=== PATIENT | female | born 1940 | race Caucasian/White ===

== ENCOUNTER 2019-04-28 09:09 | Outpatient (CLI) | payer MEDICARE, MEDICAID, SELFPAY ==
--- NOTE | 2019-04-28 09:14 | CT_ITS ---
WS: [id number] CT NECK WITH CONTRAST HISTORY: OTHER SPECIFIED NONTOXIC GOITER TECHNIQUE: Contiguous 5 mm axial images are performed through the neck with intravenous contrast. Sag ittal and coronal reformats are also submitted. All CT scans at [facility] use at least o ne of these dose optimization techniques: automated exposure control; mA and/or kV adjustment per pat ient size (includes targeted exams where dose is matched to clinical indication); or iterative recons truction. CONTRAST: CONTRAST: Omnipaque 300; 95 mL IV. DLP: 1671.07 mGy-cm. COMPARISON: 05/19/2017 and 02/29/2016 Nasopharynx, oropharynx, hypopharynx and larynx are unremarkable. No soft tissue masses or abnormal e nhancement. Again noted is a mildly prominent RIGHT digastric muscle which is unchanged. Torus tubarius and fossa of Rosenmuller and parapharyngeal fat are normal. No significant lymphadenopathy is identified. Markedly enlarged heterogeneous LEFT thyroid. Multinodular thyroid with cystic and calcified componen ts. LEFT thyroid goiter extends over length of 5.2 cm in the LEFT neck. Substernal thyroid extends po sterior to the esophagus to the RIGHT mediastinum. Posterior esophageal component is 2.1 x 3.0 cm. Tr ansverse diameter of the main goiter is 4.1 cm. Not significantly changed in size since 02/29/2016. De viation of the trachea to the RIGHT. RIGHT thyroid lobe is normal. Degenerative disc disease and osteophytes throughout the cervical spine. 3 mm retrolisthesis of C3. Visualized portions of the skull base demonstrate no abnormalities. Orbits and globes are within norm al limits. No soft tissue masses. Visualized paranasal sinuses and mastoid air cells are normal. Dependent changes and interstitial thickening in the upper lung kirk, similar to prior studies. Pro bably related to combination of motion artifact and chronic lung disease. Similar to the prior study. Mild atherosclerosis of aorta. CT/CT neck w con* [id number] IMPRESSION: 1. Large LEFT thyroid goiter with retroesophageal extension into the RIGHT med iastinum similar in appearance as compared to 02/29/2016 and 05/19/2017. 2. No adenopathy. 3. Advanced degenerative spondylosis in the cervical spine.
[2019-04-28 09:57] LABS: Blood Urea Nitrogen 21 mg/dL (8-23)
== END 2019-04-28 09:10 | disposition home or self-care (01) ==
LOC: RADWPI 09:11
PROVIDERS: Family Provider Family Medicine; PCP Family Medicine; Visit Provider Specialist
DX: E04.8 Other specified nontoxic goiter (principal); M47.892 Other spondylosis, cervical region
CPT/HCPCS: 70491; 82565; 84520; Q9967

== ENCOUNTER 2019-05-03 08:47 | Outpatient (CLI) | payer MEDICARE, MEDICAID, SELFPAY ==
--- NOTE | 2019-05-03 09:02 | FL_ITS ---
WS: [id number] Modified barium swallow, 05/03/2019 Clinical Data: Other dysphagia Comparison: None. Fluoroscopy time: .5 minutes. Findings: The patient swallowed thin liquids, thick nectar and pudding and had no problem initiating swallowing . There was no vallecular pooling. No aspiration or penetration was seen. The patient's shoulder obs cures detail in the lower hypopharynx and upper esophagus. FL/FL barium swallow modifd [id number] Impression: Normal modified barium swallow.
== END 2019-05-03 08:48 | disposition home or self-care (01) ==
PROVIDERS: Family Provider Family Medicine; PCP Family Medicine; Visit Provider Specialist
DX: E04.8 Other specified nontoxic goiter (principal)
CPT/HCPCS: 74230; 92611

== ENCOUNTER 2019-09-05 10:29 | Outpatient (CLI) | payer MEDICARE, MEDICAID, SELFPAY ==
--- NOTE | 2019-09-05 11:02 | FL_ITS ---
WS: [id number] MODIFIED BARIUM SWALLOW HISTORY: Other dysphagia FLUOROSCOPY TIME: 1.3 minutes. Modified barium swallow was performed by the speech pathologist. Fluoroscopy was provided with the pa tient in a lateral projection. Multiple food consistencies were provided. Patient to follow all food consistencies without difficulty. No aspiration. With the thin liquid erik ral episodes of laryngeal penetration were evident. Barium tablet was swallowed without difficulty. FL/FL barium swallow modifd [id number] IMPRESSION: Minimal laryngeal penetration was noted with the thin liquids. Otherwise negati ve. Please see speech therapist report also for recommendations.
== END 2019-09-05 10:30 | disposition home or self-care (01) ==
PROVIDERS: PCP Family Medicine; Visit Provider Family Medicine
DX: R13.19 Other dysphagia
CPT/HCPCS: 74230; 92611

== ENCOUNTER 2019-10-07 08:39 | Outpatient (CLI) | payer MEDICARE, MEDICAID, SELFPAY ==
--- NOTE | 2019-10-07 08:57 | CT_ITS ---
WS: [id number] CT NECK TECHNIQUE: Contrast-enhanced CT of the neck with coronal and sagittal reformatted images. CLINICAL INFORMATION: NON TOXIC GOITER COMPARISON: CT 04/28/2019 and 05/19/2017 DLP: 1882.[address] scans at [facility] use at least one of these dose optimization techniques: automat ed exposure control; mA and/or kV adjustment per patient size (includes targeted exams where dose is matched to clinical indication); or iterative reconstruction. FINDINGS: Again seen is the enlarged heterogeneous thyroid goiter. Multinodular goiter with heterogeneous cysti c and calcified nodules. Left thyroid goiter measures approximately 2.6 x 5.4 x 3.5 CM AP by transver se by craniocaudal unchanged from previous. Associated mass effect on the trachea. Stable retroesopha geal component measuring 2.2 x 3.0 CM. Left thyroid goiter extends substernally into the thoracic inl et unchanged. Right thyroid is normal. Submandibular glands are normal. Parotid glands are normal. Normal posterior nasopharynx. Normal para pharyngeal fat. Mastoid air cells are well aerated. Paranasal sinuses are well aerated. Moderate spon dylitic changes cervical spine with disc osteophyte complexes. IMPRESSION: 1. Large left thyroid goiter with substernal and retroesophageal extension not significantly changed . Heterogeneous cystic and solid thyroid nodules unchanged. 2. Salivary glands are normal. 3. No cervical lymphadenopathy.
[2019-10-07] MEDS: iohexol 300 mg/mL 100 mL Btl IV (09:18)
== END 2019-10-07 08:40 | disposition home or self-care (01) ==
LOC: RADWPI 08:42
PROVIDERS: PCP Family Medicine; Visit Provider Specialist
DX: E04.8 Other specified nontoxic goiter (principal)
CPT/HCPCS: 70491; Q9967

== ENCOUNTER 2019-10-14 09:06 | Outpatient (CLI) | payer MEDICARE, MEDICAID, SELFPAY ==
--- NOTE | 2019-10-14 09:53 | USCV_ITS ---
Florencia Bradley Age: 79 Gender: F : 1940 Exam Date: 10/14/2019 10:29 Ordering Phys: Claudia Christian MD Technologist: Keri Capellan [place] [facility] [place]: [place] BP: / HR: 68 Rhythm: Sinus Technical Quality: TDS MEASUREMENTS (Male / Female) Normal Values 2D ECHO LV Diastolic Diameter PLAX 4.7 cm 4.2 - 5.9 / 3.9 - 5.3 cm LV Systolic Diameter PLAX 3.1 cm LV Chamber Size 4.1 cm IVS Diastolic Thickness 1.1 cm 0.6 - 1.0 / 0.6 - 0.9 cm IVS Systolic Thickness 1.8 cm LVPW Diastolic Thickness 1.3 cm 0.6 - 1.0 / 0.6 - 0.9 cm LVPW Systolic Thickness 1.6 cm RV Chamber Size 3.4 cm LVOT Diameter 2.0 cm LV Ejection Fraction 2D Teich 64.0 % LV Ejection Fraction MOD 2C 71.6 % LV Ejection Fraction 2C AL 71.6 % LA Diameter 4.1 cm LA Width 3.1 cm LA Height 4.0 cm RA Width 3.9 cm RA Height 4.1 cm Aorta at Sinotubular Diameter 2.6 cm M-MODE LV Diastolic Diameter MM 5.5 cm 4.2 - 5.9 / 3.9 - 5.3 cm LV Systolic Diameter MM 3.5 cm LV Ejection Fraction MM Teich 65.7 % IVS Diastolic Thickness MM 0.9 cm 0.6 - 1.0 / 0.6 - 0.9 cm IVS Systolic Thickness MM 1.3 cm LVPW Diastolic Thickness MM 1.5 cm 0.6 - 1.0 / 0.6 - 0.9 cm LVPW Systolic Thickness MM 1.2 cm RV Diastolic Diameter MM 2.9 cm Aortic Annulus Diameter 2.5 cm LA Ao Ratio MM 1.6 MV E Point Septal Separation 0.5 cm DOPPLER AV Peak Velocity 168.0 cm/s LVOT Peak Velocity 87.0 cm/s AV Area Cont Eq vti 1.7 cm squared AV Area Cont Eq pk 1.7 cm squared MV Area PHT 5.0 cm squared Mitral E to A Ratio 1.0 MV E' Velocity 8.0 cm/s Mitral E to MV E' Ratio 15.2 Mitral E to LV E' Lateral Ratio 13.1 Mitral E to LV E' Septal Ratio 18.3 TR Peak Velocity 177.2 cm/s TR Peak Gradient 12.6 mmHg TR Mean Velocity 120.0 cm/s TR Mean Gradient 7.0 mmHg TR Velocity Time Integral 38.0 cm TV Peak E Velocity 80.0 cm/s Right Atrial Pressure 8.0 mmHg Pulmonary Artery Systolic Pressu 20.6 mmHg PV Peak Velocity 112.0 cm/s RV Acceleration Time 0.1 s RV Ejection Time 0.4 s RV AcT/ET 0.3 FINDINGS Left Ventricle Normal left ventricular size, systolic function and wall thickness. Left ventricular ejection fraction is estimated at 65 %. No diagnostic regional wall motion abnormality based on the study. Abnormal septal motion. Grade 1 diastolic dysfunction with normal to mildly elevated filling pressure. Right Ventricle Normal right ventricular size and systolic function, RVSP 25 mmHg. Right Atrium Right atrium not well visualized. Right atrial pressure estimated at 3 mmHg. Left Atrium Left atrium not well visualized. Probably mildly increased left atrial size. Mitral Valve Mild mitral annular calcification. Mildly thickened mitral valve. No mitral valve stenosis. Trace mitral valve regurgitation. Aortic Valve Structurally normal trileaflet aortic valve. No aortic valve stenosis. Tricuspid Valve Structurally normal tricuspid valve. Trace tricuspid valve regurgitation. Pulmonic Valve Pulmonic valve not well visualized. Pericardium No pericardial effusion. Aorta Normal-sized aortic root. CONCLUSIONS 1. Normal left ventricular size, systolic function and wall thickness. Left ventricular ejection fraction is estimated at 65 %. No diagnostic regional wall motion abnormality based on the study. Abnormal septal motion. Grade 1 diastolic dysfunction with normal to mildly elevated filling pressure. 2. Normal right ventricular size and systolic function, RVSP 25 mmHg. 3. Right atrial pressure estimated at 3 mmHg. 4. Probably mildly increased left atrial size. 5. No significant valvular abnormality. 6. No prior similar studies to compare. Jaon Pagan MD (Electronically Signed) Final Date: 14 October 2019 13:37 S
--- NOTE | 2019-10-14 12:27 | PFTS_ITS ---
Date of Study:10/14/19 Date of Dictation: MECHANICS: Forced vital capacity (FVC) is normal. Forced expiratory volume in one second (FEV1) is normal. FEV1/FVC is normal. FLOW VOLUME LOOP: Mild scooping. LUNG VOLUMES: Total lung capacity (TLC) is normal. Residual volume (RV) is normal. DIFFUSING CAPACITY FOR CARBON MONOXIDE: Normal. INTERPRETATION: The pulmonary function tests are normal. There is no significant postbronchodilator response. Lung volumes are normal. Gas exchange (DLCO) is normal. MTDD
== END 2019-10-14 09:07 | disposition home or self-care (01) ==
LOC: RT 09:07
PROVIDERS: PCP Family Medicine; Visit Provider Internal Medicine Critical Care Medicine
DX: J96.11 Chronic respiratory failure with hypoxia (principal); I51.81 Takotsubo syndrome
CPT/HCPCS: 93306; 94060; 94726; 94729; J7611

== ENCOUNTER 2019-11-07 11:00 | Outpatient (CLI) | payer MEDICARE, MEDICAID, SELFPAY | END 2019-11-07 11:01 | disposition home or self-care (01) | LOC: SLEEP 11-08 10:26 | PROVIDERS: PCP Family Medicine; Visit Provider Internal Medicine Critical Care Medicine | DX: J96.11 Chronic respiratory failure with hypoxia (principal) | CPT/HCPCS: 94762 ==

== ENCOUNTER 2020-07-23 12:21 | Outpatient (CLI) | payer MEDICARE, MEDICAID, SELFPAY | END 2020-07-23 12:22 | disposition home or self-care (01) | LOC: SPT 12:22 | PROVIDERS: PCP Family Medicine; Visit Provider Orthopaedic Surgery | DX: Z46.89 Encounter for fitting and adjustment of other specified devices (principal); M19.031 Primary osteoarthritis, right wrist | CPT/HCPCS: L3908 ==

== ENCOUNTER 2021-11-20 17:00 | Emergency (ER) | payer MEDICARE, MEDICAID, SELFPAY ==
--- NOTE | 2021-11-20 | XRR_ITS ---
PROCEDURE INFORMATION: Exam: XR Pelvis Exam date and time: 11/20/2021 7:50 PM Age: 81 years old Clinical indication: Pelvic pain TECHNIQUE: Imaging protocol: Radiologic exam of the pelvis. Views: 1 or 2 view. COMPARISON: CR Hip 2-3v RIGHT wwo Pelv* [id number] 04/14/2017 6:17 AM FINDINGS: Bones/joints: Osteopenia limiting assessment of nondisplaced acute osseous injury. Bilateral total hip prostheses in good and stable alignment. No obvious displaced acute fracture or dislocation. Leftward lower lumbar spine scoliosis with multilevel disc degeneration. Soft tissues: Unremarkable. Other findings: Two views submitted. XR/XR pelvis 1-2V* [id number] IMPRESSION: Osteopenia limiting assessment of nondisplaced acute osseous injury. No obvious acute fracture is seen otherwise. Bilateral hip prostheses in good alignment.
--- NOTE | 2021-11-20 18:22 | CTR_ITS ---
PROCEDURE INFORMATION: Exam: CT Lumbar Spine Without Contrast Exam date and time: 11/20/2021 7:34 PM Age: 81 years old Clinical indication: Low back pain TECHNIQUE: Imaging protocol: Computed tomography of the lumbar spine without contrast. Radiation optimization: All CT scans at this facility use at least one of these dose optimization techniques: automated exposure control; mA and/or kV adjustment per patient size (includes targeted exams where dose is matched to clinical indication); or iterative reconstruction. COMPARISON: No relevant prior studies available. RADIATION DOSE METRICS: Total DLP (mGy-cm): 524.23 FINDINGS: Bones/joints: Osteopenia. Rotatory leftward scoliosis of lumbar spine. Multilevel severe vacuum disc degeneration with endplate osteophytes and facet arthropathy. Minimal anterior wedging deformity at L3 with no discrete fracture and is probably chronic however clinical correlation/comparison prior study should be obtained. Otherwise no acute lumbar spine fracture or subluxation. Deformity of left L2 transverse process is likely related to old healed fracture. L1-L2: No significant disc protrusion. No severe spinal canal stenosis. No significant neural foraminal narrowing. L2-L3: No significant disc protrusion. No severe spinal canal stenosis. No significant neural foraminal narrowing. L3-L4: No significant disc protrusion. No severe spinal canal stenosis. No significant neural foraminal narrowing. L4-L5: No significant disc protrusion. No severe spinal central canal stenosis. Disc osteophyte complex and hypertrophic facet elements likely resulting in foraminal stenosis. L5-S1: No significant disc protrusion. No severe spinal canal stenosis. Disc osteophyte complex and hypertrophic facet elements likely resulting in foraminal stenosis. Mediastinal space: Hiatal hernia measuring about 3.4 cm. Vasculature: Calcified splenic granuloma. Soft tissues: Unremarkable. CT/CT lumbar spine wo con* [id number] IMPRESSION: 1. Slight anterior wedging deformity at L3 which is possibly chronic. See discussion above. Otherwise no acute spine fracture-subluxation. Multilevel disc disease and chronic endplate/facet disease with spondylosis as described above. No significant central canal stenosis related to osseous elements. 2. Hiatal hernia.
[2021-11-20 18:44] VITALS: BP 181/73; PULSE 75; RESP 18; TEMP 37; O2SAT 95; BMI 51.5
--- NOTE | 2021-11-20 19:12 | ED_ITS ---
HPI - Back Pain/Injury General: Chief Complaint: Back Pain/Injury Stated Complaint: LOW BACK PAIN Time Seen by Provider: 11/20/21 19:01 History of Present Illness: 81-year-old female comes in today with complaints of right lower back pain. Patient reports that the pain started this morning and has persisted throughout the day. Patient did have improvement of the pain after taking her tramadol and acetaminophen. Patient was concerned that due to the pain persisting that there may be something else going on. Patient appears nontoxic. Patient appears in mild to moderate pain at rest at this time. Patient does have a history of chronic back problems and bilateral hip and kassy ateral knee replacements. Review of Systems General: Reports: 10 or more systems reviewed and unremarkable except in HPI and below Musc: Reports: back pain PFSH ED PFSH: Medical History (Updated 11/20/21 @ 20:55 by CELINE Morales) Asthma CAD (coronary artery disease) Cataracts, bilateral GERD (gastroesophageal reflux disease) Glaucoma Goiter HTN (hypertension) Hyperlipidemia PAULA (obstructive sleep apnea) Type 2 diabetes mellitus Surgical History H/O dilation and curettage H/O rotator cuff surgery H/O shoulder surgery History of cholecystectomy History of hip replacement, total History of hysterectomy History of knee replacement Hx of cataract surgery Hx of tonsillectomy Stented coronary artery Family History Father Myocardial infarction Mother Diabetes Social History Smoking and tobacco status: never smoked Second hand smoke exposure: Yes Alcohol intake: never Lives independently: Yes Household members: family Marital status: Current occupational status: retired and disabled History of recent travel: No Current gender identity: Female Physical Exam Const: COMMON NORMALS: alert HENMT: COMMON NORMALS: normocephalic HEAD & SCALP: normocephalic Neck/C-Spine: COMMON NORMALS: full ROM Resp: COMMON NORMALS: normal respiratory effort Cardio: COMMON NORMALS: regular rate RATE: regular rate Back/Pelvis: THORACIC SPINE/UPPER BACK: No thoracic spinal tenderness LUMBAR SPINE/LOWER BACK: No lumbar spinal tenderness, Yes paraspinal muscle tenderness Lumbar paraspinal muscle tenderness: right and Yes straight leg raise negative bilaterally Extremity: COMMON NORMALS: normal to inspection Neuro: SENSORIUM/ORIENTATION: Yes alert Skin: COMMON NORMALS: no rashes or lesions noted GENERAL SKIN EXAM: no rashes or lesions noted Course Vital Signs: Vital signs: Vital Signs Temperature 98.6 F 11/20/21 18:44 Pulse Rate 78 11/20/21 20:20 Respiratory Rate 18 11/20/21 20:20 Blood Pressure 172/70 11/20/21 20:20 Pulse Oximetry 96 11/20/21 20:20 Oxygen Delivery Me thod 11/20/21 20:20 Oxygen Flow Rate 3 11/20/21 20:20 MDM - Back Pain/Injury Medical Decision Making 81-year-old female comes in today for complaints of right-sided low back pain. Patient reports in the morning she usually wakes up and has pain that seems to resolve throughout the day. Today she is had persistent pain. On exam there is no significant spinal tenderness. Patient does have some right-sided paraspinous lumbar tenderness. Vital signs are normal except for some elevation in blood pressure. Differential diagnosis includes but not limited to intervertebral disc disease, fracture, facet arthropathy. X-rays noted no acute fractures. Patient does have a old wedge deformity to her L3 vertebra. Reviewed exam with patient with recommendations for treatment and follow-up. Patient has tramadol and acetaminophen at home which I recommended that she use more routinely for her pain. Patient should follow-up with her primary care for further instruction. Return to ER for new concerns, patient reported understanding. Labs Radiology Impressions Pelvis X-Ray 11/20/21 00:00 IMPRESSION: Osteopenia limiting assessment of nondisplaced acute osseous injury. No obvious acute fracture is seen otherwise. Bilateral hip prostheses in good alignment. Lumbar Spine CT 11/20/21 18:22 IMPRESSION: 1. Slight anterior wedging deformity at L3 which is possibly chronic. See discussion above. Otherwise no acute spine fracture-subluxation. Multilevel disc disease and chronic endplate/facet disease with spondylosis as described above. No significant central canal stenosis related to osseous elements. 2. Hiatal hernia. Laboratory Results POC Glucose 136 mg/dL (70-110) H 11/20/21 20:31 Discharge Plan Discharge Patient Disposition: Home Clinical Impression: Back pain, Compression fracture of lumbosacral vertebra, nontraumatic Condition: Stable Prescriptions: No Action albuterol sulfate [Ventolin HFA] 90 mcg/actuation HFA aerosol inhaler 2 puff INHALATION Q6H PRN celecoxib 200 mg capsule 200 mg PO BID aspirin [Adult Aspirin Regimen] 81 mg tablet,delayed release (DR/EC) 81 mg PO DAILY metformin 500 mg tablet 500 mg PO DAILY Tradjenta 5 mg tablet 5 mg PO DAILY valsartan 40 mg tablet 40 mg PO DAILY pravastatin 80 mg tablet 80 mg PO DAILY omeprazole 40 mg capsule,delayed release(DR/EC) 40 mg PO DAILY furosemide 40 mg tablet 40 mg PO DAILY tramadol 50 mg tablet 100 mg PO BID fluticasone propionate [Flonase Allergy Relief] 50 mcg/actuation spray,suspension 2 spray INTRANASAL DAILY Rx Instructions: administer into each nostril Combigan 0.2-0.5 % drops 1 drop ophthalmic (eye) BID acetaminophen PO calcium carbonate [Calcium 600] 600 mg calcium (1,500 mg) tablet 600 mg PO DAILY travoprost [Travatan Z] 0.004 % drops 1 drop ophthalmic (eye) DAILY (DME) Cock Up Splint See Rx Instructions .ROUTE .MEDSUPPLY Qty: 1 0RF Rx Instructions: As directed isosorbide mononitrate 120 mg tablet extended release 24 hr 120 mg PO DAILY Qty: 90 3RF metoprolol tartrate 50 mg tablet 50 mg PO BID Qty: 180 3RF chlorthalidone 25 mg tablet 25 mg PO DAILY Qty: 30 0RF Rx Instructions: Needs appointment budesonide-formoterol [Symbicort] 80-4.5 mcg/actuation HFA aerosol inhaler 2 puff inhalation Q12H Qty: 30.6 6RF amlodipine 10 mg tablet See Rx Instructions .ROUTE .COMPLEX Qty: 90 3RF Dose Instruction: TAKE 1 TABLET BY MOUTH EVERY DAY Rx Instructions: TAKE 1 TABLET BY MOUTH EVERY DAY Discharge Orders: Discharge ED (Routine); Ordered 11/20/21 Ordered By: Yvan Gallardo Referrals: Madhu Stern MD [Primary Care Provider] - Discharge Diet: Usual diet Discharge Activity: Increase activity as tolerated Patient Instructions: Back Pain (ED) Activity Restrictions/Additional Instructions: Home and rest. Activity as tolerated. Continue with routine medications as directed. Follow-up with primary care for further instruction. Return to ER for new concerns. Coding Level of Care Code ED Drug Room Operator for Chg Fwd Exam Comprehensive
[2021-11-20] MEDS: HYDROcodone-acetaminophen 5-325 mg Tablet 1 TAB PO (20:08)
[2021-11-20 20:20] VITALS: BP 172/70; PULSE 78; RESP 18; O2SAT 96
[2021-11-20 20:34] LABS: Glucose Point of Care 136 mg/dL (70-110)
== END 2021-11-20 21:56 | disposition home or self-care (01) ==
PROVIDERS: Emergency Provider Nurse Practitioner Family; PCP Family Medicine
DX: M48.57XA Collapsed vertebra, not elsewhere classified, lumbosacral region, initial encounter for fracture (principal); Z79.82 Long term (current) use of aspirin; Z79.84 Long term (current) use of oral hypoglycemic drugs; Z77.22 Contact with and (suspected) exposure to environmental tobacco smoke (acute) (chronic); I25.10 Atherosclerotic heart disease of native coronary artery without angina pectoris; I10 Essential (primary) hypertension; E78.5 Hyperlipidemia, unspecified; E11.9 Type 2 diabetes mellitus without complications
CPT/HCPCS: 36416; 72131; 72170; 82962; 99284

== ENCOUNTER 2022-04-26 15:10 | Inpatient (IN) | payer MEDICARE, MEDICAID, SELFPAY ==
[2022-04-26] VITALS (9 sets, daily range): BP systolic 131–185; BP diastolic 51–75; PULSE 46–66; RESP 17–24; TEMP 36.6–36.8; O2SAT 91–95; BMI 54.1
--- NOTE | 2022-04-26 15:14 | W.ED.ARRPALP ---
HPI - Arrhythmia/Palpitations General: Chief Complaint: Dizziness Stated Complaint: DIZZY; BRADYCARDIA Time Seen by Provider: 04/26/22 15:13 Source: patient Mode of arrival: EMS History of Present Illness: 82-year-old female presents emergency room with complaints of dizziness as well as bradycardia. Patient got up this morning said she was drinking coffee got lightheaded and dizzy and found that when she sat up it was significantly worse. 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 She has a known history of coronary disease. She relates some occasional mild chest discomfort at most once a week that is unchanged over time and has not recently increased in intensity or frequency. She not having any chest discomfort at this time. When she sits up in the bed for exam she has worsening dizziness. When she got up to the bedside commode she also had worsening dizziness she has noted that when she lays down it is better. Onset (ago): hour(s) Duration: intermittent Severity: mild Context: occurred during exertion Arrhythmia history: atrial fibrillation Associated symptoms: Deny anxiety, cough, diaphoresis, muscle cramps, nausea, paresthesias, pre-syncope, sense of impending doom, short of breath, syncope or vomiting Review of Systems Const: Denies: fever(s), chills, fatigue, malaise or diaphoresis ENMT: Denies: throat pain, ear or mastoid pain, nasal discharge or nasal congestion Card: Reports: palpitations, dyspnea on exertion and orthopnea; Denies: chest pain, irregular heart rhythm, edema, syncope or pre-syncope Resp: Reports: dyspnea and productive cough; Denies: non-productive cough GI: Denies: abdominal pain, nausea or vomiting : Denies: flank pain, difficulty voiding, dysuria, urinary frequency or urinary urgency Musc: Denies: muscle cramps Skin/Breast: Denies: rash or pruritus Psych: Denies: anxiety PFSH ED PFSH: Medical History (Updated 04/26/22 @ 18:46 by Norman Pastor DO) Asthma CAD (coronary artery disease) Cataracts, bilateral GERD (gastroesophageal reflux disease) Glaucoma Goiter HTN (hypertension) Hyperlipidemia PAULA (obstructive sleep apnea) Type 2 diabetes mellitus Surgical History H/O dilation and curettage H/O rotator cuff surgery H/O shoulder surgery History of cholecystectomy History of hip replacement, total History of hysterectomy History of knee replacement Hx of cataract surgery Hx of tonsillectomy Stented coronary artery Family History Father Myocardial infarction Mother Diabetes Social History Smoking and tobacco status: never smoked Second hand smoke exposure: Yes Alcohol intake: never Lives independently: Yes Household members: family Marital status: Current occupational status: retired and disabled History of recent travel: No Current gender identity: Female Physical Exam Const: COMMON NORMALS: no acute distress GENERAL APPEARANCE: cooperative and comfortable ORIENTATION/CONSCIOUSNESS: Yes awake, Yes oriented to person, Yes oriented to place and Yes oriented to time HENMT: COMMON NORMALS: normocephalic, atraumatic and hearing grossly normal bilaterally HEAD & SCALP: normocephalic and atraumatic Resp: COMMON NORMALS: normal respiratory effort, No retractions, No use of accessory muscles and clear to auscultation bilaterally AUSCULTATION: clear to auscultation bilaterally Cardio: COMMON NORMALS: regular rhythm and No murmurs present (Cardio) RATE: bradycardic RHYTHM: regular rhythm GI: COMMON NORMALS: Soft to palpation and No hepatosplenomegaly present AUSCULTATION: Yes normoactive bowel sounds PALPATION: Yes Soft to palpation, No Tenderness to palpation present (GI), No Guarding due to palpation present (GI) and Yes No hepatosplenomegaly present Extremity: COMMON NORMALS: normal to inspection, capillary refill normal, no clubbing, cyanosis or edema, no calf tenderness and no pedal edema Neuro: SENSORIUM/ORIENTATION: Yes oriented to person, Yes oriented to place and Yes oriented to time Skin: COMMON NORMALS: no rashes or lesions noted GENERAL SKIN EXAM: no rashes or lesions noted Course Vital Signs: Vital signs: Vital Signs Pulse Rate 63 04/26/22 16:18 Respiratory Rate 23 H 04/26/22 16:18 Blood Pressure 143/51 04/26/22 16:18 Pulse Oximetry 95 04/26/22 16:18 Oxygen Delivery Me thod 04/26/22 16:18 Oxygen Flow Rate 5 04/26/22 16:18 MDM - Arrhythmia/Palpitations Medical Decision Making Patient has obesity hypoventilation syndrome. She was relatively bradycardic in route however she is on a beta-dougie. She has been mildly hypertensive in the emergency room. She had an echocardiogram 2 years ago that was unremarkable and normal ejection fraction. Chest x-ray early pneumonia, and increased cardiomegaly from previous. She is getting dizzy with exertion and hypoxic. We ambulated her she desatted into the mid 80s on her usual 3 L and became dizzy. Her desaturation began even with sitting up at the bedside. Her BNP is over 2000 do not have a previous BNP to compare to her troponin is only slightly bumped however. Will admit started on ceftriaxone and Zithromax based on the chest x-ray also get echocardiogram to further evaluate. Medical Records I reviewed the patient's medical records. Lab Data I reviewed the patient's lab results. 04/26/22 16:28 04/26/22 16:28 Radiology Impressions Chest X-Ray 04/26/22 16:10 IMPRESSION: 1. Cardiomegaly with elevated central venous pressure. 2. Findings involving the right lower lung zone concerning for pneumonia. Laboratory Results WBC 7.7 10^3/uL (4.0-10.0) 04/26/22 16: RBC 4.40 10^6/uL (4.1-5.3) 04/26/22 16:28 Hgb 11.0 g/dL (11.5-15.3) L 04/26/22 16:28 Hct 37.8 % (37.0-47.0) 04/26/22 16: MCV 85.9 fl (81-99) 04/26/22 16:28 MCH 25.0 pg (28.0-34.0) L 04/26/22 16: MCHC 29.1 g/dL (30.0-36.0) L 04/26/22 16:28 RDW 15.8 % (12.1-15.1) H 04/26/22 16:28 Plt Count 199 10^3/cmm (130-400) 04/26/22 16:28 MPV 10.5 fL (7.4-10.4) H 04/26/22 16:28 Neut % (Auto) 66.4 % 04/26/22 16:28 Lymph % (Auto) 17.3 % 04/26/22 16:28 Sierra % (Auto) 10.1 % 04/26/22 16:28 Eos % (Auto) 4.9 % 04/26/22 16:28 Baso % (Auto) 0.9 % 04/26/22 16:28 Neut # (Auto) 5.10 10^3/uL (1.8-7.7) 04/26/22 16:28 Lymph # (Auto) 1.3 10^3/uL (0.8-4.8) 04/26/22 16:28 Sierra # (Auto) 0.8 10^3/uL (0.2-0.9) 04/26/22 16:28 Eos # (Auto) 0.4 10^3/uL (0.0-0.8) 04/26/22 16:28 Baso # (Auto) 0.1 10^3/uL (0.0-0.1) 04/26/22 16:28 Nucleated RBC % (auto) 0 % 04/26/22 16:28 Nucleated RBCs # 0.0 /100WBC 04/26/22 16:28 Sodium 138 mmol/L (136-145) 04/26/22 16:28 Potassium 5.1 mmol/L (3.5-5.1) 04/26/22 16:28 Chloride 105 mmol/L (98-107) 04/26/22 16:28 Carbon Dioxide 23 mmol/L (22-29) 04/26/22 16:28 Anion Gap 15.1 (5-19) 04/26/22 16:28 BUN 31 mg/dL (8-23) H 04/26/22 16:28 Creatinine 0.7 mg/dL (0.5-0.9) 04/26/22 16:28 GFR Calculation Not Reportable 04/26/22 16:28 Glucose 116 mg/dL (65-115) H 04/26/22 16:28 Calculated Osmolality 294 mOsm/kg (285-295) 04/26/22 16:28 Calcium 8.9 mg/dL (8.5-10.5) 04/26/22 16:28 Total Bilirubin 0.7 mg/dL (0.15-1.2) 04/26/22 16:28 AST 15 U/L (0-32) 04/26/22 16:28 ALT 10 U/L (0-33) 04/26/22 16:28 Alkaline Phosphatase 75 U/L (35-105) 04/26/22 16:28 Troponin T Baseline 13 ng/L (0-10) H 04/26/22 16:28 NT-Pro-B Natriuret Pep 2099 pg/mL (0-450) H 04/26/22 16:28 Total Protein 6.7 g/dL (6.6-8.7) 04/26/22 16:28 Albumin 4.4 g/dL (3.5-5.2) 04/26/22 16:28 Globulin 2.3 g/dL (1.3-4.6) 04/26/22 16:28 Influenza Type A Ag negative (Negative) 04/26/22 17:04 Influenza Type B Ag negative (Negative) 04/26/22 17:04 Discharge Plan Discharge Patient Disposition: Placed in Observation Clinical Impression: Pneumonia, Hypoxia, Cardiomegaly Condition: Stable Prescriptions: No Action albuterol sulfate [Ventolin HFA] 90 mcg/actuation HFA aerosol inhaler 2 puff INHALATION Q6H PRN celecoxib 200 mg capsule 200 mg PO BID aspirin [Adult Aspirin Regimen] 81 mg tablet,delayed release (DR/EC) 81 mg PO DAILY metformin 500 mg tablet 500 mg PO DAILY Tradjenta 5 mg tablet 5 mg PO DAILY valsartan 40 mg tablet 40 mg PO DAILY pravastatin 80 mg tablet 80 mg PO DAILY omeprazole 40 mg capsule,delayed release(DR/EC) 40 mg PO DAILY furosemide 40 mg tablet 40 mg PO DAILY tramadol 50 mg tablet 100 mg PO BID fluticasone propionate [Flonase Allergy Relief] 50 mcg/actuation spray,suspension 2 spray INTRANASAL DAILY Rx Instructions: administer into each nostril Combigan 0.2-0.5 % drops 1 drop ophthalmic (eye) BID acetaminophen PO calcium carbonate [Calcium 600] 600 mg calcium (1,500 mg) tablet 600 mg PO DAILY travoprost [Travatan Z] 0.004 % drops 1 drop ophthalmic (eye) DAILY (DME) Cock Up Splint See Rx Instructions .ROUTE .MEDSUPPLY Qty: 1 0RF Rx Instructions: As directed isosorbide mononitrate 120 mg tablet extended release 24 hr 120 mg PO DAILY Qty: 90 3RF metoprolol tartrate 50 mg tablet 50 mg PO BID Qty: 180 3RF chlorthalidone 25 mg tablet 25 mg PO DAILY Qty: 30 0RF Rx Instructions: Needs appointment budesonide-formoterol [Symbicort] 80-4.5 mcg/actuation HFA aerosol inhaler 2 puff inhalation Q12H Qty: 30.6 6RF amlodipine 10 mg tablet See Rx Instructions .ROUTE .COMPLEX Qty: 90 3RF Dose Instruction: TAKE 1 TABLET BY MOUTH EVERY DAY Rx Instructions: TAKE 1 TABLET BY MOUTH EVERY DAY Referrals: Madhu Stern MD [Primary Care Provider] - Patient Instructions: Opioid Safety, Pain Management Coding Level of Care Code ED Repair Table Operator for Chg Fwd Exam Detailed
--- NOTE | 2022-04-26 15:36 | ECG_ITS ---
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 Measurements Intervals [place] Rate: 54 P: 0 NM: 0 QRS: 72 QRSD: 85 T: 87 QT: 427 QTc: 407 Interpretive Statements ATRIAL FIBRILLATION WITH SLOW VENTRICULAR RESPONSE LOW QRS VOLTAGE [QRS DEFLECTION < 0.5/1.0 mV IN LIMB/CHEST LEADS] POSSIBLE ANTERIOR MYOCARDIAL INFARCTION , PROBABLY OLD [30 ms Q WAVE IN V3/V4, OR R < 0.2 mV IN V4] Compared to ECG 04/14/2017 06:06:49 Myocardial infarct finding now present Sinus bradycardia no longer present Sinus arrhythmia no longer present First degree AV block no longer present ST (T wave) deviation no longer present Electronically Signed On 04-27-2022 20:10:49 ORAL SURGERY PHYSICIAN by Omkar Dunn M.D. [id number] lambert
--- NOTE | 2022-04-26 16:10 | XRR_ITS ---
PROCEDURE INFORMATION: Exam: XR Chest Exam date and time: 04/26/2022 4:18 PM Age: 82 years old Clinical indication: Cough and dyspnea; Patient HX: Dyspnea, cough, bradycardia, dizziness, symptom onset today. ; Additional info: Dyspnea/cough TECHNIQUE: Imaging protocol: Radiologic exam of the chest. Views: 1 view. COMPARISON: CR XR chest 2V* [id number] 08/22/2019 1:32 PM FINDINGS: Lungs: There is prominence of the right hilum with faint peribronchial opacities extending below the right hilum into the right lower lobe that may be due to pneumonia in needs follow-up. Remaining lung kirk are essentially clear for degree of inspiration. Pleural spaces: Unremarkable. No pleural effusion. No pneumothorax. Heart/Mediastinum: Cardiac silhouette is enlarged. There is pulmonary vascular redistribution indicating elevated central venous pressure. Bones/joints: Unremarkable for age. XR/XR chest 1V portable [id number] IMPRESSION: 1. Cardiomegaly with elevated central venous pressure. 2. Findings involving the right lower lung zone concerning for pneumonia.
[2022-04-26 16:36] LABS: Basophils # 0.1 10^3/uL (0.0-0.1); Basophils % 0.9 %; Eosinophils # 0.4 10^3/uL (0.0-0.8); Eosinophils % 4.9 %; Hematocrit 37.8 % (37.0-47.0); Lymphocytes # 1.3 10^3/uL (0.8-4.8); Lymphocytes % 17.3 %; Mean Corpuscular HGB Conc 29.1 g/dL (30.0-36.0); Mean Corpuscular Volume 85.9 fl (81-99); Mean Platelet Volume 10.5 fL (7.4-10.4); Monocytes # 0.8 10^3/uL (0.2-0.9); Monocytes % 10.1 %; Neutrophils % 66.4 %; Nucleated Red Blood Cells % 0 %; Platelet Count 199 10^3/cmm (130-400); Red Cell Distribution Width 15.8 % (12.1-15.1); White Blood Count 7.7 10^3/uL (4.0-10.0)
[2022-04-26 16:55] LABS: Troponin(5th) Baseline 13 ng/L (0-10)
[2022-04-26 17:02] LABS: Alanine Aminotransferase 10 U/L (0-33); Albumin Level 4.4 g/dL (3.5-5.2); Alkaline Phosphatase 75 U/L (35-105); Anion Gap 15.1 (5-19); Aspartate Amino Transferase 15 U/L (0-32); Blood Urea Nitrogen 31 mg/dL (8-23); Calcium 8.9 mg/dL (8.5-10.5); Carbon Dioxide 23 mmol/L (22-29); Chloride 105 mmol/L (98-107); Globulin 2.3 g/dL (1.3-4.6); Glucose 116 mg/dL (65-115); NT Pro B Type Natriuretic Pept 2099 pg/mL (0-450); Osmolality Calculated 294 mOsm/kg (285-295); Potassium 5.1 mmol/L (3.5-5.1); Sodium 138 mmol/L (136-145); Total Bilirubin 0.7 mg/dL (0.15-1.2); Total Protein 6.7 g/dL (6.6-8.7)
--- NOTE | 2022-04-26 17:07 | PC.NURSE ---
PT PLACED ON CONTINUOUS NIBP, SPO2, AND CM
--- NOTE | 2022-04-26 17:15 | ECG_ITS ---
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 Measurements Intervals [place] Rate: 59 P: 0 WA: 0 QRS: 48 QRSD: 117 T: 86 QT: 409 QTc: 408 Interpretive Statements ATRIAL FIBRILLATION WITH SLOW VENTRICULAR RESPONSE LOW QRS VOLTAGE IN PRECORDIAL LEADS [QRS DEFLECTION < 1.0 mV IN CHEST LEADS] POSSIBLE ANTERIOR MYOCARDIAL INFARCTION , PROBABLY OLD [30 ms Q WAVE IN V3/V4, OR R < 0.2 mV IN V4] ABNORMAL RHYTHM ECG Compared to ECG 04/26/2022 15:36:04 No significant changes Electronically Signed On 04-27-2022 20:22:47 LOGGER DRIVING HORSES by Omkar Dunn M.D. [id number]
[2022-04-26 17:33] LABS: Influenza A by IFA negative (Negative); Influenza B by IFA negative (Negative)
--- NOTE | 2022-04-26 18:38 | PC.NURSE ---
DR. KRUGER GAVE VERBAL ORDER TO AMBULATE PT ON O2 WITH CONTINUOUS PULSE OX. PT ON USUAL 3L O2. PT SAT UP ON SIDE OF BED AND SATS DROPPED TO 88% FROM 94% PT ALSO BECAME VERY DIZZY. PT SAT ON SIDE OF BED FOR 5 MINUTES BEFORE SATS REACHED 92% AGAIN. DR KRUGER NOTIFIED AND INSTRUCTED TO RETURN PT TO BED.
[2022-04-26 18:41] LABS: Troponin 5 2HR 14.35 ng/L (0-10)
[2022-04-26 18:44] LABS: Troponin 5 2HR Delta 1.35 ABS# (0-10)
[2022-04-26] MEDS: cefTRIAXone 1,000 MG in sodium chloride 0.9% (plus) 50 ML 100 MG IV (20:22)
[2022-04-26] MEDS: azithromycin 500 MG in sodium chloride 0.9% 250 ML 250 MG IV (20:25)
--- NOTE | 2022-04-26 20:29 | CTR_ITS ---
PROCEDURE INFORMATION: Exam: CT Head Without Contrast Exam date and time: 04/26/2022 9:17 PM Age: 82 years old Clinical indication: Dizziness; Additional info: Dizzyness TECHNIQUE: Imaging protocol: Computed tomography of the head without contrast. Radiation optimization: All CT scans at this facility use at least one of these dose optimization techniques: automated exposure control; mA and/or kV adjustment per patient size (includes targeted exams where dose is matched to clinical indication); or iterative reconstruction. COMPARISON: US CV carotid duplex BI* [id number] 04/26/2022 8:37 PM RADIATION DOSE METRICS: Total DLP (mGy-cm): 1234.18 FINDINGS: Brain: No focal hemorrhage or midline shift is identified. The ventricles and parenchyma show mild atrophy and chronic bicerebral white matter ischemic change. Cerebral ventricles: No ventriculomegaly or evidence of hydrocephalus. Paranasal sinuses: No evidence of acute sinusitis. Mastoid air cells: Visualized mastoid air cells are well aerated. Bones/joints: No displaced skull fracture is noted. Soft tissues: Unremarkable. Vasculature: Advanced diffuse vascular calcification noted. CT/CT head wo con* [id number] IMPRESSION: 1. No acute intracranial abnormality. 2. Mild age-related changes.
--- NOTE | 2022-04-26 20:29 | USR_ITS ---
PROCEDURE INFORMATION: Exam: US Duplex Bilateral Extracranial Arteries, Carotid Arteries Exam date and time: 04/26/2022 8:37 PM Age: 82 years old Clinical indication: Dizziness; Additional info: Dizzyness TECHNIQUE: Imaging protocol: Real-time Duplex ultrasound scan of the bilateral carotid and vertebral arteries combining garcia scale, color Doppler and spectral waveform analysis. Bilateral exam. Exam focused on the carotid arteries. COMPARISON: [place] thyroid [id number] 02/12/2021 1:15 PM FINDINGS: Right common carotid artery: Unremarkable. No occlusion or stenosis. Waveforms are normal. Right internal carotid artery: Unremarkable. No occlusion or stenosis. Waveforms are normal. Right ICA/CCA ratio: Within normal limits. Right external carotid artery: No stenosis in the origin. Right vertebral artery: Unremarkable. Antegrade flow. Left common carotid artery: Unremarkable. No occlusion or stenosis. Waveforms are normal. Left internal carotid artery: Unremarkable. No occlusion or stenosis. Waveforms are normal. Left ICA/CCA ratio: Within normal limits. Left external carotid artery: No stenosis in the origin. Left vertebral artery: Unremarkable. Antegrade flow. US/CV carotid duplex BI* [id number] IMPRESSION: 1. Less than 50% bilateral ICA stenosis visualized. No acute finding. 2. Mild bilateral carotid bulb and ICA calcified plaque. Findings are fairly subtle for age. 3. Patent vertebral arteries. REFERENCES: SRU CRITERIA. The degree of internal carotid artery stenosis is based on criteria defined by the Society of Radiologists in Ultrasound (SRU). Normal is no stenosis. Mild is less than 50% stenosis. Moderate is 50-69% stenosis. Severe is greater than 69% stenosis to near occlusion. Near occlusion is a markedly narrowed lumen. Total occlusion is no detectable patent lumen.
--- NOTE | 2022-04-26 20:38 | PM.HP ---
Providers/Chief Complaint Primary Care Provider: Madhu Stern MD Chief Complaint: DIZZY; BRADYCARDIA History of Present Illness Florencia Bradley is a 82 year old female with a past medical history of morbid obesity, obstructive sleep apnea, asthma, chronic respiratory failure, hypertension, obesity hypoventilation syndrome, who presents to [facility] for complaints of dizziness, shortness of breath, increased lower extremity edema. Patient tells me that she has been feeling increasingly short of breath, has had lower extremity edema, today she started to develop dizziness, its unsteadiness on her feet, she normally ambulates with a walker, but she felt short of breath and dizzy with ambulation. No fevers, no chills, no cough. No new facial droop, no slurring of words,, no paresthesias, no focal weakness. She tells her that she gets chronic Botox injections in her left eye by Dr. Bautista, for possible strabismus, she tells me that once the effect starts to wear off she starts to develop some drooping on the left side of her face which is chronic. No nausea, no vomiting, no headache, blurry vision Review of Systems Const: Denies: fever(s) Eyes: Denies: change in vision ENMT: Denies: throat pain Card: Denies: chest pain Resp: Reports: dyspnea GI: Denies: abdominal pain : Denies: flank pain, difficulty voiding or dysuria Musc: Denies: back pain Medications/Allergies Home Medications Medication Instructions Recorded Confirmed Last Taken Type acetaminophen [Tylenol Extra PO 09/27/19 07/23/20 Unknown History Strength] albuterol sulfate 90 mcg/actuation 2 puff inhalation Q6H PRN 09/27/19 07/23/20 Unknown History aerosol inhaler (Ventolin HFA) aspirin 81 mg tablet,delayed 81 mg PO DAILY 09/27/19 07/23/20 Unknown History release (Adult Aspirin Regimen) brimonidine 0.2 %-timolol 0.5 % 1 drop ophthalmic (eye) BID 09/27/19 07/23/20 Unknown History eye drops (Combigan) calcium carbonate 600 mg calcium 600 mg PO DAILY 09/27/19 07/23/20 Unknown History (1,500 mg) tablet (Calcium) celecoxib 200 mg capsule 200 mg PO BID 09/27/19 07/23/20 Unknown History fluticasone propionate 50 2 spray intranasal DAILY 09/27/19 07/23/20 Unknown History mcg/actuation nasal spray,suspension (Flonase Allergy Relief) furosemide 40 mg tablet 40 mg PO DAILY 09/27/19 07/23/20 Unknown History linagliptin 5 mg tablet (Tradjenta) 5 mg PO DAILY 09/27/19 07/23/20 Unknown History metformin 500 mg tablet 500 mg PO DAILY 09/27/19 07/23/20 Unknown History omeprazole 40 mg capsule,delayed 40 mg PO DAILY 09/27/19 07/23/20 Unknown History release pravastatin 80 mg tablet 80 mg PO DAILY 09/27/19 07/23/20 Unknown History tramadol 50 mg tablet 100 mg PO BID 09/27/19 07/23/20 Unknown History travoprost 0.004 % eye drops 1 drop ophthalmic (eye) DAILY 09/27/19 07/23/20 Unknown History (Travatan Z) valsartan 40 mg tablet 40 mg PO DAILY 09/27/19 07/23/20 Unknown History isosorbide mononitrate 120 mg 120 mg PO DAILY #90 tabs 10/20/19 07/23/20 Unknown Rx tablet,extended release 24 hr metoprolol tartrate 50 mg tablet 50 mg PO BID #180 tabs 12/12/19 07/23/20 Unknown Rx chlorthalidone 25 mg tablet 25 mg PO DAILY #30 tabs 07/09/20 07/23/20 Unknown Rx Cock Up Splint #1 ea 07/23/20 07/23/20 Unknown Rx budesonide-formoterol HFA 80 2 puff inhalation Q12H #30.6 ea 03/06/21 Unknown Rx mcg-4.5 mcg/actuation aerosol inhaler (Symbicort) amlodipine 10 mg tablet See Rx Instructions .Route 05/22/21 Unknown Rx .COMPLEX #90 tabs Allergies Allergy/AdvReac Type Severity Reaction Status Date / Time No Known Allergies Allergy Verified 01/26/20 11:27 PFSH Acute PFSH: Medical History (Updated 04/26/22 @ 20:47 by Guido Monge MD) Asthma CAD (coronary artery disease) Cataracts, bilateral GERD (gastroesophageal reflux disease) Glaucoma Goiter HTN (hypertension) Hyperlipidemia PAULA (obstructive sleep apnea) Type 2 diabetes mellitus Surgical History H/O dilation and curettage H/O rotator cuff surgery H/O shoulder surgery History of cholecystectomy History of hip replacement, total History of hysterectomy History of knee replacement Hx of cataract surgery Hx of tonsillectomy Stented coronary artery Family History Father Myocardial infarction Mother Diabetes Social History Smoking and tobacco status: never smoked Second hand smoke exposure: Yes Alcohol intake: never Lives independently: Yes Household members: family Marital status: Current occupational status: retired and disabled History of recent travel: No Current gender identity: Female Vitals/I&O/Wt Last Vital Signs Pulse 59 L 04/26/22 18:39 Resp 24 H 04/26/22 17:30 BP 173/75 04/26/22 18:39 Pulse Ox 92 04/26/22 18:39 O2 Del Method 04/26/22 17:00 O2 Flow Rate 3 04/26/22 17:00 Weight last 48 hrs Weight 113.398 kg Physical Exam Const: COMMON NORMALS: no acute distress and patient oriented x3 HENMT: COMMON NORMALS: normocephalic HEAD & SCALP: normocephalic Eye: COMMON NORMALS: Equal, round and reactive pupils present and EOMs intact bilaterally Neck/C-Spine: COMMON NORMALS: no JVD Resp: COMMON NORMALS: normal respiratory effort, No retractions, No use of accessory muscles and clear to auscultation bilaterally AUSCULTATION: clear to auscultation bilaterally Cardio: COMMON NORMALS: no JVD, regular rate, regular rhythm, S1 normal heart sound present and S2 normal heart sound present RATE: regular rate RHYTHM: regular rhythm HEART SOUNDS: S1 normal heart sound present and S2 normal heart sound present GI: COMMON NORMALS: Normal to inspection, nondistended, normoactive bowel sounds present, Soft to palpation, non-tender, no masses and no bruits PALPATION: Yes Soft to palpation Extremity: COMMON NORMALS: no calf tenderness NARRATIVE EXTREMITY EXAM: 1+ pitting edema bilateral extremity Neuro: COMMON NORMALS: patient oriented x3, CN's II-XII intact bilaterally, moves all extremities and no focal motor deficits Psych: COMMON NORMALS: mental status grossly normal Data 04/26/22 16:28 04/26/22 16:28 Micro: Microbiology 04/26/22 19:39 Blood Culture - Preliminary Blood SPECIMEN COLLECTED 04/26/22 19:42 Blood Culture - Preliminary Blood SPECIMEN COLLECTED A&P Assessment and plan (1) Pneumonia: (2) Hypoxia: (3) Dizziness: (4) PAULA (obstructive sleep apnea): (5) Asthma: (6) Chronic respiratory failure with hypoxia: Plan Dizziness -Etiology unclear -Neurochecks, aspiration precautions, and a stroke scale -PT OT -Cardiac echo, carotid artery ultrasound, CT of the head -Does have bradycardia, possibly secondary to beta-dougei use, serial troponins, serial EKGs Bradycardia, possibly secondary to beta-dougie use will hold for now -EKG shows A. fib with slow ventricular response we will monitor Pneumonia, Rocephin and azithromycin, blood cultures and sputum cultures Fluid overload, cardiac echo, Lasix therapy L think that she has a COPD exacerbation hold off on further steroids Obesity hypoventilation syndrome, sleep apnea, continue CPAP PT OT Full code Lovenox for DVT prophylaxis Attestations Medical Necessity Statement*: Patient requires hospitalization, inpatient, greater than 2 midnights for fluid overload, pneumonia, dizziness Coding Level of Care Code Acute Building Repair Maintenance Supervisor for g Fwd Diagnoses Pneumonia J18.9 Hypoxia R09.02 Dizziness R42 PAULA (obstructive sleep apnea) G47.33 Asthma J45.909 Chronic respiratory failure with hypoxia J96.11
--- NOTE | 2022-04-26 21:02 | ECG_ITS ---
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 Measurements Intervals [place] Rate: 62 P: 0 WV: 0 QRS: -2 QRSD: 93 T: -30 QT: 400 QTc: 408 Interpretive Statements ATRIAL FIBRILLATION LOW QRS VOLTAGE IN PRECORDIAL LEADS [QRS DEFLECTION < 1.0 mV IN CHEST LEADS] POSSIBLE ANTERIOR MYOCARDIAL INFARCTION , PROBABLY OLD [30 ms Q WAVE IN V3/V4, OR R < 0.2 mV IN V4] ABNORMAL RHYTHM ECG Compared to ECG 04/26/2022 17:09:57 No significant changes Electronically Signed On 04-27-2022 20:24:06 TRANSFER AND LINE UP WORKER by Omkar Dunn M.D. [id number]
[2022-04-26 21:13] LABS: Procalcitonin 0.05 ng/mL (0-0.5)
[2022-04-26] MEDS: enoxaparin 40 mg/0.4 mL Syringe SUBCUT (22:41)
[2022-04-26] MEDS: TRAMadol 50 mg Tablet 100 MG PO (22:42)
[2022-04-26] MEDS: FUROsemide 10 mg/mL SDV 4mL 40 MG IVP (22:42)
[2022-04-26] MEDS: pantoprazole 40 mg SDV IVP (22:43)
[2022-04-26 23:34] LABS: Estmated Average Glucose 123; Hemoglobin A1C 5.9 % (4.0-6.0)
[2022-04-26 23:45] LABS: Thyroid Stimulating Hormone 0.78 uIU/mL (0.27-4.20); Troponin 5 6HR 12.01 ng/L (0-10)
[2022-04-26 23:49] LABS: Troponin 5 6HR Delta -0.99 ng/L (0-12)
[2022-04-27] VITALS (14 sets, daily range): BP systolic 146–177; BP diastolic 58–78; PULSE 50–90; RESP 16–24; TEMP 36.4–37.1; O2SAT 93–99
[2022-04-27 01:30] LABS: Add Urine Microscopic? NO; Charge for UA Resulting for Rev
[2022-04-27 01:34] LABS: Blood Urine Neg (Negative); Glucose Urine UA Norm (Normal); Ketones Urine Negative (Negative); Protein Urine Neg (Negative); Specific Gravity, Urine 1.005 (1.005-1.030); Urine Appearance Clear (CLEAR); Urine Color Colorless (Yellow); pH Urine 5 (5-7)
[2022-04-27 01:35] LABS: Bilirubin Urine Neg (Negative); Leukocyte Esterase Urine Negative (Negative); Nitrate Urine Negative (Negative); Urobilinogen Urine Norm (Negative)
--- NOTE | 2022-04-27 02:39 | ECG_ITS ---
[facility] Test Date: 2022-04-27 Pat Name: Florencia Bradley Department: Room: 255 Gender: Female Hr Receptionist: : 1940 Requested By: Guido Monge Order Number: [id number] Bessy MD: Omkar Dunn M.D. 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 [id number]
[2022-04-27] MEDS: enoxaparin 80 mg/0.8 mL Syringe 70 MG SUBCUT (04:11)
[2022-04-27 05:29] LABS: Basophils # 0.1 10^3/uL (0.0-0.1); Basophils % 0.6 %; Eosinophils # 0.5 10^3/uL (0.0-0.8); Eosinophils % 5.7 %; Hematocrit 35.7 % (37.0-47.0); Hemoglobin 10.5 g/dL (11.5-15.3); Lymphocytes # 1.5 10^3/uL (0.8-4.8); Lymphocytes % 18.4 %; Mean Corpuscular HGB Conc 29.4 g/dL (30.0-36.0); Mean Corpuscular Hemoglobin 24.9 pg (28.0-34.0); Mean Corpuscular Volume 84.8 fl (81-99); Mean Platelet Volume 10.6 fL (7.4-10.4); Monocytes # 0.9 10^3/uL (0.2-0.9); Monocytes % 11.2 %; Neutrophils # 5.04 10^3/uL (1.8-7.7); Nucleated Red Blood Cells % 0 %; Platelet Count 202 10^3/cmm (130-400); Red Blood Count 4.21 10^6/uL (4.1-5.3); Red Cell Distribution Width 15.9 % (12.1-15.1); White Blood Count 7.9 10^3/uL (4.0-10.0)
[2022-04-27 05:50] LABS: Blood Urea Nitrogen 21 mg/dL (8-23); Calcium 8.9 mg/dL (8.5-10.5); Carbon Dioxide 28 mmol/L (22-29); Glucose 101 mg/dL (65-115)
--- NOTE | 2022-04-27 06:00 | USCV_ITS ---
Florencia Bradley Age: 82 Gender: F : 1940 Exam Date: 04/27/2022 07:46 Ordering Phys: Norman Pastor DO Technologist: NAYELY [place] [facility] [place]: DYSPNEA ON EXERTION, ELEVATED BNP BP: 164 / 77 HR: 65 Rhythm: Atrial fibrillation Technical Quality: Adequate MEASUREMENTS (Male / Female) Normal Values 2D ECHO LVOT Diameter 2.0 cm LV Ejection Fraction MOD 2C 63.0 % LV Ejection Fraction 2C AL 64.3 % LA Diameter 4.3 cm LA Width 3.4 cm LA Height 5.6 cm RA Width 3.3 cm RA Height 5.4 cm Aorta at Sinotubular Diameter 2.3 cm IVC Diameter 2.1 cm M-MODE Aortic Annulus Diameter 2.5 cm LA Ao Ratio MM 1.6 MV E Point Septal Separation 0.6 cm DOPPLER AV Peak Velocity 177.3 cm/s LVOT Peak Velocity 125.0 cm/s AV Area Cont Eq vti 2.4 cm squared AV Area Cont Eq pk 2.2 cm squared MV Peak Velocity 155.0 cm/s MV Area PHT 3.9 cm squared Mitral E to A Ratio 2.2 MV E' Velocity 65.0 cm/s Mitral E to MV E' Ratio 8.9 Mitral E to LV E' Lateral Ratio 7.1 Mitral E to LV E' Septal Ratio 12.0 TR Peak Velocity 46.0 cm/s TR Peak Gradient 0.8 mmHg Right Atrial Pressure 3.0 mmHg Pulmonary Artery Systolic Pressu 3.8 mmHg RV Acceleration Time 0.1 s RV Ejection Time 0.3 s RV AcT/ET 0.4 FINDINGS Left Ventricle Normal left ventricular size and systolic function, EF 72 %. No gross wall motion normalities noted Right Ventricle Could not be identified well Right Atrium Right atrium not well visualized. Left Atrium Moderately increased left atrial size. Mitral Valve Mild to moderate mitral annular calcification. Aortic Valve Thickened aortic valve. Tricuspid Valve Tricuspid valve not well visualized. Pulmonic Valve Pulmonic valve not well visualized. Pericardium No pericardial effusion. Aorta Normal aortic annulus size. IVC Inferior vena cava not visualized. CONCLUSIONS Normal left ventricular size and systolic function, EF 72 %. No gross wall motion normalities noted. Moderately increased left atrial size. Mild to moderate mitral annular calcification. Thickened aortic valve. There is no pericardial effusion. There are no intracardiac masses. Technically difficult study because of the poor ultrasonic window. Echo contrast-Optison was used for endocardial delineation and ejection fraction estimation. Dr Omkar Dunn MD [facility] (Electronically Signed) Final Date: 27 April 2022 17:02 S
[2022-04-27 06:16] LABS: Glucose Point of Care 94 mg/dL (70-110)
[2022-04-27 06:37] LABS: Anion Gap 12.4 (5-19); Chloride 103 mmol/L (98-107); Osmolality Calculated 291 mOsm/kg (285-295); Potassium 4.4 mmol/L (3.5-5.1); Sodium 139 mmol/L (136-145)
[2022-04-27] MEDS: isosorbide mononitrate ER 60 mg Tablet 120 MG PO (08:49)
[2022-04-27] MEDS: atorvastatin 40 mg Tablet 20 MG PO (08:49)
[2022-04-27] MEDS: aspirin 81 mg EC Tablet PO (08:49)
[2022-04-27] MEDS: losartan 50 mg Tablet 25 MG PO (08:49)
[2022-04-27] MEDS: chlorthalidone 25 mg Tablet PO (08:50)
[2022-04-27] MEDS: perflutren protein-a microsphr 0.22 mg/mL SDV 3 mL IV (08:51)
[2022-04-27] MEDS: acetaminophen 325 mg Tablet 650 MG PO ×2 (08:55→17:05)
[2022-04-27] MEDS: timolol 0.5% Op Soln 5 mL Btl 1 DROP EYE-RIGHT ×2 (11:12→18:39)
[2022-04-27] MEDS: brimonidine 0.2% Op Soln 5 mL Btl 1 DROP EYE-RIGHT ×2 (11:12→18:39)
[2022-04-27 11:17] LABS: Glucose Point of Care 127 mg/dL (70-110)
[2022-04-27] MEDS: albuterol 2.5 mg/3 mL Neb INHALATION ×2 (13:55→21:20)
[2022-04-27] MEDS: ipratropium 0.5 mg/2.5 mL Neb INHALATION ×2 (13:55→21:20)
[2022-04-27] MEDS: enoxaparin 100 mg/mL Syringe 110 MG SUBCUT (15:23)
--- NOTE | 2022-04-27 16:09 | PM.PN ---
Subjective Subjective: Overnight labs and H&P reviewed. Patient is currently on 4 L/min supplemental O2. Patient noted to be wheezing, states she needs a breathing treatment at this time. Dizziness is subtle while at rest however with minimal movement the dizziness comes back. Medications: Reviewed: Yes Vitals/I&O/Wt Last Vital Signs Temp 98.3 F 04/27/22 15:30 Pulse 82 04/27/22 15:30 Resp 18 04/27/22 15:30 BP 158/78 04/27/22 15:30 Pulse Ox 99 04/27/22 15:30 O2 Del Method 04/27/22 15:30 O2 Flow Rate 4 04/27/22 13:57 04/27/22 04/27/22 04/27/22 06:59 14:59 22:59 Intake Total 840 / 840 Output Total 2900 / 2900 1250 / 1250 Balance -2900 / -2600 -410 / -410 Weight last 48 hrs Weight 113.398 kg Physical Exam Narrative: General: No acute distress, AO x3 HEENT: PERRLA, pupils bilaterally equal and reactive, pallors not present Chest: Normal vesicular breath sounds, no added sounds, equal good air entry bilaterally CVS: S1-S2 regular, no murmurs, no tachycardia, no gallops, no rubs Abdomen: Soft, nontender, no organomegaly, bowel sounds present Neuro: No focal deficits, no facial deformity, AO x3, power 5/5 in all limbs Extremities: 2+ pitting edema bilateral lower extremity Urinary Catheter Management: Ortiz: Cath Placed During This Visit: yes Reason for Continuing Indwelling Catheter: Accurate Measurement of Urinary Output in Critically Ill Patients Urinary Catheter Date of Insertion: 04/26/22 Urinary Catheter Time of Insertion: 22:20 Data 04/27/22 04:18 04/27/22 04:18 Micro: Microbiology 04/26/22 19:39 Blood Culture - Preliminary Blood SPECIMEN COLLECTED 04/26/22 19:42 Blood Culture - Preliminary Blood SPECIMEN COLLECTED A&P Assessment and plan (1) Pneumonia: (2) Hypoxia: (3) Dizziness: (4) PAULA (obstructive sleep apnea): (5) Asthma: (6) Chronic respiratory failure with hypoxia: Plan # Dizziness -Etiology unclear -Neurochecks, aspiration precautions, and a stroke scale -CT head without any acute intracranial events. -Concern for posterior circulation stroke, will obtain MRI of the head -Cardiac echo, carotid artery ultrasound pending -Does have bradycardia, possibly secondary to beta-dougie use, on hold for now -Dizziness has not improved even after heart rate is ranging in the 80s. Check orthostatics. - hold chlorthalidone -trial of meclizine # Bradycardia, possibly secondary to beta-dougie use will hold for now -EKG shows A. fib with slow ventricular response we will monitor # Pneumonia, less likely. NO fever, leukocytosis cough or expectoration. Negative procal. D/c ABX # Fluid overload, Currently on lasix 40mg iv q12h pending cardiac echo # COPD: continue duoneb and budesonide inhalation # Obesity hypoventilation syndrome, sleep apnea, continue CPAP PT OT Full code Lovenox for DVT prophylaxis Attestations Medical Necessity Statement*: iv diuresis, MRI Coding Level of Care Code Acute Vibration Engineer for [facility] Fwd Diagnoses Pneumonia J18.9 Hypoxia R09.02 Dizziness R42 PAULA (obstructive sleep apnea) G47.33 Asthma J45.909 Chronic respiratory failure with hypoxia J96.11
[2022-04-27 16:49] LABS: Glucose Point of Care 123 mg/dL (70-110)
[2022-04-27] MEDS: FUROsemide 10 mg/mL SDV 4mL 40 MG IVP (17:04)
[2022-04-27 18:05] LABS: SARS Covid-2 Antigen negative (Negative)
--- NOTE | 2022-04-27 20:00 | PC.NURSE ---
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 This nurse contacted Dr. Monge via [employer] to inform him of this and Dr. Monge said it was okay to administer at 21:00.
[2022-04-27] MEDS: TRAMadol 50 mg Tablet 100 MG PO (20:38)
[2022-04-27 20:40] LABS: Glucose Point of Care 120 mg/dL (70-110)
[2022-04-27] MEDS: nystatin powder 15 gm Btl 1 APPLIC TOPICAL (23:51)
[2022-04-28] VITALS (15 sets, daily range): BP systolic 122–213; BP diastolic 65–92; PULSE 61–95; RESP 16–22; TEMP 36.3–37.7; O2SAT 92–97
[2022-04-28] MEDS: albuterol 2.5 mg/3 mL Neb INHALATION ×4 (02:21→20:12)
[2022-04-28] MEDS: ipratropium 0.5 mg/2.5 mL Neb INHALATION ×4 (02:21→20:12)
[2022-04-28] MEDS: enoxaparin 100 mg/mL Syringe 110 MG SUBCUT ×2 (03:33→17:02)
[2022-04-28] MEDS: FUROsemide 10 mg/mL SDV 4mL 40 MG IVP (03:34)
[2022-04-28 04:48] LABS: Basophils # 0.1 10^3/uL (0.0-0.1); Basophils % 0.7 %; Eosinophils # 0.5 10^3/uL (0.0-0.8); Eosinophils % 6.9 %; Hematocrit 38.9 % (37.0-47.0); Hemoglobin 11.7 g/dL (11.5-15.3); Lymphocytes # 1.4 10^3/uL (0.8-4.8); Lymphocytes % 19.7 %; Mean Corpuscular HGB Conc 30.1 g/dL (30.0-36.0); Mean Corpuscular Hemoglobin 25.1 pg (28.0-34.0); Mean Corpuscular Volume 83.5 fl (81-99); Mean Platelet Volume 10.6 fL (7.4-10.4); Monocytes % 14.1 %; Neutrophils # 4.15 10^3/uL (1.8-7.7); Neutrophils % 58.5 %; Nucleated Red Blood Cells % 0 %; Platelet Count 197 10^3/cmm (130-400); Red Blood Count 4.66 10^6/uL (4.1-5.3); Red Cell Distribution Width 15.9 % (12.1-15.1); White Blood Count 7.1 10^3/uL (4.0-10.0)
[2022-04-28 05:16] LABS: Alanine Aminotransferase 9 U/L (0-33); Alkaline Phosphatase 66 U/L (35-105); Anion Gap 14.8 (5-19); Aspartate Amino Transferase 14 U/L (0-32); Blood Urea Nitrogen 13 mg/dL (8-23); Calcium 9.2 mg/dL (8.5-10.5); Carbon Dioxide 30 mmol/L (22-29); Chloride 98 mmol/L (98-107); Globulin 2.6 g/dL (1.3-4.6); Glucose 116 mg/dL (65-115); Osmolality Calculated 289 mOsm/kg (285-295); Potassium 3.8 mmol/L (3.5-5.1); Sodium 139 mmol/L (136-145); Total Bilirubin 0.7 mg/dL (0.15-1.2); Total Protein 6.6 g/dL (6.6-8.7)
[2022-04-28 06:24] LABS: Glucose Point of Care 126 mg/dL (70-110)
[2022-04-28] MEDS: isosorbide mononitrate ER 60 mg Tablet 120 MG PO (08:11)
[2022-04-28] MEDS: pantoprazole DR 40 mg Tablet PO (08:11)
[2022-04-28] MEDS: losartan 50 mg Tablet 25 MG PO (08:11)
[2022-04-28] MEDS: acetaminophen 325 mg Tablet 650 MG PO ×2 (08:11→23:39)
[2022-04-28] MEDS: aspirin 81 mg EC Tablet PO (08:11)
[2022-04-28] MEDS: atorvastatin 40 mg Tablet 20 MG PO (08:12)
[2022-04-28] MEDS: brimonidine 0.2% Op Soln 5 mL Btl 1 DROP EYE-RIGHT ×2 (11:03→17:02)
[2022-04-28] MEDS: timolol 0.5% Op Soln 5 mL Btl 1 DROP EYE-RIGHT ×2 (11:03→17:02)
[2022-04-28] MEDS: amlodipine 5 mg Tablet PO (11:04)
[2022-04-28] MEDS: nystatin powder 15 gm Btl 1 APPLIC TOPICAL ×2 (11:06→17:02)
[2022-04-28 11:41] LABS: Glucose Point of Care 144 mg/dL (70-110)
[2022-04-28] MEDS: LORazepam 2 mg Tablet PO (12:05)
--- NOTE | 2022-04-28 16:23 | MR_ITS ---
WS: [id number] MRI BRAIN WITHOUT CONTRAST HISTORY: posterior circulation stroke COMPARISON: CT head 04/26/2022 TECHNIQUE: Diffusion imaging, multiplanar T1, T2 and FLAIR imaging obtained. Moderate motion artifact limiting several of the sequences. No evidence for acute infarct or hemorrhage. Saldaña-white matter differentiation is normal. Very mild atrophy and volume loss. Moderate small vessel ischemic changes throughout the white matter . Subcortical and periventricular white matter lesions. Small vessel ischemic disease noted in the po ns, RIGHT greater than LEFT. No prior large territory infarct. Ventricles and extra-axial spaces are normal. No inferior displacement of cerebellar tonsils. The sella turcica and pituitary gland are unremarkabl e. Dural venous sinuses and [place] of [place]vizu demonstrate no abnormality on this unenhanced studies. Paranasal sinuses: Clear. Mastoid air cells: Normal. Calvarium and scalp: Intact. MR/MR head wo con* [id number] IMPRESSION: 1. Normal diffusion imaging. No evidence for an acute infarct. 2. Moderate small vessel ischemic changes throughout the white matter includin g the johnny.
[2022-04-28 17:29] LABS: Glucose Point of Care 168 mg/dL (70-110)
[2022-04-28] MEDS: insulin lispro 100 unit/1 mL SUBCUT (17:31)
--- NOTE | 2022-04-28 18:25 | P.PN_ITS ---
Subjective Subjective: Patient was seen and examined this morning, she is still complaining of, persistent vertigo-like symptoms, Particularly with head movements, afraid of falling, currently she is due for MRI today, expressed that she is claustrophobic, ready to try MRI with p.o. Ativan. Orthostatic vital sign is negative, she is currently saturating well on 4 L oxygen through nasal cannula, has denied any significant shortness of breath, Currently she is 5.6 L negative, states that she is feeling extremely thirsty. We will decrease the dose of Lasix to 40 IV daily.Repeat a.m. chest x-ray. She is also afraid of going home as he stays alone and is afraid of falling.She wants to go to short-term rehab, prior to going to intermediate. Medications: Reviewed: Yes Medication Review Details: Generic Name Dose Route Start Last Admin Trade Name Freq PRN Reason Stop Dose Admin Acetaminophen 650 mg 04/26/22 22:06 04/28/22 08:11 Acetaminophen 32 5 Mg Tablet PO 650 mg Q6H PRN Administration Mild/Mod Pain Or Temp >/= 101 Albuterol Sulfate 2.5 mg 04/27/22 14:00 04/28/22 15:06 Albuterol 2.5 Mg /3 Ml Neb INHALATION 2.5 mg Q6H.RESP AMANDO Administration Amlodipine Besylat e 5 mg 04/28/22 10:40 04/28/22 11:04 Amlodipine 5 Mg Tablet PO 5 mg DAILY AMANDO Administration Aspirin 81 mg 04/27/22 09:00 04/28/22 08:11 Aspirin 81 Mg Ec Tablet PO 81 mg DAILY AMANDO Administration Atorvastatin Calci um 20 mg 04/27/22 09:00 04/28/22 08:12 Atorvastatin 40 Mg Tablet PO 20 mg DAILY AMANDO Administration Brimonidine Tartra te 1 drop 04/27/22 09:00 04/28/22 17:02 Brimonidine 0.2% Op Soln 5 Ml Btl EYE-RIGHT 1 drop BID AMANDO Administration Enoxaparin Sodium 110 mg 04/27/22 15:30 04/28/22 17:02 Enoxaparin 100 M g/Ml Syringe 1 mg/kg (110 mg) 110 mg SUBCUT Administration Q12H [facility] Insulin Human Lisp ro 0 unit 04/27/22 08:00 04/28/22 17:31 Insulin Lispro 1 00 Unit/1 Ml SUBCUT 2 unit WM&BEDTIME AMANDO Administration Protocol Ipratropium Bromid e 0.5 mg 04/27/22 14:00 04/28/22 15:07 Ipratropium 0.5 Mg/2.5 Ml Neb INHALATION 0.5 mg Q6H.RESP AMANDO Administration Isosorbide Mononit rate 120 mg 04/27/22 09:00 04/28/22 08:11 Isosorbide [place] itrate Er 60 Mg Ta blet PO 120 mg DAILY AMANDO Administration Losartan Potassium 25 mg 04/27/22 09:00 04/28/22 08:11 Losartan 50 Mg T ablet PO 25 mg DAILY AMANDO Administration Nystatin 1 applic 04/27/22 22:47 04/28/22 17:02 Nystatin Powder 15 Gm Btl TOPICAL 1 applic BID AMANDO Administration Pantoprazole [place]od[place] m 40 mg 04/28/22 09:00 04/28/22 08:[address] 40 Mg Tablet PO 40 mg DAILY AMANDO Administration Timolol Maleate 1 drop 04/27/22 09:00 04/28/22 17:02 Timolol 0.5% Op Soln 5 Ml Btl EYE-RIGHT 1 drop BID AMANDO Administration Travoprost 1 drop 04/27/22 21:00 04/27/22 20:39 Travoprost 0.004 % Op Soln 2.5 Ml B tl EYE-BOTH 1 drop BEDTIME AMANDO Administration Vitals/I&O/Wt Last Vital Signs Temp 97.7 F 04/28/22 15:26 Pulse 61 04/28/22 15:26 Resp 16 04/28/22 15:26 BP 132/67 04/28/22 15:26 Pulse Ox 93 04/28/22 15:26 O2 Del Method 04/28/22 15:26 O2 Flow Rate 4 04/28/22 15:06 04/28/22 04/28/22 04/28/22 06:59 14:59 22:59 Intake Total 480 / 1560 600 / 600 360 / 960 Output Total 2500 / 5550 Balance -2020 / -3990 600 / 600 360 / 960 Physical Exam Const: COMMON NORMALS: patient oriented x3 Resp: COMMON NORMALS: normal respiratory effort, No retractions, No use of accessory muscles and clear to auscultation bilaterally EFFORT & INSPECTION: Yes symmetric chest movement AUSCULTATION: clear to auscultation bilaterally Cardio: COMMON NORMALS: regular rate, regular rhythm, S1 normal heart sound present, S2 normal heart sound present, No gallops present (Cardio), No murmurs present (Cardio), No rub (Cardio) and Peripheral pulses 2+ throughout RATE: regular rate RHYTHM: regular rhythm HEART SOUNDS: S1 normal heart sound present and S2 normal heart sound present PERIPHERAL PULSES: Peripheral pulses 2+ throughout GI: COMMON NORMALS: Normal to inspection, nondistended, normoactive bowel sounds present, Soft to palpation, non-tender, No hepatosplenomegaly present and no masses AUSCULTATION: Yes normoactive bowel sounds PALPATION: Yes Soft to palpation and Yes No hepatosplenomegaly present RECTAL EXAM: deferred Extremity: COMMON NORMALS: no clubbing, cyanosis or edema and no pedal edema Neuro: COMMON NORMALS: patient oriented x3 Urinary Catheter Management: Ortiz: Cath Placed During This Visit: yes Reason for Continuing Indwelling Catheter: Other Urinary Catheter Date of Insertion: 04/26/22 Urinary Catheter Time of Insertion: 22:20 Data 04/28/22 03:57 04/28/22 03:57 Micro: Microbiology 04/26/22 15:45 Gram Stain - Final Sputum - Expectorated Sputum Sputum Culture - Preliminary 04/26/22 19:39 Blood Culture - Preliminary Blood NEGATIVE TO DATE 04/26/22 19:42 Blood Culture - Preliminary Blood NEGATIVE TO DATE A&P Assessment and plan (1) Pneumonia: (2) Hypoxia: (3) Dizziness: (4) PAULA (obstructive sleep apnea): (5) Asthma: (6) Chronic respiratory failure with hypoxia: Plan # Dizziness -Etiology unclear -Neurochecks, aspiration precautions, and a stroke scale -CT head without any acute intracranial events. -Concern for posterior circulation stroke, will obtain MRI of the head -Cardiac echo, carotid artery ultrasound pending -Does have bradycardia, possibly secondary to beta-dougie use, on hold for now -Dizziness has not improved even after heart rate is ranging in the 80s. Check orthostatics. - hold chlorthalidone -trial of meclizine # Bradycardia, possibly secondary to beta-dougie use will hold for now -EKG shows A. fib with slow ventricular response we will monitor # Pneumonia, less likely. NO fever, leukocytosis cough or expectoration. Negative procal. D/c ABX # Fluid overload, Currently on lasix 40mg iv q12h pending cardiac echo # COPD: continue duoneb and budesonide inhalation # Obesity hypoventilation syndrome, sleep apnea, continue CPAP PT OT Full code Lovenox for DVT prophylaxis Attestations Medical Necessity Statement*: Patient is to be in hospital for management of dizziness. 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
[2022-04-28 20:18] LABS: Glucose Point of Care 128 mg/dL (70-110)
[2022-04-28] MEDS: TRAMadol 50 mg Tablet 100 MG PO (20:25)
[2022-04-29] VITALS (10 sets, daily range): BP systolic 124–186; BP diastolic 61–91; PULSE 76–90; RESP 16–22; TEMP 36.5–38.6; O2SAT 93–96
[2022-04-29] MEDS: enoxaparin 100 mg/mL Syringe 110 MG SUBCUT (02:41)
[2022-04-29] MEDS: ipratropium 0.5 mg/2.5 mL Neb INHALATION ×3 (03:12→13:28)
[2022-04-29] MEDS: albuterol 2.5 mg/3 mL Neb INHALATION ×3 (03:12→13:28)
[2022-04-29 04:41] LABS: Basophils # 0.1 10^3/uL (0.0-0.1); Basophils % 0.6 %; Eosinophils # 0.4 10^3/uL (0.0-0.8); Hematocrit 43.6 % (37.0-47.0); Lymphocytes # 2.1 10^3/uL (0.8-4.8); Lymphocytes % 16.5 %; Mean Corpuscular HGB Conc 29.8 g/dL (30.0-36.0); Mean Corpuscular Hemoglobin 24.7 pg (28.0-34.0); Mean Corpuscular Volume 82.7 fl (81-99); Mean Platelet Volume 10.8 fL (7.4-10.4); Monocytes # 1.8 10^3/uL (0.2-0.9); Monocytes % 14.6 %; Neutrophils # 8.18 10^3/uL (1.8-7.7); Neutrophils % 65.1 %; Nucleated Red Blood Cells % 0 %; Platelet Count 228 10^3/cmm (130-400); Red Blood Count 5.27 10^6/uL (4.1-5.3); Red Cell Distribution Width 15.9 % (12.1-15.1); White Blood Count 12.6 10^3/uL (4.0-10.0)
[2022-04-29] MEDS: TRAMadol 50 mg Tablet 100 MG PO ×2 (04:45→22:43)
[2022-04-29 05:07] LABS: Alanine Aminotransferase 9 U/L (0-33); Albumin Level 4.3 g/dL (3.5-5.2); Alkaline Phosphatase 74 U/L (35-105); Anion Gap 17.9 (5-19); Aspartate Amino Transferase 19 U/L (0-32); Blood Urea Nitrogen 15 mg/dL (8-23); Carbon Dioxide 29 mmol/L (22-29); Chloride 91 mmol/L (98-107); Globulin 3.2 g/dL (1.3-4.6); Glucose 118 mg/dL (65-115); Osmolality Calculated 280 mOsm/kg (285-295); Potassium 3.9 mmol/L (3.5-5.1); Sodium 134 mmol/L (136-145); Total Bilirubin 0.9 mg/dL (0.15-1.2); Total Protein 7.5 g/dL (6.6-8.7)
--- NOTE | 2022-04-29 06:00 | XRR_ITS ---
PROCEDURE INFORMATION: Exam: XR Chest Exam date and time: 04/29/2022 5:33 AM Age: 82 years old Clinical indication: Shortness of breath; Patient HX: F/u for RT side pneumonia; Additional info: SOB, h/f TECHNIQUE: Imaging protocol: Radiologic exam of the chest. Views: 1 view. COMPARISON: CR (CHEST, ) 04/26/2022 4:18 PM FINDINGS: Lungs: Lung volumes are decreased. There are indistinct peribronchial opacities right lower lobe improved from previous exam likely representing residual bronchiolitis. Remaining lung kirk are clear for degree of aeration. Pleural spaces: Unremarkable. No pleural effusion. No pneumothorax. Heart/Mediastinum: Cardiac silhouette is mildly enlarged, unchanged. Bones/joints: Unremarkable for age. XR/XR chest 1V portable [id number] IMPRESSION: Improving right lower lobe peribronchial infiltrate likely infectious in nature.
[2022-04-29 06:24] LABS: Glucose Point of Care 147 mg/dL (70-110)
[2022-04-29] MEDS: losartan 50 mg Tablet 25 MG PO (07:56)
[2022-04-29] MEDS: insulin lispro 100 unit/1 mL SUBCUT ×4 (07:56→22:42)
[2022-04-29] MEDS: FUROsemide 10 mg/mL SDV 4mL 40 MG IVP (07:56)
[2022-04-29] MEDS: isosorbide mononitrate ER 60 mg Tablet 120 MG PO (07:57)
[2022-04-29] MEDS: atorvastatin 40 mg Tablet 20 MG PO (07:57)
[2022-04-29] MEDS: aspirin 81 mg EC Tablet PO (07:57)
[2022-04-29] MEDS: pantoprazole DR 40 mg Tablet PO (07:57)
[2022-04-29] MEDS: amlodipine 5 mg Tablet PO ×2 (07:58→09:55)
[2022-04-29] MEDS: brimonidine 0.2% Op Soln 5 mL Btl 1 DROP EYE-RIGHT ×2 (07:58→17:19)
[2022-04-29] MEDS: nystatin powder 15 gm Btl 1 APPLIC TOPICAL ×2 (07:58→17:20)
[2022-04-29] MEDS: timolol 0.5% Op Soln 5 mL Btl 1 DROP EYE-RIGHT ×2 (07:59→17:19)
[2022-04-29] MEDS: gabapentin 100 mg Capsule PO ×3 (09:54→22:28)
[2022-04-29 10:37] LABS: Glucose Point of Care 216 mg/dL (70-110)
[2022-04-29] MEDS: acetaminophen 325 mg Tablet 650 MG PO ×2 (11:30→18:12)
[2022-04-29] MEDS: chlorthalidone 25 mg Tablet PO (11:31)
[2022-04-29] MEDS: enoxaparin 120 mg/0.8 mL Syringe 110 MG SUBCUT (15:51)
[2022-04-29 16:41] LABS: Glucose Point of Care 216 mg/dL (70-110)
--- NOTE | 2022-04-29 16:49 | PM.PN ---
Subjective Subjective: Patient was seen and examined this morning, no significant complaint. Medications: Reviewed: Yes Medication Review Details: Generic Name Dose Route Start Last Admin Trade Name Hollandq PRN Reason Stop Dose Admin Acetaminophen 650 mg 04/26/22 22:06 04/29/22 11:30 Acetaminophen 32 5 Mg Tablet PO 650 mg Q6H PRN Administration Mild/Mod Pain Or Temp >/= 101 Albuterol/Ipratrop ium 3 ml 04/27/22 14:00 04/29/22 14:16 Ipratropium-Al[place] terol 3 Ml Neb INHALATION Not Given Q6H.RESP AMANDO Aspirin 81 mg 04/27/22 09:00 04/29/22 07:57 Aspirin 81 Mg Ec Tablet PO 81 mg DAILY AMANDO Administration Atorvastatin Calci um 20 mg 04/27/22 09:00 04/29/22 07:57 Atorvastatin 40 Mg Tablet PO 20 mg DAILY AMANDO Administration Brimonidine Tartra te 1 drop 04/27/22 09:00 04/29/22 07:58 Brimonidine 0.2% Op Soln 5 Ml Btl EYE-RIGHT 1 drop BID AMANDO Administration Chlorthalidone 25 mg 04/29/22 09:00 04/29/22 11:31 Chlorthalidone 2 5 Mg Tablet PO 25 mg DAILY AMANDO Administration Enoxaparin Sodium 110 mg 04/29/22 15:30 04/29/22 15:51 Enoxaparin 120 M g/0.8 Ml Syringe 1 mg/kg (110 mg) 110 mg SUBCUT Administration Q12H AMANDO Furosemide 40 mg 04/29/22 08:00 04/29/22 07:56 Furosemide 10 Mg /Ml Sdv 4ml IVP 40 mg Q24H AMANDO Administration Gabapentin 100 mg 04/29/22 09:45 04/29/22 15:51 Gabapentin 100 M g Capsule PO 100 mg TID AMANDO Administration Insulin Human Lisp ro 0 unit 04/27/22 08:00 04/29/22 12:22 Insulin Lispro 1 00 Unit/1 Ml SUBCUT 4 unit WM&BEDTIME AMANDO Administration Protocol Isosorbide Mononit rate 120 mg 04/27/22 09:00 04/29/22 07:57 Isosorbide [place] itrate Er 60 Mg Ta blet PO 120 mg DAILY AMANDO Administration Losartan Potassium 25 mg 04/27/22 09:00 04/29/22 07:56 Losartan 50 Mg T ablet PO 25 mg DAILY AMANDO Administration Nystatin 1 applic 04/27/22 22:47 04/29/22 07:58 Nystatin Powder 15 Gm Btl TOPICAL 1 applic BID AMANDO Administration Pantoprazole Sodiu m 40 mg 04/28/22 09:00 04/29/22 07:[address] 40 Mg Tablet PO 40 mg DAILY AMANDO Administration Timolol Maleate 1 drop 04/27/22 09:00 04/29/22 07:59 Timolol 0.5% Op Soln 5 Ml Btl EYE-RIGHT 1 drop BID AMANDO Administration Tramadol HCl 100 mg 04/28/22 10:21 04/29/22 04:45 Tramadol 50 Mg T ablet PO 100 mg BID PRN Administration pain Travoprost 1 drop 04/27/22 21:00 04/28/22 20:26 Travoprost 0.004 % Op Soln 2.5 Ml B tl EYE-BOTH 1 drop BEDTIME AMANDO Administration Vitals/I&O/Wt Last Vital Signs Temp 99.5 F 04/29/22 15:32 Pulse 90 04/29/22 15:32 Resp 18 04/29/22 15:32 BP 146/70 04/29/22 15:32 Pulse Ox 93 04/29/22 15:32 O2 Del Method 04/29/22 15:32 O2 Flow Rate 4 04/29/22 15:32 04/29/22 04/29/22 04/29/22 06:59 14:59 22:59 Intake Total 120 / 120 Output Total 1425 / 1425 650 / 650 Balance -1425 / -345 -530 / -530 Physical Exam Const: COMMON NORMALS: patient oriented x3 Resp: COMMON NORMALS: normal respiratory effort, No retractions, No use of accessory muscles and clear to auscultation bilaterally EFFORT & INSPECTION: Yes symmetric chest movement AUSCULTATION: clear to auscultation bilaterally Cardio: COMMON NORMALS: regular rate, regular rhythm, S1 normal heart sound present, S2 normal heart sound present, No gallops present (Cardio), No murmurs present (Cardio), No rub (Cardio) and Peripheral pulses 2+ throughout RATE: regular rate RHYTHM: regular rhythm HEART SOUNDS: S1 normal heart sound present and S2 normal heart sound present PERIPHERAL PULSES: Peripheral pulses 2+ throughout GI: COMMON NORMALS: Normal to inspection, nondistended, normoactive bowel sounds present, Soft to palpation, non-tender, No hepatosplenomegaly present and no masses AUSCULTATION: Yes normoactive bowel sounds PALPATION: Yes Soft to palpation and Yes No hepatosplenomegaly present RECTAL EXAM: deferred Extremity: COMMON NORMALS: no clubbing, cyanosis or edema and no pedal edema Neuro: COMMON NORMALS: patient oriented x3 Urinary Catheter Management: Ortiz: Cath Placed During This Visit: yes Reason for Continuing Indwelling Catheter: Other Urinary Catheter Date of Insertion: 04/26/22 Urinary Catheter Time of Insertion: 22:20 Data 04/29/22 03:40 04/29/22 03:40 Micro: Microbiology 04/26/22 15:45 Gram Stain - Final Sputum - Expectorated Sputum Sputum Culture - Final A&P Assessment and plan (1) Pneumonia: (2) Hypoxia: (3) Dizziness: (4) PAULA (obstructive sleep apnea): (5) Asthma: (6) Chronic respiratory failure with hypoxia: Plan # Dizziness: Possible concern for BPPV, as she is associating these episodes with head movement. May need canalith repositioning ( nay Maneuver ) -CT head without any acute intracranial events. -MRI of the head:No evidence for an acute infarct. -Carotid Doppler: No flow-limiting stenosis, patent vertebral arteries -2D echo: Normal LV size and systolic function, LVEF 72%, no gross RWMA. -Orthostatic vital sign check has been negative. -Beta-dougie was kept on hold due to bradycardia. -Neurochecks, fall precaution -Meclizine as needed #Atrial fibrillation with slow ventricular response: Possible underlying sick sinus syndrome.Or Due to beta-dougie effect. [id number] 5 Beta-dougie and he has been kept on hold due to concerns for bradycardia. Currently she is off anticoagulation: Due to risk of fall secondary to dizziness. Given her high [id number]-HGPa score's, she is at risk for TIA/stroke. Currently on therapeutic anticoagulation. #Decompensated heart failure with preserved ejection fraction: Elevated proBNP, chest x-ray has shown pulmonary vascular congestion 2D echo results appreciated Was initiated on Lasix 40 twice daily has been transitioned to Lasix 40 IV daily. Will plan to switch her on p.o. Lasix on discharge. Currently she is 7.4 L negative Continue to have good urine output # Bradycardia, possibly secondary to beta-dougie use will hold for now # Pneumonia, less likely. NO fever, leukocytosis cough or expectoration. Negative procal. D/c ABX # COPD: continue duoneb and budesonide inhalation # Obesity hypoventilation syndrome, sleep apnea, continue CPAP Disposition: Patient stated he is alone, and is scared of falling at home, she would benefit from short-term rehab. PT OT Full code Lovenox for DVT prophylaxis Attestations Medical Necessity Statement*: Patient is to be in hospital for management of symptomatic dizziness awaiting placement to rehab. 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
[2022-04-29] MEDS: ipratropium-albuterol 3 mL Neb INHALATION (21:14)
[2022-04-29 22:08] LABS: Glucose Point of Care 159 mg/dL (70-110)
[2022-04-29] MEDS: apixaban 5 mg Tablet PO (22:27)
[2022-04-30] VITALS (17 sets, daily range): BP systolic 115–135; BP diastolic 56–70; PULSE 69–88; RESP 8–20; TEMP 36.9–39.3; O2SAT 91–96
[2022-04-30] MEDS: ipratropium-albuterol 3 mL Neb INHALATION ×4 (01:09→20:51)
[2022-04-30] MEDS: acetaminophen 325 mg Tablet 650 MG PO ×2 (04:20→21:12)
[2022-04-30 04:29] LABS: Basophils % 0.2 %; Eosinophils % 0.1 %; Hematocrit 36.8 % (37.0-47.0); Hemoglobin 11.3 g/dL (11.5-15.3); Lymphocytes % 12.4 %; Mean Corpuscular HGB Conc 30.7 g/dL (30.0-36.0); Mean Corpuscular Hemoglobin 24.9 pg (28.0-34.0); Mean Corpuscular Volume 81.2 fl (81-99); Mean Platelet Volume 10.9 fL (7.4-10.4); Monocytes # 2.7 10^3/uL (0.2-0.9); Monocytes % 16.5 %; Neutrophils # 11.55 10^3/uL (1.8-7.7); Neutrophils % 70.4 %; Nucleated Red Blood Cells % 0 %; Platelet Count 192 10^3/cmm (130-400); Red Blood Count 4.53 10^6/uL (4.1-5.3); Red Cell Distribution Width 15.8 % (12.1-15.1); White Blood Count 16.4 10^3/uL (4.0-10.0)
[2022-04-30 04:45] LABS: Anion Gap 18.2 (5-19); Blood Urea Nitrogen 23 mg/dL (8-23); Calcium 8.1 mg/dL (8.5-10.5); Carbon Dioxide 30 mmol/L (22-29); Chloride 86 mmol/L (98-107); Glucose 104 mg/dL (65-115); Osmolality Calculated 274 mOsm/kg (285-295); Potassium 4.2 mmol/L (3.5-5.1); Sodium 130 mmol/L (136-145)
[2022-04-30 07:46] LABS: Glucose Point of Care 116 mg/dL (70-110)
--- NOTE | 2022-04-30 07:50 | P.PN_ITS ---
Subjective Subjective: Patient was seen and examined this morning, had an episode of fever yesterday with noted T-max of: 101.5 Currently her serum sodium has also trended down to 130 serum creatinine is up to 1.4, likely secondary to overdiuresis, will give 1 L normal saline today. Medications: Reviewed: Yes Medication Review Details: Generic Name Dose Route Start Last Admin Trade Name Freq PRN Reason Stop Dose Admin Acetaminophen 650 mg 04/26/22 22:06 04/30/22 04:20 Acetaminophen 32 5 Mg Tablet PO 650 mg Q6H PRN Administration Mild/Mod Pain Or Temp >/= 101 Albuterol/Ipratrop ium 3 ml 04/27/22 14:00 04/30/22 07:43 Ipratropium-Albu terol 3 Ml Neb INHALATION 3 ml Q6H.RESP AMANDO Administration Apixaban 5 mg 04/29/22 21:00 04/29/22 22:27 Apixaban 5 Mg Ta blet PO 5 mg BID@0900,2100 AMANDO Administration Aspirin 81 mg 04/27/22 09:00 04/29/22 07:57 Aspirin 81 Mg Ec Tablet PO 81 mg DAILY AMANDO Administration Atorvastatin Calci um 20 mg 04/27/22 09:00 04/29/22 07:57 Atorvastatin 40 Mg Tablet PO 20 mg DAILY AMANDO Administration Brimonidine Tartra te 1 drop 04/27/22 09:00 04/29/22 17:19 Brimonidine 0.2% Op Soln 5 Ml Btl EYE-RIGHT 1 drop BID AMANDO Administration Chlorthalidone 25 mg 04/29/22 09:00 04/29/22 11:31 Chlorthalidone 2 5 Mg Tablet PO 25 mg DAILY AMANDO Administration Gabapentin 100 mg 04/29/22 09:45 04/29/22 22:28 Gabapentin 100 M g Capsule PO 100 mg TID AMANDO Administration Insulin Human Lisp ro 0 unit 04/27/22 08:00 04/29/22 22:42 Insulin Lispro 1 00 Unit/1 Ml SUBCUT 2 unit WM&BEDTIME AMANDO Administration Protocol Isosorbide Mononit rate 120 mg 04/27/22 09:00 04/29/22 07:57 Isosorbide [place] itrate Er 60 Mg Ta blet PO 120 mg DAILY AMANDO Administration Losartan Potassium 25 mg 04/27/22 09:00 04/29/22 07:56 Losartan 50 Mg T ablet PO 25 mg DAILY AMANDO Administration Nystatin 1 applic 04/27/22 22:47 04/29/22 17:20 Nystatin Powder 15 Gm Btl TOPICAL 1 applic BID AMANDO Administration Pantoprazole Sodiu m 40 mg 04/28/22 09:00 04/29/22 07:[address] 40 Mg Tablet PO 40 mg DAILY AMANDO Administration Timolol Maleate 1 drop 04/27/22 09:00 04/29/22 17:19 Timolol 0.5% Op Soln 5 Ml Btl EYE-RIGHT 1 drop BID AMANDO Administration Tramadol HCl 100 mg 04/28/22 10:21 04/29/22 22:43 Tramadol 50 Mg T ablet PO 100 mg BID PRN Administration pain Travoprost 1 drop 04/27/22 21:00 04/29/22 22:28 Travoprost 0.004 % Op Soln 2.5 Ml B tl EYE-BOTH 1 drop BEDTIME AMANDO Administration Vitals/I&O/Wt Last Vital Signs Temp 99.0 F 04/30/22 04:00 Pulse 79 04/30/22 07:49 Resp 18 04/30/22 07:43 BP 135/67 04/30/22 04:00 Pulse Ox 95 04/30/22 07:43 O2 Del Method 04/30/22 07:43 O2 Flow Rate 4 04/30/22 07:43 04/29/22 04/30/22 04/30/22 22:59 06:59 14:59 Output Total 275 / 925 400 / 400 Balance -275 / -805 -400 / -400 Physical Exam Const: COMMON NORMALS: patient oriented x3 Resp: COMMON NORMALS: normal respiratory effort, No retractions, No use of accessory muscles and clear to auscultation bilaterally EFFORT & INSPECTION: Yes symmetric chest movement AUSCULTATION: clear to auscultation bilaterally Cardio: COMMON NORMALS: regular rate, regular rhythm, S1 normal heart sound present, S2 normal heart sound present, No gallops present (Cardio), No murmurs present (Cardio), No rub (Cardio) and Peripheral pulses 2+ throughout RATE: regular rate RHYTHM: regular rhythm HEART SOUNDS: S1 normal heart sound present and S2 normal heart sound present PERIPHERAL PULSES: Peripheral pulses 2+ throughout GI: COMMON NORMALS: Normal to inspection, nondistended, normoactive bowel sounds present, Soft to palpation, non-tender, No hepatosplenomegaly present and no masses AUSCULTATION: Yes normoactive bowel sounds PALPATION: Yes Soft to palpation and Yes No hepatosplenomegaly present RECTAL EXAM: deferred Extremity: COMMON NORMALS: no clubbing, cyanosis or edema and no pedal edema Neuro: COMMON NORMALS: patient oriented x3 Urinary Catheter Management: Ortiz: Cath Placed During This Visit: yes Reason for Continuing Indwelling Catheter: Other Urinary Catheter Date of Insertion: 04/26/22 Urinary Catheter Time of Insertion: 22:20 Data 04/30/22 03:46 04/30/22 03:46 Micro: Microbiology 04/26/22 15:45 Gram Stain - Final Sputum - Expectorated Sputum Sputum Culture - Final A&P Assessment and plan (1) Pneumonia: (2) Hypoxia: (3) Dizziness: (4) PAULA (obstructive sleep apnea): (5) Asthma: (6) Chronic respiratory failure with hypoxia: (7) Fever: (8) JACQUES (acute kidney injury): Plan # Dizziness: Possible concern for BPPV, as she is associating these episodes with head movement. May need canalith repositioning ( nay Maneuver ) -CT head without any acute intracranial events. -MRI of the head:No evidence for an acute infarct. -Carotid Doppler: No flow-limiting stenosis, patent vertebral arteries -2D echo: Normal LV size and systolic function, LVEF 72%, no gross RWMA. -Orthostatic vital sign check has been negative. -Beta-dougie was kept on hold due to bradycardia. -Neurochecks, fall precaution -Meclizine as needed #Atrial fibrillation with slow ventricular response: Possible underlying sick sinus syndrome.Or Due to beta-dougie effect. [id number] 5 Beta-dougie and he has been kept on hold due to concerns for bradycardia. Currently she is off anticoagulation: Due to risk of fall secondary to dizziness. Given her high [id number] score's, she is at risk for TIA/stroke. Currently on therapeutic anticoagulation. #Decompensated heart failure with preserved ejection fraction: Elevated proBNP, chest x-ray has shown pulmonary vascular congestion 2D echo results appreciated Was initiated on Lasix 40 twice daily has been transitioned to Lasix 40 IV daily. p.o. Lasix on hold. Continue to have good urine output # Bradycardia, possibly secondary to beta-dougie use will hold for now #Possible pneumonia: As she is a started being febrile, x-ray chest is suggestive of right lower lobe peribronchial infiltrates. Blood culture negative Sputum gram stain and culture: None positive cocci in pairs and chains and clusters few gram-positive rods. Empirically started on ceftriaxone azithromycin. #JACQUES: Possibly secondary to overdiuresis. Current serum creatinine is 1.4, Baseline serum creatinine is usually around 0.6-0.7. We will give her a liter normal saline bolus today. Hold Lasix Monitor and output charting Avoid nephrotoxic's. # Fever : Likely secondary to pneumonia. # COPD: continue duoneb and budesonide inhalation # Obesity hypoventilation syndrome, sleep apnea, continue CPAP Disposition: Patient stated he is alone, and is scared of falling at home, she would benefit from short-term rehab. PT OT Full code Lovenox for DVT prophylaxis Attestations Medical Necessity Statement*: Patient is to be in hospital for management of fever pneumonia, JACQUES. Time Spent in Patient Care: Greater than 35 minutes (>than 50% of time spent in counselling and/or direct pt care on unit) . Coding Level of Care Code Acute Utility Helicopter Repairer for [facility] Fwd Exam Detailed Diagnoses Pneumonia J18.9 Hypoxia R09.02 Dizziness R42 PAULA (obstructive sleep apnea) G47.33 Asthma J45.909 Chronic respiratory failure with hypoxia J96.11 Fever R50.9 JACQUES (acute kidney injury) N17.9
[2022-04-30] MEDS: aspirin 81 mg EC Tablet PO (08:31)
[2022-04-30] MEDS: sodium chloride 0.9% 500 ML 999 ML IV (08:31)
[2022-04-30] MEDS: apixaban 5 mg Tablet PO ×2 (08:31→21:12)
[2022-04-30] MEDS: isosorbide mononitrate ER 60 mg Tablet 120 MG PO (08:31)
[2022-04-30] MEDS: gabapentin 100 mg Capsule PO ×3 (08:32→21:13)
[2022-04-30] MEDS: atorvastatin 40 mg Tablet 20 MG PO (08:32)
[2022-04-30] MEDS: amlodipine 5 mg Tablet 10 MG PO (08:32)
[2022-04-30] MEDS: timolol 0.5% Op Soln 5 mL Btl 1 DROP EYE-RIGHT ×2 (08:32→17:38)
[2022-04-30] MEDS: nystatin powder 15 gm Btl 1 APPLIC TOPICAL ×2 (08:32→17:38)
[2022-04-30] MEDS: brimonidine 0.2% Op Soln 5 mL Btl 1 DROP EYE-RIGHT ×2 (08:32→17:38)
[2022-04-30] MEDS: pantoprazole DR 40 mg Tablet PO (08:32)
[2022-04-30] MEDS: TRAMadol 50 mg Tablet 100 MG PO ×2 (09:26→21:12)
--- NOTE | 2022-04-30 09:45 | PC.CHAP ---
Pastoral Care Encounter/Spiritual Assessment Type of Contact [] Declined laundry route driver visit [] Patient/Family/Request visit [] Outpatient visit [] Follow-up visit [] Physician referral [] Code/Alert [x] Routine visit [] Staff referral [] Actively dying [] Patient sleeping [] Family support [] [] Out of room [] Palliative care [] [] Receiving care in room [] Pre-surgical visit [] Trauma [] Long length of stay [] ICU visit [] Other: Relational/Emotional Strength [x] Patient feels connected with others/family/visitors/staff [] Distress [] Loneliness/isolation [] Abandonment Spirituality of Patient [x] Person of Fern [x] Attends Yazidi of their Fern [x] Believes in Prayer [x] Reads Bible or Hinduism materials [] There are Spiritual issues to be addressed Senior Physician Interventions [x] Prayer [x] Active listening [x] Non-anxious presence [x] Spiritual/emotional support [] Crisis/trauma care [] Spiritual counseling [] Bereavement support [] Provided bereavement packet [] Provided Bible/devotional materials [] Provided toy/stuffed animal, coloring book to patient or family member [] Provided Communion [] Anointing/[place]ister [] Salvation [x] Completed spiritual assessment [] Other: Impact on Illness or Injury [] Angry [] Fearful [] Anxious [] Often cries [] Exhaustion [] Unable to work [] Unable to attend gnosticist [] Unable to walk/stand [] Unable to read [] Unable to drive [] Unable to eat/drink [] Unable to sleep [] Unable to be with family [] Patient intubated [] Other: Summary Pt grew up in a yazdanism home and has a strong fern. Has a strong support system outside the hospital Time spent with patient 15m
--- NOTE | 2022-04-30 10:25 | PC.OT ---
OT Tx Attempted - Patient refused tx at this time secondary to patient reporting that she just took a pain pill and was too drowsy to do anything. Will attempt again later this day.
[2022-04-30] MEDS: sodium chloride 0.9% 500 ML 100 ML IV (10:29)
[2022-04-30] MEDS: cefTRIAXone 1,000 MG in sodium chloride 0.9% (plus) 50 ML 100 MG IV (10:29)
[2022-04-30 11:04] LABS: Urine Appearance Hazy (CLEAR); Urine Color Yellow (Yellow); pH Urine 5 (5-7)
[2022-04-30 11:05] LABS: Add Urine Culture? Yes; Add Urine Microscopic? YES; Amorphous Sediment Urine 2+ /hpf; Bacteria Urine 4+ /hpf; Bilirubin Urine Neg (Negative); Blood Urine 2+ (Negative); Glucose Urine UA Norm (Normal); Ketones Urine Negative (Negative); Leukocyte Esterase Urine Negative (Negative); Nitrate Urine Negative (Negative); Protein Urine Neg (Negative); Urobilinogen Urine Norm (Negative)
[2022-04-30 11:16] LABS: Glucose Point of Care 165 mg/dL (70-110)
[2022-04-30] MEDS: insulin lispro 100 unit/1 mL SUBCUT ×3 (12:05→22:06)
[2022-04-30] MEDS: TRAMadol 50 mg Tablet PO (12:05)
[2022-04-30] MEDS: azithromycin 500 MG in sodium chloride 0.9% 250 ML 250 MG IV (15:55)
[2022-04-30 17:23] LABS: Glucose Point of Care 159 mg/dL (70-110)
--- NOTE | 2022-04-30 21:03 | PC.NURSE ---
Nurse notified about patients temperature.
[2022-04-30 21:46] LABS: Glucose Point of Care 227 mg/dL (70-110)
[2022-05-01] VITALS (14 sets, daily range): BP systolic 115–156; BP diastolic 61–68; PULSE 68–92; RESP 15–20; TEMP 36.6–37.5; O2SAT 90–97
[2022-05-01] MEDS: ipratropium-albuterol 3 mL Neb INHALATION ×4 (03:29→21:03)
[2022-05-01 05:36] LABS: Basophils % 0.2 %; Eosinophils % 0.2 %; Hematocrit 34.5 % (37.0-47.0); Hemoglobin 10.6 g/dL (11.5-15.3); Lymphocytes # 1.8 10^3/uL (0.8-4.8); Lymphocytes % 10.9 %; Mean Corpuscular HGB Conc 30.7 g/dL (30.0-36.0); Mean Corpuscular Hemoglobin 24.8 pg (28.0-34.0); Mean Corpuscular Volume 80.6 fl (81-99); Mean Platelet Volume 10.6 fL (7.4-10.4); Monocytes # 2.6 10^3/uL (0.2-0.9); Monocytes % 15.5 %; Neutrophils # 12.05 10^3/uL (1.8-7.7); Neutrophils % 72.7 %; Nucleated Red Blood Cells % 0 %; Platelet Count 178 10^3/cmm (130-400); Red Blood Count 4.28 10^6/uL (4.1-5.3); Red Cell Distribution Width 15.3 % (12.1-15.1); White Blood Count 16.6 10^3/uL (4.0-10.0)
[2022-05-01] MEDS: acetaminophen 325 mg Tablet 650 MG PO ×2 (05:51→21:10)
[2022-05-01 06:06] LABS: Anion Gap 16.4 (5-19); Blood Urea Nitrogen 34 mg/dL (8-23); Calcium 7.7 mg/dL (8.5-10.5); Carbon Dioxide 29 mmol/L (22-29); Chloride 84 mmol/L (98-107); Glucose 98 mg/dL (65-115); Osmolality Calculated 268 mOsm/kg (285-295); Potassium 4.4 mmol/L (3.5-5.1); Sodium 125 mmol/L (136-145)
[2022-05-01 06:40] LABS: Glucose Point of Care 104 mg/dL (70-110)
--- NOTE | 2022-05-01 07:44 | PC.NURSE ---
Notified Dr. Hayes of patient's sodium level of 125 at 0625. No new orders.
[2022-05-01] MEDS: atorvastatin 40 mg Tablet 20 MG PO (08:35)
[2022-05-01] MEDS: gabapentin 100 mg Capsule PO ×3 (08:35→21:11)
[2022-05-01] MEDS: amlodipine 5 mg Tablet 10 MG PO (08:35)
[2022-05-01] MEDS: isosorbide mononitrate ER 60 mg Tablet 120 MG PO (08:35)
[2022-05-01] MEDS: pantoprazole DR 40 mg Tablet PO (08:35)
[2022-05-01] MEDS: aspirin 81 mg EC Tablet PO (08:35)
[2022-05-01] MEDS: brimonidine 0.2% Op Soln 5 mL Btl 1 DROP EYE-RIGHT ×2 (08:39→17:17)
[2022-05-01] MEDS: apixaban 5 mg Tablet PO ×2 (08:40→21:14)
[2022-05-01] MEDS: timolol 0.5% Op Soln 5 mL Btl 1 DROP EYE-RIGHT ×2 (08:40→17:16)
[2022-05-01] MEDS: nystatin powder 15 gm Btl 1 APPLIC TOPICAL ×2 (08:40→17:17)
[2022-05-01] MEDS: cefTRIAXone 1,000 MG in sodium chloride 0.9% (plus) 50 ML 100 MG IV (10:16)
[2022-05-01] MEDS: TRAMadol 50 mg Tablet 100 MG PO ×2 (10:41→21:09)
[2022-05-01 11:03] LABS: Glucose Point of Care 234 mg/dL (70-110)
--- NOTE | 2022-05-01 12:55 | CTR_ITS ---
PROCEDURE INFORMATION: Exam: CT Right Upper Extremity Without Contrast, Wrist Exam date and time: 05/01/2022 2:36 PM Age: 82 years old Clinical indication: Swelling; Wrist; Right; Additional info: RT wrist swelling TECHNIQUE: Imaging protocol: Computed tomography of the Right upper extremity without contrast. Exam focused on the wrist. Radiation optimization: All CT scans at this facility use at least one of these dose optimization techniques: automated exposure control; mA and/or kV adjustment per patient size (includes targeted exams where dose is matched to clinical indication); or iterative reconstruction. COMPARISON: CR XR wrist RT min 3V* [id number] 06/27/2020 3:45 PM RADIATION DOSE METRICS: Total DLP (mGy-cm): 96.39 FINDINGS: Bones/joints: Medial downsloping of the distal articular surface of the distal radius is noted. Mild apex dorsal buckling of the distal radial metaphysis is noted with evidence of a healed fracture on series 14, image 25. Moderate relative subluxation of the proximal carpal row with respect to the distal radial articular surface is noted. No dislocation. Severe joint space narrowing is noted between the radial styloid process and the scaphoid. There are [id number] benign-appearing cystic changes in the base of the 1st metacarpal, lunate and trapezoid. Moderate to large benign-appearing subcortical cystic changes in the distal radius are present. Additional lucencies which may represent subcortical cysts and/or nutrient foramina are identified throughout the remainder of the carpal bones. No definite erosive changes. There is severe joint space narrowing between the lunate and triquetrum, scaphoid and the trapezium and trapezoid and between the trapezoid and the base of the 1st metacarpal. Moderate osteophyte formation is noted arising from the base of the 1st metacarpal, head of the 1st metacarpal and the distal aspect of the trapezium. Severe joint space narrowing at the 1st metacarpophalangeal joint. Mild degenerative subcortical cystic changes and osteophyte formation of the distal ulna are present. No acute fracture. Soft tissues: Mild diffuse subcutaneous edema is noted. An ovoid region of fluid density along the dorsal aspect of the flexor tendons within the mid aspect of the hand is identified measuring 2.1 cm superior to inferior by 2.2 x 1.0 cm in the axial plane on series 16, image 79. Vasculature: Atherosclerotic calcifications are noted. CT/CT wrist RT wo con* [id number] IMPRESSION: 1. An ovoid region of fluid is identified along the dorsal aspect of the flexor tendons within the hand. This may represent a ganglion cyst although inflammatory or infectious tenosynovitis or ulnar bursitis cannot be excluded from this exam. Consider MRI with and without contrast for further assessment. 2. Mild diffuse subcutaneous edema. 3. Old healed fracture of the distal radius with mild apex anterior angulation. Medial downsloping of the distal radial articular surface is also present which can be associated with Madelung deformity. 4. Extensive primary osteoarthritic changes as detailed above.
[2022-05-01] MEDS: insulin lispro 100 unit/1 mL SUBCUT ×3 (13:01→21:16)
[2022-05-01] MEDS: predniSONE 20 mg Tablet 40 MG PO (14:04)
[2022-05-01] MEDS: azithromycin 500 MG in sodium chloride 0.9% 250 ML 250 MG IV (14:58)
--- NOTE | 2022-05-01 15:08 | PM.PN ---
Subjective Subjective: Patient has continued to spike temperature, last noted T-max 102.7, around 8 PM yesterday evening, She was also complaining of right wrist pain, started this morning, has some redness on physical examination, as well swelling. Medications: Reviewed: Yes Medication Review Details: Generic Name Dose Route Start Last Admin Trade Name Freq PRN Reason Stop Dose Admin Acetaminophen 650 mg 04/26/22 22:06 05/01/22 05:51 Acetaminophen 32 5 Mg Tablet PO 650 mg Q6H PRN Administration Mild/Mod Pain Or Temp >/= 101 Albuterol/Ipratrop ium 3 ml 04/27/22 14:00 05/01/22 13:06 Ipratropium-Albu terol 3 Ml Neb INHALATION 3 ml Q6H.RESP AMANDO Administration Amlodipine Besylat e 10 mg 04/30/22 09:00 05/01/22 08:35 Amlodipine 5 Mg Tablet PO 10 mg DAILY AMANDO Administration Apixaban 5 mg 04/29/22 21:00 05/01/22 08:40 Apixaban 5 Mg Ta blet PO 5 mg BID@0900,2100 AMANDO Administration Aspirin 81 mg 04/27/22 09:00 05/01/22 08:35 Aspirin 81 Mg Ec Tablet PO 81 mg DAILY AMANDO Administration Atorvastatin Calci um 20 mg 04/27/22 09:00 05/01/22 08:35 Atorvastatin 40 Mg Tablet PO 20 mg DAILY AMANDO Administration Brimonidine Tartra te 1 drop 04/27/22 09:00 05/01/22 08:39 Brimonidine 0.2% Op Soln 5 Ml Btl EYE-RIGHT 1 drop BID AMANDO Administration Chlorthalidone 25 mg 04/29/22 09:00 04/29/22 11:31 Chlorthalidone 2 5 Mg Tablet PO 25 mg DAILY AMANDO Administration Gabapentin 100 mg 04/29/22 09:45 05/01/22 14:04 Gabapentin 100 M g Capsule PO 100 mg TID AMANDO Administration Ceftriaxone Sodium 1,000 mg/ 50 mls @ 100 mls/ hr 04/30/22 10:30 05/01/22 10:16 Sodium Chloride IV 100 mls/hr Q24H AMANDO Administration Protocol Azithromycin 500 m g/ Sodium 250 mls @ 250 mls /hr 04/30/22 15:00 05/01/22 14:58 Chloride IV 250 mls/hr Q24H AMANDO Administration Protocol Insulin Human Lisp ro 0 unit 04/27/22 08:00 05/01/22 13:01 Insulin Lispro 1 00 Unit/1 Ml SUBCUT 6 unit WM&BEDTIME AMANDO Administration Protocol Isosorbide Mononit rate 120 mg 04/27/22 09:00 05/01/22 08:35 Isosorbide [place] itrate Er 60 Mg Ta blet PO 120 mg DAILY AMANDO Administration Losartan Potassium 25 mg 04/27/22 09:00 04/29/22 07:56 Losartan 50 Mg T ablet PO 25 mg DAILY AMANDO Administration Nystatin 1 applic 04/27/22 22:47 05/01/22 08:40 Nystatin Powder 15 Gm Btl TOPICAL 1 applic BID AMANDO Administration Pantoprazole [place]od[place] m 40 mg 04/28/22 09:00 05/01/22 08:[address] 40 Mg Tablet PO 40 mg DAILY AMANDO Administration Prednisone 40 mg 05/01/22 13:00 05/01/22 14:04 Prednisone 20 Mg Tablet PO 40 mg DAILY AMANDO Administration Timolol Maleate 1 drop 04/27/22 09:00 05/01/22 08:40 Timolol 0.5% Op Soln 5 Ml Btl EYE-RIGHT 1 drop BID AMANDO Administration Travoprost 1 drop 04/27/22 21:00 04/30/22 21:13 Travoprost 0.004 % Op Soln 2.5 Ml B tl EYE-BOTH 1 drop BEDTIME AMANDO Administration Vitals/I&O/Wt Last Vital Signs Temp 98.2 F 05/01/22 11:55 Pulse 88 05/01/22 13:09 Resp 16 05/01/22 13:05 BP 144/65 05/01/22 11:55 Pulse Ox 93 05/01/22 13:05 O2 Del Method 05/01/22 13:05 O2 Flow Rate 3 05/01/22 13:05 FiO2 92 05/01/22 00:09 05/01/22 05/01/22 05/01/22 06:59 14:59 22:59 Intake Total 480 / 480 Output Total 670 / 1070 Balance -670 / 1070 480 / 480 Physical Exam Const: COMMON NORMALS: patient oriented x3 Resp: COMMON NORMALS: clear to auscultation bilaterally AUSCULTATION: clear to auscultation bilaterally Cardio: COMMON NORMALS: Peripheral pulses 2+ throughout PERIPHERAL PULSES: Peripheral pulses 2+ throughout OTHER: Irregularly irregular rhythm S1-S2 variable intensity GI: COMMON NORMALS: Normal to inspection, nondistended, normoactive bowel sounds present, Soft to palpation, non-tender, No hepatosplenomegaly present and no masses AUSCULTATION: Yes normoactive bowel sounds PALPATION: Yes Soft to palpation and Yes No hepatosplenomegaly present RECTAL EXAM: deferred Extremity: COMMON NORMALS: no clubbing, cyanosis or edema and no pedal edema NARRATIVE EXTREMITY EXAM: Right wrist swelling and redness Neuro: COMMON NORMALS: patient oriented x3 Urinary Catheter Management: Ortiz: Cath Placed During This Visit: yes Reason for Continuing Indwelling Catheter: Other Urinary Catheter Date of Insertion: 04/26/22 Urinary Catheter Time of Insertion: 22:20 Data 05/01/22 05:05 05/01/22 05:05 Micro: Microbiology 04/30/22 10:40 Urine Culture - Preliminary Urine,Voided A&P Assessment and plan (1) Pneumonia: (2) Hypoxia: (3) Dizziness: (4) PAULA (obstructive sleep apnea): (5) Asthma: (6) Chronic respiratory failure with hypoxia: (7) Fever: (8) JACQUES (acute kidney injury): Plan #Atrial fibrillation with slow ventricular response: Possible underlying sick sinus syndrome.Or Due to beta-dougie effect. [id number] 5 Beta-dougie and he has been kept on hold due to concerns for bradycardia. Currently she is off anticoagulation: Due to risk of fall secondary to dizziness. Given her high [id number] score's, she is at risk for TIA/stroke. Currently on therapeutic anticoagulation. #Decompensated heart failure with preserved ejection fraction: Currently compensated Elevated proBNP, chest x-ray has shown pulmonary vascular congestion 2D echo results appreciated Was initiated on Lasix 40 twice daily has been transitioned to Lasix 40 IV daily. p.o. Lasix on hold. Continue to have good urine output # Bradycardia, possibly secondary to beta-dougie use will hold for now #Possible pneumonia: As she is a started being febrile, x-ray chest is suggestive of right lower lobe peribronchial infiltrates. Blood culture negative Urine culture: Negative to date Sputum gram stain and culture: None positive cocci in pairs and chains and clusters few gram-positive rods. Empirically started on ceftriaxone azithromycin. #JACQUES: Possibly secondary to overdiuresis. Current serum creatinine is 1.4, Baseline serum creatinine is usually around 0.6-0.7. We will give her a liter normal saline bolus today. Hold Lasix Monitor and output charting Avoid nephrotoxic's. # Dizziness: Possible concern for BPPV, as she is associating these episodes with head movement. May need canalith repositioning ( nay Maneuver ) -CT head without any acute intracranial events. -MRI of the head:No evidence for an acute infarct. -Carotid Doppler: No flow-limiting stenosis, patent vertebral arteries -2D echo: Normal LV size and systolic function, LVEF 72%, no gross RWMA. -Orthostatic vital sign check has been negative. -Beta-dougie was kept on hold due to bradycardia. -Neurochecks, fall precaution -Meclizine as needed #Hyponatremia: Possibly secondary to overdiuresis: Will encourage p.o. fluid intake, salt tablets Monitor BMP # Fever : Likely secondary to pneumonia. Rule out other causes. #Right wrist swelling and pain: Of acute onset : Possibly concerning for acute gout flare: Currently her risk factors include, obesity, heart failure, diabetes. CT of the right wrist without contrast: Empirically start patient on prednisone 40 p.o. daily.Other possible choice could have been colchicine. NSAID was avoided given her heart failure. Empirically on ceftriaxone #Diabetes: On sliding scale insulin Monitor fingerstick glucose Cardiac consistent carb diet # COPD: continue duoneb and budesonide inhalation # Obesity hypoventilation syndrome, sleep apnea, continue CPAP Disposition: Patient has been accepted at rehab, once she is ready for discharge she will go to rehab. PT OT Full code Lovenox for DVT prophylaxis Attestations Medical Necessity Statement*: Patient is to be in hospital for management for fever. Coding Level of Care Code Acute Special Duty Nurse for [facility] Fwd Diagnoses Pneumonia J18.9 Hypoxia R09.02 Dizziness R42 PAULA (obstructive sleep apnea) G47.33 Asthma J45.909 Chronic respiratory failure with hypoxia J96.11 Fever R50.9 JACQUES (acute kidney injury) N17.9
[2022-05-01 16:35] LABS: Glucose Point of Care 214 mg/dL (70-110)
[2022-05-01] MEDS: sodium chloride 1 gm Tablet PO (17:16)
[2022-05-01] MEDS: diclofenac 1% Topical Gel 100 gm 1 APPLIC TOPICAL ×2 (17:17→21:11)
[2022-05-01 21:09] LABS: Glucose Point of Care 251 mg/dL (70-110)
[2022-05-02] VITALS (22 sets, daily range): BP systolic 113–148; BP diastolic 56–81; PULSE 67–95; RESP 8–38; TEMP 36.3–36.8; O2SAT 90–96
[2022-05-02] MEDS: ipratropium-albuterol 3 mL Neb INHALATION ×4 (03:03→20:24)
--- NOTE | 2022-05-02 04:00 | PC.NURSE ---
Pt IV out of vein at this time. IV catheter intact. Pressure drsg applied. Pt's nurse notified.
--- NOTE | 2022-05-02 04:31 | PC.NURSE ---
NO received and noted for 1) kub 2) Morphine 2mg IVP x 1 dose now 3) Reglan 5mg IVP x 1 now.
[2022-05-02 05:29] LABS: Basophils % 0.1 %; Hemoglobin 10.3 g/dL (11.5-15.3); Lymphocytes # 0.8 10^3/uL (0.8-4.8); Lymphocytes % 5.4 %; Mean Corpuscular HGB Conc 31.2 g/dL (30.0-36.0); Mean Corpuscular Hemoglobin 25.2 pg (28.0-34.0); Mean Corpuscular Volume 80.7 fl (81-99); Mean Platelet Volume 10.5 fL (7.4-10.4); Monocytes # 1.5 10^3/uL (0.2-0.9); Neutrophils # 12.97 10^3/uL (1.8-7.7); Neutrophils % 83.9 %; Nucleated Red Blood Cells % 0 %; Platelet Count 165 10^3/cmm (130-400); Red Blood Count 4.09 10^6/uL (4.1-5.3); White Blood Count 15.5 10^3/uL (4.0-10.0)
[2022-05-02 05:51] LABS: Anion Gap 16.6 (5-19); Blood Urea Nitrogen 40 mg/dL (8-23); Calcium 8.2 mg/dL (8.5-10.5); Carbon Dioxide 26 mmol/L (22-29); Chloride 81 mmol/L (98-107); Glucose 156 mg/dL (65-115); Osmolality Calculated 261 mOsm/kg (285-295); Potassium 4.6 mmol/L (3.5-5.1)
[2022-05-02 06:16] LABS: Sodium 119 mmol/L (136-145)
[2022-05-02 06:18] LABS: Glucose Point of Care 173 mg/dL (70-110)
--- NOTE | 2022-05-02 07:27 | PC.NURSE ---
Dr. Hayes notified of patient's sodium level of 119. Order received for repeat BMP. Lab called about stat BMP to be drawn. This was reported to receiving nurse Carmela ZARAGOZA.
[2022-05-02 07:33] LABS: Anion Gap 15.5 (5-19); Blood Urea Nitrogen 40 mg/dL (8-23); Calcium 8.2 mg/dL (8.5-10.5); Carbon Dioxide 27 mmol/L (22-29); Chloride 80 mmol/L (98-107); Glucose 145 mg/dL (65-115); Osmolality Calculated 258 mOsm/kg (285-295); Potassium 4.5 mmol/L (3.5-5.1)
[2022-05-02 07:52] LABS: Sodium 118 mmol/L (136-145)
[2022-05-02] MEDS: predniSONE 20 mg Tablet 40 MG PO (08:57)
[2022-05-02] MEDS: apixaban 5 mg Tablet PO ×2 (08:57→20:28)
[2022-05-02] MEDS: atorvastatin 40 mg Tablet 20 MG PO (08:57)
[2022-05-02] MEDS: isosorbide mononitrate ER 60 mg Tablet 120 MG PO (08:57)
[2022-05-02] MEDS: amlodipine 5 mg Tablet 10 MG PO (08:58)
[2022-05-02] MEDS: pantoprazole DR 40 mg Tablet PO (08:58)
[2022-05-02] MEDS: brimonidine 0.2% Op Soln 5 mL Btl 1 DROP EYE-RIGHT ×2 (08:58→17:33)
[2022-05-02] MEDS: timolol 0.5% Op Soln 5 mL Btl 1 DROP EYE-RIGHT ×2 (08:58→17:33)
[2022-05-02] MEDS: aspirin 81 mg EC Tablet PO (08:58)
[2022-05-02] MEDS: gabapentin 100 mg Capsule PO ×3 (08:58→20:27)
[2022-05-02] MEDS: sodium chloride 1 gm Tablet PO ×2 (08:58→17:33)
[2022-05-02] MEDS: insulin lispro 100 unit/1 mL SUBCUT ×4 (08:59→20:41)
[2022-05-02] MEDS: nystatin powder 15 gm Btl 1 APPLIC TOPICAL ×2 (09:02→17:33)
[2022-05-02] MEDS: diclofenac 1% Topical Gel 100 gm 1 APPLIC TOPICAL ×4 (09:02→20:29)
[2022-05-02] MEDS: sodium chloride 0.9% 1,000 ML 75 ML IV (09:09)
[2022-05-02] MEDS: cefTRIAXone 1,000 MG in sodium chloride 0.9% (plus) 50 ML 100 MG IV (10:52)
[2022-05-02] MEDS: sodium chloride 0.9% 500 ML IV (10:58)
[2022-05-02 12:00] LABS: Glucose Point of Care 178 mg/dL (70-110)
[2022-05-02] MEDS: acetaminophen 325 mg Tablet 650 MG PO (13:33)
[2022-05-02 14:34] LABS: Sodium 115 mmol/L (136-145)
--- NOTE | 2022-05-02 14:36 | PC.NURSE ---
Notified Dr. Bains of critical NA 118 at 0800 this am
--- NOTE | 2022-05-02 14:37 | PC.NURSE ---
Notified Dr. Bains or Critical NA of 115 vr [id number]
[2022-05-02] MEDS: azithromycin 500 MG in sodium chloride 0.9% 250 ML 250 MG IV (14:51)
[2022-05-02 14:54] LABS: Urine Random Chloride 12 mmol/L
[2022-05-02 15:33] LABS: Urine Random Sodium < 10 mmol/L
[2022-05-02 16:39] LABS: Anion Gap 15.9 (5-19); Blood Urea Nitrogen 38 mg/dL (8-23); Calcium 7.8 mg/dL (8.5-10.5); Carbon Dioxide 25 mmol/L (22-29); Chloride 80 mmol/L (98-107); Glucose 213 mg/dL (65-115); Osmolality Calculated 257 mOsm/kg (285-295); Potassium 4.9 mmol/L (3.5-5.1)
[2022-05-02 16:43] LABS: Glucose Point of Care 233 mg/dL (70-110)
[2022-05-02 16:51] LABS: Sodium 116 mmol/L (136-145)
--- NOTE | 2022-05-02 16:52 | PC.NURSE ---
Notified Dr. Bains of Critical NA 116 on redrawn. no orders given
--- NOTE | 2022-05-02 17:28 | PM.PN ---
Subjective Subjective: Patient was seen and examined this morning, was complaining of slight dizziness, was working with physical therapy, right wrist pain is slightly better, a.m. lab has shown severe hyponatremia. Will give hypertonic saline, monitor serum sodium closely. Medications: Reviewed: Yes Medication Review Details: Generic Name Dose Route Start Last Admin Trade Name Freq PRN Reason Stop Dose Admin Acetaminophen 650 mg 04/26/22 22:06 05/02/22 13:33 Acetaminophen 32 5 Mg Tablet PO 650 mg Q6H PRN Administration Mild/Mod Pain Or Temp >/= 101 Albuterol/Ipratrop ium 3 ml 04/27/22 14:00 05/02/22 14:36 Ipratropium-Albu terol 3 Ml Neb INHALATION 3 ml Q6H.RESP AMANDO Administration Amlodipine Besylat e 10 mg 04/30/22 09:00 05/02/22 08:58 Amlodipine 5 Mg Tablet PO 10 mg DAILY AMANDO Administration Apixaban 5 mg 04/29/22 21:00 05/02/22 08:57 Apixaban 5 Mg Ta blet PO 5 mg BID@0900,2100 AMANDO Administration Aspirin 81 mg 04/27/22 09:00 05/02/22 08:58 Aspirin 81 Mg Ec Tablet PO 81 mg DAILY AMANDO Administration Atorvastatin Calci um 20 mg 04/27/22 09:00 05/02/22 08:57 Atorvastatin 40 Mg Tablet PO 20 mg DAILY AMANDO Administration Brimonidine Tartra te 1 drop 04/27/22 09:00 05/02/22 08:58 Brimonidine 0.2% Op Soln 5 Ml Btl EYE-RIGHT 1 drop BID AMANDO Administration Diclofenac Sodium 1 applic 05/01/22 17:00 05/02/22 13:36 Diclofenac 1% To pical Gel 100 Gm TOPICAL 1 applic QID AMANDO Administration Gabapentin 100 mg 04/29/22 09:45 05/02/22 14:52 Gabapentin 100 M g Capsule PO 100 mg TID AMANDO Administration Ceftriaxone Sodium 1,000 mg/ 50 mls @ 100 mls/ hr 04/30/22 10:30 05/02/22 10:52 Sodium Chloride IV 100 mls/hr Q24H AMANDO Administration Protocol Azithromycin 500 m g/ Sodium 250 mls @ 250 mls /hr 04/30/22 15:00 05/02/22 14:51 Chloride IV 250 mls/hr Q24H AMANDO Administration Protocol Insulin Human Lisp ro 0 unit 04/27/22 08:00 05/02/22 12:34 Insulin Lispro 1 00 Unit/1 Ml SUBCUT 2 unit WM&BEDTIME AMANDO Administration Protocol Isosorbide Mononit rate 120 mg 04/27/22 09:00 05/02/22 08:57 Isosorbide [place] itrate Er 60 Mg Ta blet PO 120 mg DAILY AMANDO Administration Losartan Potassium 25 mg 04/27/22 09:00 04/29/22 07:56 Losartan 50 Mg T ablet PO 25 mg DAILY AMANDO Administration Nystatin 1 applic 04/27/22 22:47 05/02/22 09:02 Nystatin Powder 15 Gm Btl TOPICAL 1 applic BID AMANDO Administration Pantoprazole Sodiu m 40 mg 04/28/22 09:00 05/02/22 08:[address] 40 Mg Tablet PO 40 mg DAILY AMANDO Administration Prednisone 40 mg 05/01/22 13:00 05/02/22 08:57 Prednisone 20 Mg Tablet PO 40 mg DAILY AMANDO Administration Sodium Chloride 1 gm 05/01/22 18:00 05/02/22 08:58 Sodium Chloride 1 Gm Tablet PO 1 gm BID AMANDO Administration Timolol Maleate 1 drop 04/27/22 09:00 05/02/22 08:58 Timolol 0.5% Op Soln 5 Ml Btl EYE-RIGHT 1 drop BID AMANDO Administration Tramadol HCl 100 mg 05/01/22 12:57 05/01/22 21:09 Tramadol 50 Mg T ablet PO 100 mg TID PRN Administration pain Travoprost 1 drop 04/27/22 21:00 05/01/22 21:11 Travoprost 0.004 % Op Soln 2.5 Ml B tl EYE-BOTH 1 drop BEDTIME AMANDO Administration Vitals/I&O/Wt Last Vital Signs Temp 98.0 F 05/02/22 12:00 Pulse 74 05/02/22 16:00 Resp 18 05/02/22 14:36 BP 148/81 05/02/22 12:00 Pulse Ox 91 05/02/22 14:36 O2 Del Method 05/02/22 14:36 O2 Flow Rate 4 05/02/22 14:36 FiO2 93 05/02/22 00:12 05/02/22 05/02/22 05/02/22 06:59 14:59 22:59 Intake Total 480 / 1500 720 / 720 Output Total 500 / 500 Balance -20 / 1000 720 / 720 Physical Exam Const: COMMON NORMALS: patient oriented x3 Resp: COMMON NORMALS: normal respiratory effort, No retractions, No use of accessory muscles and clear to auscultation bilaterally EFFORT & INSPECTION: Yes symmetric chest movement AUSCULTATION: clear to auscultation bilaterally Cardio: COMMON NORMALS: regular rate, regular rhythm, S1 normal heart sound present, S2 normal heart sound present, No gallops present (Cardio), No murmurs present (Cardio), No rub (Cardio) and Peripheral pulses 2+ throughout RATE: regular rate RHYTHM: regular rhythm HEART SOUNDS: S1 normal heart sound present and S2 normal heart sound present PERIPHERAL PULSES: Peripheral pulses 2+ throughout OTHER: Irregularly irregular rhythm S1-S2 variable intensity GI: COMMON NORMALS: Normal to inspection, nondistended, normoactive bowel sounds present, Soft to palpation, non-tender, No hepatosplenomegaly present and no masses AUSCULTATION: Yes normoactive bowel sounds PALPATION: Yes Soft to palpation and Yes No hepatosplenomegaly present RECTAL EXAM: deferred Extremity: COMMON NORMALS: no clubbing, cyanosis or edema and no pedal edema NARRATIVE EXTREMITY EXAM: Right wrist swelling and redness Neuro: COMMON NORMALS: patient oriented x3 Urinary Catheter Management: Ortiz: Cath Placed During This Visit: yes Reason for Continuing Indwelling Catheter: Other Urinary Catheter Date of Insertion: 04/26/22 Urinary Catheter Time of Insertion: 22:20 Data 05/02/22 04:56 05/02/22 15:49 Micro: Microbiology 04/30/22 10:40 Urine Culture - Preliminary Urine,Voided Yeast species 04/26/22 19:39 Blood Culture - Final Blood NO GROWTH AFTER 5 DAYS 04/26/22 19:42 Blood Culture - Final Blood NO GROWTH AFTER 5 DAYS A&P Assessment and plan (1) Pneumonia: (2) Hypoxia: (3) Dizziness: (4) PAULA (obstructive sleep apnea): (5) Asthma: (6) Chronic respiratory failure with hypoxia: (7) Fever: (8) JACQUES (acute kidney injury): Plan #Atrial fibrillation with slow ventricular response: Possible underlying sick sinus syndrome.Or Due to beta-dougie effect. [id number] 5 Beta-dougie and he has been kept on hold due to concerns for bradycardia. Currently she is off anticoagulation: Due to risk of fall secondary to dizziness. Given her high [id number] score's, she is at risk for TIA/stroke. Currently on therapeutic anticoagulation. #Decompensated heart failure with preserved ejection fraction: Currently compensated Elevated proBNP, chest x-ray has shown pulmonary vascular congestion 2D echo results appreciated Was initiated on Lasix 40 twice daily has been transitioned to Lasix 40 IV daily. p.o. Lasix on hold. Continue to have good urine output # Bradycardia, possibly secondary to beta-dougie use will hold for now #Possible pneumonia: As she is a started being febrile, x-ray chest is suggestive of right lower lobe peribronchial infiltrates. Blood culture negative Urine culture: Negative to date Sputum gram stain and culture: None positive cocci in pairs and chains and clusters few gram-positive rods. Empirically started on ceftriaxone azithromycin. #JACQUES: Possibly secondary to overdiuresis. Current serum creatinine is 1.4, Baseline serum creatinine is usually around 0.6-0.7. We will give her a liter normal saline bolus today. Hold Lasix Monitor and output charting Avoid nephrotoxic's. # Dizziness: Possible concern for BPPV, as she is associating these episodes with head movement. May need canalith repositioning ( nay Maneuver ) -CT head without any acute intracranial events. -MRI of the head:No evidence for an acute infarct. -Carotid Doppler: No flow-limiting stenosis, patent vertebral arteries -2D echo: Normal LV size and systolic function, LVEF 72%, no gross RWMA. -Orthostatic vital sign check has been negative. -Beta-dougie was kept on hold due to bradycardia. -Neurochecks, fall precaution -Meclizine as needed #Severe hyponatremia: Possibly secondary to overdiuresis: Random urine sodium: Random cortisol: TSH: Urinalysis: Patient received normal saline bolus challenge, as well as a initially was kept on maintenance normal saline 75 cc an hour. Given precipitously dropping serum sodium, which is acute in all likelihood, less likely to be chronic. Fortunately she is relatively asymptomatic for the level of serum sodium she has. I will take a more conservative approach and give her 50 cc of 3% hypertonic saline over an hour with, monitor serum sodium every 4 hours, goal is to correct serum sodium around 10 M EQ in next 24 hours. If she was severely symptomatic, I would have taken more aggressive approach, which would have been symptom-based to correct serum sodium, with close monitoring of serum sodium, to avoid excessive overcorrection, to avoid any ODS development .Based on her subsequent serum sodium level will decide additional dosing of hypertonic saline. Ideally patient needs ICU level of care and close monitoring. Central line placement.For now will Will take a slightly conservative approach.But patient will definitely be on athletic monitor. Serum sodium every 4 hour has been ordered. # Fever : Likely secondary to pneumonia. Rule out other causes. Blood culture has been negative so far Urine culture is growing yeast: Possibly not true. Will empirically start on fluconazole, continue ceftriaxone azithromycin. #Right wrist swelling and pain: Of acute onset : Possibly concerning for acute gout flare: Currently her risk factors include, obesity, heart failure, diabetes. CT of the right wrist without contrast: Was reviewed with in-house orthopedic surgeon.Suggestive of chronic changes.Will need orthopedic follow-up as outpatient. Empirically start patient on prednisone 40 p.o. daily for 5 days.Other possible choice could have been colchicine. NSAID was avoided given her heart failure. Empirically on ceftriaxone. #Diabetes: On sliding scale insulin Monitor fingerstick glucose Cardiac consistent carb diet # COPD: continue duoneb and budesonide inhalation # Obesity hypoventilation syndrome, sleep apnea, continue CPAP Disposition: Patient has been accepted at rehab, once she is ready for discharge she will go to rehab. PT OT Full code Lovenox for DVT prophylaxis Attestations Medical Necessity Statement*: Patient is to be in hospital management of severe hyponatremia. Time Spent in Patient Care: Greater than 35 minutes (>than 50% of time spent in counselling and/or direct pt care on unit). Critical Care Time: The high probability of a clinically significant, sudden or life threatening deterioration of the patient's [] system(s) required my full and direct attention, intervention and personal management. The critical care time is as shown. 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
[2022-05-02] MEDS: fluconazole premix 100 MG in empty flexible container 1 EACH 50 MG IV (17:38)
--- NOTE | 2022-05-02 19:10 | PC.NURSE ---
Transferred to ICU room 1 via bed from Med surg for hyponatremia. Patient awake, alert, and oriented x 4. Reports having a headache at present time. No reports of Shortness of breath, O2 at 4L NC. V/S stable, 3% NS started as ordered per Dr. Bains.
[2022-05-02] MEDS: SODIUM CHLORIDE 3% IV (19:19)
[2022-05-02] MEDS: FLEXIBLE CONTAINER IV (19:19)
[2022-05-02 20:11] LABS: Sodium 117 mmol/L (136-145)
[2022-05-02] MEDS: efferdent effervescent 1 EACH DENTAL (20:27)
[2022-05-02] MEDS: TRAMadol 50 mg Tablet 100 MG PO (20:28)
[2022-05-02 20:41] LABS: Glucose Point of Care 224 mg/dL (70-110)
[2022-05-03] VITALS (27 sets, daily range): BP systolic 111–179; BP diastolic 48–101; PULSE 54–111; RESP 13–29; TEMP 36.6–36.9; O2SAT 90–100
[2022-05-03 01:24] LABS: Anion Gap 13.8 (5-19); Blood Urea Nitrogen 40 mg/dL (8-23); Calcium 7.9 mg/dL (8.5-10.5); Carbon Dioxide 27 mmol/L (22-29); Chloride 82 mmol/L (98-107); Glucose 153 mg/dL (65-115); Osmolality Calculated 259 mOsm/kg (285-295); Potassium 4.8 mmol/L (3.5-5.1)
[2022-05-03 01:42] LABS: Sodium 118 mmol/L (136-145)
[2022-05-03 05:47] LABS: Basophils % 0.1 %; Hematocrit 33.2 % (37.0-47.0); Hemoglobin 10.4 g/dL (11.5-15.3); Lymphocytes # 0.8 10^3/uL (0.8-4.8); Lymphocytes % 6.2 %; Mean Corpuscular HGB Conc 31.3 g/dL (30.0-36.0); Mean Corpuscular Hemoglobin 24.8 pg (28.0-34.0); Mean Platelet Volume 11.8 fL (7.4-10.4); Monocytes % 8.1 %; Neutrophils # 10.94 10^3/uL (1.8-7.7); Neutrophils % 85.1 %; Nucleated Red Blood Cells % 0 %; Platelet Count 238 10^3/cmm (130-400); White Blood Count 12.9 10^3/uL (4.0-10.0)
[2022-05-03 06:08] LABS: Anion Gap 16.8 (5-19); Blood Urea Nitrogen 37 mg/dL (8-23); Calcium 8.7 mg/dL (8.5-10.5); Carbon Dioxide 26 mmol/L (22-29); Chloride 82 mmol/L (98-107); Glucose 163 mg/dL (65-115); Osmolality Calculated 262 mOsm/kg (285-295); Potassium 4.8 mmol/L (3.5-5.1); Sodium 120 mmol/L (136-145)
[2022-05-03] MEDS: acetaminophen 325 mg Tablet 650 MG PO ×2 (06:12→23:48)
[2022-05-03 06:32] LABS: Cortisol Random 3.38 ug/dL (2.47-19.5)
[2022-05-03 07:48] LABS: Glucose Point of Care 159 mg/dL (70-110)
[2022-05-03] MEDS: ipratropium-albuterol 3 mL Neb INHALATION ×3 (07:56→20:23)
[2022-05-03] MEDS: atorvastatin 40 mg Tablet 20 MG PO (08:25)
[2022-05-03] MEDS: isosorbide mononitrate ER 60 mg Tablet 120 MG PO (08:25)
[2022-05-03] MEDS: gabapentin 100 mg Capsule PO ×3 (08:26→20:48)
[2022-05-03] MEDS: pantoprazole DR 40 mg Tablet PO (08:26)
[2022-05-03] MEDS: insulin lispro 100 unit/1 mL SUBCUT ×4 (08:26→21:10)
[2022-05-03] MEDS: apixaban 5 mg Tablet PO ×2 (08:26→20:48)
[2022-05-03] MEDS: sodium chloride 1 gm Tablet PO (08:26)
[2022-05-03] MEDS: aspirin 81 mg EC Tablet PO (08:26)
[2022-05-03] MEDS: amlodipine 5 mg Tablet 10 MG PO (08:26)
[2022-05-03] MEDS: predniSONE 20 mg Tablet 40 MG PO (08:26)
[2022-05-03] MEDS: brimonidine 0.2% Op Soln 5 mL Btl 1 DROP EYE-RIGHT ×2 (08:27→17:18)
[2022-05-03] MEDS: diclofenac 1% Topical Gel 100 gm 1 APPLIC TOPICAL ×4 (08:27→20:56)
[2022-05-03] MEDS: timolol 0.5% Op Soln 5 mL Btl 1 DROP EYE-RIGHT ×2 (08:28→17:19)
[2022-05-03] MEDS: nystatin powder 15 gm Btl 1 APPLIC TOPICAL ×2 (08:28→17:19)
[2022-05-03 08:57] LABS: Anion Gap 15.6 (5-19); Blood Urea Nitrogen 36 mg/dL (8-23); Calcium 8.3 mg/dL (8.5-10.5); Carbon Dioxide 26 mmol/L (22-29); Chloride 81 mmol/L (98-107); Glucose 147 mg/dL (65-115); Osmolality Calculated 257 mOsm/kg (285-295); Potassium 4.6 mmol/L (3.5-5.1)
[2022-05-03 09:06] LABS: Sodium 118 mmol/L (136-145)
[2022-05-03] MEDS: SODIUM CHLORIDE 3% IV (10:12)
[2022-05-03] MEDS: FLEXIBLE CONTAINER IV (10:12)
[2022-05-03] MEDS: cefTRIAXone 1,000 MG in sodium chloride 0.9% (plus) 50 ML 100 MG IV (11:06)
[2022-05-03 12:59] LABS: Glucose Point of Care 238 mg/dL (70-110)
--- NOTE | 2022-05-03 14:02 | P.PN_ITS ---
Subjective Subjective: Patient was seen and examined this morning, denied any nausea vomiting, confusion, headache. Sodium this morning was 120, repeat sodium has trended down to 118. Patient remains afebrile. Medications: Reviewed: Yes Medication Review Details: Generic Name Dose Route Start Last Admin Trade Name [place] PRN Reason Stop Dose Admin Acetaminophen 650 mg 04/26/22 22:06 05/03/22 06:12 Acetaminophen 32 5 Mg Tablet PO 650 mg Q6H PRN Administration Mild/Mod Pain Or Temp >/= 101 Albuterol/Ipratrop ium 3 ml 04/27/22 14:00 05/03/22 13:45 Ipratropium-Albu terol 3 Ml Neb INHALATION 3 ml Q6H.RESP AMANDO Administration Amlodipine Besylat e 10 mg 04/30/22 09:00 05/03/22 08:26 Amlodipine 5 Mg Tablet PO 10 mg DAILY AMANDO Administration Apixaban 5 mg 04/29/22 21:00 05/03/22 08:26 Apixaban 5 Mg Ta blet PO 5 mg BID@0900,2100 AMANDO Administration Aspirin 81 mg 04/27/22 09:00 05/03/22 08:26 Aspirin 81 Mg Ec Tablet PO 81 mg DAILY AMANDO Administration Atorvastatin Calci um 20 mg 04/27/22 09:00 05/03/22 08:25 Atorvastatin 40 Mg Tablet PO 20 mg DAILY AMANDO Administration Brimonidine Tartra te 1 drop 04/27/22 09:00 05/03/22 08:27 Brimonidine 0.2% Op Soln 5 Ml Btl EYE-RIGHT 1 drop BID AMANDO Administration Denture Adhesive 1 each 05/02/22 19:22 05/02/22 20:27 Efferdent Efferv escent DENTAL 1 each PRN PRN Administration dentures Diclofenac Sodium 1 applic 05/01/22 17:00 05/03/22 13:02 Diclofenac 1% To pical Gel 100 Gm TOPICAL 1 applic QID AMANDO Administration Gabapentin 100 mg 04/29/22 09:45 05/03/22 08:26 Gabapentin 100 M g Capsule PO 100 mg TID AMANDO Administration Ceftriaxone Sodium 1,000 mg/ 50 mls @ 100 mls/ hr 04/30/22 10:30 05/03/22 11:36 Sodium Chloride IV Infused Q24H AMANDO Infusion Protocol Fluconazole 100 mg / N/A 50 mls @ 50 mls/h r 05/02/22 17:30 05/02/22 18:38 IV Infused Q24H AMANDO Infusion Insulin Human Lisp ro 0 unit 04/27/22 08:00 05/03/22 13:01 Insulin Lispro 1 00 Unit/1 Ml SUBCUT 6 unit WM&BEDTIME AMANDO Administration Protocol Isosorbide Mononit rate 120 mg 04/27/22 09:00 05/03/22 08:25 Isosorbide [place] itrate Er 60 Mg Ta blet PO 120 mg DAILY AMANDO Administration Losartan Potassium 25 mg 04/27/22 09:00 04/29/22 07:56 Losartan 50 Mg T ablet PO 25 mg DAILY AMANDO Administration Nystatin 1 applic 04/27/22 22:47 05/03/22 08:28 Nystatin Powder 15 Gm Btl TOPICAL 1 applic BID AMANDO Administration Pantoprazole Sodiu m 40 mg 04/28/22 09:00 05/03/22 08:[address] 40 Mg Tablet PO 40 mg DAILY AMANDO Administration Prednisone 40 mg 05/01/22 13:00 05/03/22 08:26 Prednisone 20 Mg Tablet PO 40 mg DAILY AMANDO Administration Timolol Maleate 1 drop 04/27/22 09:00 05/03/22 08:28 Timolol 0.5% Op Soln 5 Ml Btl EYE-RIGHT 1 drop BID AMANDO Administration Tramadol HCl 100 mg 05/01/22 12:57 05/02/22 20:28 Tramadol 50 Mg T ablet PO 100 mg TID PRN Administration pain Travoprost 1 drop 04/27/22 21:00 05/02/22 20:28 Travoprost 0.004 % Op Soln 2.5 Ml B tl EYE-BOTH 1 drop BEDTIME AMANDO Administration Vitals/I&O/Wt Last Vital Signs Temp 98.1 F 05/03/22 08:00 Pulse 63 05/03/22 13:48 Resp 16 05/03/22 13:45 BP 179/85 05/03/22 12:00 Pulse Ox 95 05/03/22 13:45 O2 Del Method 05/03/22 13:45 O2 Flow Rate 3 05/03/22 13:45 FiO2 93 05/02/22 00:12 05/02/22 05/03/22 05/03/22 22:59 06:59 14:59 Intake Total 900 / 1620 300 / 1920 340 / 340 Output Total 1200 / 1200 1000 / 1000 Balance 900 / 1620 -900 / 720 -660 / -660 Physical Exam Const: COMMON NORMALS: patient oriented x3 Resp: COMMON NORMALS: normal respiratory effort, No retractions, No use of accessory muscles and clear to auscultation bilaterally EFFORT & INSPECTION: Yes symmetric chest movement AUSCULTATION: clear to auscultation bilaterally Cardio: COMMON NORMALS: regular rate, regular rhythm, S1 normal heart sound present, S2 normal heart sound present, No gallops present (Cardio), No murmurs present (Cardio), No rub (Cardio) and Peripheral pulses 2+ throughout RATE: regular rate RHYTHM: regular rhythm HEART SOUNDS: S1 normal heart sound present and S2 normal heart sound present PERIPHERAL PULSES: Peripheral pulses 2+ throughout OTHER: Irregularly irregular rhythm S1-S2 variable intensity GI: COMMON NORMALS: Normal to inspection, nondistended, normoactive bowel sounds present, Soft to palpation, non-tender, No hepatosplenomegaly present and no masses AUSCULTATION: Yes normoactive bowel sounds PALPATION: Yes Soft to palpation and Yes No hepatosplenomegaly present RECTAL EXAM: deferred Extremity: COMMON NORMALS: no clubbing, cyanosis or edema and no pedal edema NARRATIVE EXTREMITY EXAM: Right wrist swelling and redness Neuro: COMMON NORMALS: patient oriented x3 Urinary Catheter Management: Ortiz: Cath Placed During This Visit: yes Reason for Continuing Indwelling Catheter: Accurate Measurement of Urinary Output in Critically Ill Patients Urinary Catheter Date of Insertion: 04/26/22 Urinary Catheter Time of Insertion: 22:20 Data 05/03/22 04:00 05/03/22 08:17 Micro: Microbiology 04/30/22 10:40 Urine Culture - Preliminary Urine,Voided Yeast species A&P Assessment and plan (1) Pneumonia: (2) Hypoxia: (3) Dizziness: (4) PAULA (obstructive sleep apnea): (5) Asthma: (6) Chronic respiratory failure with hypoxia: (7) Fever: (8) JACQUES (acute kidney injury): Plan #Atrial fibrillation with slow ventricular response: Possible underlying sick sinus syndrome.Or Due to beta-dougie effect. [id number] 5 Beta-dougie and he has been kept on hold due to concerns for bradycardia. Currently she is off anticoagulation: Due to risk of fall secondary to dizziness. Given her high [id number] score's, she is at risk for TIA/stroke. Currently on therapeutic anticoagulation. #Decompensated heart failure with preserved ejection fraction: Currently compensated Elevated proBNP, chest x-ray has shown pulmonary vascular congestion 2D echo results appreciated Was initiated on Lasix 40 twice daily has been transitioned to Lasix 40 IV daily. p.o. Lasix on hold. Continue to have good urine output # Bradycardia, possibly secondary to beta-dougie use will hold for now #Possible pneumonia: As she is a started being febrile, x-ray chest is sugges tive of right lower lobe peribronchial infiltrates. Blood culture negative Urine culture: Negative to date Sputum gram stain and culture: None positive cocci in pairs and chains and clusters few gram-positive rods. Empirically started on ceftriaxone azithromycin. #JACQUES: Possibly secondary to overdiuresis. Current serum creatinine is 1.4, Baseline serum creatinine is usually around 0.6-0.7. We will give her a liter normal saline bolus today. Hold Lasix Monitor and output charting Avoid nephrotoxic's. # Dizziness: Possible concern for BPPV, as she is associating these episodes with head movement. May need canalith repositioning ( nay Maneuver ) -CT head without any acute intracranial events. -MRI of the head:No evidence for an acute infarct. -Carotid Doppler: No flow-limiting stenosis, patent vertebral arteries -2D echo: Normal LV size and systolic function, LVEF 72%, no gross RWMA. -Orthostatic vital sign check has been negative. -Beta-dougie was kept on hold due to bradycardia. -Neurochecks, fall precaution -Meclizine as needed #Severe hyponatremia: Possibly secondary to overdiuresis: Random urine sodium: <10 Urine specific gravity: 1.030 Random cortisol:3.38 TSH: 0.78 Patient received normal saline bolus challenge, as well as a initially was kept on maintenance normal saline 75 cc an hour. Given precipitously dropping serum sodium, which is acute in all likelihood, less likely to be chronic. Fortunately she is relatively asymptomatic for the level of serum sodium she has. I will take a more conservative approach and give her 50 cc of 3% hypertonic saline over an hour with, monitor serum sodium every 2 hours, goal is to correct serum sodium around 10 M EQ in next 24 hours. If she was severely symptomatic, I would have taken more aggressive approach, which would have been symptom-based to correct serum sodium, with close monitoring of serum sodium, to avoid excessive overcorrection, to avoid any ODS development .Based on her subsequent serum sodium level will decide additional dosing of hypertonic saline.Patient has been moved to ICU. # Fever : Likely secondary to pneumonia. Rule out other causes. Blood culture has been negative so far Urine culture is growing yeast: Possibly not true. Will empirically start on fluconazole, continue ceftriaxone azithromycin. #Right wrist swelling and pain: Of acute onset : Possibly concerning for acute gout flare: Currently her risk factors include, obesity, heart failure, diabetes . CT of the right wrist without contrast: Was reviewed with in-house orthopedic surgeon.Suggestive of chronic changes.Will need orthopedic follow-up as outpatient. Empirically start patient on prednisone 40 p.o. daily for 5 days.Other possible choice could have been colchicine. NSAID was avoided given her heart failure. Empirically on ceftriaxone. #Diabetes: On sliding scale insulin Monitor fingerstick glucose Cardiac consistent carb diet # COPD: continue duoneb and budesonide inhalation # Obesity hypoventilation syndrome, sleep apnea, continue CPAP. #Plan for today: Repeat 2% hypertonic saline 50 cc over an hour. Continue to monitor serum sodium. Disposition: Patient has been accepted at rehab, once she is ready for discharge she will go to rehab. PT OT Full code Lovenox for DVT prophylaxis Attestations Medical Necessity Statement*: The high probability of a clinically significant, sudden or life threatening deterioration of the patient's [] system(s) required my full and direct attention, intervention and personal management. The critical care time is as shown. This time is in addition to time spent performing any reported procedures but includes the following: [x] Data and vital sign review and interpretation [x] Patient assessment, examination and intervention [x] Documentation [x] Medication orders and management Time Spent in Patient Care: Greater than 35 minutes (>than 50% of time spent in counselling and/or direct pt care on unit) . Critical Care Time: The high probability of a clinically significant, sudden or life threatening deterioration of the patient's [] system(s) required my full and direct attention, intervention and personal management. The critical care time is as shown. 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
[2022-05-03 14:05] LABS: Blood Urea Nitrogen 37 mg/dL (8-23); Calcium 8.3 mg/dL (8.5-10.5); Carbon Dioxide 27 mmol/L (22-29); Chloride 80 mmol/L (98-107); Glucose 227 mg/dL (65-115); Osmolality Calculated 262 mOsm/kg (285-295)
[2022-05-03 14:12] LABS: Sodium 118 mmol/L (136-145)
[2022-05-03] MEDS: TRAMadol 50 mg Tablet 100 MG PO ×2 (14:23→20:51)
[2022-05-03 17:11] LABS: Anion Gap 15.2 (5-19); Blood Urea Nitrogen 37 mg/dL (8-23); Calcium 8.8 mg/dL (8.5-10.5); Carbon Dioxide 27 mmol/L (22-29); Chloride 81 mmol/L (98-107); Glucose 209 mg/dL (65-115); Osmolality Calculated 261 mOsm/kg (285-295); Potassium 5.2 mmol/L (3.5-5.1)
[2022-05-03 17:15] LABS: Sodium 118 mmol/L (136-145)
[2022-05-03] MEDS: sodium chloride 1 gm Tablet 2 GM PO (17:16)
[2022-05-03] MEDS: fluconazole premix 100 MG in empty flexible container 1 EACH 50 MG IV (17:16)
[2022-05-03 17:32] LABS: Glucose Point of Care 230 mg/dL (70-110)
[2022-05-03] MEDS: sodium chloride 3% 500 ML 30 ML IV (18:23)
[2022-05-03 20:37] LABS: Sodium 122 mmol/L (136-145)
[2022-05-03] MEDS: hyDRALAzine 25 mg Tablet PO (20:48)
[2022-05-03 21:06] LABS: Glucose Point of Care 221 mg/dL (70-110)
--- NOTE | 2022-05-03 21:23 | PC.NURSE ---
Telephone order from Dr. Bains: When sodium reaches 125 stop 3% saline and change labs from Q2H to Q4H.
[2022-05-03 22:19] LABS: Sodium 123 mmol/L (136-145)
[2022-05-04] VITALS (32 sets, daily range): BP systolic 128–182; BP diastolic 58–95; PULSE 51–101; RESP 14–29; TEMP 36.8–37.1; O2SAT 90–99
[2022-05-04 00:27] LABS: Sodium 124 mmol/L (136-145)
[2022-05-04 02:13] LABS: Sodium 125 mmol/L (136-145)
[2022-05-04] MEDS: ipratropium-albuterol 3 mL Neb INHALATION ×4 (03:10→19:57)
[2022-05-04 04:53] LABS: Basophils % 0.1 %; Eosinophils % 0.1 %; Hematocrit 32.1 % (37.0-47.0); Hemoglobin 9.9 g/dL (11.5-15.3); Lymphocytes # 0.8 10^3/uL (0.8-4.8); Lymphocytes % 8.4 %; Mean Corpuscular HGB Conc 30.8 g/dL (30.0-36.0); Mean Corpuscular Hemoglobin 24.6 pg (28.0-34.0); Mean Corpuscular Volume 79.9 fl (81-99); Monocytes % 9.9 %; Neutrophils # 7.91 10^3/uL (1.8-7.7); Neutrophils % 81.1 %; Nucleated Red Blood Cells % 0 %; Platelet Count 255 10^3/cmm (130-400); Red Blood Count 4.02 10^6/uL (4.1-5.3); White Blood Count 9.8 10^3/uL (4.0-10.0)
[2022-05-04] MEDS: cetylpyridinium Lozenge 1 EACH MUCOUS MEM (05:14)
[2022-05-04] MEDS: efferdent effervescent 1 EACH DENTAL ×2 (05:17→21:03)
[2022-05-04 05:20] LABS: Blood Urea Nitrogen 33 mg/dL (8-23); Calcium 9.1 mg/dL (8.5-10.5); Carbon Dioxide 28 mmol/L (22-29); Chloride 89 mmol/L (98-107); Glucose 165 mg/dL (65-115); Osmolality Calculated 273 mOsm/kg (285-295); Sodium 126 mmol/L (136-145)
[2022-05-04 05:28] LABS: Anion Gap 13.6 (5-19); Potassium 4.6 mmol/L (3.5-5.1)
[2022-05-04] MEDS: TRAMadol 50 mg Tablet 100 MG PO ×3 (05:51→21:30)
--- NOTE | 2022-05-04 06:40 | P.PN_ITS ---
Subjective Subjective: Patient was seen and examined this morning, denied any nausea vomiting, confusion, headache. Has responded appropriately to continuous 3% normal saline, currently serum sodium has risen to 128. Will discontinue hypertonic saline for now.Continue with oral salt tablets, as well as fluid restriction. Medications: Reviewed: Yes Medication Review Details: Generic Name Dose Route Start Last Admin Trade Name Freq PRN Reason Stop Dose Admin Acetaminophen 650 mg 04/26/22 22:06 05/03/22 06:12 Acetaminophen 32 5 Mg Tablet PO 650 mg Q6H PRN Administration Mild/Mod Pain Or Temp >/= 101 Albuterol/Ipratrop ium 3 ml 04/27/22 14:00 05/03/22 13:45 Ipratropium-Albu terol 3 Ml Neb INHALATION 3 ml Q6H.RESP AMANDO Administration Amlodipine Besylat e 10 mg 04/30/22 09:00 05/03/22 08:26 Amlodipine 5 Mg Tablet PO 10 mg DAILY AMANDO Administration Apixaban 5 mg 04/29/22 21:00 05/03/22 08:26 Apixaban 5 Mg Ta blet PO 5 mg BID@0900,2100 AMANDO Administration Aspirin 81 mg 04/27/22 09:00 05/03/22 08:26 Aspirin 81 Mg Ec Tablet PO 81 mg DAILY AMANDO Administration Atorvastatin Calci um 20 mg 04/27/22 09:00 05/03/22 08:25 Atorvastatin 40 Mg Tablet PO 20 mg DAILY AMANDO Administration Brimonidine Tartra te 1 drop 04/27/22 09:00 05/03/22 08:27 Brimonidine 0.2% Op Soln 5 Ml Btl EYE-RIGHT 1 drop BID AMANDO Administration Denture Adhesive 1 each 05/02/22 19:22 05/02/22 20:27 Efferdent Efferv escent DENTAL 1 each PRN PRN Administration dentures Diclofenac Sodium 1 applic 05/01/22 17:00 05/03/22 13:02 Diclofenac 1% To pical Gel 100 Gm TOPICAL 1 applic QID AMANDO Administration Gabapentin 100 mg 04/29/22 09:45 05/03/22 08:26 Gabapentin 100 M g Capsule PO 100 mg TID AMANDO Administration Ceftriaxone Sodium 1,000 mg/ 50 mls @ 100 mls/ hr 04/30/22 10:30 05/03/22 11:36 Sodium Chloride IV Infused Q24H AMANDO Infusion Protocol Fluconazole 100 mg / N/A 50 mls @ 50 mls/h r 05/02/22 17:30 05/02/22 18:38 IV Infused Q24H AMANDO Infusion Insulin Human Lisp ro 0 unit 04/27/22 08:00 05/03/22 13:01 Insulin Lispro 1 00 Unit/1 Ml SUBCUT 6 unit WM&BEDTIME AMANDO Administration Protocol Isosorbide Mononit rate 120 mg 04/27/22 09:00 05/03/22 08:25 Isosorbide [place] itrate Er 60 Mg Ta blet PO 120 mg DAILY AMANDO Administration Losartan Potassium 25 mg 04/27/22 09:00 04/29/22 07:56 Losartan 50 Mg T ablet PO 25 mg DAILY AMANDO Administration Nystatin 1 applic 04/27/22 22:47 05/03/22 08:28 Nystatin Powder 15 Gm Btl TOPICAL 1 applic BID AMANDO Administration Pantoprazole Sodiu m 40 mg 04/28/22 09:00 05/03/22 08:[address] 40 Mg Tablet PO 40 mg DAILY AMANDO Administration Prednisone 40 mg 05/01/22 13:00 05/03/22 08:26 Prednisone 20 Mg Tablet PO 40 mg DAILY AMANDO Administration Timolol Maleate 1 drop 04/27/22 09:00 05/03/22 08:28 Timolol 0.5% Op Soln 5 Ml Btl EYE-RIGHT 1 drop BID AMANDO Administration Tramadol HCl 100 mg 05/01/22 12:57 05/02/22 20:28 Tramadol 50 Mg T ablet PO 100 mg TID PRN Administration pain Travoprost 1 drop 04/27/22 21:00 05/02/22 20:28 Travoprost 0.004 % Op Soln 2.5 Ml B tl EYE-BOTH 1 drop BEDTIME AMANDO Administration Vitals/I&O/Wt Last Vital Signs Temp 98.7 F 05/04/22 05:19 Pulse 82 05/04/22 06:00 Resp 15 05/04/22 04:00 BP 144/95 05/04/22 04:00 Pulse Ox 99 05/04/22 04:00 O2 Del Method 05/04/22 03:10 O2 Flow Rate 3 05/04/22 03:10 FiO2 93 05/02/22 00:12 05/03/22 05/03/2223 14:59 22:59 06:59 Intake Total 340 / 340 490 / 830 719 / 1549 Output Total 1000 / 1000 575 / 1575 2100 / 3675 Balance -660 / -660 -85 / -745 -1381 / -2126 Physical Exam Const: COMMON NORMALS: patient oriented x3 Resp: COMMON NORMALS: normal respiratory effort, No retractions, No use of accessory muscles and clear to auscultation bilaterally EFFORT & INSPECTION: Yes symmetric chest movement AUSCULTATION: clear to auscultation bilaterally Cardio: COMMON NORMALS: regular rate, regular rhythm, S1 normal heart sound present, S2 normal heart sound present, No gallops present (Cardio), No murmurs present (Cardio), No rub (Cardio) and Peripheral pulses 2+ throughout RATE: regular rate RHYTHM: regular rhythm HEART SOUNDS: S1 normal heart sound present and S2 normal heart sound present PERIPHERAL PULSES: Peripheral pulses 2+ throughout OTHER: Irregularly irregular rhythm S1-S2 variable intensity GI: COMMON NORMALS: Normal to inspection, nondistended, normoactive bowel sounds present, Soft to palpation, non-tender, No hepatosplenomegaly present and no masses AUSCULTATION: Yes normoactive bowel sounds PALPATION: Yes Soft to palpation and Yes No hepatosplenomegaly present RECTAL EXAM: deferred Extremity: COMMON NORMALS: no clubbing, cyanosis or edema and no pedal edema NARRATIVE EXTREMITY EXAM: Right wrist swelling and redness Neuro: COMMON NORMALS: patient oriented x3 Urinary Catheter Management: Ortiz: Cath Placed During This Visit: yes Reason for Continuing Indwelling Catheter: Accurate Measurement of Urinary Output in Critically Ill Patients Urinary Catheter Date of Insertion: 04/26/22 Urinary Catheter Time of Insertion: 22:20 Data 05/04/22 04:30 05/04/22 04:30 A&P Assessment and plan (1) Pneumonia: (2) Hypoxia: (3) Dizziness: (4) PAULA (obstructive sleep apnea): (5) Asthma: (6) Chronic respiratory failure with hypoxia: (7) Fever: (8) JACQUES (acute kidney injury): Plan #Atrial fibrillation with slow ventricular response: Possible underlying sick si nus syndrome.Or Due to beta-dougie effect. [id number] 5 Beta-dougie and he has been kept on hold due to concerns for bradycardia. Currently she is off anticoagulation: Due to risk of fall secondary to dizziness. Given her high [id number] score's, she is at risk for TIA/stroke. Currently on therapeutic anticoagulation. #Decompensated heart failure with preserved ejection fraction: Currently compensated Elevated proBNP, chest x-ray has shown pulmonary vascular congestion 2D echo results appreciated Was initiated on Lasix 40 twice daily has been transitioned to Lasix 40 IV daily. p.o. Lasix on hold. Continue to have good urine output # Bradycardia, possibly secondary to beta-dougie use will hold for now #Possible pneumonia: As she is a started being febrile, x-ray chest is suggestive of right lower lobe peribronchial infiltrates. Blood culture negative Urine culture: Negative to date Sputum gram stain and culture: None positive cocci in pairs and chains and clusters few gram-positive rods. Empirically started on ceftriaxone azithromycin. #JACQUES: Possibly secondary to overdiuresis. Current serum creatinine is 1.4, Baseline serum creatinine is usually around 0.6-0.7. We will give her a liter normal saline bolus today. Hold Lasix Monitor and output charting Avoid nephrotoxic's. # Dizziness: Possible concern for BPPV, as she is associating these episodes with head movement. May need canalith repositioning ( nay Maneuver ) -CT head without any acute intracranial events. -MRI of the head:No evidence for an acute infarct. -Carotid Doppler: No flow-limiting stenosis, patent vertebral arteries -2D echo: Normal LV size and systolic function, LVEF 72%, no gross RWMA. -Orthostatic vital sign check has been negative. -Beta-dougie was kept on hold due to bradycardia. -Neurochecks, fall precaution -Meclizine as needed #Severe hyponatremia: Possibly secondary to overdiuresis: Random urine sodium: <10 Urine specific gravity: 1.030 Random cortisol:3.38 TSH: 0.78 Patient received normal saline bolus challenge, as well as a initially was kept on maintenance normal saline 75 cc an hour. Given precipitously dropping serum sodium, which is acute in all likelihood, less likely to be chronic. Fortunately she is relatively asymptomatic for the level of serum sodium she has. I will take a more conservative approach and give her 50 cc of 3% hypertonic saline over an hour with, monitor serum sodium every 2 hours, goal is to correct serum sodium around 10 M EQ in next 24 hours. If she was severely symptomatic, I would have taken more aggressive approach, which would have been symptom-based to correct serum sodium, with close monitoring of serum sodium, to avoid excessive overcorrection, to avoid any ODS development .Based on her subsequent serum sodium level will decide additional dosing of hypertonic saline.Patient has been moved to ICU. # Fever : Likely secondary to pneumonia. Rule out other causes. Blood culture has been negative so far Urine culture is growing yeast: Possibly not true. Will empirically start on fluconazole, continue ceftriaxone azithromycin. #Right wrist swelling and pain: Of acute onset : Possibly concerning for acute gout flare: Currently her risk factors include, obesity, heart failure, diabetes. CT of the right wrist without contrast: Was reviewed with in-house orthopedic surgeon.Suggestive of chronic changes.Will need orthopedic follow-up as outpatient. Empirically start patient on prednisone 40 p.o. daily for 5 days.Other possible choice could have been colchicine. NSAID was avoided given her heart failure. Empirically on ceftriaxone. #Diabetes: On sliding scale insulin Monitor fingerstick glucose Cardiac consistent carb diet # COPD: continue duoneb and budesonide inhalation # Obesity hypoventilation syndrome, sleep apnea, continue CPAP. #Plan for today: Repeat 2% hypertonic saline 50 cc over an hour. Continue to monitor serum sodium. Disposition: Patient has been accepted at rehab, once she is ready for discharge she will go to rehab. PT OT Full code Lovenox for DVT prophylaxis Attestations Medical Necessity Statement*: Patient is to be in hospital for management of symptomatic hyponatremia. Time Spent in Patient Care: Greater than 35 minutes (>than 50% of time spent in counselling and/or direct pt care on unit) . Critical Care Time: The high probability of a clinically significant, sudden or life threatening deterioration of the patient's [] system(s) required my full and direct attention, intervention and personal management. The critical care time is as shown. 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
[2022-05-04 08:36] LABS: Glucose Point of Care 179 mg/dL (70-110)
[2022-05-04] MEDS: pantoprazole DR 40 mg Tablet PO (09:26)
[2022-05-04] MEDS: gabapentin 100 mg Capsule PO ×3 (09:26→21:29)
[2022-05-04] MEDS: isosorbide mononitrate ER 60 mg Tablet 120 MG PO (09:27)
[2022-05-04] MEDS: aspirin 81 mg EC Tablet PO (09:27)
[2022-05-04] MEDS: apixaban 5 mg Tablet PO ×2 (09:27→21:28)
[2022-05-04] MEDS: amlodipine 5 mg Tablet 10 MG PO (09:27)
[2022-05-04] MEDS: predniSONE 20 mg Tablet 40 MG PO (09:27)
[2022-05-04] MEDS: sodium chloride 1 gm Tablet 2 GM PO ×2 (09:27→17:15)
[2022-05-04] MEDS: insulin lispro 100 unit/1 mL SUBCUT ×4 (09:27→21:32)
[2022-05-04] MEDS: atorvastatin 40 mg Tablet 20 MG PO (09:27)
[2022-05-04] MEDS: hyDRALAzine 25 mg Tablet PO ×3 (09:27→21:28)
[2022-05-04] MEDS: nystatin powder 15 gm Btl 1 APPLIC TOPICAL ×2 (09:28→17:17)
[2022-05-04] MEDS: cefTRIAXone 1,000 MG in sodium chloride 0.9% (plus) 50 ML 100 MG IV (09:29)
[2022-05-04] MEDS: timolol 0.5% Op Soln 5 mL Btl 1 DROP EYE-RIGHT ×2 (09:29→17:17)
[2022-05-04] MEDS: brimonidine 0.2% Op Soln 5 mL Btl 1 DROP EYE-RIGHT ×2 (09:29→17:16)
[2022-05-04] MEDS: diclofenac 1% Topical Gel 100 gm 1 APPLIC TOPICAL ×2 (09:33→21:35)
--- NOTE | 2022-05-04 09:54 | PC.SOCIAL ---
IMM update Imm updated with patient at bedside. Copy of page 2 provided. patient verbalized understanding. Copy in chart initialed, dated and timed.
[2022-05-04 10:37] LABS: Sodium 127 mmol/L (136-145)
[2022-05-04 11:49] LABS: Glucose Point of Care 202 mg/dL (70-110)
[2022-05-04 12:40] LABS: Sodium 128 mmol/L (136-145)
[2022-05-04 16:47] LABS: Glucose Point of Care 255 mg/dL (70-110)
[2022-05-04] MEDS: fluconazole premix 100 MG in empty flexible container 1 EACH 50 MG IV (17:16)
[2022-05-04 18:18] LABS: Sodium 126 mmol/L (136-145)
[2022-05-04] MEDS: SODIUM CHLORIDE 3% IV (19:42)
[2022-05-04] MEDS: FLEXIBLE CONTAINER IV (19:42)
[2022-05-04 21:29] LABS: Glucose Point of Care 232 mg/dL (70-110)
[2022-05-04 22:23] LABS: Sodium 128 mmol/L (136-145)
--- NOTE | 2022-05-04 22:42 | PC.NURSE ---
Dr. Bains called @2230. New order to not give 2200 dose of 3% saline and to recheck sodium w/ morning labs.
[2022-05-05] VITALS (14 sets, daily range): BP systolic 138–165; BP diastolic 62–80; PULSE 78–90; RESP 15–81; TEMP 36.5–37.1; O2SAT 90–96
[2022-05-05] MEDS: ipratropium-albuterol 3 mL Neb INHALATION ×3 (03:14→15:10)
[2022-05-05] MEDS: acetaminophen 325 mg Tablet 650 MG PO (03:30)
[2022-05-05 05:57] LABS: Basophils % 0.1 %; Eosinophils % 0.1 %; Hematocrit 33.1 % (37.0-47.0); Hemoglobin 10.1 g/dL (11.5-15.3); Lymphocytes # 0.9 10^3/uL (0.8-4.8); Lymphocytes % 8.3 %; Mean Corpuscular HGB Conc 30.5 g/dL (30.0-36.0); Mean Corpuscular Hemoglobin 25.2 pg (28.0-34.0); Mean Corpuscular Volume 82.5 fl (81-99); Mean Platelet Volume 10.7 fL (7.4-10.4); Monocytes # 1.1 10^3/uL (0.2-0.9); Monocytes % 10.4 %; Neutrophils # 8.72 10^3/uL (1.8-7.7); Neutrophils % 80.6 %; Nucleated Red Blood Cells % 0 %; Platelet Count 311 10^3/cmm (130-400); Red Blood Count 4.01 10^6/uL (4.1-5.3); Red Cell Distribution Width 15.5 % (12.1-15.1); White Blood Count 10.8 10^3/uL (4.0-10.0)
[2022-05-05 06:17] LABS: Anion Gap 13.5 (5-19); Blood Urea Nitrogen 24 mg/dL (8-23); Calcium 9.2 mg/dL (8.5-10.5); Carbon Dioxide 28 mmol/L (22-29); Chloride 93 mmol/L (98-107); Glucose 151 mg/dL (65-115); Osmolality Calculated 277 mOsm/kg (285-295); Potassium 4.5 mmol/L (3.5-5.1); Sodium 130 mmol/L (136-145)
[2022-05-05 06:46] LABS: Glucose Point of Care 156 mg/dL (70-110)
[2022-05-05] MEDS: apixaban 5 mg Tablet PO ×2 (09:23→22:06)
[2022-05-05] MEDS: gabapentin 100 mg Capsule PO ×3 (09:23→22:06)
[2022-05-05] MEDS: isosorbide mononitrate ER 60 mg Tablet 120 MG PO (09:23)
[2022-05-05] MEDS: pantoprazole DR 40 mg Tablet PO (09:23)
[2022-05-05] MEDS: hyDRALAzine 25 mg Tablet PO ×3 (09:23→22:06)
[2022-05-05] MEDS: atorvastatin 40 mg Tablet 20 MG PO (09:23)
[2022-05-05] MEDS: amlodipine 5 mg Tablet 10 MG PO (09:24)
[2022-05-05] MEDS: sodium chloride 1 gm Tablet 2 GM PO ×2 (09:25→17:51)
[2022-05-05] MEDS: predniSONE 20 mg Tablet 40 MG PO (09:25)
[2022-05-05] MEDS: aspirin 81 mg EC Tablet PO (09:26)
[2022-05-05] MEDS: insulin lispro 100 unit/1 mL SUBCUT ×4 (09:27→22:07)
[2022-05-05] MEDS: cefTRIAXone 1,000 MG in sodium chloride 0.9% (plus) 50 ML 100 MG IV (09:28)
[2022-05-05] MEDS: nystatin powder 15 gm Btl 1 APPLIC TOPICAL ×2 (09:32→17:53)
[2022-05-05] MEDS: timolol 0.5% Op Soln 5 mL Btl 1 DROP EYE-RIGHT ×2 (09:32→17:53)
[2022-05-05] MEDS: diclofenac 1% Topical Gel 100 gm 1 APPLIC TOPICAL ×3 (09:33→17:51)
[2022-05-05] MEDS: brimonidine 0.2% Op Soln 5 mL Btl 1 DROP EYE-RIGHT ×2 (09:35→17:52)
[2022-05-05 12:04] LABS: Glucose Point of Care 177 mg/dL (70-110)
--- NOTE | 2022-05-05 15:26 | PM.PN ---
Subjective Subjective: right wrist is improving, pain is nearly resolved, no new complaints today, able to gte out of bed to chair with PT today. Fever resolved Medications: Reviewed: Yes Medication Review Details: Generic Name Dose Route Start Last Admin Trade Name Huyen PRN Reason Stop Dose Admin Acetaminophen 650 mg 04/26/22 22:06 05/03/22 06:12 Acetaminophen 32 5 Mg Tablet PO 650 mg Q6H PRN Administration Mild/Mod Pain Or Temp >/= 101 Albuterol/Ipratrop ium 3 ml 04/27/22 14:00 05/03/22 13:45 Ipratropium-Albu terol 3 Ml Neb INHALATION 3 ml Q6H.RESP AMANDO Administration Amlodipine Besylat e 10 mg 04/30/22 09:00 05/03/22 08:26 Amlodipine 5 Mg Tablet PO 10 mg DAILY AMANDO Administration Apixaban 5 mg 04/29/22 21:00 05/03/22 08:26 Apixaban 5 Mg Ta blet PO 5 mg BID@0900,2100 AMANDO Administration Aspirin 81 mg 04/27/22 09:00 05/03/22 08:26 Aspirin 81 Mg Ec Tablet PO 81 mg DAILY AMANDO Administration Atorvastatin Calci um 20 mg 04/27/22 09:00 05/03/22 08:25 Atorvastatin 40 Mg Tablet PO 20 mg DAILY AMANDO Administration Brimonidine Tartra te 1 drop 04/27/22 09:00 05/03/22 08:27 Brimonidine 0.2% Op Soln 5 Ml Btl EYE-RIGHT 1 drop BID AMANDO Administration Denture Adhesive 1 each 05/02/22 19:22 05/02/22 20:27 Efferdent Efferv escent DENTAL 1 each PRN PRN Administration dentures Diclofenac Sodium 1 applic 05/01/22 17:00 05/03/22 13:02 Diclofenac 1% To pical Gel 100 Gm TOPICAL 1 applic QID AMANDO Administration Gabapentin 100 mg 04/29/22 09:45 05/03/22 08:26 Gabapentin 100 M g Capsule PO 100 mg TID AMANDO Administration Ceftriaxone Sodium 1,000 mg/ 50 mls @ 100 mls/ hr 04/30/22 10:30 05/03/22 11:36 Sodium Chloride IV Infused Q24H AMANDO Infusion Protocol Fluconazole 100 mg / N/A 50 mls @ 50 mls/h r 05/02/22 17:30 05/02/22 18:38 IV Infused Q24H AMANDO Infusion Insulin Human Lisp ro 0 unit 04/27/22 08:00 05/03/22 13:01 Insulin Lispro 1 00 Unit/1 Ml SUBCUT 6 unit WM&BEDTIME AMANDO Administration Protocol Isosorbide Mononit rate 120 mg 04/27/22 09:00 05/03/22 08:25 Isosorbide [place] itrate Er 60 Mg Ta blet PO 120 mg DAILY AMANDO Administration Losartan Potassium 25 mg 04/27/22 09:00 04/29/22 07:56 Losartan 50 Mg T ablet PO 25 mg DAILY AMANDO Administration Nystatin 1 applic 04/27/22 22:47 05/03/22 08:28 Nystatin Powder 15 Gm Btl TOPICAL 1 applic BID AMANDO Administration Pantoprazole Sodiu m 40 mg 04/28/22 09:00 05/03/22 08:[address] 40 Mg Tablet PO 40 mg DAILY AMANDO Administration Prednisone 40 mg 05/01/22 13:00 05/03/22 08:26 Prednisone 20 Mg Tablet PO 40 mg DAILY AMANDO Administration Timolol Maleate 1 drop 04/27/22 09:00 05/03/22 08:28 Timolol 0.5% Op Soln 5 Ml Btl EYE-RIGHT 1 drop BID AMANDO Administration Tramadol HCl 100 mg 05/01/22 12:57 05/02/22 20:28 Tramadol 50 Mg T ablet PO 100 mg TID PRN Administration pain Travoprost 1 drop 04/27/22 21:00 05/02/22 20:28 Travoprost 0.004 % Op Soln 2.5 Ml B tl EYE-BOTH 1 drop BEDTIME AMANDO Administration Vitals/I&O/Wt Last Vital Signs Temp 97.7 F 05/05/22 11:59 Pulse 90 05/05/22 15:18 Resp 20 H 05/05/22 15:18 BP 139/71 05/05/22 11:59 Pulse Ox 93 05/05/22 15:18 O2 Del Method 05/05/22 15:18 O2 Flow Rate 3 05/05/22 15:18 FiO2 93 05/02/22 00:12 05/05/22 05/05/22 05/05/22 06:59 14:59 22:59 Intake Total 590 / 590 Output Total 1400 / 3050 Balance -1400 / -1930 590 / 590 Physical Exam Narrative: General: No acute distress, AO x3 HEENT: PERRLA, pupils bilaterally equal and reactive, pallors not present Chest: Normal vesicular breath sounds, no added sounds, equal good air entry bilaterally CVS: S1-S2 regular, no murmurs, no tachycardia, no gallops, no rubs Abdomen: Soft, nontender, no organomegaly, bowel sounds present Neuro: No focal deficits, no facial deformity, AO x3, power 5/5 in all limbs Extremities: 2+ pitting edema bilateral lower extremity Urinary Catheter Management: Ortiz: Cath Placed During This Visit: yes Reason for Continuing Indwelling Catheter: Other Urinary Catheter Date of Insertion: 04/26/22 Urinary Catheter Time of Insertion: 22:20 Data 05/05/22 05:48 05/05/22 05:48 Micro: Microbiology 04/30/22 10:40 Urine Culture - Final Urine,Voided Leonela albicans A&P Assessment and plan (1) Pneumonia: (2) Hypoxia: (3) Dizziness: (4) PAULA (obstructive sleep apnea): (5) Asthma: (6) Chronic respiratory failure with hypoxia: (7) Fever: (8) JACQUES (acute kidney injury): Plan #Atrial fibrillation with slow ventricular response: Possible underlying sick sinus syndrome.Or Due to beta-dougie effect. [id number] 5 Beta-dougie and he has been kept on hold due to concerns for bradycardia. Currently she is off anticoagulation: Due to risk of fall secondary to dizziness. Given her high [id number] score's, she is at risk for TIA/stroke. Currently on therapeutic anticoagulation. #Decompensated heart failure with preserved ejection fraction: Currently compensated Elevated proBNP, chest x-ray has shown pulmonary vascular congestion 2D echo results appreciated Was initiated on Lasix 40 twice daily has been transitioned to Lasix 40 IV daily. p.o. Lasix on hold. Continue to have good urine output # Bradycardia, possibly secondary to beta-dougie use will hold for now #Possible pneumonia: As she is a started being febrile, x-ray chest is suggestive of right lower lobe peribronchial infiltrates. Blood culture negative Urine culture: Negative to date Sputum gram stain and culture: None positive cocci in pairs and chains and clusters few gram-positive rods. Empirically started on ceftriaxone azithromycin. #JACQUES: Possibly secondary to overdiuresis. Current serum creatinine is 1.4, Baseline serum creatinine is usually around 0.6-0.7. We will give her a liter normal saline bolus today. Hold Lasix Monitor and output charting Avoid nephrotoxic's. # Dizziness: Possible concern for BPPV, as she is associating these episodes with head movement. May need canalith repositioning ( nay Maneuver ) -CT head without any acute intracranial events. -MRI of the head:No evidence for an acute infarct. -Carotid Doppler: No flow-limiting stenosis, patent vertebral arteries -2D echo: Normal LV size and systolic function, LVEF 72%, no gross RWMA. -Orthostatic vital sign check has been negative. -Beta-dougie was kept on hold due to bradycardia. -Neurochecks, fall precaution -Meclizine as needed #Severe hyponatremia: Possibly secondary to overdiuresis: Random urine sodium: <10 Urine specific gravity: 1.030 Random cortisol:3.38 TSH: 0.78 Patient received normal saline bolus challenge, as well as a initially was kept on maintenance normal saline 75 cc an hour. Given precipitously dropping serum sodium, which is acute in all likelihood, less likely to be chronic. Fortunately she is relatively asymptomatic for the level of serum sodium she has. I will take a more conservative approach and give her 50 cc of 3% hypertonic saline over an hour with, monitor serum sodium every 2 hours, goal is to correct serum sodium around 10 M EQ in next 24 hours. If she was severely symptomatic, I would have taken more aggressive approach, which would have been symptom-based to correct serum sodium, with close monitoring of serum sodium, to avoid excessive overcorrection, to avoid any ODS development .Based on her subsequent serum sodium level will decide additional dosing of hypertonic saline.Patient has been moved to ICU. # Fever : Likely secondary to pneumonia. Rule out other causes. Blood culture has been negative so far Urine culture is growing yeast: Possibly not true. Will empirically start on fluconazole, continue ceftriaxone azithromycin. #Right wrist swelling and pain: Of acute onset : Possibly concerning for acute gout flare: Currently her risk factors include, obesity, heart failure, diabetes. CT of the right wrist without contrast: Was reviewed with in-house orthopedic surgeon.Suggestive of chronic changes.Will need orthopedic follow-up as outpatient. Empirically start patient on prednisone 40 p.o. daily for 5 days.Other possible choice could have been colchicine. NSAID was avoided given her heart failure. Empirically on ceftriaxone. #Diabetes: On sliding scale insulin Monitor fingerstick glucose Cardiac consistent carb diet # COPD: continue duoneb and budesonide inhalation # Obesity hypoventilation syndrome, sleep apnea, continue CPAP. #Plan for today: encourage ambulation, OOB to chair today, attempt walkig with assistance. 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
[2022-05-05] MEDS: TRAMadol 50 mg Tablet 100 MG PO (15:31)
[2022-05-05 17:20] LABS: Glucose Point of Care 219 mg/dL (70-110)
[2022-05-05] MEDS: fluconazole premix 100 MG in empty flexible container 1 EACH 50 MG IV (19:23)
[2022-05-05 21:54] LABS: Glucose Point of Care 312 mg/dL (70-110)
[2022-05-06] VITALS (7 sets, daily range): BP systolic 149–170; BP diastolic 64–80; PULSE 68–86; RESP 16–20; TEMP 36.9–37.1; O2SAT 90–96
[2022-05-06] MEDS: ipratropium-albuterol 3 mL Neb INHALATION ×2 (02:17→10:10)
[2022-05-06 06:57] LABS: Glucose Point of Care 144 mg/dL (70-110)
[2022-05-06] MEDS: isosorbide mononitrate ER 60 mg Tablet 120 MG PO (08:45)
[2022-05-06] MEDS: aspirin 81 mg EC Tablet PO (08:46)
[2022-05-06] MEDS: sodium chloride 1 gm Tablet 2 GM PO (08:46)
[2022-05-06] MEDS: apixaban 5 mg Tablet PO (08:46)
[2022-05-06] MEDS: pantoprazole DR 40 mg Tablet PO (08:47)
[2022-05-06] MEDS: amlodipine 5 mg Tablet 10 MG PO (08:47)
[2022-05-06] MEDS: atorvastatin 40 mg Tablet 20 MG PO (08:47)
[2022-05-06] MEDS: predniSONE 20 mg Tablet 40 MG PO (08:48)
[2022-05-06] MEDS: gabapentin 100 mg Capsule PO (08:48)
[2022-05-06] MEDS: hyDRALAzine 25 mg Tablet PO (08:48)
[2022-05-06] MEDS: nystatin powder 15 gm Btl 1 APPLIC TOPICAL (08:49)
[2022-05-06] MEDS: diclofenac 1% Topical Gel 100 gm 1 APPLIC TOPICAL ×2 (08:49→12:07)
[2022-05-06] MEDS: timolol 0.5% Op Soln 5 mL Btl 1 DROP EYE-RIGHT (08:50)
[2022-05-06] MEDS: brimonidine 0.2% Op Soln 5 mL Btl 1 DROP EYE-RIGHT (08:50)
[2022-05-06] MEDS: cefTRIAXone 1,000 MG in sodium chloride 0.9% (plus) 50 ML 100 MG IV (08:51)
[2022-05-06] MEDS: TRAMadol 50 mg Tablet 100 MG PO (09:40)
[2022-05-06 11:38] LABS: Glucose Point of Care 214 mg/dL (70-110)
[2022-05-06] MEDS: insulin lispro 100 unit/1 mL SUBCUT (12:07)
--- NOTE | 2022-05-06 12:56 | P.DS_ITS ---
Discharge Providers Date of Admission: 04/27/22 00:05 Date of Discharge: May 06, 2022 Attending Provider at Admission: Guido Monge MD Attending Provider at Discharge: Elsi Paez MD Primary Care Provider: Madhu Stern MD Diagnoses at Discharge Discharge Diagnosis (1) Pneumonia: Status: Acute (2) Hypoxia: Status: Acute (3) Dizziness: Status: Acute (4) PAULA (obstructive sleep apnea): Status: Acute (5) Asthma: Status: Acute (6) Chronic respiratory failure with hypoxia: Status: Acute (7) Fever: Status: Acute (8) JACQUES (acute kidney injury): Status: Acute Reason for Visit Reason for Visit: DIZZY; BRADYCARDIA Brief History: Florencia Bradley is a 82 year old female with a past medical history of morbid obesity, obstructive sleep apnea, asthma, chronic respiratory failure, hype rtension, obesity hypoventilation syndrome, who presents to [facility] for complaints of dizziness, shortness of breath, increased lower extremity edema.? She was found to have a new diagnosis of slow A. fib, bradycardia for which medication readjustments were made and anticoagulation started. other Hospital course as notable below. Hospital Course Hospital Course #Atrial fibrillation with slow ventricular response: Possible underlying sick sinus syndrome.Or Due to beta-dougie effect. [id number] 5 Patient used to take metoprolol 50 mg twice daily at home which has been discontinued. Given her high [id number] score's, she is at risk for TIA/stroke. She was started on anticoagulation with Eliquis 5 mg p.o. twice daily for stroke prevention. #Decompensated heart failure with preserved ejection fraction: Likely to be acute on chronic ; currently compensated by the time of discharge. Elevated proBNP, chest x-ray has shown pulmonary vascular congestion 2D echo results showed LVEF of 72%. No gross wall motion abnormalities. Moderately increased left atrial size and mild to moderate mitral annular calcification. There is a thickened aortic valve. No intracardiac masses were noted. Of note this was a technically difficult study because of poor windows. Was initiated on Lasix 40 twice daily at arrival which was subsequently placed on hold once patient developed acute hyponatremia with sodium dropped to as low as 118. Diuretics have been on hold since then. Patient is currently euvolemic off diuretics. In addition patient used to take chlorthalidone at home which has also been discontinued because of the hyponatremia. # Bradycardia, resolved with holding beta-blockers. #Possible pneumonia: As she is a started being febrile, x-ray chest is suggestive of right lower lobe peribronchial infiltrates. Blood culture negative Urine culture: Negative to date Sputum gram stain and culture: Respiratory casper Empirically received treatment with ceftriaxone azithromycin. Negative rapid COVID and influenza antigens on April 27, 2022. #JACQUES:?Possibly secondary to overdiuresis.? Peak creatinine of 1.4, now back to baseline of 0.5. # Dizziness: Possible concern for BPPV, as she is associating these episodes with head movement.? M -CT head without any acute intracranial events. -MRI of the head:No evidence for an acute infarct. -Carotid Doppler: No flow-limiting stenosis, patent vertebral arteries -2D echo:?Normal LV size and systolic function, LVEF 72%, no gross RWMA. -Orthostatic vital sign check has been negative. -Beta-dougie was kept on hold due to bradycardia. -Neurochecks, fall precaution -Meclizine as needed #Severe hyponatremia: Possibly secondary to overdiuresis: Random urine sodium: <10 Urine specific gravity: 1.030 Random cortisol:3.38 TSH: 0.78 Patient received normal saline bolus challenge, as well as a initially was kept on maintenance normal saline 75 cc an hour.? Given precipitously dropping serum sodium, which is acute in all likelihood, less likely to be chronic.? Fortunately she is relatively asymptomatic for the level of serum sodium she has.? She received treatment with 3% hypertonic saline and currently on salt tablets 2gm BID. Last serum Na at 130 from 05/05/22. REcommend to check again on 05/07/22 and titrate salt meds #Right wrist swelling and pain:?Of acute onset : Possibly concerning for acute gout flare: Currently her risk factors include, obesity, heart failure, diabetes. CT of the right wrist without contrast: Was reviewed with in-house orthopedic surgeon. Suggestive of chronic changes, possible ganglion cyst..Will need orthopedic follow-up as outpatient. Received prednisone 40 p.o. daily for 5 days. Wrist swelling is much improved. NSAID was avoided given her heart failure. #Diabetes: On sliding scale insulin Monitor fingerstick glucose Cardiac consistent carb diet # COPD: continue duoneb and budesonide inhalation, no exacerbation currently # Obesity hypoventilation syndrome, sleep apnea, continue CPAP. Patient noted to be quite deconditioned from her hospital stay. Recommended ongoing physical therapy to improve endurance and mobility. Transition to SNF today. Physical Exam Narrative: General: No acute distress, AO x3 HEENT: PERRLA, pupils bilaterally equal and reactive, pallors not present Chest: Normal vesicular breath sounds, no added sounds, equal good air entry bilaterally CVS: S1-S2 regular, no murmurs, no tachycardia, no gallops, no rubs Abdomen: Soft, nontender, no organomegaly, bowel sounds present Neuro: No focal deficits, no facial deformity, AO x3, power 5/5 in all limbs Urinary Catheter Management: Ortiz: Cath Placed During This Visit: yes Reason for Continuing Indwelling Catheter: Other Urinary Catheter Date of Insertion: 04/26/22 Urinary Catheter Time of Insertion: 22:20 Discharge Data Studies Completed and Pending Completed Studies During Hospitalization Category Date Time Status CT head wo con* [id number] Stat Cat Scan 04/26/22 20:[address] wrist RT wo con* [id number] Routine Cat Scan 05/01/22 12:55 Completed XR chest 1V portable [id number] Routine Exams 04/29/22 06:00 Completed XR chest 1V portable [id number] Stat Exams 04/26/22 16:10 Completed MR head wo con* [id number] Routine MRI 04/28/22 16:23 Completed CV carotid duplex BI* [id number] Stat Ultrasound 04/26/22 20:29 Completed CV. echo wo/w contrast [id number] Routine Ultrasound 04/27/22 06:00 Completed Pending at discharge Category Date Time Status SARS Covid-2 Antigen Routine Lab 05/06/22 12:37 Uncollected Radiology Impressions Carotid Doppler Study 04/26/22 20:29 IMPRESSION: 1. Less than 50% bilateral ICA stenosis visualized. No acute finding. 2. Mild bilateral carotid bulb and ICA calcified plaque. Findings are fairly subtle for age. 3. Patent vertebral arteries. REFERENCES: SRU CRITERIA. The degree of internal carotid artery stenosis is based on criteria defined by the Society of Radiologists in Ultrasound (SRU). Normal is no stenosis. Mild is less than 50% stenosis. Moderate is 50-69% stenosis. Severe is greater than 69% stenosis to near occlusion. Near occlusion is a markedly narrowed lumen. Total occlusion is no detectable patent lumen. Head CT 04/26/22 20:29 IMPRESSION: 1. No acute intracranial abnormality. 2. Mild age-related changes. Head MRI 04/28/22 16:23 IMPRESSION: 1. Normal diffusion imaging. No evidence for an acute infarct. 2. Moderate small vessel ischemic changes throughout the white matter including the johnny. Chest X-Ray 04/29/22 06:00 IMPRESSION: Improving right lower lobe peribronchial infiltrate likely infectious in nature. Wrist CT 05/01/22 12:55 IMPRESSION: 1. An ovoid region of fluid is identified along the dorsal aspect of the flexor tendons within the hand. This may represent a ganglion cyst although inflammatory or infectious tenosynovitis or ulnar bursitis cannot be excluded from this exam. Consider MRI with and without contrast for further assessment. 2. Mild diffuse subcutaneous edema. 3. Old healed fracture of the distal radius with mild apex anterior angulation. Medial downsloping of the distal radial articular surface is also present which can be associated with [place] deformity. 4. Extensive primary osteoarthritic changes as detailed above. Laboratory Results WBC 10.8 10^3/uL (4.0-10.0) H 05/05/22 05:48 RBC 4.01 10^6/uL (4.1-5.3) L 05/05/22 05:48 Hgb 10.1 g/dL (11.5-15.3) L 05/05/22 05:48 Hct 33.1 % (37.0-47.0) L 05/05/22 05:48 MCV 82.5 fl (81-99) 05/05/22 05:48 MCH 25.2 pg (28.0-34.0) L 05/05/22 05:48 MCHC 30.5 g/dL (30.0-36.0) 05/05/22 05:48 RDW 15.5 % (12.1-15.1) H 05/05/22 05:48 Plt Count 311 10^3/cmm (130-400) 05/05/22 05:48 MPV 10.7 fL (7.4-10.4) H 05/05/22 05:48 Neut % (Auto) 80.6 % 05/05/22 05:48 Lymph % (Auto) 8.3 % 05/05/22 05:48 [place] % (Auto) 10.4 % 05/05/22 05:48 Eos % (Auto) 0.1 % 05/05/22 05:48 Baso % (Auto) 0.1 % 05/05/22 05:48 Neut # (Auto) 8.72 10^3/uL (1.8-7.7) H 05/05/22 05:48 Lymph # (Auto) 0.9 10^3/uL (0.8-4.8) 05/05/22 05:48 [place] # (Auto) 1.1 10^3/uL (0.2-0.9) H 05/05/22 05:48 Eos # (Auto) 0.0 10^3/uL (0.0-0.8) 05/05/22 05:48 Baso # (Auto) 0.0 10^3/uL (0.0-0.1) 05/05/22 05:48 Nucleated RBC % (auto) 0 % 05/05/22 05:48 Nucleated RBCs # 0.0 /100WBC 05/05/22 05:48 Sodium 130 mmol/L (136-145) L 05/05/22 05:48 Potassium 4.5 mmol/L (3.5-5.1) 05/05/22 05:48 Chloride 93 mmol/L (98-107) L 05/05/22 05:48 Carbon Dioxide 28 mmol/L (22-29) 05/05/22 05:48 Anion Gap 13.5 (5-19) 05/05/22 05:48 BUN 24 mg/dL (8-23) H 05/05/22 05:48 Creatinine 0.5 mg/dL (0.5-0.9) 05/05/22 05:48 GFR Calculation Not Reportable 05/05/22 05:48 Glucose 151 mg/dL (65-115) H 05/05/22 05:48 POC Glucose 214 mg/dL (70-110) H 05/06/22 11:34 Estimat Average Glucose 123 04/26/22 22:37 Hemoglobin A1c 5.9 % (4.0-6.0) 04/26/22 22:37 Calculated Osmolality 277 mOsm/kg (285-295) L 05/05/22 05:48 Calcium 9.2 mg/dL (8.5-10.5) 05/05/22 05:48 Total Bilirubin 0.9 mg/dL (0.15-1.2) 04/29/22 03:40 AST 19 U/L (0-32) 04/29/22 03:40 ALT 9 U/L (0-33) 04/29/22 03:40 Alkaline Phosphatase 74 U/L (35-105) 04/29/22 03:40 Troponin T Baseline 13 ng/L (0-10) H 04/26/22 16:28 Troponin T 120 Minute 14.35 ng/L (0-10) H 04/26/22 18:20 Delta Troponin T 1.35 ABS# (0-10) 04/26/22 18:20 Troponin T Hi Sens 6Hr 12.01 ng/L (0-10) H 04/26/22 22:37 Troponin T Hi Sens 6Hr Delta -0.99 ng/L (0-12) L 04/26/22 22:37 C-Reactive Protein 3.0 mg/L (0.0-4.9) 04/26/22 18:20 NT-Pro-B Natriuret Pep 2099 pg/mL (0-450) H 04/26/22 16:28 Total Protein 7.5 g/dL (6.6-8.7) 04/29/22 03:40 Albumin 4.3 g/dL (3.5-5.2) 04/29/22 03:40 Globulin 3.2 g/dL (1.3-4.6) 04/29/22 03:40 Procalcitonin 0.05 ng/mL (0-0.5) 04/26/22 18:20 TSH 0.78 uIU/mL (0.27-4.20) 04/26/22 22:37 Random Cortisol 3.38 ug/dL (2.47-19.5) 05/03/22 04:00 Urine Color Yellow (Yellow) 04/30/22 10:40 Urine Appearance Hazy (CLEAR) A 04/30/22 10:40 Urine pH 5 (5-7) 04/30/22 10:40 Ur Specific [place] 1.030 (1.005-1.030) 04/30/22 10:40 Urine Protein Neg (Negative) 04/30/22 10:40 Urine Glucose (UA) Norm (Normal) 04/30/22 10:40 Urine Ketones Negative (Negative) 04/30/22 10:40 Urine Blood 2+ (Negative) H 04/30/22 10:40 Urine Nitrate Negative (Negative) 04/30/22 10:40 Urine Bilirubin Neg (Negative) 04/30/22 10:40 Urine Urobilinogen Norm mg/dL (Negative) 04/30/22 10:40 Ur Leukocyte Esterase Negative (Negative) 04/30/22 10:40 Urine RBC 5-10 /hpf (0-2) H 04/30/22 10:40 Urine WBC 5-10 /hpf (0-5) H 04/30/22 10:40 Ur Squamous Epith Cells 5-10 /hpf (0-5) H 04/30/22 10:40 Amorphous Sediment 2+ /hpf 04/30/22 10:40 Urine Bacteria 4+ /hpf (NONE) H 04/30/22 10:40 Ur Random Sodium < 10 mmol/L 05/02/22 13:55 Ur Random Chloride 12 mmol/L 05/02/22 13:55 Influenza Type A Ag negative (Negative) 04/26/22 17:04 Influenza Type B Ag negative (Negative) 04/26/22 17:04 SARS-CoV-2 Ag (Rapid) negative (Negative) 04/27/22 17:11 Vitals Last Vital Signs Temp 98.4 F 05/06/22 11:57 Pulse 86 05/06/22 11:57 Resp 16 05/06/22 11:57 BP 149/64 05/06/22 11:57 Pulse Ox 90 05/06/22 11:57 O2 Del Method 05/06/22 11:57 O2 Flow Rate 2 05/06/22 10:10 FiO2 93 05/02/22 00:12 Discharge Plan Discharge Patient Disposition: Xfer [facility] Condition: Stable Prescriptions: New meclizine 25 mg Tablet 25 mg PO TID PRN (Reason: Dizziness) 30 Days Qty: 90 0RF Eliquis 5 mg Tablet 5 mg PO BID@0900,2100 30 Days Qty: 60 0RF sodium chloride 1 gram Tablet 2 g PO BID 5 Days Qty: 20 0RF hydralazine 25 mg Tablet 25 mg PO TID 30 Days Qty: 90 0RF Continued albuterol sulfate [Ventolin HFA] 90 mcg/actuation HFA aerosol inhaler 2 puff INHALATION Q6H PRN (Reason: Shortness Of Breath) celecoxib 200 mg capsule 200 mg PO BID aspirin [Adult Aspirin Regimen] 81 mg tablet,delayed release (DR/EC) 81 mg PO DAILY Tradjenta 5 mg tablet 5 mg PO DAILY pravastatin 80 mg tablet 80 mg PO DAILY omeprazole 40 mg capsule,delayed release(DR/EC) 40 mg PO DAILY tramadol 50 mg tablet 100 mg PO BID fluticasone propionate [Flonase Allergy Relief] 50 mcg/actuation spray,suspension 2 spray INTRANASAL DAILY Rx Instructions: administer into each nostril Combigan 0.2-0.5 % drops 1 drop ophthalmic (eye) BID Rx Instructions: right eye calcium carbonate [Calcium 600] 600 mg calcium (1,500 mg) tablet 600 mg PO DAILY travoprost [Travatan Z] 0.004 % drops 1 drop ophthalmic (eye) DAILY Rx Instructions: left eye (DME) Cock Up Splint See Rx Instructions .ROUTE .MEDSUPPLY Qty: 1 0RF Rx Instructions: As directed isosorbide mononitrate 120 mg tablet extended release 24 hr 120 mg PO DAILY Qty: 90 3RF budesonide-formoterol [Symbicort] 80-4.5 mcg/actuation HFA aerosol inhaler 2 puff inhalation Q12H Qty: 30.6 6RF amlodipine 10 mg tablet See Rx Instructions .ROUTE .COMPLEX Qty: 90 3RF Dose Instruction: TAKE 1 TABLET BY MOUTH EVERY DAY Rx Instructions: TAKE 1 TABLET BY MOUTH EVERY DAY potassium chloride 10 mEq Tablet Extended Release 10 meq PO DAILY metformin 500 mg tablet extended release 24 hr 500 mg PO BEDTIME tizanidine 2 mg Capsule 2 mg PO BID PRN (Reason: Muscle Pain) diclofenac sodium 1 % Gel 2 g TOPICAL QID PRN (Reason: Pain) Rx Instructions: apply to single elbow, wrist or hand; for hand includes palm/fingers/back of hand acetaminophen 500 mg Tablet 500 mg PO Q6H PRN (Reason: Pain) Discontinued valsartan 40 mg tablet 40 mg PO DAILY furosemide 40 mg tablet 40 mg PO DAILY metoprolol tartrate 50 mg tablet 50 mg PO BID Qty: 180 3RF chlorthalidone 25 mg tablet 25 mg PO DAILY Qty: 30 0RF Rx Instructions: Needs appointment Discharge Orders: Discharge Order (Routine); Ordered 05/06/22 Ordered By: Elsi Paez Referrals: Madhu Stern MD [Primary Care Provider] - Discharge Diet: Usual diet Discharge Activity: Resume usual activity Patient Instructions: Pain Management Discharge Attestations Time Spent in Discharge Care*: greater than 30 min Quality Metrics Clinical Quality Measures [ No reported AMI, CVA or VTE this stay] Coding Level of Care Code Acute Chg FW DC note Diagnoses Pneumonia J18.9 Hypoxia R09.02 Dizziness R42 PAULA (obstructive sleep apnea) G47.33 Asthma J45.909 Chronic respiratory failure with hypoxia J96.11 Fever R50.9 JACQUES (acute kidney injury) N17.9
[2022-05-06 14:04] LABS: SARS Covid-2 Antigen Negative (Negative)
--- NOTE | 2022-05-06 14:05 | PC.NURSE ---
Report called to NIK Roberson at [facility]
== END 2022-05-06 14:33 | disposition skilled nursing facility (03) | DRG 193 ==
LOC: ER 18:46 → MEDSURG 20:56 → ICU 05-02 19:09 → MEDSURG 05-04 23:54
PROVIDERS: Internal Medicine; Admitting Provider Family Medicine; Emergency Provider Family Medicine; PCP Family Medicine; Visit Provider Student in an Organized Health Care Education/Training Program
DX: J18.9 Pneumonia, unspecified organism (principal); I50.33 Acute on chronic diastolic (congestive) heart failure; J44.0 Chronic obstructive pulmonary disease with (acute) lower respiratory infection; J96.11 Chronic respiratory failure with hypoxia; N17.9 Acute kidney failure, unspecified; E66.2 Morbid (severe) obesity with alveolar hypoventilation; Z68.43 Body mass index [BMI] 50.0-59.9, adult; E87.1 Hypo-osmolality and hyponatremia; I11.0 Hypertensive heart disease with heart failure; I48.91 Unspecified atrial fibrillation; R42 Dizziness and giddiness; M25.531 Pain in right wrist; E11.9 Type 2 diabetes mellitus without complications; Z79.51 Long term (current) use of inhaled steroids; Z79.82 Long term (current) use of aspirin; Z79.891 Long term (current) use of opiate analgesic; Z66 Do not resuscitate; F40.240 Claustrophobia; Z77.22 Contact with and (suspected) exposure to environmental tobacco smoke (acute) (chronic); E78.5 Hyperlipidemia, unspecified; K21.9 Gastro-esophageal reflux disease without esophagitis; I25.10 Atherosclerotic heart disease of native coronary artery without angina pectoris; Z95.5 Presence of coronary angioplasty implant and graft; T50.1X5A Adverse effect of loop [high-ceiling] diuretics, initial encounter
CPT/HCPCS: 36415; 36416; 51702; 70450; 70551; 71045; 73200; 80048; 80053; 81001; 81003; 82436; 82533; 82962; 83036; 83880; 84145; 84295; 84300; 84443; 84484; 85025; 86140; 87040; 87070; 87086; 87106; 87205; 87426; 87804; 93005; 93880; 94640; 94660; 94664; 96372; 97110; 97116; 97161; 97165; 97530; 97535; 99285; C8929; C9113; G0378; J0456; J0696; J1450; J1650; J1815; J1940; J7030; J7040; J7050; J7131; J7512; J7613; J7644; Q9956

== ENCOUNTER 2022-08-22 21:15 | Emergency (ER) | payer MEDICARE, MEDICAID, SELFPAY ==
[2022-08-22 21:24] VITALS: BP 146/44; PULSE 59; RESP 18; TEMP 36.8; O2SAT 92; BMI 51.5
--- NOTE | 2022-08-22 21:31 | ECG_ITS ---
[facility] Test Date: 2022-08-22 Pat Name: Florencia Bradley Department: Room: Gender: Female Inventory Manager: : 1940 Requested By: Toby Cade Order Number: [id number] Bessy MD: Omkar Dunn M.D. Measurements Intervals [place] Rate: 53 P: 0 WA: 0 QRS: -9 QRSD: 107 T: 53 QT: 404 QTc: 381 Interpretive Statements ATRIAL FIBRILLATION WITH SLOW VENTRICULAR RESPONSE LOW QRS VOLTAGE IN PRECORDIAL LEADS [QRS DEFLECTION < 1.0 mV IN CHEST LEADS] POSSIBLE ANTERIOR MYOCARDIAL INFARCTION , PROBABLY OLD [30 ms Q WAVE IN V3/V4, OR R < 0.2 mV IN V4] ABNORMAL RHYTHM ECG Compared to ECG 04/27/2022 02:39:15 Myocardial infarct finding now present Electronically Signed On 08-23-2022 16:36:59 CDT by Omkar Dunn M.D. [email or web address]
--- NOTE | 2022-08-22 21:32 | XRR_ITS ---
PROCEDURE INFORMATION: Exam: XR Chest Exam date and time: 08/22/2022 9:50 PM Age: 82 years old Clinical indication: Shortness of breath; Additional info: SOB TECHNIQUE: Imaging protocol: Radiologic exam of the chest. Views: 1 view. COMPARISON: CR XR chest 1V portable [id number] 04/29/2022 5:33 AM FINDINGS: Lungs: Bibasilar atelectasis versus infiltrate. Pulmonary vascular congestion. Pleural spaces: Unremarkable. No pleural effusion. No pneumothorax. Heart/Mediastinum: Cardiomegaly. Bones/joints: Unremarkable. XR/XR chest 1V portable [id number] IMPRESSION: 1. Cardiomegaly. 2. Bibasilar atelectasis versus infiltrate. 3. Pulmonary vascular congestion.
--- NOTE | 2022-08-22 21:39 | W.ED.SOB ---
HPI - SOB/Dyspnea General: Chief Complaint: Shortness of Breath/Dyspnea Stated Complaint: SOB Time Seen by Provider: 08/22/22 21:19 Source: patient and EMS Mode of arrival: EMS Limitations: no limitations History of Present Illness: HPI Narrative: 82-year-old female who has a history of COPD along with CHF she is on 5 L oxygen at baseline states of last 2 3 days she has had some increased wheezing and shortness of breath EMS return to 6 L she is a 98% stable speak in full sentences she denies any fevers had a slight cough that is chronic. Denies any worsening proving factors. Associated symptoms: Deny abdominal pain, chest pain, fever(s), nausea or vomiting Review of Systems Const: Denies: fever(s), chills, body aches or change in appetite Eyes: Denies: eye discomfort ENMT: Denies: throat pain or dental pain Card: Denies: chest pain Resp: Reports: dyspnea GI: Denies: abdominal pain, nausea, vomiting or diarrhea : Denies: dysuria Musc: Denies: neck pain or back pain Skin/Breast: Denies: rash PFSH ED PFSH: Medical History (Updated 08/22/22 @ 23:16 by Toby Cade MD) Asthma CAD (coronary artery disease) Cataracts, bilateral GERD (gastroesophageal reflux disease) Glaucoma Goiter HTN (hypertension) Hyperlipidemia PAULA (obstructive sleep apnea) Type 2 diabetes mellitus Surgical History H/O dilation and curettage H/O rotator cuff surgery H/O shoulder surgery History of cholecystectomy History of hip replacement, total History of hysterectomy History of knee replacement Hx of cataract surgery Hx of tonsillectomy Stented coronary artery Family History Father Myocardial infarction Mother Diabetes Social History Smoking and tobacco status: never smoked Second hand smoke exposure: Yes Alcohol intake: never Substance/Drug Use: never Lives independently: Yes Household members: family Marital status: Current occupational status: retired and disabled Do you think of yourself as: Straight/Heterosexual Current gender identity: Female Physical Exam Const: COMMON NORMALS: patient oriented x3 HENMT: COMMON NORMALS: normocephalic and atraumatic HEAD & SCALP: normocephalic and atraumatic Eye: COMMON NORMALS: conjunctivae normal CONJUNCTIVA: Yes conjunctivae normal Neck/C-Spine: COMMON NORMALS: full ROM and supple Chest: COMMONS NORMALS: normal inspection of the chest and normal palpation of entire chest wall Resp: COMMON NORMALS: normal respiratory effort, No retractions and No use of accessory muscles AUSCULTATION: wheezes Cardio: COMMON NORMALS: regular rate, regular rhythm and No murmurs present (Cardio) RATE: regular rate RHYTHM: regular rhythm GI: COMMON NORMALS: Normal to inspection, nondistended, normoactive bowel sounds present, Soft to palpation, non-tender and no masses PALPATION: Yes Soft to palpation Extremity: COMMON NORMALS: normal to inspection and full ROM Neuro: COMMON NORMALS: patient oriented x3, moves all extremities and no focal motor deficits Psych: COMMON NORMALS: mental status grossly normal, Normal thought process present and cooperative THOUGHT PROCESS: Normal thought process present Skin: COMMON NORMALS: no rashes or lesions noted and no wounds GENERAL SKIN EXAM: no rashes or lesions noted Course Vital Signs: Vital signs: Vital Signs Temperature 98.2 F 08/22/22 21:24 Pulse Rate 69 08/22/22 22:11 Respiratory Rate 23 H 08/22/22 22:11 Blood Pressure 146/44 08/22/22 21:24 Pulse Oximetry 94 08/22/22 22:11 Oxygen Delivery Me thod Nasal Cannula 08/22/22 22:11 Oxygen Flow Rate 5 08/22/22 22:11 MDM - SOB/Dyspnea Medical Decision Making Patient presents here with dyspnea chronic in nature and entire back under 5 L after breathing treatment and she is 98% on that. She feels much improved she is stable for discharge we will place her on steroids she has no signs pneumonia she is to follow-up with her PCP and return if worsening. Medical Records I reviewed the patient's medical records. Lab Data I reviewed the patient's lab results. 08/22/22 21:38 08/22/22 21:38 Labs/Radiology: Radiology Impressions Chest X-Ray 08/22/22 21:32 IMPRESSION: 1. Cardiomegaly. 2. Bibasilar atelectasis versus infiltrate. 3. Pulmonary vascular congestion. Laboratory Results WBC 9.4 10^3/uL (4.0-10.0) 08/22/22 21:38 RBC 3.92 10^6/uL (4.1-5.3) L 08/22/22 21:38 Hgb 9.5 g/dL (11.5-15.3) L 08/22/22 21:38 Hct 33.2 % (37.0-47.0) L 08/22/22 21:38 MCV 84.7 fl (81-99) 08/22/22 21:38 MCH 24.2 pg (28.0-34.0) L 08/22/22 21:38 MCHC 28.6 g/dL (30.0-36.0) L 08/22/22 21:38 RDW 17.2 % (12.1-15.1) H 08/22/22 21:38 Plt Count 222 10^3/cmm (130-400) 08/22/22 21: MPV 10.9 fL (7.4-10.4) H 08/22/22 21:38 Neut % (Auto) 71.7 % 08/22/22 21: Lymph % (Auto) 14.1 % 08/22/22 21:38 [place] % (Auto) 9.2 % 08/22/22 21:38 Eos % (Auto) 4.1 % 08/22/22 21:38 Baso % (Auto) 0.6 % 08/22/22 21:38 Neut # (Auto) 6.71 10^3/uL (1.8-7.7) 08/22/22 21:38 Lymph # (Auto) 1.3 10^3/uL (0.8-4.8) 08/22/22 21:38 [place] # (Auto) 0.9 10^3/uL (0.2-0.9) 08/22/22 21: Eos # (Auto) 0.4 10^3/uL (0.0-0.8) 08/22/22 21:38 Baso # (Auto) 0.1 10^3/uL (0.0-0.1) 08/22/22 21:38 Nucleated RBC % (auto) 0 % 08/22/22 21: Nucleated RBCs # 0.0 /100WBC 08/22/22 21:38 Specimen Type Arterial 08/22/22 22:20 Sample Site Radial, right 08/22/22 22:20 ABG pH 7.32 (7.35-7.45) L 08/22/22 22:20 ABG pCO2 41.4 mmHg (35-45) 08/22/22 22:20 ABG pO2 72.3 mmHg (80.0-100.0) L 08/22/22 22:20 ABG HCO3 21.2 mmol/L (22-26) L 08/22/22 22:20 ABG Base Excess -4.6 mmol/L (-2.0-2.0) L 08/22/22 22:20 Mango Test Pos 08/22/22 22:20 Hematocrit 29.9 % (37-47) L 08/22/22 22:20 Hgb O2 Saturation 92.4 % (95-100) L 08/22/22 22:20 Carboxyhemoglobin 1.9 %THgb (0.4-20.1) 08/22/22 22:20 Methemoglobin 0.8 % (0.4-1.5) 08/22/22 22:20 Total Hemoglobin 9.8 g/dL (12-16) L 08/22/22 22:20 O2 Delivery Device Nc 08/22/22 22:20 O2 Liters/Min 5.0 % 08/22/22 22:20 FiO2 40.0 % 08/22/22 22:20 Chief Ophthalmic Technician ID [place] 08/22/22 22:20 Sodium 138 mmol/L (136-145) 08/22/22 21:38 Potassium 5.4 mmol/L (3.5-5.1) H 08/22/22 21:38 Chloride 105 mmol/L (98-107) 08/22/22 21:38 Carbon Dioxide 21 mmol/L (22-29) L 08/22/22 21:38 Anion Gap 17.4 (5-19) 08/22/22 21:38 BUN 23 mg/dL (8-23) 08/22/22 21:38 Creatinine 0.6 mg/dL (0.5-0.9) 08/22/22 21:38 GFR Calculation Not Reportable 08/22/22 21:38 Glucose 119 mg/dL (65-115) H 08/22/22 21:38 Calculated Osmolality 291 mOsm/kg (285-295) 08/22/22 21:38 Calcium 8.7 mg/dL (8.5-10.5) 08/22/22 21:38 Total Bilirubin 0.5 mg/dL (0.15-1.2) 08/22/22 21:38 AST 15 U/L (0-32) 08/22/22 21:38 ALT 8 U/L (0-33) 08/22/22 21:38 Alkaline Phosphatase 58 U/L (35-105) 08/22/22 21:38 NT-Pro-B Natriuret Pep 2345 pg/mL (0-450) H 08/22/22 21:38 Total Protein 6.6 g/dL (6.6-8.7) 08/22/22 21:38 Albumin 4.1 g/dL (3.5-5.2) 08/22/22 21:38 Globulin 2.5 g/dL (1.3-4.6) 08/22/22 21:38 EKG Data EKG 1: I personally reviewed and interpreted this EKG as follows: EKG Interpretation Date: 08/22/22 EKG interpretation time: 21:33 Interpretation: bradycardia [address] or t wave abnormalities qrs 107 qtc 387 Discharge Plan Discharge Patient Disposition: Home Clinical Impression: Acute exacerbation of chronic obstructive airways disease Condition: Stable Prescriptions: New prednisone 50 mg tablet 50 mg PO DAILY Qty: 5 0RF No Action albuterol sulfate [Ventolin HFA] 90 mcg/actuation HFA aerosol inhaler 2 puff INHALATION Q6H PRN (Reason: Shortness Of Breath) celecoxib 200 mg capsule 200 mg PO BID aspirin [Adult Aspirin Regimen] 81 mg tablet,delayed release (DR/EC) 81 mg PO DAILY Tradjenta 5 mg tablet 5 mg PO DAILY pravastatin 80 mg tablet 80 mg PO DAILY omeprazole 40 mg capsule,delayed release(DR/EC) 40 mg PO DAILY tramadol 50 mg tablet 100 mg PO BID fluticasone propionate [Flonase Allergy Relief] 50 mcg/actuation spray,suspension 2 spray INTRANASAL DAILY Rx Instructions: administer into each nostril Combigan 0.2-0.5 % drops 1 drop ophthalmic (eye) BID Rx Instructions: right eye calcium carbonate [Calcium 600] 600 mg calcium (1,500 mg) tablet 600 mg PO DAILY travoprost [Travatan Z] 0.004 % drops 1 drop ophthalmic (eye) DAILY Rx Instructions: left eye (DME) Cock Up Splint See Rx Instructions .ROUTE .MEDSUPPLY Qty: 1 0RF Rx Instructions: As directed isosorbide mononitrate 120 mg tablet extended release 24 hr 120 mg PO DAILY Qty: 90 3RF amlodipine 10 mg tablet See Rx Instructions .ROUTE .COMPLEX Qty: 90 3RF Dose Instruction: TAKE 1 TABLET BY MOUTH EVERY DAY Rx Instructions: TAKE 1 TABLET BY MOUTH EVERY DAY budesonide-formoterol [Symbicort] 80-4.5 mcg/actuation HFA aerosol inhaler 2 puff inhalation Q12H Qty: 30.6 6RF potassium chloride 10 mEq Tablet Extended Release 10 meq PO DAILY metformin 500 mg tablet extended release 24 hr 500 mg PO BEDTIME tizanidine 2 mg Capsule 2 mg PO BID PRN (Reason: Muscle Pain) diclofenac sodium 1 % Gel 2 g TOPICAL QID PRN (Reason: Pain) Rx Instructions: apply to single elbow, wrist or hand; for hand includes palm/fingers/back of hand acetaminophen 500 mg Tablet 500 mg PO Q6H PRN (Reason: Pain) Discharge Orders: Discharge ED (Routine); Ordered 08/22/22 Ordered By: Toby Cade Referrals: Madhu Stern MD [Primary Care Provider] - 1-3 days Discharge Diet: Advance as tolerated Discharge Activity: Resume usual activity Patient Instructions: COPD (Chronic Obstructive Pulmonary Disease) (ED) Coding Level of Care Code ED Pin Sticker for Al Lucero
[2022-08-22 22:03] LABS: Basophils # 0.1 10^3/uL (0.0-0.1); Basophils % 0.6 %; Eosinophils # 0.4 10^3/uL (0.0-0.8); Eosinophils % 4.1 %; Hematocrit 33.2 % (37.0-47.0); Hemoglobin 9.5 g/dL (11.5-15.3); Lymphocytes # 1.3 10^3/uL (0.8-4.8); Lymphocytes % 14.1 %; Mean Corpuscular HGB Conc 28.6 g/dL (30.0-36.0); Mean Corpuscular Hemoglobin 24.2 pg (28.0-34.0); Mean Corpuscular Volume 84.7 fl (81-99); Mean Platelet Volume 10.9 fL (7.4-10.4); Monocytes # 0.9 10^3/uL (0.2-0.9); Monocytes % 9.2 %; Neutrophils # 6.71 10^3/uL (1.8-7.7); Neutrophils % 71.7 %; Nucleated Red Blood Cells % 0 %; Platelet Count 222 10^3/cmm (130-400); Red Blood Count 3.92 10^6/uL (4.1-5.3); Red Cell Distribution Width 17.2 % (12.1-15.1); White Blood Count 9.4 10^3/uL (4.0-10.0)
[2022-08-22 22:11] VITALS: PULSE 69; RESP 23; O2SAT 94
[2022-08-22] MEDS: ipratropium 0.5 mg/2.5 mL Neb INHALATION (22:11)
[2022-08-22] MEDS: albuterol 2.5 mg/3 mL Neb INHALATION (22:11)
[2022-08-22 22:31] LABS: ABG PCO2 41.4 mmHg (35-45); ABG PH Result 7.32 (7.35-7.45); Arterial Blood Gas Hematocrit 29.9 % (37-47); Base Excess ABG -4.6 mmol/L (-2.0-2.0); Blood Gas Allen Test Pos; Blood Gas Sample Site Radial, right; Blood Gas Sample Type Arterial; Carboxyhemoglobin 1.9 %THgb (0.4-20.1); HCO3 ABG 21.2 mmol/L (22-26); HGB O2 Sat 92.4 % (95-100); Methemoglobin 0.8 % (0.4-1.5); Oxygen Device NC; PO2 ABG 72.3 mmHg (80.0-100.0); Total Hemoglobin 9.8 g/dL (12-16)
[2022-08-22 22:34] LABS: Alanine Aminotransferase 8 U/L (0-33); Albumin Level 4.1 g/dL (3.5-5.2); Alkaline Phosphatase 58 U/L (35-105); Anion Gap 17.4 (5-19); Aspartate Amino Transferase 15 U/L (0-32); Blood Urea Nitrogen 23 mg/dL (8-23); Calcium 8.7 mg/dL (8.5-10.5); Carbon Dioxide 21 mmol/L (22-29); Chloride 105 mmol/L (98-107); Globulin 2.5 g/dL (1.3-4.6); Glucose 119 mg/dL (65-115); NT Pro B Type Natriuretic Pept 2345 pg/mL (0-450); Osmolality Calculated 291 mOsm/kg (285-295); Potassium 5.4 mmol/L (3.5-5.1); Sodium 138 mmol/L (136-145); Total Bilirubin 0.5 mg/dL (0.15-1.2); Total Protein 6.6 g/dL (6.6-8.7)
[2022-08-22] MEDS: FUROsemide 10 mg/mL SDV 4mL 40 MG IVP (22:59)
[2022-08-23 00:29] VITALS: BP 156/70; PULSE 57; RESP 23; O2SAT 93
== END 2022-08-23 00:33 | disposition home or self-care (01) ==
PROVIDERS: Emergency Provider Emergency Medicine; PCP Family Medicine
DX: J44.1 Chronic obstructive pulmonary disease with (acute) exacerbation (principal); I10 Essential (primary) hypertension; E78.5 Hyperlipidemia, unspecified; I25.10 Atherosclerotic heart disease of native coronary artery without angina pectoris
CPT/HCPCS: 36600; 71045; 80053; 82805; 83880; 85025; 93005; 94640; 96374; 96375; 99285; J1940; J2930; J7613; J7644

== ENCOUNTER 2022-10-06 10:28 | Inpatient (IN) | payer MEDICARE, MEDICAID, SELFPAY ==
[2022-10-06] VITALS (14 sets, daily range): BP systolic 109–159; BP diastolic 48–78; PULSE 58–76; RESP 16–30; TEMP 36.3–37; O2SAT 90–96; BMI 52.0
--- NOTE | 2022-10-06 10:56 | XR_ITS ---
WS: [id number] XR chest 1V portable [id number] REASON FOR EXAM: dyspnea/cough FINDINGS: Chest is essentially unchanged compared 08/22/2022. Cardiomegaly. Moderate tortuosity and ectasia of the thoracic aorta without aneurysmal dilatation. Leftward deviati on of the trachea at the thoracic inlet compatible with previously demonstrated goiter of the left lo be of the thyroid extending into the posterior mediastinum. Prominence of the central pulmonary veins and interstitium in the lower lung kirk. Minimal blunting of the costophrenic angles. Possibly small effusions. XR/XR chest 1V portable [id number] IMPRESSION: Stable chest compared to 08/22/2022. Findings of chronic congestive heart failure without definite acute abnormality .
--- NOTE | 2022-10-06 11:09 | ECG_ITS ---
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 Measurements Intervals [place] Rate: 58 P: 0 MS: 0 QRS: 51 QRSD: 102 T: 84 QT: 402 QTc: 396 Interpretive Statements ATRIAL FIBRILLATION WITH SLOW VENTRICULAR RESPONSE LOW QRS VOLTAGE [QRS DEFLECTION < 0.5/1.0 mV IN LIMB/CHEST LEADS] POSSIBLE ANTERIOR MYOCARDIAL INFARCTION , PROBABLY OLD [30 ms Q WAVE IN V3/V4, OR R < 0.2 mV IN V4] Compared to ECG 08/22/2022 21:33:23 No significant changes Electronically Signed On 10-06-2022 16:52:42 CDT by Joan Pagan M.D. [email or web address] [email or web address]/[id number]
[2022-10-06 11:13] LABS: ABG PCO2 45.5 mmHg (35-45); ABG PH Result 7.36 (7.35-7.45); Alveolar-Arterial Oxygen Gradi 2.9 mmHg (5-10); Arterial Blood Gas Hematocrit 27.3 % (37-47); Base Excess ABG -0.2 mmol/L (-2.0-2.0); Blood Gas Allen Test Pos; Blood Gas Sample Site Radial, right; Blood Gas Sample Type Arterial; Carboxyhemoglobin 2.1 %THgb (0.4-20.1); HCO3 ABG 25.4 mmol/L (22-26); HGB O2 Sat 92.1 % (95-100); Ionized Calcium Level - ABG 1.2 mmol/L (1.1-1.4); Methemoglobin 0.7 % (0.4-1.5); Oxygen Device NC; Oxygen Saturation ABG 94.7; PO2 ABG 70.8 mmHg (80.0-100.0); Potassium Level - ABG 4.7 mmol/L (3.5-5.0); Total Hemoglobin 8.9 g/dL (12-16)
--- NOTE | 2022-10-06 11:20 | PC.NURSE ---
PT PLACED ON CONTINUOUS SPO2, NIBP, AND CM.
[2022-10-06] MEDS: FUROsemide 10 mg/mL SDV 10mL 60 MG IVP (11:21)
[2022-10-06 11:39] LABS: Basophils # 0.1 10^3/uL (0.0-0.1); Basophils % 0.6 %; Eosinophils # 0.3 10^3/uL (0.0-0.8); Eosinophils % 2.8 %; Hematocrit 32.4 % (37.0-47.0); Hemoglobin 8.9 g/dL (11.5-15.3); Lymphocytes # 1.1 10^3/uL (0.8-4.8); Lymphocytes % 11.6 %; Mean Corpuscular HGB Conc 27.5 g/dL (30.0-36.0); Mean Corpuscular Hemoglobin 22.6 pg (28.0-34.0); Mean Corpuscular Volume 82.2 fl (81-99); Mean Platelet Volume 10.8 fL (7.4-10.4); Monocytes # 0.9 10^3/uL (0.2-0.9); Monocytes % 9.6 %; Neutrophils # 6.81 10^3/uL (1.8-7.7); Neutrophils % 75.2 %; Nucleated Red Blood Cells % 0 %; Platelet Count 257 10^3/cmm (130-400); Red Blood Count 3.94 10^6/uL (4.1-5.3); Red Cell Distribution Width 16.9 % (12.1-15.1); White Blood Count 9.1 10^3/uL (4.0-10.0)
--- NOTE | 2022-10-06 12:05 | W.ED.SOB ---
HPI - SOB/Dyspnea General: Chief Complaint: Shortness of Breath/Dyspnea Stated Complaint: SHORTNESS OF BREATH Time Seen by Provider: 10/06/22 10:39 Source: patient Mode of arrival: EMS History of Present Illness: HPI Narrative: 82-year-old female presents emergency room complaining of increasing shortness of breath that some worse the last 2 days she chronically is on oxygen at 5 L/min. She is not having any chest pain denies any orthopnea. She denies any fever sweats or chills or productive cough. She has a known history of congestive heart failure. She also has a history of atrial fibrillation. She is bradycardic on arrival here. States with the least amount of activity she gets very short of breath and her heart rate increases. She is morbidly obese. She lives at home alone. MD elicited complaint: shortness of breath and cough Pertinent past history: congestive heart failure Onset (ago): hour(s) Severity: mild Exacerbating factors: nothing Relieving factors: nothing Known history of: congestive heart failure Associated symptoms: Deny abdominal pain, chest congestion, chest pain, cough, diaphoresis, dizziness, extremity pain, fever(s), hemoptysis, lightheadedness, myalgias, nausea, orthopnea, palpitations, paresthesias, polydipsia, polyuria, rash, sense of impending doom, syncope or vomiting Treatment prior to arrival: oxygen Review of Systems Const: Denies: fever(s) or diaphoresis Card: Denies: chest pain, palpitations, lightheadedness, syncope or orthopnea Resp: Denies: hemoptysis or chest congestion GI: Denies: abdominal pain, nausea or vomiting Musc: Denies: extremity pain Neuro: Denies: dizziness Endo: Denies: polyuria or polydipsia [facility] ED PFSH: Medical History Asthma CAD (coronary artery disease) Cataracts, bilateral GERD (gastroesophageal reflux disease) Glaucoma Goiter HTN (hypertension) Hyperlipidemia PAULA (obstructive sleep apnea) Type 2 diabetes mellitus Surgical History H/O dilation and curettage H/O rotator cuff surgery H/O shoulder surgery History of cholecystectomy History of hip replacement, total History of hysterectomy History of knee replacement Hx of cataract surgery Hx of tonsillectomy Stented coronary artery Family History Father Myocardial infarction Mother Diabetes Social History Smoking and tobacco status: never smoked Second hand smoke exposure: Yes Alcohol intake: never Substance/Drug Use: never Lives independently: Yes Household members: family Marital status: Current occupational status: retired and disabled Do you think of yourself as: Straight/Heterosexual Current gender identity: Female Physical Exam Const: GENERAL APPEARANCE: cooperative ORIENTATION/CONSCIOUSNESS: Yes awake, Yes oriented to person, Yes oriented to place and Yes oriented to time HENMT: COMMON NORMALS: normocephalic, atraumatic and hearing grossly normal bilaterally HEAD & SCALP: normocephalic and atraumatic Resp: COMMON NORMALS: normal respiratory effort, No retractions and No use of accessory muscles AUSCULTATION: crackles Cardio: COMMON NORMALS: regular rhythm and No murmurs present (Cardio) RATE: bradycardic RHYTHM: regular rhythm GI: COMMON NORMALS: Soft to palpation and No hepatosplenomegaly present AUSCULTATION: Yes normoactive bowel sounds PALPATION: Yes Soft to palpation, No Tenderness to palpation present (GI), No Guarding due to palpation present (GI) and Yes No hepatosplenomegaly present Extremity: COMMON NORMALS: normal to inspection, capillary refill normal and no calf tenderness GENERAL: Yes edema Neuro: SENSORIUM/ORIENTATION: Yes oriented to person, Yes oriented to place and Yes oriented to time Skin: OTHER: Skin changes of chronic venous stasis edema Course Vital Signs: Vital signs: Vital Signs Temperature 97.5 F L 10/07/22 04:00 Pulse Rate 69 10/07/22 05:09 Respiratory Rate 18 10/07/22 04:00 Blood Pressure 131/78 10/07/22 04:00 Pulse Oximetry 96 10/07/22 04:00 Oxygen Delivery Me thod Nasal Cannula 10/07/22 04:00 Oxygen Flow Rate 5 10/07/22 04:00 MDM - SOB/Dyspnea Medical Decision Making Decompensated congestive heart failure and bradycardia. Patient not tolerating well at this time. Chest x-ray shows increased pulmonary vascular congestion. She is given Lasix Ortiz placed we will admit discussed with hospitalist orders written no evidence of acute coronary syndrome or PE at this time no pneumonia. Medical Records I reviewed the patient's medical records. Lab Data I reviewed the patient's lab results. 10/07/22 04:52 10/07/22 04:52 Labs/Radiology: Radiology Impressions Chest X-Ray 10/06/22 10:56 IMPRESSION: Stable chest compared to 08/22/2022. Findings of chronic congestive heart failure without definite acute abnormality. Laboratory Results WBC 9.1 10^3/uL (4.0-10.0) 10/06/22 11:06 RBC 3.94 10^6/uL (4.1-5.3) L 10/06/22 11:06 Hgb 8.9 g/dL (11.5-15.3) L 10/06/22 11:06 Hct 32.4 % (37.0-47.0) L 10/06/22 11:06 MCV 82.2 fl (81-99) 10/06/22 11:06 MCH 22.6 pg (28.0-34.0) L 10/06/22 11:06 MCHC 27.5 g/dL (30.0-36.0) L 10/06/22 11:06 RDW 16.9 % (12.1-15.1) H 10/06/22 11:06 Plt Count 257 10^3/cmm (130-400) 10/06/22 11:06 MPV 10.8 fL (7.4-10.4) H 10/06/22 11:06 Neut % (Auto) 75.2 % 10/06/22 11:06 Lymph % (Auto) 11.6 % 10/06/22 11:06 [place] % (Auto) 9.6 % 10/06/22 11:06 Eos % (Auto) 2.8 % 10/06/22 11:06 Baso % (Auto) 0.6 % 10/06/22 11:06 Neut # (Auto) 6.81 10^3/uL (1.8-7.7) 10/06/22 11:06 Lymph # (Auto) 1.1 10^3/uL (0.8-4.8) 10/06/22 11:06 [place] # (Auto) 0.9 10^3/uL (0.2-0.9) 10/06/22 11:06 Eos # (Auto) 0.3 10^3/uL (0.0-0.8) 10/06/22 11:06 Baso # (Auto) 0.1 10^3/uL (0.0-0.1) 10/06/22 11:06 Nucleated RBC % (auto) 0 % 10/06/22 11:06 Nucleated RBCs # 0.0 /100WBC 10/06/22 11:06 Specimen Type Arterial 10/06/22 11:02 Sample Site Radial, right 10/06/22 11:02 ABG pH 7.36 (7.35-7.45) 10/06/22 11:02 ABG pCO2 45.5 mmHg (35-45) H 10/06/22 11:02 ABG pO2 70.8 mmHg (80.0-100.0) L 10/06/22 11:02 ABG HCO3 25.4 mmol/L (22-26) 10/06/22 11:02 ABG O2 Saturation 94.7 10/06/22 11:02 ABG Base Excess -0.2 mmol/L (-2.0-2.0) 10/06/22 11:02 Mango Test Pos 10/06/22 11:02 A-a O2 Gradient 2.9 mmHg (5-10) L 10/06/22 11:02 Hematocrit 27.3 % (37-47) L 10/06/22 11:02 Hgb O2 Saturation 92.1 % (95-100) L 10/06/22 11:02 Carboxyhemoglobin 2.1 %THgb (0.4-20.1) 10/06/22 11:02 Methemoglobin 0.7 % (0.4-1.5) 10/06/22 11:02 Total Hemoglobin 8.9 g/dL (12-16) L 10/06/22 11:02 Sodium 135.0 mmol/L (131-143) 10/06/22 11:02 Potassium 4.7 mmol/L (3.5-5.0) 10/06/22 11:02 Glucose 151.0 mg/dL (70-115) H 10/06/22 11:02 Ionized Calcium 1.2 mmol/L (1.1-1.4) 10/06/22 11:02 O2 Delivery Device Nc 10/06/22 11:02 O2 Liters/Min 5.0 % 10/06/22 11:02 Sail Repairer ID [place] 10/06/22 11:02 Sodium 136 mmol/L (136-145) 10/06/22 11:06 Potassium 5.1 mmol/L (3.5-5.1) 10/06/22 11:06 Chloride 101 mmol/L (98-107) 10/06/22 11:06 Carbon Dioxide 25 mmol/L (22-29) 10/06/22 11:06 Anion Gap 15.1 (5-19) 10/06/22 11:06 BUN 24 mg/dL (8-23) H 10/06/22 11:06 Creatinine 0.6 mg/dL (0.5-0.9) 10/06/22 11:06 GFR Calculation Not Reportable 10/06/22 11:06 Glucose 130 mg/dL (65-115) H 10/06/22 11:06 Calculated Osmolality 288 mOsm/kg (285-295) 10/06/22 11:06 Calcium 8.7 mg/dL (8.5-10.5) 10/06/22 11:06 Iron 15 ug/dL (37-145) L 10/06/22 13:19 TIBC 349 mcg/dl 10/06/22 13:19 % Saturation 4.2 % (20-50) L 10/06/22 13:19 Unsat Iron Binding 334 ug/dL (112-347) 10/06/22 13:19 Ferritin 26 ng/mL (15-150) 10/06/22 13:19 Total Bilirubin 0.5 mg/dL (0.15-1.2) 10/06/22 11:06 AST 17 U/L (0-32) 10/06/22 11:06 ALT 7 U/L (0-33) 10/06/22 11:06 Alkaline Phosphatase 62 U/L (35-105) 10/06/22 11:06 Troponin T Baseline 13 ng/L (0-10) H 10/06/22 11:06 Troponin T 120 Minute 13.10 ng/L (0-10) H 10/06/22 13:19 Delta Troponin T 0.10 ABS# (0-10) 10/06/22 13:19 NT-Pro-B Natriuret Pep 2314 pg/mL (0-450) H 10/06/22 11:06 Total Protein 6.2 g/dL (6.6-8.7) L 10/06/22 11:06 Albumin 3.8 g/dL (3.5-5.2) 10/06/22 11:06 Globulin 2.4 g/dL (1.3-4.6) 10/06/22 11:06 Vitamin B12 279 pg/mL (232-1245) 10/06/22 13:19 Folate 14.1 ng/mL (4.8-37.3) 10/06/22 13:19 Urine Color Yellow (Yellow) 10/06/22 11:55 Urine Appearance Clear (CLEAR) 10/06/22 11:55 Urine pH 5 (5-7) 10/06/22 11:55 Ur Specific [place] 1.015 (1.005-1.030) 10/06/22 11:55 Urine Protein Neg (Negative) 10/06/22 11:55 Urine Glucose (UA) Norm (Normal) 10/06/22 11:55 Urine Ketones Negative (Negative) 10/06/22 11:55 Urine Blood Neg (Negative) 10/06/22 11:55 Urine Nitrate Negative (Negative) 10/06/22 11:55 Urine Bilirubin Neg (Negative) 10/06/22 11:55 Urine Urobilinogen Norm mg/dL (Negative) 10/06/22 11:55 Ur Leukocyte Esterase Negative (Negative) 10/06/22 11:55 Discharge Plan Discharge Patient Disposition: Admitted As Inpatient Admit Provider: Elsi Paez Clinical Impression: CHF (congestive heart failure), PAULA (obstructive sleep apnea), Chronic respiratory failure with hypoxia, Asthma, Obesity, Bradycardia Condition: Stable Coding Level of Care Code ED Plate Painter Apprentice for Chg Fwtony
[2022-10-06 12:08] LABS: Alanine Aminotransferase 7 U/L (0-33); Albumin Level 3.8 g/dL (3.5-5.2); Alkaline Phosphatase 62 U/L (35-105); Aspartate Amino Transferase 17 U/L (0-32); Blood Urea Nitrogen 24 mg/dL (8-23); Calcium 8.7 mg/dL (8.5-10.5); Carbon Dioxide 25 mmol/L (22-29); Chloride 101 mmol/L (98-107); Globulin 2.4 g/dL (1.3-4.6); Glucose 130 mg/dL (65-115); NT Pro B Type Natriuretic Pept 2314 pg/mL (0-450); Osmolality Calculated 288 mOsm/kg (285-295); Sodium 136 mmol/L (136-145); Total Bilirubin 0.5 mg/dL (0.15-1.2); Total Protein 6.2 g/dL (6.6-8.7)
[2022-10-06 12:10] LABS: Add Urine Microscopic? NO; Charge for UA Resulting for Rev
[2022-10-06 12:13] LABS: Anion Gap 15.1 (5-19); Potassium 5.1 mmol/L (3.5-5.1)
[2022-10-06 12:14] LABS: Bilirubin Urine Neg (Negative); Blood Urine Neg (Negative); Glucose Urine UA Norm (Normal); Ketones Urine Negative (Negative); Leukocyte Esterase Urine Negative (Negative); Nitrate Urine Negative (Negative); Protein Urine Neg (Negative); Specific Gravity, Urine 1.015 (1.005-1.030); Urine Appearance Clear (CLEAR); Urine Color Yellow (Yellow); Urobilinogen Urine Norm (Negative); pH Urine 5 (5-7)
[2022-10-06 12:55] LABS: Troponin(5th) Baseline 13 ng/L (0-10)
[2022-10-06] MEDS: ipratropium-albuterol 3 mL Neb INHALATION ×2 (13:15→19:23)
--- NOTE | 2022-10-06 14:11 | ECG_ITS ---
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 Measurements Intervals [place] Rate: 63 P: 0 TN: 0 QRS: 53 QRSD: 102 T: 74 QT: 410 QTc: 420 Interpretive Statements ATRIAL FIBRILLATION LOW QRS VOLTAGE [QRS DEFLECTION < 0.5/1.0 mV IN LIMB/CHEST LEADS] POSSIBLE ANTERIOR MYOCARDIAL INFARCTION , PROBABLY OLD [30 ms Q WAVE IN V3/V4, OR R < 0.2 mV IN V4] Compared to ECG 10/06/2022 11:09:50 No significant changes Electronically Signed On 10-06-2022 16:53:17 CDT by Joan Pagan M.D. [email or web address] regional medical centerAntibe Therapeuticskettering health miamis[facility].[employer]/store/[id number]
--- NOTE | 2022-10-06 15:38 | ECG_ITS ---
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 Measurements Intervals [place] Rate: 59 P: 0 [place]: 0 QRS: 1 QRSD: 91 T: 57 QT: 384 QTc: 382 Interpretive Statements ATRIAL FIBRILLATION WITH SLOW VENTRICULAR RESPONSE LOW QRS VOLTAGE IN PRECORDIAL LEADS [QRS DEFLECTION < 1.0 mV IN CHEST LEADS] POSSIBLE ANTERIOR MYOCARDIAL INFARCTION , PROBABLY OLD [30 ms Q WAVE IN V3/V4, OR R < 0.2 mV IN V4] ABNORMAL RHYTHM ECG Compared to ECG 10/06/2022 14:24:45 No significant changes Electronically Signed On 10-06-2022 16:52:57 CDT by Joan Pagan M.D. [email or web address] [email or web address]/store/[id number]
[2022-10-06] MEDS: dexamethasone 10 mg/mL INJ IVP (16:08)
--- NOTE | 2022-10-06 17:22 | P.HP_ITS ---
Providers/Chief Complaint Admitting Physician: Elsi Paez MD Primary Care Provider: Madhu Stern MD Chief Complaint: SHORTNESS OF BREATH History of Present Illness Florencia Bradley is a 82 year old female with a past medical history of morbid obesity, obstructive sleep apnea, asthma, chronic respiratory failure, hypertension, obesity hypoventilation syndrome, who presents to [facility] for complaints of dizziness, shortness of breath, increased lower extremi ty edema, possible sick sinus syndrome. She presents to the hospital today with progressively increasing lower extremity swelling, increasing weight gain slowly over the past 2 to 3 weeks. She has had increasing shortness of breath over the same timeframe. Denies any current complaints of cough fever expectoration. Denies any abdominal pain nausea vomiting or diarrhea. Denies any dizziness. States that her blood Pressure has been controlled at home. Denies any current chest pain. She has a known history of retrosternal goiter for which she is awaiting surgical intervention in the next month. Review of Systems General: Reports: 10 or more systems reviewed and unremarkable except in HPI and below Const: Denies: fever(s), chills or body aches Eyes: Denies: change in vision, blurry vision or photophobia ENMT: Reports: hoarseness; Denies: throat pain, enlarged tonsils, odynophagia or nasal congestion Card: Denies: chest pain, palpitations, irregular heart rhythm, edema, swelling of feet/ankles, lightheadedness, pre-syncope, dyspnea on exertion or orthopnea Resp: Denies: dyspnea, productive cough, non-productive cough, wheezing, stridor, pain on inspiration, change in phlegm color, hemoptysis or chest congestion GI: Denies: abdominal pain, nausea, vomiting, hematemesis, coffee ground emesis, dysphagia, heartburn, diarrhea, constipation, GI cramping, change in stool character, hematochezia or melena : Denies: flank pain, difficulty voiding, dysuria, urinary frequency, urinary urgency, urinary hesitancy or hematuria Musc: Denies: neck pain, back pain, extremity pain, joint swelling, joint warmth or deformity Neuro: Denies: headache(s), numbness in extremities, weakness in extremities, sensory changes, difficulty walking, frequent falls, dizziness, vertigo, behavioral changes, Slurred speech present or seizure-like activity Psych: Denies: anxiety, depression, suicidal ideation or homicidal ideation Endo: Denies: polyuria, polydipsia, tired all the time, cold intolerance or hot flashes Moses/Lymph: Denies: easy bruising or easy bleeding Medications/Allergies Home Medications Medication Instructions Recorded Confirmed Last Taken Type albuterol sulfate 90 mcg/actuation 2 puff inhalation Q6H PRN 09/27/19 10/06/22 10/06/22 History aerosol inhaler (Ventolin HFA) Shortness Of Breath aspirin 81 mg tablet,delayed 81 mg PO DAILY 09/27/19 10/06/22 10/06/22 History release (Adult Aspirin Regimen) brimonidine 0.2 %-timolol 0.5 % 1 drop ophthalmic (eye) BID 09/27/19 10/06/22 10/06/22 History eye drops (Combigan) calcium carbonate 600 mg calcium 600 mg PO DAILY 09/27/19 10/06/22 10/06/22 History (1,500 mg) tablet (Calcium) celecoxib 200 mg capsule 200 mg PO BID 09/27/19 10/06/22 10/06/22 History fluticasone propionate 50 2 spray intranasal DAILY 09/27/19 10/06/22 10/06/22 History mcg/actuation nasal spray,suspension (Flonase Allergy Relief) linagliptin 5 mg tablet (Tradjenta) 5 mg PO DAILY 09/27/19 10/06/22 10/06/22 History omeprazole 40 mg capsule,delayed 40 mg PO DAILY 09/27/19 10/06/22 10/06/22 History release pravastatin 80 mg tablet 80 mg PO DAILY 09/27/19 10/06/22 10/06/22 History tramadol 50 mg tablet 100 mg PO BID 09/27/19 10/06/22 10/06/22 History travoprost 0.004 % eye drops 1 drop ophthalmic (eye) DAILY 09/27/19 10/06/22 10/06/22 History (Travatan Z) isosorbide mononitrate 120 mg 120 mg PO DAILY #90 tabs 10/20/19 10/06/22 10/06/22 Rx tablet,extended release 24 hr Cock Up Splint #1 ea 07/23/20 10/06/22 Unknown Rx acetaminophen 500 mg tablet 500 mg PO Q6H PRN Pain 04/27/22 10/06/22 Unknown History diclofenac sodium 1 % topical gel 2 g topical QID PRN Pain 04/27/22 10/06/22 10/06/22 History metformin 500 mg tablet,extended 500 mg PO BEDTIME 04/27/22 10/06/22 10/05/22 History release 24 hr potassium chloride 10 mEq 10 meq PO DAILY 04/27/22 10/06/22 10/06/22 History tablet,extended release tizanidine 2 mg capsule 2 mg PO BID PRN Muscle Pain 04/27/22 10/06/22 Unknown History budesonide-formoterol HFA 80 2 puff inhalation Q12H #30.6 ea 06/02/22 10/06/22 10/06/22 Rx mcg-4.5 mcg/actuation aerosol inhaler (Symbicort) amlodipine 10 mg tablet 10 mg PO DAILY 10/06/22 10/06/22 10/06/22 History apixaban 5 mg tablet (Eliquis) 5 mg PO BID 10/06/22 10/06/22 10/06/22 History ascorbic acid (vitamin C) 250 mg 250 mg PO DAILY 10/06/22 10/06/22 10/06/22 History tablet (Vitamin C) chlorthalidone 25 mg tablet 25 mg PO DAILY 10/06/22 10/06/22 10/06/22 History hydralazine 25 mg tablet 25 mg PO TID PRN Hypertension 10/06/22 10/06/22 Unknown History metoprolol tartrate 25 mg tablet 25 mg PO BID 10/06/22 10/06/22 10/06/22 History valsartan 320 mg tablet 320 mg PO DAILY 10/06/22 10/06/22 10/06/22 History Allergies Allergy/AdvReac Type Severity Reaction Status Date / Time No Known Allergies Allergy Verified 01/26/20 11:27 PFSH Acute PFSH: Medical History Asthma CAD (coronary artery disease) Cataracts, bilateral GERD (gastroesophageal reflux disease) Glaucoma Goiter HTN (hypertension) Hyperlipidemia PAULA (obstructive sleep apnea) Type 2 diabetes mellitus Surgical History H/O dilation and curettage H/O rotator cuff surgery H/O shoulder surgery History of cholecystectomy History of hip replacement, total History of hysterectomy History of knee replacement Hx of cataract surgery Hx of tonsillectomy Stented coronary artery Family History Father Myocardial infarction Mother Diabetes Social History Smoking and tobacco status: never smoked Second hand smoke exposure: Yes Alcohol intake: never Substance/Drug Use: never Lives independently: Yes Household members: family Marital status: Current occupational status: retired and disabled Do you think of yourself as: Straight/Heterosexual Current gender identity: Female Vitals/I&O/Wt Last Vital Signs Temp 98.3 F 10/06/22 16:00 Pulse 70 10/06/22 16:00 Resp 18 10/06/22 16:00 BP 142/62 10/06/22 16:00 Pulse Ox 92 10/06/22 16:00 O2 Del Method Nasal Cannula 10/06/22 16:00 O2 Flow Rate 5 10/06/22 13:14 Weight last 48 hrs Weight 105.233 kg Physical Exam Narrative: General: No acute distress, AO x3 HEENT: PERRLA, pupils bilaterally equal and reactive, pallors not present Chest: Normal vesicular breath sounds, no added sounds, equal good air entry bilaterally CVS: S1-S2 regular, no murmurs, no tachycardia, no gallops, no rubs Abdomen: Soft, nontender, no organomegaly, bowel sounds present Neuro: No focal deficits, no facial deformity, AO x3, power 5/5 in all limbs Extremities: Bilateral lower extremity pitting edema with changes of stasis dermatitis are noted. No current signs of cellulitis. Data 10/07/22 04:52 10/07/22 04:52 A&P Assessment and plan (1) CHF (congestive heart failure): Decompensated heart failure with preserved ejection fraction Elevated proBNP, chest x-ray has shown pulmonary vascular congestion 2D echo results from 04/2022 showed LVEF of 72%.? No gross wall motion abnormalities.? Moderately increased left atrial size and mild to moderate mitral annular calcification.? There is a thickened aortic valve.? No intracardiac masses were noted.? Of note this was a technically difficult study because of poor windows. start Lasix 40mg iv twice daily Closely monitor intake and output, daily weights, kidney function while on diuresis. EKG without acute ST-T wave changes. Troponin series shows trend of 13, 13, 15, no significant delta. (2) Bradycardia: Patient noted to have bradycardia on being connected to telemetry currently intermittently HR on tele drops to 30bpm in a fib On her previous admission metoprolol was discontinued, however it appears on her discharge from SNF after the last admission metoprolol was resumed at some point. Patient states she does not know she needed to hold metoprolol and has been taking it for the last month. We will stop metoprolol again and monitor for improvement in bradycardia. Plan Diabetes mellitus: Insulin sliding scale History of hypertension: Continue home doses of valsartan, Imdur History of atrial fibrillation, holding metoprolol due to bradycardia, continue Eliquis 5 mg p.o. twice daily Disposition planning: Patient states that she lives by herself and is no longer confident that she can take care of her ADLs because of her CHF. She does not feel safe living independently anymore and wishes to transition to long term facility. PT OT assessments, case management consult for appropriate disposition planning. Attestations Medical Necessity Statement*: > 2 midnight admission is anticipated for above defined care. Coding Level of Care Code Acute Code for Chg Fwd Moderate MDM includes number and complexity of problems actively addressed during encounter, amount and/or complexity of data reviewed/ordered and described risk of complication, morbidity or mortality of management as documented Diagnoses CHF (congestive heart failure) I50.9 Bradycardia R00.1
[2022-10-06 17:48] LABS: Glucose Point of Care 190 mg/dL (70-110)
--- NOTE | 2022-10-06 17:56 | ECG_ITS ---
[facility] Test Date: 2022-10-06 Pat Name: Florencia Bradley Department: Room: 251 Gender: Female Intensivist: : 1940 Requested By: Norman Huff Order Number: [id number] Bessy MD: Joan Pagan M.D. Measurements Intervals [place] Rate: 63 P: 0 TX: 0 QRS: 10 QRSD: 91 T: 67 QT: 390 QTc: 402 Interpretive Statements ATRIAL FIBRILLATION LOW QRS VOLTAGE [QRS DEFLECTION < 0.5/1.0 mV IN LIMB/CHEST LEADS] POSSIBLE ANTERIOR MYOCARDIAL INFARCTION , PROBABLY OLD [30 ms Q WAVE IN V3/V4, OR R < 0.2 mV IN V4] Compared to ECG 10/06/2022 16:43:50 No significant changes Electronically Signed On 10-06-2022 21:42:19 CDT by Joan Pagan M.D. [email or web address]
[2022-10-06 18:02] LABS: Troponin 5 6HR 15.46 ng/L (0-10)
[2022-10-06 18:07] LABS: Troponin 5 6HR Delta 2.46 ng/L (0-12)
[2022-10-06] MEDS: FUROsemide 10 mg/mL SDV 10mL 40 MG IVP (18:15)
[2022-10-06] MEDS: insulin lispro 100 unit/1 mL SUBCUT (18:15)
[2022-10-06] MEDS: TRAMadol 50 mg Tablet 100 MG PO (18:15)
[2022-10-06] MEDS: apixaban 5 mg Tablet PO (18:16)
[2022-10-06 18:22] LABS: Ferritin 26 ng/mL (15-150); Iron 15 ug/dL (37-145); Percent Saturation 4.2 % (20-50); Total Iron Binding Capacity 349 mcg/dl; Unsaturated Iron Binding 334 ug/dL (112-347)
[2022-10-06 18:28] LABS: Folate Level 14.1 ng/mL (4.8-37.3)
[2022-10-06 18:38] LABS: Vitamin B12 279 pg/mL (232-1245)
[2022-10-06] MEDS: budesonide 0.5 mg/2 mL Neb INHALATION (19:23)
[2022-10-06 21:13] LABS: Glucose Point of Care 135 mg/dL (70-110)
[2022-10-07] VITALS (16 sets, daily range): BP systolic 120–162; BP diastolic 56–78; PULSE 67–81; RESP 15–20; TEMP 36.4–37; O2SAT 91–98
[2022-10-07] MEDS: ipratropium-albuterol 3 mL Neb INHALATION ×4 (00:59→20:05)
[2022-10-07] MEDS: FUROsemide 10 mg/mL SDV 10mL 40 MG IVP ×2 (04:53→18:23)
[2022-10-07 05:09] LABS: Basophils % 0.1 %; Hematocrit 33.2 % (37.0-47.0); Hemoglobin 9.3 g/dL (11.5-15.3); Lymphocytes # 0.6 10^3/uL (0.8-4.8); Lymphocytes % 7.9 %; Mean Corpuscular Hemoglobin 22.7 pg (28.0-34.0); Monocytes # 0.1 10^3/uL (0.2-0.9); Monocytes % 1.2 %; Neutrophils # 6.53 10^3/uL (1.8-7.7); Neutrophils % 90.4 %; Nucleated Red Blood Cells % 0 %; Platelet Count 236 10^3/cmm (130-400); Red Cell Distribution Width 16.7 % (12.1-15.1); White Blood Count 7.2 10^3/uL (4.0-10.0)
[2022-10-07 05:34] LABS: Alanine Aminotransferase 7 U/L (0-33); Albumin Level 3.7 g/dL (3.5-5.2); Alkaline Phosphatase 62 U/L (35-105); Anion Gap 16.8 (5-19); Aspartate Amino Transferase 12 U/L (0-32); Blood Urea Nitrogen 17 mg/dL (8-23); Calcium 9.4 mg/dL (8.5-10.5); Carbon Dioxide 27 mmol/L (22-29); Chloride 96 mmol/L (98-107); Globulin 2.6 g/dL (1.3-4.6); Glucose 151 mg/dL (65-115); Magnesium 1.5 mg/dL (1.7-2.3); Osmolality Calculated 284 mOsm/kg (285-295); Potassium 4.8 mmol/L (3.5-5.1); Sodium 135 mmol/L (136-145); Total Bilirubin 0.6 mg/dL (0.15-1.2); Total Protein 6.3 g/dL (6.6-8.7)
[2022-10-07 07:01] LABS: Glucose Point of Care 178 mg/dL (70-110)
[2022-10-07] MEDS: budesonide 0.5 mg/2 mL Neb INHALATION ×2 (08:13→20:05)
[2022-10-07] MEDS: aspirin 81 mg EC Tablet PO (08:56)
[2022-10-07] MEDS: atorvastatin 40 mg Tablet 20 MG PO (08:56)
[2022-10-07] MEDS: TRAMadol 50 mg Tablet 100 MG PO ×2 (08:56→17:57)
[2022-10-07] MEDS: insulin lispro 100 unit/1 mL SUBCUT ×3 (08:57→21:07)
[2022-10-07] MEDS: apixaban 5 mg Tablet PO ×2 (08:57→17:57)
[2022-10-07] MEDS: isosorbide mononitrate ER 60 mg Tablet 120 MG PO (08:57)
[2022-10-07] MEDS: pantoprazole DR 40 mg Tablet PO (08:57)
[2022-10-07] MEDS: amlodipine 10 mg Tablet PO (08:57)
[2022-10-07] MEDS: losartan 50 mg Tablet 100 MG PO (08:57)
--- NOTE | 2022-10-07 10:24 | PC.CHAP ---
Pastoral Care Encounter/Spiritual Assessment Type of Contact [] Declined contact center team lead visit [] Patient/Family/Request visit [] Outpatient visit [] Follow-up visit [] Physician referral [] Code/Alert [] Routine visit [] Staff referral [] Actively dying [] Patient sleeping [] Family support [] [] Out of room [] Palliative care [] [x] Receiving care in room [] Pre-surgical visit [] Trauma [] Long length of stay [] ICU visit [] Other: Relational/Emotional Strength [] Patient feels connected with others/family/visitors/staff [] Distress [] Loneliness/isolation [] Abandonment Spirituality of Patient [] Person of Fern [] Attends [employer] of their Fern [] Believes in Prayer [] Reads Bible or Christianity materials [] There are Spiritual issues to be addressed [place] Interventions [] Prayer [] Active listening [] Non-anxious presence [] Spiritual/emotional support [] Crisis/trauma care [] Spiritual counseling [] Bereavement support [] Provided bereavement packet [] Provided Bible/devotional materials [] Provided toy/stuffed animal, coloring book to patient or family member [] Provided Communion [] Anointing/[place] [] Salvation [] Completed spiritual assessment [] Other: Impact on Illness or Injury [] Angry [] Fearful [] Anxious [] Often cries [] Exhaustion [] Unable to work [] Unable to attend [employer] [] Unable to walk/stand [] Unable to read [] Unable to drive [] Unable to eat/drink [] Unable to sleep [] Unable to be with family [] Patient intubated [] Other: Summary Time spent with patient
[2022-10-07 11:56] LABS: Glucose Point of Care 173 mg/dL (70-110)
[2022-10-07 16:24] LABS: Glucose Point of Care 140 mg/dL (70-110)
--- NOTE | 2022-10-07 16:29 | PM.PN ---
Subjective Subjective: No new complaints today. Edema is improving. Net -6 L. Kidney function stable Medications: Reviewed: Yes Vitals/I&O/Wt Last Vital Signs Temp 98.6 F 10/07/22 11:00 Pulse 79 10/07/22 14:00 Resp 18 10/07/22 13:24 BP 162/70 10/07/22 11:00 Pulse Ox 96 10/07/22 13:24 O2 Del Method Nasal Cannula 10/07/22 13:24 O2 Flow Rate 5 10/07/22 13:24 10/07/22 10/07/22 10/07/22 06:59 14:59 22:59 Intake Total 800 / 1190 60 / 60 Output Total 2900 / 5650 1650 / 1650 Balance -2100 / -4460 -1590 / -1590 Weight last 48 hrs Weight 105.233 kg Physical Exam Narrative: General: No acute distress, AO x3 HEENT: PERRLA, pupils bilaterally equal and reactive, pallors not present Chest: Normal vesicular breath sounds, no added sounds, equal good air entry bilaterally CVS: S1-S2 regular, no murmurs, no tachycardia, no gallops, no rubs Abdomen: Soft, nontender, no organomegaly, bowel sounds present Neuro: No focal deficits, no facial deformity, AO x3, power 5/5 in all limbs . Urinary Catheter Management: Ortiz: Cath Placed During This Visit: no Reason for Continuing Indwelling Catheter: Other Data 10/07/22 04:52 10/07/22 04:52 A&P Assessment and plan (1) CHF (congestive heart failure): (2) Bradycardia: Plan Decompensated heart failure with preserved ejection fraction, acute on chronic Elevated proBNP, chest x-ray has shown pulmonary vascular congestion 2D echo results from 04/2022 showed LVEF of 72%.? No gross wall motion abnormalities.? Moderately increased left atrial size and mild to moderate mitral annular calcification.? There is a thickened aortic valve.? No intracardiac masses were noted.? Of note this was a technically difficult study because of poor windows. Continue Lasix 40mg iv twice daily, plan to transition to p.o. Lasix over the next 24 hours intermittently HR on tele drops to 30bpm in a fib upon admission. Holding home dose of metoprolol. Off of metoprolol currently patient is ranging a heart rate of 70-79 Replace magnesium Insulin sliding scale for diabetes mellitus Continue home doses of losartan and Imdur 120 mg p.o. daily. Resume hydralazine Disposition: Patient lives at home alone currently. She does not feel she can take care of her ADLs at home anymore. She has had increasing difficulty. Take within her home and would like to transition to SNF for her safety. Attestations Medical Necessity Statement*: Continued need for IV diuresis today, plan transition to oral over the next 24 hours, appropriate disposition planning. Coding Level of Care Code Acute Code for Chg Fwd Moderate MDM includes number and complexity of problems actively addressed during encounter, amount and/or complexity of data reviewed/ordered and described risk of complication, morbidity or mortality of management as documented Diagnoses CHF (congestive heart failure) I50.9 Bradycardia R00.1
[2022-10-07 20:25] LABS: Glucose Point of Care 201 mg/dL (70-110)
[2022-10-08] VITALS (13 sets, daily range): BP systolic 116–134; BP diastolic 57–72; PULSE 82–97; RESP 16–19; TEMP 36.4–37.2; O2SAT 91–98
[2022-10-08] MEDS: ipratropium-albuterol 3 mL Neb INHALATION ×4 (02:07→20:19)
[2022-10-08 04:51] LABS: Basophils % 0.1 %; Hematocrit 31.6 % (37.0-47.0); Hemoglobin 9.3 g/dL (11.5-15.3); Lymphocytes # 1.2 10^3/uL (0.8-4.8); Lymphocytes % 9.3 %; Mean Corpuscular HGB Conc 29.4 g/dL (30.0-36.0); Mean Corpuscular Hemoglobin 22.7 pg (28.0-34.0); Mean Corpuscular Volume 77.3 fl (81-99); Mean Platelet Volume 10.8 fL (7.4-10.4); Monocytes # 1.2 10^3/uL (0.2-0.9); Monocytes % 9.9 %; Neutrophils # 9.86 10^3/uL (1.8-7.7); Neutrophils % 80.2 %; Nucleated Red Blood Cells % 0 %; Platelet Count 276 10^3/cmm (130-400); Red Blood Count 4.09 10^6/uL (4.1-5.3); Red Cell Distribution Width 16.7 % (12.1-15.1); White Blood Count 12.3 10^3/uL (4.0-10.0)
[2022-10-08 05:22] LABS: Alanine Aminotransferase 6 U/L (0-33); Albumin Level 3.7 g/dL (3.5-5.2); Alkaline Phosphatase 55 U/L (35-105); Anion Gap 15.3 (5-19); Aspartate Amino Transferase 12 U/L (0-32); Blood Urea Nitrogen 16 mg/dL (8-23); Calcium 9.3 mg/dL (8.5-10.5); Carbon Dioxide 32 mmol/L (22-29); Chloride 89 mmol/L (98-107); Globulin 2.4 g/dL (1.3-4.6); Glucose 130 mg/dL (65-115); Magnesium 1.4 mg/dL (1.7-2.3); Osmolality Calculated 277 mOsm/kg (285-295); Potassium 4.3 mmol/L (3.5-5.1); Sodium 132 mmol/L (136-145); Total Bilirubin 0.6 mg/dL (0.15-1.2); Total Protein 6.1 g/dL (6.6-8.7)
[2022-10-08] MEDS: FUROsemide 10 mg/mL SDV 10mL 40 MG IVP (06:00)
[2022-10-08 07:10] LABS: Glucose Point of Care 158 mg/dL (70-110)
[2022-10-08] MEDS: budesonide 0.5 mg/2 mL Neb INHALATION ×2 (07:37→20:20)
[2022-10-08] MEDS: insulin lispro 100 unit/1 mL SUBCUT (07:59)
[2022-10-08] MEDS: isosorbide mononitrate ER 60 mg Tablet 120 MG PO (08:00)
[2022-10-08] MEDS: TRAMadol 50 mg Tablet 100 MG PO ×2 (08:00→18:35)
[2022-10-08] MEDS: atorvastatin 40 mg Tablet 20 MG PO (08:01)
[2022-10-08] MEDS: pantoprazole DR 40 mg Tablet PO (08:01)
[2022-10-08] MEDS: hyDRALAzine 25 mg Tablet PO ×3 (08:01→21:02)
[2022-10-08] MEDS: amlodipine 10 mg Tablet PO (08:01)
[2022-10-08] MEDS: aspirin 81 mg EC Tablet PO (08:01)
[2022-10-08] MEDS: losartan 50 mg Tablet 100 MG PO (08:04)
[2022-10-08] MEDS: apixaban 5 mg Tablet PO ×2 (08:07→17:25)
[2022-10-08 11:11] LABS: Glucose Point of Care 131 mg/dL (70-110)
--- NOTE | 2022-10-08 11:17 | P.PN_ITS ---
Subjective Subjective: Patient will symptomatically improving. Lower extremity swelling is much improved. Breathing is easier. She is currently on supplemental oxygen of 4 L/min which is her baseline. No new complaints. Medications: Reviewed: Yes Vitals/I&O/Wt Last Vital Signs Temp 97.6 F 10/08/22 07:15 Pulse 84 10/08/22 07:37 Resp 18 10/08/22 07:37 BP 130/68 10/08/22 08:04 Pulse Ox 97 10/08/22 07:37 O2 Del Method Nasal Cannula 10/08/22 07:37 O2 Flow Rate 5 10/08/22 07:37 10/07/22 10/08/22 10/08/22 22:59 06:59 14:59 Intake Total 52 / 112 240 / 240 Output Total 1999 / 3649 2750 / 6400 Balance -1948 / -3538 -2750 / -6288 240 / 240 Physical Exam Narrative: General: No acute distress, AO x3 HEENT: PERRLA, pupils bilaterally equal and reactive, pallors not present Chest: Normal vesicular breath sounds, no added sounds, equal good air entry bilaterally CVS: S1-S2 regular, no murmurs, no tachycardia, no gallops, no rubs Abdomen: Soft, nontender, no organomegaly, bowel sounds present Neuro: No focal deficits, no facial deformity, AO x3, power 5/5 in all limbs Extremities: lower extremity edema significantly improving. Skin is starting to wrinkle. Urinary Catheter Management: Ortiz: Cath Placed During This Visit: no Reason for Continuing Indwelling Catheter: Acute Urinary Retention or Obstruction Data 10/08/22 03:45 10/08/22 03:45 A&P Assessment and plan (1) CHF (congestive heart failure): Decompensated heart failure with preserved ejection fraction Elevated proBNP, chest x-ray has shown pulmonary vascular congestion 2D echo results from 04/2022 showed LVEF of 72%.? No gross wall motion abnormalities.? Moderately increased left atrial size and mild to moderate mitral annular calcification.? There is a thickened aortic valve.? No in tracardiac masses were noted.? Of note this was a technically difficult study because of poor windows. d/c Lasix 40mg iv twice daily ---> change to 40mg po BID lasix Closely monitor intake and output, daily weights, kidney function while on diuresis. EKG without acute ST-T wave changes. Troponin series shows trend of 13, 13, 15, no significant delta. (2) Bradycardia: Patient noted to have bradycardia on being connected to telemetry currently intermittently HR on tele drops to 30bpm in a fib On her previous admission metoprolol was discontinued, however it appears on her discharge from SNF after the last admission metoprolol was resumed at some point. Patient states she does not know she needed to hold metoprolol and has been taking it for the last month. We will stop metoprolol again and monitor for improvement in bradycardia. Plan Diabetes mellitus: Insulin sliding scale History of hypertension: Continue home doses of valsartan, Imdur History of atrial fibrillation, holding metoprolol due to bradycardia, continue Eliquis 5 mg p.o. twice daily Disposition planning: Patient states that she lives by herself and is no longer confident that she can take care of her ADLs because of her CHF. She does not feel safe living independently anymore and wishes to transition to intermediate facility. PT OT assessments, case management consult for appropriate disposition planning. Attestations Medical Necessity Statement*: Transition IV to p.o. Lasix today, anticipate discharge in the upcoming 24 hours pending disposition planning. Coding Level of Care Code Acute Code for Chg Fwd Moderate MDM includes number and complexity of problems actively addressed during encounter, amount and/or complexity of data reviewed/ordered and described risk of complication, morbidity or mortality of management as documented Diagnoses CHF (congestive heart failure) I50.9 Bradycardia R00.1
[2022-10-08] MEDS: FUROsemide 40 mg Tablet PO (16:17)
[2022-10-08] MEDS: lanolin oint 7 gm 1 APPLIC TOPICAL (16:31)
[2022-10-08 16:55] LABS: Glucose Point of Care 133 mg/dL (70-110)
[2022-10-08 21:17] LABS: Glucose Point of Care 137 mg/dL (70-110)
[2022-10-09] VITALS (7 sets, daily range): BP systolic 118–131; BP diastolic 54–71; PULSE 76–93; RESP 16–18; TEMP 36.8–36.9; O2SAT 90–98
[2022-10-09] MEDS: ipratropium-albuterol 3 mL Neb INHALATION ×2 (02:19→08:44)
[2022-10-09 06:47] LABS: Glucose Point of Care 114 mg/dL (70-110)
[2022-10-09] MEDS: isosorbide mononitrate ER 60 mg Tablet 120 MG PO (08:21)
[2022-10-09] MEDS: losartan 50 mg Tablet 100 MG PO (08:22)
[2022-10-09] MEDS: amlodipine 10 mg Tablet PO (08:22)
[2022-10-09] MEDS: pantoprazole DR 40 mg Tablet PO (08:23)
[2022-10-09] MEDS: FUROsemide 40 mg Tablet PO (08:24)
[2022-10-09] MEDS: apixaban 5 mg Tablet PO (08:24)
[2022-10-09] MEDS: aspirin 81 mg EC Tablet PO (08:24)
[2022-10-09] MEDS: atorvastatin 40 mg Tablet 20 MG PO (08:24)
[2022-10-09] MEDS: hyDRALAzine 25 mg Tablet PO (08:42)
[2022-10-09] MEDS: budesonide 0.5 mg/2 mL Neb INHALATION (08:44)
--- NOTE | 2022-10-09 08:52 | PC.SOCIAL ---
Imm update Imm updated with patient at bedside. Copy of page 2 provided. Patient verbalized understanding. Copy in chart initialed, dated and timed.
--- NOTE | 2022-10-09 10:04 | PM.DCS ---
Discharge Providers Date of Admission: 10/06/22 14:10 Date of Discharge: October 09, 2022 Attending Provider at Admission: Elsi Paez MD Attending Provider at Discharge: Elsi Paez MD Primary Care Provider: Madhu Stern MD Diagnoses at Discharge Discharge Diagnosis (1) CHF (congestive heart failure): Status: Acute (2) Bradycardia: Status: Acute Reason for Visit Reason for Visit: SHORTNESS OF BREATH Hospital Course Hospital Course Florencia Bradley is a 82 year old female with a past medical history of morbid obesity, obstructive sleep apnea, asthma, chronic respiratory failure, hypertension, obesity hypoventilation syndrome, who presented to [facility] for complaints of shortness of breath, increased lower extremity edema and bardycardia over the past 2 to 3 weeks.? She has had increasing shortness of breath over the same timeframe. She was found to have evidence of decompensated acute on chronic heart failure with preserved ejection fraction. She was diuresed with iv lasix, transitioned to po once her Le edema and dyspnea started to improve. She is at baseline 4-5 lpm supplemental 02 at discharge. Metorpolol was stopped due to sinus bradycardia with HR dipping in the 30s. No bradycardic events off metoprolol Physical Exam Narrative: General: No acute distress, AO x3 HEENT: PERRLA, pupils bilaterally equal and reactive, pallors not present Chest: Normal vesicular breath sounds, no added sounds, equal good air entry bilaterally CVS: S1-S2 regular, no murmurs, no tachycardia, no gallops, no rubs Abdomen: Soft, nontender, no organomegaly, bowel sounds present Neuro: No focal deficits, no facial deformity, AO x3, power 5/5 in all limbs Extremities: improved LE edema Urinary Catheter Management: Ortiz: Cath Placed During This Visit: no Reason for Continuing Indwelling Catheter: Other Discharge Data Studies Completed and Pending Completed Studies During Hospitalization Category Date Time Status XR chest 1V portable [id number] Stat Exams 10/06/22 10:56 Completed Pending at discharge Category Date Time Status Occult Blood Stool [Immunochemical Fecal OCB] Routine Lab 10/06/22 11:49 Uncollected SARS Covid-2 Antigen Routine Lab 10/09/22 08:10 Uncollected Radiology Impressions Chest X-Ray 10/06/22 10:56 IMPRESSION: Stable chest compared to 08/22/2022. Findings of chronic congestive heart failure without definite acute abnormality. Laboratory Results WBC 12.3 10^3/uL (4.0-10.0) H 10/08/22 03:45 RBC 4.09 10^6/uL (4.1-5.3) L 10/08/22 03:45 Hgb 9.3 g/dL (11.5-15.3) L 10/08/22 03:45 Hct 31.6 % (37.0-47.0) L 10/08/22 03:45 MCV 77.3 fl (81-99) L 10/08/22 03:45 MCH 22.7 pg (28.0-34.0) L 10/08/22 03:45 MCHC 29.4 g/dL (30.0-36.0) L 10/08/22 03:45 RDW 16.7 % (12.1-15.1) H 10/08/22 03:45 Plt Count 276 10^3/cmm (130-400) 10/08/22 03:45 MPV 10.8 fL (7.4-10.4) H 10/08/22 03:45 Neut % (Auto) 80.2 % 10/08/22 03:45 Lymph % (Auto) 9.3 % 10/08/22 03:45 [place] % (Auto) 9.9 % 10/08/22 03:45 Eos % (Auto) 0.0 % 10/08/22 03:45 Baso % (Auto) 0.1 % 10/08/22 03:45 Neut # (Auto) 9.86 10^3/uL (1.8-7.7) H 10/08/22 03:45 Lymph # (Auto) 1.2 10^3/uL (0.8-4.8) 10/08/22 03:45 [place] # (Auto) 1.2 10^3/uL (0.2-0.9) H 10/08/22 03:45 Eos # (Auto) 0.0 10^3/uL (0.0-0.8) 10/08/22 03:45 Baso # (Auto) 0.0 10^3/uL (0.0-0.1) 10/08/22 03:45 Nucleated RBC % (auto) 0 % 06/14/23 03:45 Nucleated RBCs # 0.0 /100WBC 10/08/22 03:45 Specimen Type Arterial 10/06/22 11:02 Sample Site Radial, right 10/06/22 11:02 ABG pH 7.36 (7.35-7.45) 10/06/22 11:02 ABG pCO2 45.5 mmHg (35-45) H 10/06/22 11:02 ABG pO2 70.8 mmHg (80.0-100.0) L 10/06/22 11:02 ABG HCO3 25.4 mmol/L (22-26) 10/06/22 11:02 ABG O2 Saturation 94.7 10/06/22 11:02 ABG Base Excess -0.2 mmol/L (-2.0-2.0) 10/06/22 11:02 Mango Test Pos 10/06/22 11:02 A-a O2 Gradient 2.9 mmHg (5-10) L 10/06/22 11:02 Hematocrit 27.3 % (37-47) L 10/06/22 11:02 Hgb O2 Saturation 92.1 % (95-100) L 10/06/22 11:02 Carboxyhemoglobin 2.1 %THgb (0.4-20.1) 10/06/22 11:02 Methemoglobin 0.7 % (0.4-1.5) 10/06/22 11:02 Total Hemoglobin 8.9 g/dL (12-16) L 10/06/22 11:02 Sodium 135.0 mmol/L (131-143) 10/06/22 11:02 Potassium 4.7 mmol/L (3.5-5.0) 10/06/22 11:02 Glucose 151.0 mg/dL (70-115) H 10/06/22 11:02 Ionized Calcium 1.2 mmol/L (1.1-1.4) 10/06/22 11:02 O2 Delivery Device Nc 10/06/22 11:02 O2 Liters/Min 5.0 % 10/06/22 11:02 Field Sales Agent ID Waldi 10/06/22 11:02 Sodium 132 mmol/L (136-145) L 10/08/22 03:45 Potassium 4.3 mmol/L (3.5-5.1) 10/08/22 03:45 Chloride 89 mmol/L (98-107) L 10/08/22 03:45 Carbon Dioxide 32 mmol/L (22-29) H 10/08/22 03:45 Anion Gap 15.3 (5-19) 10/08/22 03:45 BUN 16 mg/dL (8-23) 10/08/22 03:45 Creatinine 0.5 mg/dL (0.5-0.9) 10/08/22 03:45 GFR Calculation Not Reportable 10/08/22 03:45 Glucose 130 mg/dL (65-115) H 10/08/22 03:45 POC Glucose 114 mg/dL (70-110) H 10/09/22 06:43 Calculated Osmolality 277 mOsm/kg (285-295) L 10/08/22 03:45 Calcium 9.3 mg/dL (8.5-10.5) 10/08/22 03:45 Magnesium 1.4 mg/dL (1.7-2.3) L 10/08/22 03:45 Iron 15 ug/dL (37-145) L 10/06/22 13:19 TIBC 349 mcg/dl 10/06/22 13:19 % Saturation 4.2 % (20-50) L 10/06/22 13:19 Unsat Iron Binding 334 ug/dL (112-347) 10/06/22 13:19 Ferritin 26 ng/mL (15-150) 10/06/22 13:19 Total Bilirubin 0.6 mg/dL (0.15-1.2) 10/08/22 03:45 AST 12 U/L (0-32) 10/08/22 03:45 ALT 6 U/L (0-33) 10/08/22 03:45 Alkaline Phosphatase 55 U/L (35-105) 10/08/22 03:45 Troponin T Baseline 13 ng/L (0-10) H 10/06/22 11:06 Troponin T 120 Minute 13.10 ng/L (0-10) H 10/06/22 13:19 Delta Troponin T 0.10 ABS# (0-10) 10/06/22 13:19 Troponin T Hi Sens 6Hr 15.46 ng/L (0-10) H 10/06/22 17:31 Troponin T Hi Sens 6Hr Delta 2.46 ng/L (0-12) 10/06/22 17:31 NT-Pro-B Natriuret Pep 2314 pg/mL (0-450) H 10/06/22 11:06 Total Protein 6.1 g/dL (6.6-8.7) L 10/08/22 03:45 Albumin 3.7 g/dL (3.5-5.2) 10/08/22 03:45 Globulin 2.4 g/dL (1.3-4.6) 10/08/22 03:45 Vitamin B12 279 pg/mL (232-1245) 10/06/22 13:19 Folate 14.1 ng/mL (4.8-37.3) 10/06/22 13:19 Urine Color Yellow (Yellow) 10/06/22 11:55 Urine Appearance Clear (CLEAR) 10/06/22 11:55 Urine pH 5 (5-7) 10/06/22 11:55 Ur Specific [place] 1.015 (1.005-1.030) 10/06/22 11:55 Urine Protein Neg (Negative) 10/06/22 11:55 Urine Glucose (UA) Norm (Normal) 10/06/22 11:55 Urine Ketones Negative (Negative) 10/06/22 11:55 Urine Blood Neg (Negative) 10/06/22 11:55 Urine Nitrate Negative (Negative) 10/06/22 11:55 Urine Bilirubin Neg (Negative) 10/06/22 11:55 Urine Urobilinogen Norm mg/dL (Negative) 10/06/22 11:55 Ur Leukocyte Esterase Negative (Negative) 10/06/22 11:55 Vitals Last Vital Signs Temp 98.3 F 10/09/22 07:52 Pulse 76 10/09/22 08:47 Resp 16 10/09/22 08:40 BP 119/64 10/09/22 07:52 Pulse Ox 97 10/09/22 08:40 O2 Del Method Nasal Cannula 10/09/22 08:40 O2 Flow Rate 5 10/09/22 08:40 Discharge Plan Discharge Patient Disposition: Xfer SNF Condition: Stable Prescriptions: New pantoprazole 40 mg Tablet,Delayed Release (Dr/Ec) 40 mg PO DAILY 30 Days Qty: 30 0RF furosemide 40 mg Tablet 20 mg PO BID@08,16 15 Days Qty: 30 0RF Continued albuterol sulfate [Ventolin HFA] 90 mcg/actuation HFA aerosol inhaler 2 puff INHALATION Q6H PRN (Reason: Shortness Of Breath) celecoxib 200 mg capsule 200 mg PO BID aspirin [Adult Aspirin Regimen] 81 mg tablet,delayed release (DR/EC) 81 mg PO DAILY Tradjenta 5 mg tablet 5 mg PO DAILY pravastatin 80 mg tablet 80 mg PO DAILY omeprazole 40 mg capsule,delayed release(DR/EC) 40 mg PO DAILY tramadol 50 mg tablet 100 mg PO BID fluticasone propionate [Flonase Allergy Relief] 50 mcg/actuation spray,suspension 2 spray INTRANASAL DAILY Rx Instructions: administer into each nostril Combigan 0.2-0.5 % drops 1 drop ophthalmic (eye) BID Rx Instructions: right eye calcium carbonate [Calcium 600] 600 mg calcium (1,500 mg) tablet 600 mg PO DAILY travoprost [Travatan Z] 0.004 % drops 1 drop ophthalmic (eye) DAILY Rx Instructions: left eye (DME) Cock Up Splint See Rx Instructions .ROUTE .MEDSUPPLY Qty: 1 0RF Rx Instructions: As directed isosorbide mononitrate 120 mg tablet extended release 24 hr 120 mg PO DAILY Qty: 90 3RF budesonide-formoterol [Symbicort] 80-4.5 mcg/actuation HFA aerosol inhaler 2 puff inhalation Q12H Qty: 30.6 6RF potassium chloride 10 mEq Tablet Extended Release 10 meq PO DAILY metformin 500 mg tablet extended release 24 hr 500 mg PO BEDTIME tizanidine 2 mg Capsule 2 mg PO BID PRN (Reason: Muscle Pain) diclofenac sodium 1 % Gel 2 g TOPICAL QID PRN (Reason: Pain) Rx Instructions: apply to single elbow, wrist or hand; for hand includes palm/fingers/back of hand acetaminophen 500 mg Tablet 500 mg PO Q6H PRN (Reason: Pain) amlodipine 10 mg tablet 10 mg PO DAILY hydralazine 25 mg tablet 25 mg PO TID PRN (Reason: Hypertension) valsartan 320 mg tablet 320 mg PO DAILY Eliquis 5 mg tablet 5 mg PO BID Vitamin C 250 mg Tablet 250 mg PO DAILY Discontinued chlorthalidone 25 mg tablet 25 mg PO DAILY metoprolol tartrate 25 mg tablet 25 mg PO BID Discharge Orders: Discharge Order (Routine); Ordered 10/09/22 Ordered By: Elsi Paez Referrals: [facility] [Outside] Madhu Stern MD [Primary Care Provider] - Discharge Diet: Usual diet Discharge Activity: Resume usual activity Patient Instructions: Opioid Safety Discharge Attestations Time Spent in Discharge Care*: greater than 30 min Quality Metrics Clinical Quality Measures [ No reported AMI, CVA or VTE this stay] Coding Level of Care Code Acute Code for Chg Fwd Diagnoses CHF (congestive heart failure) I50.9 Bradycardia R00.1
[2022-10-09] MEDS: acetaminophen 325 mg Tablet 650 MG PO (10:32)
[2022-10-09 11:21] LABS: Glucose Point of Care 152 mg/dL (70-110)
[2022-10-09 11:29] LABS: SARS Covid-2 Antigen negative (Negative)
[2022-10-09] MEDS: insulin lispro 100 unit/1 mL SUBCUT (11:33)
[2022-10-09 13:00] LABS: Alanine Aminotransferase 7 U/L (0-33); Albumin Level 3.6 g/dL (3.5-5.2); Alkaline Phosphatase 57 U/L (35-105); Anion Gap 14.1 (5-19); Aspartate Amino Transferase 16 U/L (0-32); Blood Urea Nitrogen 19 mg/dL (8-23); Calcium 8.6 mg/dL (8.5-10.5); Carbon Dioxide 32 mmol/L (22-29); Chloride 83 mmol/L (98-107); Globulin 2.2 g/dL (1.3-4.6); Glucose 169 mg/dL (65-115); Magnesium 1.1 mg/dL (1.7-2.3); Osmolality Calculated 266 mOsm/kg (285-295); Potassium 4.1 mmol/L (3.5-5.1); Sodium 125 mmol/L (136-145); Total Bilirubin 0.8 mg/dL (0.15-1.2); Total Protein 5.8 g/dL (6.6-8.7)
== END 2022-10-09 14:54 | disposition skilled nursing facility (03) | DRG 291 ==
LOC: ER 12:33 → MEDSURG 14:37
PROVIDERS: Admitting Provider Student in an Organized Health Care Education/Training Program; Emergency Provider Family Medicine; PCP Family Medicine; Visit Provider Student in an Organized Health Care Education/Training Program
DX: I11.0 Hypertensive heart disease with heart failure (principal); I50.33 Acute on chronic diastolic (congestive) heart failure; Z68.43 Body mass index [BMI] 50.0-59.9, adult; J96.11 Chronic respiratory failure with hypoxia; E66.2 Morbid (severe) obesity with alveolar hypoventilation; I48.91 Unspecified atrial fibrillation; J45.909 Unspecified asthma, uncomplicated; I25.10 Atherosclerotic heart disease of native coronary artery without angina pectoris; K21.9 Gastro-esophageal reflux disease without esophagitis; H40.9 Unspecified glaucoma; E78.5 Hyperlipidemia, unspecified; E11.9 Type 2 diabetes mellitus without complications; Z79.82 Long term (current) use of aspirin; Z79.84 Long term (current) use of oral hypoglycemic drugs; R00.1 Bradycardia, unspecified
CPT/HCPCS: 36415; 36416; 36600; 51702; 71045; 80051; 80053; 81003; 82330; 82607; 82728; 82746; 82805; 82962; 83540; 83550; 83735; 83880; 84484; 85025; 87426; 93005; 94640; 96372; 96374; 97110; 97161; 97165; 97530; 99285; J1100; J1815; J1940; J3475; J7626

== ENCOUNTER 2022-12-09 11:17 | Inpatient (IN) | payer MEDICARE, MEDICAID, SELFPAY ==
[2022-12-09] VITALS (98 sets, daily range): BP systolic 85–169; BP diastolic 48–124; PULSE 58–89; RESP 16–35; TEMP 36.4–36.6; O2SAT 74–99
--- NOTE | 2022-12-09 | XRR_ITS ---
[facility] Final Radiology Report Call: [phone] assistance Online chat: [email or web address] Name: SYEDA JETT Age: 82Years U Date: 12/09/2022 SSN: -- : [id number] Study: XR CHEST 1 VIEW Requesting Physician: Ervin Call Images: 1 Add?l Studies: Provided Clinical History: PROCEDURE INFORMATION: Exam: XR Chest Exam date and time: 12/09/2022 7:46 PM Age: 82 years old Clinical indication: Device placement TECHNIQUE: Imaging protocol: Radiologic exam of the chest. Views: 1 view. COMPARISON: CT chest w con* [id number] 12/09/2022 4:58 PM FINDINGS: Tubes, catheters and devices: Tip of the right-sided PICC line projects over the cavoatrial junction. Lungs: Patchy bilateral pulmonary infiltrates. Pleural spaces: Small to moderate pleural effusions with adjacent compressive atelectasis. Heart/Mediastinum: The heart border is obscured. Bones/joints: Unremarkable. IMPRESSION: 1. Bilateral pneumonia. 2. Tip of the right-sided PICC line projects over the cavoatrial junction. 3. Small to moderate pleural effusions with adjacent compressive atelectasis. Thank you for allowing us to participate in the care of your patient. Dictated and Authenticated by: Tamara Nieto MD 12/09/2022 8:20 PM Central Time ([place] & [place]) JYOTI
--- NOTE | 2022-12-09 | CTR_ITS ---
PROCEDURE INFORMATION: Exam: CT Chest With Contrast; Diagnostic Exam date and time: 12/09/2022 4:58 PM Age: 82 years old Clinical indication: Dyspnea, hypoxia TECHNIQUE: Imaging protocol: Diagnostic computed tomography of the chest with contrast. Radiation optimization: All CT scans at this facility use at least one of these dose optimization techniques: automated exposure control; mA and/or kV adjustment per patient size (includes targeted exams where dose is matched to clinical indication); or iterative reconstruction. Contrast material: OMNI 350; Contrast volume: 100 ml; Contrast route: INTRAVENOUS (IV); REPORTING DATA: Count of CT and Cardiac NM exams in prior 12 months: This patient has received 2 known CTs and 0 known cardiac nuclear medicine studies in the 12 months prior to the current study. COMPARISON: CR XR chest 1V portable [id number] 10/06/2022 11:01 AM. Comparison is made to a report of a CT scan of the chest without contrast dated 08/27/2015. These images were not available for comparison. RADIATION DOSE METRICS: Total DLP (mGy-cm): 741.45 FINDINGS: Thyroid: 18 mm predominantly low-density lesion in the left thyroid lobe with a peripheral calcification. Left thyroid lobe is diffusely heterogeneous. Lungs: There are patchy bilateral pulmonary infiltrates. Bilateral pulmonary ground-glass opacities. Pleural spaces: Small left pleural effusion and moderate right pleural effusion with adjacent compressive atelectasis or infiltrate. Heart: The heart is upper limits of normal in size. Coronary arteries: Multivessel atherosclerotic disease which involves the coronary arteries. 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 This is immediately adjacent to the heterogeneous left thyroid lobe and may be contiguous with it. This mass was reported on the prior CT scan of the thorax dated 08/27/2015 as well however the images are not available for comparison. Prior measurements are similar. Lymph nodes: Subcentimeter mediastinal and perihilar lymph nodes. Vasculature: Unremarkable. No aortic aneurysm. Kidneys and ureters: There are sub cm right renal cysts which cannot be further characterized on this study. Bones/joints: Unremarkable. No acute fracture. Soft tissues: There is edema in the soft tissues. CT/CT chest w con* [id number] IMPRESSION: 1. Bilateral pneumonia. 2. The heart is upper limits of normal in size. There are bilateral pleural effusions as well. Findings raise concern for congestive heart failure. Please correlate clinically. 3. Bilateral pulmonary ground-glass opacities can be seen with pulmonary edema and/or pneumonia. 4. Posterior mediastinal mass has similar measurements when compared to the prior CT scan report. This is immediately adjacent to the heterogeneous left thyroid lobe and may be contiguous with it. COMMENTS: Consistent with the [employer]'s Incidental Findings Committee white paper (J Am Erika Radiol 2018): Any incidental renal lesion less than 1 cm or classified as too small to characterize, or any incidental cystic renal lesion characterized as simple-appearing, is likely benign. No follow-up imaging is recommended for these lesions per consensus recommendations based on imaging criteria.
--- NOTE | 2022-12-09 11:30 | W.ED.SOB ---
HPI - SOB/Dyspnea General: Chief Complaint: Shortness of Breath/Dyspnea Stated Complaint: Resp Distress Time Seen by Provider: 12/09/22 11:17 History of Present Illness: HPI Narrative: Patient presents to the ER by EMS with reports of respiratory distress. They reported O2 sat of 80% on 4 L per nasal cannula. EMS administered a breathing treatment and gave 125 mg Solu-Medrol. Patient arrived in the ER with an O2 sat of 74% on 5 L per nasal cannula she was immediately placed on a nonrebreather which increased her O2 saturation up to the upper 80s. Patient says she has been going downhill for about 1 week. Patient says she normally does not wear oxygen except at nighttime through her CPAP. Patient said the shelter does not have her CPAP. Patient denies any nausea vomiting diarrhea fevers chills coughs colds etc. There is COVID running through the shelter. Patient tested negative for COVID today. Review of Systems General: Reports: 10 or more systems reviewed and unremarkable except in HPI and below PFSH ED PFSH: Medical History (Updated 12/09/22 @ 21:43 by Ervin Call DO) Asthma CAD (coronary artery disease) Cataracts, bilateral GERD (gastroesophageal reflux disease) Glaucoma Goiter HTN (hypertension) Hyperlipidemia PAULA (obstructive sleep apnea) Type 2 diabetes mellitus Surgical History H/O dilation and curettage H/O rotator cuff surgery H/O shoulder surgery History of cholecystectomy History of hip replacement, total History of hysterectomy History of knee replacement Hx of cataract surgery Hx of tonsillectomy Stented coronary artery Family History Father Myocardial infarction Mother Diabetes Social History Smoking and tobacco status: never smoked Second hand smoke exposure: Yes Alcohol intake: never Substance/Drug Use: never Lives independently: Yes Household members: family Marital status: Current occupational status: retired and disabled Do you think of yourself as: Straight/Heterosexual Current gender identity: Female Physical Exam Const: COMMON NORMALS: no acute distress, average body habitus, patient oriented x3, no limitations, healthy appearing, alert and well nourished HENMT: COMMON NORMALS: normocephalic, atraumatic, hearing grossly normal bilaterally, external ears normal, Normal external nose present and moist oral mucous membranes HEAD & SCALP: normocephalic and atraumatic NOSE: Normal external nose present EXTERNAL EAR: Yes external ears normal Neck/C-Spine: COMMON NORMALS: full ROM, no lymphadenopathy, supple, no meningeal signs, no JVD and Thyroid normal THYROID: Thyroid normal Lymph: LYMPHATIC: no lymphadenopathy noted Chest: COMMONS NORMALS: normal inspection of the chest and normal palpation of entire chest wall Resp: EFFORT & INSPECTION: Yes symmetric chest movement and Yes tachypneic AUSCULTATION: diminished lung sounds Cardio: COMMON NORMALS: no JVD, regular rate, regular rhythm, S1 normal heart sound present, S2 normal heart sound present, No gallops present (Cardio), No clicks present (Cardio), No murmurs present (Cardio) and No rub (Cardio) RATE: regular rate RHYTHM: regular rhythm HEART SOUNDS: S1 normal heart sound present and S2 normal heart sound present GI: COMMON NORMALS: Normal to inspection, nondistended, normoactive bowel sounds present, Soft to palpation, non-tender, No hepatosplenomegaly present and no masses PALPATION: Yes Soft to palpation and Yes No hepatosplenomegaly present Extremity: NARRATIVE EXTREMITY EXAM: Bilateral lower extremities have 2+ pitting edema Neuro: COMMON NORMALS: patient oriented x3 SENSORIUM/ORIENTATION: Yes alert MENINGEAL SIGNS: Yes no meningeal signs Course Vital Signs: Vital signs: Vital Signs Temperature 97.6 F 12/09/22 11:18 Pulse Rate 73 12/09/22 18:45 Respiratory Rate 29 H 12/09/22 18:45 Blood Pressure 143/77 12/09/22 18:45 Pulse Oximetry 79 L 12/09/22 18:45 Oxygen Delivery Me thod Non-Rebreather 12/09/22 16:20 Oxygen Flow Rate 10 12/09/22 16:20 MDM - SOB/Dyspnea Medical Decision Making Patient presents to the ER by EMS with complaints of shortness of breath the past few days. Patient normally wears oxygen at night with her CPAP. She has not had a shelter that she is in currently. Patient's initial O2 sat was approximately 74% on 5 L per nasal cannula. Patient was put on nonrebreather at 15 L/min this bumped up to the 90s. On arrival an ABG was obtained as well as lab work which showed a potassium of 6.6. Patient was given IV insulin, 1 amp of D50, 1 g of calcium chloride, and 1 albuterol breathing treatment. EKG did not show any hyperkalemic type changes. CT was obtained which showed bilateral pneumonia and possible CHF. Patient was given 40 mg Lasix and 3.375 g of Zosyn and Dr. Marvin was consulted who agreed to place the patient in the ICU for further evaluation and treatment. Differential Diagnosis Likely acute exacerbation of chronic obstructive airways disease and congestive heart failure; Unlikely community acquired pneumonia, asthma with exacerbation or pulmonary embolism Medical Records I reviewed the patient's medical records. Lab Data I reviewed the patient's lab results. 12/09/22 11:00 12/09/22 21:19 Labs/Radiology: Radiology Impressions Chest CT 12/09/22 00:00 IMPRESSION: 1. Bilateral pneumonia. 2. The heart is upper limits of normal in size. There are bilateral pleural effusions as well. Findings raise concern for congestive heart failure. Please correlate clinically. 3. Bilateral pulmonary ground-glass opacities can be seen with pulmonary edema and/or pneumonia. 4. Posterior mediastinal mass has similar measurements when compared to the prior CT scan report. This is immediately adjacent to the heterogeneous left thyroid lobe and may be contiguous with it. COMMENTS: Consistent with the [employer]'s Incidental Findings Committee white paper (J Am Erika Radiol 2018): Any incidental renal lesion less than 1 cm or classified as too small to characterize, or any incidental cystic renal lesion characterized as simple-appearing, is likely benign. No follow-up imaging is recommended for these lesions per consensus recommendations based on imaging criteria. Laboratory Results WBC 11.4 10^3/uL (4.0-10.0) H 12/09/22 11:00 RBC 3.66 10^6/uL (4.1-5.3) L 12/09/22 11:00 Hgb 8.4 g/dL (11.5-15.3) L 12/09/22 11:00 Hct 29.4 % (37.0-47.0) L 12/09/22 11:00 MCV 80.3 fl (81-99) L 12/09/22 11:00 MCH 23.0 pg (28.0-34.0) L 12/09/22 11:00 MCHC 28.6 g/dL (30.0-36.0) L 12/09/22 11:00 RDW 19.3 % (12.1-15.1) H 12/09/22 11:00 Plt Count 291 10^3/cmm (130-400) 12/09/22 11:00 MPV 11.4 fL (7.4-10.4) H 12/09/22 11:00 Neut % (Auto) 74.4 % 12/09/22 11:00 Lymph % (Auto) 11.5 % 12/09/22 11:00 Andrews % (Auto) 9.3 % 12/09/22 11:00 Eos % (Auto) 3.9 % 12/09/22 11:00 Baso % (Auto) 0.6 % 12/09/22 11:00 Neut # (Auto) 8.52 10^3/uL (1.8-7.7) H 12/09/22 11:00 Lymph # (Auto) 1.3 10^3/uL (0.8-4.8) 12/09/22 11:00 Andrews # (Auto) 1.1 10^3/uL (0.2-0.9) H 12/09/22 11:00 Eos # (Auto) 0.5 10^3/uL (0.0-0.8) 12/09/22 11:00 Baso # (Auto) 0.1 10^3/uL (0.0-0.1) 12/09/22 11:00 Nucleated RBC % (auto) 0 % 12/09/22 11:00 Nucleated RBCs # 0.0 /100WBC 12/09/22 11:00 PT 21.30 SECONDS (12.1-14.9) H 12/09/22 11:00 INR 1.78 (0.8-1.2) H 12/09/22 11:00 Specimen Type Arterial 12/09/22 20:17 Sample Site Brachial, left 12/09/22 20:17 ABG pH 7.25 (7.35-7.45) L 12/09/22 20:17 ABG pCO2 52.6 mmHg (35-45) H 12/09/22 20:17 ABG pO2 86.3 mmHg (80.0-100.0) 12/09/22 20:17 ABG HCO3 22.8 mmol/L (22-26) 12/09/22 20:17 ABG O2 Saturation 96.4 12/09/22 20:17 ABG Base Excess -4.4 mmol/L (-2.0-2.0) L 12/09/22 20:17 Mango Test N/a 12/09/22 20:17 A-a O2 Gradient Not Reportable 12/09/22 20:17 Hematocrit 25.6 % (37-47) L 12/09/22 20:17 Hgb O2 Saturation 94.0 % (95-100) L 12/09/22 20:17 Carboxyhemoglobin 2.1 %THgb (0.4-20.1) 12/09/22 20:17 Methemoglobin 0.4 % (0.4-1.5) 12/09/22 20:17 Total Hemoglobin 8.4 g/dL (12-16) L 12/09/22 20:17 Sodium 138.0 mmol/L (131-143) 12/09/22 20:17 Potassium 6.1 mmol/L (3.5-5.0) H 12/09/22 20:17 Glucose 148.0 mg/dL (70-115) H 12/09/22 20:17 Ionized Calcium 1.3 mmol/L (1.1-1.4) 12/09/22 20:17 O2 Delivery Device Nrb 12/09/22 20:17 O2 Liters/Min 10.0 % 12/09/22 20:17 Channel Account Manager ID Amh 12/09/22 20:17 Sodium 137 mmol/L (136-145) 12/09/22 11:00 Potassium 6.6 mmol/L (3.5-5.1) H* 12/09/22 11:00 Chloride 103 mmol/L (98-107) 12/09/22 11:00 Carbon Dioxide 24 mmol/L (22-29) 12/09/22 11:00 Anion Gap 16.6 (5-19) 12/09/22 11:00 BUN 33 mg/dL (8-23) H 12/09/22 11:00 Creatinine 1.0 mg/dL (0.5-0.9) H 12/09/22 11:00 GFR Calculation Not Reportable 12/09/22 11:00 Glucose 113 mg/dL (65-115) 12/09/22 11:00 Calculated Osmolality 292 mOsm/kg (285-295) 12/09/22 11:00 Lactic Acid 1.0 mmol/L (0.5-2.2) 12/09/22 11:53 Calcium 8.9 mg/dL (8.5-10.5) 12/09/22 11:00 Magnesium 2.0 mg/dL (1.7-2.3) 12/09/22 11:00 Total Bilirubin 0.7 mg/dL (0.15-1.2) 12/09/22 11:00 AST 17 U/L (0-32) 12/09/22 11:00 ALT 10 U/L (0-33) 12/09/22 11:00 Alkaline Phosphatase 93 U/L (35-105) 12/09/22 11:00 Troponin T Baseline 17 ng/L (0-10) H 12/09/22 11:00 Troponin T 120 Minute 16.28 ng/L (0-10) H 12/09/22 13:22 Delta Troponin T -0.72 ABS# (0-10) L 12/09/22 13:22 Troponin T Hi Sens 6Hr 13.03 ng/L (0-10) H 12/09/22 17:10 Troponin T Hi Sens 6Hr Delta -3.97 ng/L (0-12) L 12/09/22 17:10 NT-Pro-B Natriuret Pep 3443 pg/mL (0-450) H 12/09/22 11:00 Total Protein 6.9 g/dL (6.6-8.7) 12/09/22 11:00 Albumin 4.0 g/dL (3.5-5.2) 12/09/22 11:00 Globulin 2.9 g/dL (1.3-4.6) 12/09/22 11:00 Urine Color Yellow (Yellow) 12/09/22 12:43 Urine Appearance Sl hazy (CLEAR) A 12/09/22 12:43 Urine pH 5 (5-7) 12/09/22 12:43 Ur Specific Speculator 1.025 (1.005-1.030) 12/09/22 12:43 Urine Protein Trace (Negative) 12/09/22 12:43 Urine Glucose (UA) Norm (Normal) 12/09/22 12:43 Urine Ketones Negative (Negative) 12/09/22 12:43 Urine Blood Neg (Negative) 12/09/22 12:43 Urine Nitrate Negative (Negative) 12/09/22 12:43 Urine Bilirubin 1+ (Negative) H 12/09/22 12:43 Urine Urobilinogen 1 mg/dL (Negative) H 12/09/22 12:43 Ur Leukocyte Esterase Negative (Negative) 12/09/22 12:43 Urine RBC 0-4 /hpf (0-2) H 12/09/22 12:43 Urine WBC 0-4 /hpf (0-5) H 12/09/22 12:43 Ur Squamous Epith Cells 0-4 /hpf (0-5) H 12/09/22 12:43 Amorphous Sediment Not Reportable 12/09/22 12:43 Urine Bacteria None /hpf (NONE) 12/09/22 12:43 Urine Mucus 1+ /hpf 12/09/22 12:43 Nasal Influ A H1 2009 PCR Not detected (NOT DETECT) 12/09/22 13:00 Adenovirus (PCR) Not detected (NOT DETECT) 12/09/22 13:00 C. pneumoniae DNA (PCR) Not detected (NOT DETECT) 12/09/22 13:00 Coronavirus 229E (PCR) Not detected (NOT DETECT) 12/09/22 13:00 Human Metapneumovir PCR Not detected (NOT DETECT) 12/09/22 13:00 Influenza A (H1) PCR Not detected (NOT DETECT) 12/09/22 13:00 Influenza A (H3) PCR Not detected (NOT DETECT) 12/09/22 13:00 Influenza Type A (PCR) Not detected (NOT DETECT) 12/09/22 13:00 Influenza Type B (PCR) Not detected (NOT DETECT) 12/09/22 13:00 M. pneumoniae (PCR) Not detected (NOT DETECT) 12/09/22 13:00 Parainfluenza 1 (PCR) Not detected (NOT DETECT) 12/09/22 13:00 Parainfluenza 2 (PCR) Not detected (NOT DETECT) 12/09/22 13:00 Parainfluenza 3 (PCR) Not detected (NOT DETECT) 12/09/22 13:00 Parainfluenza 4 (PCR) Not detected (NOT DETECT) 12/09/22 13:00 RSV Type A (PCR) Not detected (NOT DETECT) 12/09/22 13:00 RSV Type B (PCR) Not detected (NOT DETECT) 12/09/22 13:00 Entero/Rhino (PCR) Not detected (NOT DETECT) 12/09/22 13:00 SARS-CoV-2 (PCR) Not detected (NOT DETECT) 12/09/22 13:00 EKG Data EKG 1: I personally reviewed and interpreted this EKG as follows: EKG Interpretation Date: 12/09/22 EKG interpretation time: 11:31 Prior EKG tracings: not available for review Interpretation: EKG showed atrial fibrillation, with ventricular rate 61 bpm, QRS duration 86, QTc of 402 EKG 2: I personally reviewed and interpreted this EKG as follows: EKG Interpretation Date: 12/09/22 EKG interpretation time: 14:05 Interpretation: EKG shows atrial fibrillation with slow ventricular response, ventricular rate 57 bpm, QRS duration 87, QTc of 399, EKG 3: EKG Interpretation Date: 12/09/22 EKG interpretation time: 17:49 Prior EKG tracings: available for review Interpretation: EKG showed atrial fibrillation with ventricular rate of 70 beats minute, QRS of 85, QTc of 416, Discharge Plan Discharge Patient Disposition: Admitted As Inpatient Admit Provider: Froilan Brown Clinical Impression: Pneumonia, Acute respiratory failure with hypoxia, Elevated brain natriuretic peptide (BNP) level Condition: Stable Coding Level of Care Code ED Housekeeping Attendant for Al Lucero
--- NOTE | 2022-12-09 11:31 | ECG_ITS ---
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 Measurements Intervals [place] Rate: 61 P: 0 [place]: 0 QRS: 17 QRSD: 86 T: 53 QT: 398 QTc: 404 Interpretive Statements ATRIAL FIBRILLATION LOW QRS VOLTAGE [QRS DEFLECTION < 0.5/1.0 mV IN LIMB/CHEST LEADS] POSSIBLE ANTERIOR MYOCARDIAL INFARCTION , PROBABLY OLD [30 ms Q WAVE IN V3/V4, OR R < 0.2 mV IN V4] INTERPRETATION BASED ON A DEFAULT AGE OF 40 YEARS Compared to ECG 10/06/2022 17:56:49 No significant changes Electronically Signed On 12-09-2022 17:09:02 CDT by Joan Pagan M.D. [email or web address]
[2022-12-09] MEDS: ipratropium-albuterol 3 mL Neb INHALATION (11:36)
[2022-12-09 11:46] LABS: Basophils # 0.1 10^3/uL (0.0-0.1); Basophils % 0.6 %; Eosinophils # 0.5 10^3/uL (0.0-0.8); Eosinophils % 3.9 %; Hematocrit 29.4 % (37.0-47.0); Hemoglobin 8.4 g/dL (11.5-15.3); Lymphocytes # 1.3 10^3/uL (0.8-4.8); Lymphocytes % 11.5 %; Mean Corpuscular HGB Conc 28.6 g/dL (30.0-36.0); Mean Corpuscular Volume 80.3 fl (81-99); Mean Platelet Volume 11.4 fL (7.4-10.4); Monocytes # 1.1 10^3/uL (0.2-0.9); Monocytes % 9.3 %; Neutrophils # 8.52 10^3/uL (1.8-7.7); Neutrophils % 74.4 %; Nucleated Red Blood Cells % 0 %; Platelet Count 291 10^3/cmm (130-400); Red Blood Count 3.66 10^6/uL (4.1-5.3); Red Cell Distribution Width 19.3 % (12.1-15.1); White Blood Count 11.4 10^3/uL (4.0-10.0)
[2022-12-09 11:48] LABS: ABG PCO2 50.7 mmHg (35-45); ABG PH Result 7.28 (7.35-7.45); Arterial Blood Gas Hematocrit 25.6 % (37-47); Base Excess ABG -3.1 mmol/L (-2.0-2.0); Blood Gas Allen Test Pos; Blood Gas Operator Identificat CAK; Blood Gas Sample Site Radial, left; Blood Gas Sample Type Arterial; Carboxyhemoglobin 2.4 %THgb (0.4-20.1); HCO3 ABG 23.7 mmol/L (22-26); HGB O2 Sat 94.7 % (95-100); Methemoglobin 0.3 % (0.4-1.5); Oxygen Device NRB; PO2 ABG 95.6 mmHg (80.0-100.0); Total Hemoglobin 8.4 g/dL (12-16)
--- NOTE | 2022-12-09 11:56 | PC.PHAR ---
Addendum entered by Wilma Figueroa 12/09/22 12:51: medications entered are from the pts diana and tar from [facility] pt had all am meds Original Note: pt is from [facility] [phone]-[facility] nurse from [facility] will fax mar and tar
[2022-12-09 12:08] LABS: INR 1.78 (0.8-1.2)
[2022-12-09 12:09] LABS: Troponin(5th) Baseline 17 ng/L (0-10)
[2022-12-09 12:24] LABS: Alanine Aminotransferase 10 U/L (0-33); Alkaline Phosphatase 93 U/L (35-105); Anion Gap 16.6 (5-19); Aspartate Amino Transferase 17 U/L (0-32); Blood Urea Nitrogen 33 mg/dL (8-23); Calcium 8.9 mg/dL (8.5-10.5); Carbon Dioxide 24 mmol/L (22-29); Chloride 103 mmol/L (98-107); Globulin 2.9 g/dL (1.3-4.6); Glucose 113 mg/dL (65-115); NT Pro B Type Natriuretic Pept 3443 pg/mL (0-450); Osmolality Calculated 292 mOsm/kg (285-295); Sodium 137 mmol/L (136-145); Total Bilirubin 0.7 mg/dL (0.15-1.2); Total Protein 6.9 g/dL (6.6-8.7)
[2022-12-09 13:08] LABS: Potassium 6.6 mmol/L (3.5-5.1)
[2022-12-09 13:09] LABS: Add Urine Microscopic? YES; Bilirubin Urine 1+ (Negative); Blood Urine Neg (Negative); Glucose Urine UA Norm (Normal); Ketones Urine Negative (Negative); Leukocyte Esterase Urine Negative (Negative); Nitrate Urine Negative (Negative); Protein Urine Trace (Negative); Specific Gravity, Urine 1.025 (1.005-1.030); Urine Appearance SL Hazy (CLEAR); Urine Color Yellow (Yellow); Urobilinogen Urine 1 mg/dL (Negative); pH Urine 5 (5-7)
[2022-12-09 13:10] LABS: Add Urine Culture? No; Mucus Urine 1+ /hpf; RBC Urine 0-4 /hpf (0-2); Squamous Epithelial Cell Urine 0-4 /hpf (0-5); WBC Urine 0-4 /hpf (0-5)
--- NOTE | 2022-12-09 14:05 | ECG_ITS ---
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 Measurements Intervals [place] Rate: 57 P: 0 [place]: 0 QRS: 46 QRSD: 87 T: -17 QT: 404 QTc: 396 Interpretive Statements ATRIAL FIBRILLATION WITH SLOW VENTRICULAR RESPONSE LOW QRS VOLTAGE [QRS DEFLECTION < 0.5/1.0 mV IN LIMB/CHEST LEADS] POSSIBLE ANTERIOR MYOCARDIAL INFARCTION , PROBABLY OLD [30 ms Q WAVE IN V3/V4, OR R < 0.2 mV IN V4] Compared to ECG 12/09/2022 11:31:02 No significant changes Electronically Signed On 12-09-2022 19:52:42 CDT by Joan Pagan M.D. [email or web address]
[2022-12-09 14:10] LABS: Troponin 5 2HR 16.28 ng/L (0-10)
[2022-12-09 14:12] LABS: Troponin 5 2HR Delta -0.72 ABS# (0-10)
[2022-12-09 14:51] LABS: Adenovirus Not Detected (NOT DETECT); Chlamydia Pneumoniae Not Detected (NOT DETECT); Coronavirus 229E,HKU1,NL63,OC4 Not Detected (NOT DETECT); Human Metapneumovirus Not Detected (NOT DETECT); Human Rhinovirus/Enterovirus Not Detected (NOT DETECT); Influenza A Not Detected (NOT DETECT); Influenza A H1 Not Detected (NOT DETECT); Influenza A H1-2009 Not Detected (NOT DETECT); Influenza A H3 Not Detected (NOT DETECT); Influenza B Not Detected (NOT DETECT); Mycoplasma Pneumoniae Not Detected (NOT DETECT); Parainfluenza Virus Type 1 Not Detected (NOT DETECT); Parainfluenza Virus Type 2 Not Detected (NOT DETECT); Parainfluenza Virus Type 3 Not Detected (NOT DETECT); Parainfluenza Virus Type 4 Not Detected (NOT DETECT); Respiratory Syncytial Virus A Not Detected (NOT DETECT); Respiratory Syncytial Virus B Not Detected (NOT DETECT); SARS-COV-2 Not Detected (NOT DETECT)
[2022-12-09] MEDS: calcium chloride 10% Syr 10 mL 1 GM IVP (15:58)
[2022-12-09] MEDS: sodium polystyrene sulfonate 15 gm/60 mL Btl PO (15:58)
[2022-12-09] MEDS: dextrose 50% syringe 50 mL IVP ×2 (15:58→22:40)
[2022-12-09] MEDS: insulin regular-human 100 units/1 mL 10 UNIT IVP (15:58)
[2022-12-09] MEDS: FUROsemide 10 mg/mL SDV 4mL 40 MG IVP ×2 (15:58→23:33)
--- NOTE | 2022-12-09 16:21 | PC.NURSE ---
ORDERED MEDICATION ADMINISTRATION DELAYED DUE TO DIFFICULTY GETTING IV ACESS ON PT AFTER MULTIPLE ATTEMPTS. DR URIARTE AWARE. PT VITAL SIGNS STABLE AT THIS TIME.
[2022-12-09] MEDS: iohexol 350 mg/mL 500 mL Btl (per mL) IV (17:05)
[2022-12-09 17:38] LABS: Troponin 5 6HR 13.03 ng/L (0-10)
[2022-12-09 17:40] LABS: Troponin 5 6HR Delta -3.97 ng/L (0-12)
--- NOTE | 2022-12-09 17:49 | ECG_ITS ---
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 Measurements Intervals [place] Rate: 70 P: 0 [place]: 0 QRS: -4 QRSD: 85 T: 160 QT: 394 QTc: 428 Interpretive Statements ATRIAL FIBRILLATION LOW QRS VOLTAGE [QRS DEFLECTION < 0.5/1.0 mV IN LIMB/CHEST LEADS] POSSIBLE ANTERIOR MYOCARDIAL INFARCTION , OF INDETERMINATE AGE [30 ms Q WAVE IN V3/V4, OR R < 0.2 mV IN V4] Compared to ECG 12/09/2022 14:05:00 No significant changes Electronically Signed On 12-09-2022 19:51:53 CDT by Joan Pagan M.D. [id number]
[2022-12-09 20:28] LABS: ABG PCO2 52.6 mmHg (35-45); ABG PH Result 7.25 (7.35-7.45); Arterial Blood Gas Hematocrit 25.6 % (37-47); Base Excess ABG -4.4 mmol/L (-2.0-2.0); Blood Gas Operator Identificat AMH; Blood Gas Sample Site Brachial, left; Blood Gas Sample Type Arterial; Carboxyhemoglobin 2.1 %THgb (0.4-20.1); HCO3 ABG 22.8 mmol/L (22-26); Ionized Calcium Level - ABG 1.3 mmol/L (1.1-1.4); Methemoglobin 0.4 % (0.4-1.5); Oxygen Device NRB; Oxygen Saturation ABG 96.4; PO2 ABG 86.3 mmHg (80.0-100.0); Potassium Level - ABG 6.1 mmol/L (3.5-5.0); Total Hemoglobin 8.4 g/dL (12-16)
--- NOTE | 2022-12-09 20:33 | PC.NURSE ---
Vascular Access / ASO Consulted by house charge for PICC placement. Upon arrival to room discussed procedure with patient and obtained written consent. Assessed RUE under ultrasound and determined the right basilic vein to be a good target vessel due to its size and lack of evidence of thrombus or stenosis. Using US guidance, MST and sterile technique, the vein was accessed x 1 stick. Device advanced without resistance, flushed and aspirated with ease. Device secured with sterile stat lock, biopatch and transparent dressing. XR obtained and is pending confirmation. EBL < 10 mL, pt tolerated well. Reported to primary nurse. [ End ]
[2022-12-09] MEDS: piperacillin-tazobactam 3.375 GM in sodium chloride 0.9% (plus) 50 ML IV (20:46)
--- NOTE | 2022-12-09 21:14 | P.HP_ITS ---
Providers/Chief Complaint Admitting Physician: Froilan Brown MD Primary Care Provider: Madhu Stern MD Chief Complaint: Resp Distress History of Present Illness Florencia Bradley is a 82 year old female referred from [facility] custodial with concerns of shortness of breath. Apparently when EMS arrived she was saturating in the 70s, and she was placed on a nonrebreather. She believes she has been short of breath for couple of weeks, with occasional cough and wheezing. She has not had any vomiting, diarrhea. According to ER notes there has been some COVID in the facility. Patient denies any chest pain. She has recently been on Bactrim, along with her potassium and ARB. She received Lasix, insulin and glucose, Zosyn, breathing treatment in the emergency department. Review of Systems General: Reports: 10 or more systems reviewed and unremarkable except in HPI and below Const: Denies: fever(s) or chills Eyes: Denies: change in vision ENMT: Denies: throat pain Card: Denies: chest pain Resp: Reports: dyspnea, productive cough and wheezing GI: Denies: abdominal pain, nausea, vomiting, hematochezia or melena Medications/Allergies Home Medications Medication Instructions Recorded Confirmed Last Taken Type albuterol sulfate 90 mcg/actuation 2 puff inhalation Q6H PRN 09/27/19 12/09/22 10/06/22 History aerosol inhaler (Ventolin HFA) Shortness Of Breath aspirin 81 mg tablet,delayed 81 mg PO DAILY@09/27/19 12/09/22 12/09/22 History release (Adult Aspirin Regimen) brimonidine 0.2 %-timolol 0.5 % 1 drop ophthalmic (eye) BID@09/27/19 12/09/22 10/06/22 History eye drops (Combigan) calcium carbonate 600 mg calcium 600 mg PO DAILY@09/27/19 12/09/22 12/09/22 History (1,500 mg) tablet (Calcium) celecoxib 200 mg capsule 200 mg PO BID@09/27/19 12/09/22 12/09/22 History fluticasone propionate 50 2 spray intranasal DAILY@09/27/19 12/09/22 12/09/22 History mcg/actuation nasal spray,suspension (Flonase Allergy Relief) linagliptin 5 mg tablet (Tradjenta) 5 mg PO DAILY@09/27/19 12/09/22 12/09/22 History omeprazole 40 mg capsule,delayed 40 mg PO DAILY@09/27/19 12/09/22 12/09/22 History release pravastatin 80 mg tablet 80 mg PO BEDTIME@09/27/19 12/09/22 12/08/22 History tramadol 50 mg tablet 100 mg PO BID@09/27/19 12/09/22 12/09/22 History travoprost 0.004 % eye drops 1 drop ophthalmic (eye) DAILY@09/27/19 12/09/22 12/09/22 History (Travatan Z) Cock Up Splint #1 ea 07/23/20 12/09/22 Unknown Rx diclofenac sodium 1 % topical gel 2 g topical QID PRN Pain 04/27/22 12/09/22 10/06/22 History metformin 500 mg tablet,extended 500 mg PO BEDTIME@04/27/22 12/09/22 12/08/22 History release 24 hr potassium chloride 10 mEq 10 meq PO DAILY@04/27/22 12/09/22 12/09/22 History tablet,extended release tizanidine 2 mg capsule 2 mg PO BID PRN Muscle Pain 04/27/22 12/09/22 Unknown History budesonide-formoterol HFA 80 2 puff inhalation Q12H #30.6 ea 06/02/22 12/09/22 12/09/22 Rx mcg-4.5 mcg/actuation aerosol inhaler (Symbicort) amlodipine 10 mg tablet 10 mg PO DAILY@10/06/22 12/09/22 12/09/22 History apixaban 5 mg tablet (Eliquis) 5 mg PO BID@10/06/22 12/09/22 12/09/22 History ascorbic acid (vitamin C) 250 mg 250 mg PO DAILY@10/06/22 12/09/22 12/09/22 History tablet (Vitamin C) hydralazine 25 mg tablet 25 mg PO TID PRN Hypertension 10/06/22 12/09/22 Unknown History valsartan 320 mg tablet 320 mg PO DAILY@10/06/22 12/09/22 12/09/22 History acetaminophen 325 mg tablet 650 mg PO Q6H PRN Pain 12/09/22 12/09/22 Unknown History (Tylenol) bisacodyl 10 mg rectal suppository 10 mg MS DAILY PRN if no results 12/09/22 12/09/22 Unknown History (Dulcolax (bisacodyl)) from [facility] bisacodyl 5 mg tablet,delayed 10 mg PO DAILY PRN if no results 12/09/22 12/09/22 Unknown History release (Dulcolax (bisacodyl)) from [facility] isosorbide mononitrate 120 mg 120 mg PO DAILY@08 12/09/22 12/09/22 12/09/22 History tablet,extended release 24 hr magnesium hydroxide 400 mg/5 mL 30 ml PO .IF NO BM IN 3 DAYS PRN 12/09/22 12/09/22 Unknown History oral suspension (Milk of Magnesia) Constipation mupirocin 2 % topical ointment See Rx Instructions .Route .COMPLEX 12/09/22 12/09/22 Unknown History nystatin 100,000 unit/gram topical 1 applic topical BID@,18 12/09/22 12/09/22 Unknown History powder ([facility]) sulfamethoxazole 800 1 tab PO BID@08,12/09/22 12/09/22 12/09/22 History mg-trimethoprim 160 mg tablet venlafaxine 75 mg capsule,extended 75 mg PO DAILY@08 12/09/22 12/09/22 12/09/22 History release 24 hr (Effexor XR) Allergies Allergy/AdvReac Type Severity Reaction Status Date / Time No Known Allergies Allergy Verified 12/09/22 11:30 PFSH Acute PFSH: Medical History (Updated 12/09/22 @ 22:43 by Froilan Brown MD) Asthma CAD (coronary artery disease) Cataracts, bilateral GERD (gastroesophageal reflux disease) Glaucoma Goiter HTN (hypertension) Hyperlipidemia PAULA (obstructive sleep apnea) Type 2 diabetes mellitus Surgical History H/O dilation and curettage H/O rotator cuff surgery H/O shoulder surgery History of cholecystectomy History of hip replacement, total History of hysterectomy History of knee replacement Hx of cataract surgery Hx of tonsillectomy Stented coronary artery Family History Father Myocardial infarction Mother Diabetes Social History Smoking and tobacco status: never smoked Second hand smoke exposure: Yes Alcohol intake: never Substance/Drug Use: never Lives independently: Yes Household members: family Marital status: Current occupational status: retired and disabled Do you think of yourself as: Straight/Heterosexual Current gender identity: Female Vitals/I&O/Wt Last Vital Signs Temp 97.6 F 12/09/22 11:18 Pulse 73 12/09/22 18:45 Resp 29 H 12/09/22 18:45 BP 143/77 12/09/22 18:45 Pulse Ox 79 L 12/09/22 18:45 O2 Del Method Non-Rebreather 12/09/22 16:20 O2 Flow Rate 10 12/09/22 16:20 Weight last 48 hrs Weight 107.048 kg Physical Exam Narrative: General exam demonstrates a conversive white female, in no distress, on a nonrebreather HEENT: Atraumatic and normocephalic. Oropharynx clear Neck is supple no lymphadenopathy or thyromegaly Diminished breath sounds bilaterally. Slightly coarse at the bases Abdomen is soft with positive bowel sounds. No obvious organomegaly exam Ortiz is noted Extremities no cyanosis clubbing or edema, cap refill brisk Skin no rash Neuro no focal deficits Urinary Catheter Management: Ortiz: Cath Placed During This Visit: yes Reason for Continuing Indwelling Catheter: Accurate Measurement of Urinary Output in Critically Ill Patients Urinary Catheter Date of Insertion: 12/09/22 Urinary Catheter Time of Insertion: 12:47 Data 12/09/22 11:00 12/09/22 21:19 Other Labs: INR is 1.78 Last ABG demonstrates a pH 7.25, PCO2 52, PO2 of 86 on 10 L per nonrebreather LFTs are within normal limits, troponin 17 with repeat of 16 BNP 3443 Urinalysis with 0-4 reds and 0-4 whites Viral panel negative Chest CT concerning for bilateral pneumonia,possible congestive heart failure, posterior mediastinal mass unchanged from prior CT Chest x-ray per my read cardiomegaly, pulmonary congestion It does not appear blood cultures were drawn EKG demonstrates atrial fibrillation with a rate of 60, normal axis, poor R wave progression Echo May 19 demonstrated an EF of 72%, left atrial enlargement A&P Assessment and plan (1) Acute respiratory failure with hypoxia: Patient presents with acute hypoxic respiratory failure. Pneumonia seen on x- ray, although CHF is also a possibility with patient's elevated BNP and CT appearance. No evidence of pulmonary embolism. Placed on BiPAP Wean as tolerated Continue diuresis (2) CHF (congestive heart failure): Patient with evidence of acute diastolic heart failure. Last echocardiogram demonstrated preserved EF, 72% She received Lasix x1 in the emergency department. Continue this every 12 hours. Will give second dose early secondary to her marked hyperkalemia. (3) Hyperkalemia: Marked hyperkalemia This may be reflection of diabetes, ARB, potassium, in the face of Bactrim Insulin plus glucose, DuoNeb, Kayexalate, calcium, diuretic, and recheck in approximately 3 hours (4) Asthma: Concern of asthma exacerbation Prednisone 40 mg daily DuoNeb every 6 hours scheduled Budesonide twice daily (5) Anemia: Patient with history of iron deficiency anemia, documented recently Consider iron transfusion after acute medical issues stabilized Secondary to anemia Celebrex should not be continued at discharge (6) HTN (hypertension): Hold antihypertensives, reevaluate in the morning (7) Type 2 diabetes mellitus: Sliding scale insulin (8) Pneumonia: Zosyn, vancomycin IV Sputum culture Check MRSA PCR Viral panel including COVID is negative Qualifiers: Laterality: bilateral Lung location: unspecified part of lung Pneumonia type: due to unspecified organism Qualified Code(s): J18.9 - Pneumonia, unspecified organism Plan Atrial fibrillation. Heart rate somewhat slow. Not on any rate limiting medications. Change Eliquis to Lovenox while in the hospital. Multiple other medical problems as outlined in past medical history Allow natural Lovenox will suffice Note that PICC line was placed in the ER for access. Attestations Medical Necessity Statement*: Will need greater than 2 midnight stay for evaluation and treatment of acute hyperkalemia Critical Care Time: The high probability of a clinically significant, sudden or life threatening deterioration of the patient's [cardiac, pulmonary] system(s) required my full and direct attention, intervention and personal management. The critical care time is as shown. This time is in addition to time spent performing any reported procedures but includes the following: [x] Data and vital sign review and interpretation [x] Patient assessment, examination and intervention [x] Documentation [x] Medication orders and management Critical Care Time (min): 68 Coding Level of Care Code Critical Care >/= 30 minutes Critical care time (in minutes): 68 The high probability of a clinically significant, sudden or life threatening deterioration, as referenced in this documentation, required my full and direct attention, intervention and personal management. The critical care time shown is in addition to time spent performing any reported separately billable procedures and includes the following: [x] Data and vital sign review and interpretation [x ] Patient assessment, examination and intervention [x] Medication orders and management [x] Patient/Family updates as able [x] Care Coordination and Documentation. Diagnoses Acute respiratory failure with hypoxia J96.01 CHF (congestive heart failure) I50.9 Hyperkalemia E87.5 Asthma J45.909 Anemia D64.9 HTN (hypertension) I10 Type 2 diabetes mellitus E11.9 Pneumonia J18.9 Laterality: bilateral Lung location: unspecified part of lung Pneumonia type: due to unspecified organism
[2022-12-09 21:39] LABS: Anion Gap 16.1 (5-19); Blood Urea Nitrogen 35 mg/dL (8-23); Carbon Dioxide 23 mmol/L (22-29); Chloride 103 mmol/L (98-107); Glucose 150 mg/dL (65-115); Osmolality Calculated 291 mOsm/kg (285-295); Sodium 135 mmol/L (136-145)
[2022-12-09 21:44] LABS: Potassium 7.1 mmol/L (3.5-5.1)
[2022-12-09] MEDS: sodium polystyrene sulfonate 15 gm/60 mL Btl 30 GM PO (22:40)
[2022-12-09] MEDS: calcium gluconate 0.9% NaCL 1 GM/50 ML PREMIX IV (22:40)
[2022-12-09] MEDS: insulin regular-human 10 UNIT in SYRINGE 1 EACH IVP (22:41)
[2022-12-09] MEDS: enoxaparin 120 mg/0.8 mL Syringe 110 MG SUBCUT (23:33)
[2022-12-09] MEDS: predniSONE 20 mg Tablet 40 MG PO (23:33)
--- NOTE | 2022-12-09 23:44 | PC.PHAR ---
Pharmacokinetic dosing service Date: 12/09/22 Time: 2344 Objective: Patient: Florencia Bradley Floor: ICU-10 Age: 82 yo Serum creatinine: 0.9 mg/dL Height: 56.0 Inches Weight (kg): 107.048 Diagnosis: Relevant medical/social history: Cultures and sensitivities: Other labs: Assessment: IBW (kg): 42.47 Dosing wt(kg): 107.048 Estimated Creatinine clearance (ml/min): 33.4 CRCL method: Cockcroft and Gault using ibw(default). Drug selected: Vancomycin Loading dose (mg): 0 Vd (liters): 96.3 (factor used: 0.9 L/kg) Serafin (hr-1): 0.032 Half life (hrs): 21.66 Recommended dose: 1500 mg Interval: 24 hrs Infusion time (hrs): 1.5 Predicted peak (mcg/mL): 28.4 Predicted trough (mcg/mL): 13.82 Total body weight is being used for vancomycin dosing. Renal function is stable [ ] /unstable [ ] Recommendations: Give Vancomycin 1500 mg q 24 hrs with an expected Cpeak of 28.4 mcg/ml and an expected Ctrough of 13.82 mcg/ml Renal dosing of other antibiotics (review renal dosing of other medications and list guidelines here): Thank you for the consult, will continue to follow. Signature: Noelle Mcknight [facility]
[2022-12-10] VITALS (194 sets, daily range): BP systolic 87–183; BP diastolic 44–121; PULSE 66–103; RESP 14–45; TEMP 36.7–37.5; O2SAT 78–100
[2022-12-10 00:02] LABS: Thyroid Stimulating Hormone 0.86 uIU/mL (0.27-4.20)
[2022-12-10] MEDS: vancomycin 1,500 MG/300 ML PIGGYBACK 200 MG IV ×2 (00:51→23:53)
[2022-12-10] MEDS: ipratropium-albuterol 3 mL Neb INHALATION ×4 (01:04→20:48)
[2022-12-10 01:07] LABS: Anion Gap 14.5 (5-19); Blood Urea Nitrogen 35 mg/dL (8-23); Calcium 9.2 mg/dL (8.5-10.5); Carbon Dioxide 25 mmol/L (22-29); Chloride 104 mmol/L (98-107); Glucose 170 mg/dL (65-115); Osmolality Calculated 298 mOsm/kg (285-295); Potassium 5.5 mmol/L (3.5-5.1); Sodium 138 mmol/L (136-145)
[2022-12-10 04:44] LABS: Hematocrit 26.9 % (37.0-47.0); Hemoglobin 7.5 g/dL (11.5-15.3); Lymphocytes # 0.6 10^3/uL (0.8-4.8); Lymphocytes % 6.4 %; Mean Corpuscular HGB Conc 27.9 g/dL (30.0-36.0); Mean Corpuscular Hemoglobin 22.9 pg (28.0-34.0); Mean Platelet Volume 10.2 fL (7.4-10.4); Monocytes # 0.2 10^3/uL (0.2-0.9); Monocytes % 1.9 %; Neutrophils # 8.85 10^3/uL (1.8-7.7); Neutrophils % 91.3 %; Nucleated Red Blood Cells % 0 %; Platelet Count 238 10^3/cmm (130-400); Red Blood Count 3.28 10^6/uL (4.1-5.3); Red Cell Distribution Width 19.2 % (12.1-15.1); White Blood Count 9.7 10^3/uL (4.0-10.0)
[2022-12-10 05:06] LABS: Alanine Aminotransferase 9 U/L (0-33); Albumin Level 3.4 g/dL (3.5-5.2); Alkaline Phosphatase 82 U/L (35-105); Anion Gap 15.4 (5-19); Aspartate Amino Transferase 16 U/L (0-32); Blood Urea Nitrogen 33 mg/dL (8-23); Calcium 8.8 mg/dL (8.5-10.5); Carbon Dioxide 25 mmol/L (22-29); Chloride 103 mmol/L (98-107); Globulin 2.8 g/dL (1.3-4.6); Glucose 151 mg/dL (65-115); Magnesium 1.7 mg/dL (1.7-2.3); Osmolality Calculated 296 mOsm/kg (285-295); Potassium 5.4 mmol/L (3.5-5.1); Sodium 138 mmol/L (136-145); Total Bilirubin 0.5 mg/dL (0.15-1.2); Total Protein 6.2 g/dL (6.6-8.7)
[2022-12-10] MEDS: piperacillin-tazobactam 3.375 GM in sodium chloride 0.9% (plus) 50 ML IV ×3 (05:14→20:27)
[2022-12-10] MEDS: budesonide 0.5 mg/2 mL Neb INHALATION ×2 (07:35→20:48)
[2022-12-10 08:09] LABS: C Reactive Protein 16.8 mg/L (0.0-4.9); Ferritin 53 ng/mL (15-150); Iron 17 ug/dL (37-145)
[2022-12-10 08:13] LABS: Glucose Point of Care 174 mg/dL (70-110)
[2022-12-10 08:14] LABS: Procalcitonin 0.11 ng/mL (0-0.5)
[2022-12-10] MEDS: pantoprazole DR 40 mg Tablet PO (08:24)
[2022-12-10] MEDS: insulin lispro 100 unit/1 mL SUBCUT ×4 (08:25→20:32)
[2022-12-10] MEDS: docusate sodium 100 mg Capsule PO ×2 (08:25→17:09)
[2022-12-10] MEDS: venlafaxine ER (24HR) 75 mg Capsule PO (08:25)
[2022-12-10] MEDS: aspirin 81 mg EC Tablet PO (08:25)
[2022-12-10] MEDS: predniSONE 20 mg Tablet 40 MG PO (08:25)
[2022-12-10] MEDS: FUROsemide 10 mg/mL SDV 4mL 40 MG IVP ×2 (10:53→23:05)
[2022-12-10] MEDS: enoxaparin 120 mg/0.8 mL Syringe 110 MG SUBCUT (10:53)
[2022-12-10 11:58] LABS: Glucose Point of Care 171 mg/dL (70-110)
[2022-12-10 12:03] LABS: Basophils % 0.1 %; Hematocrit 26.5 % (37.0-47.0); Hemoglobin 7.5 g/dL (11.5-15.3); Lymphocytes # 0.6 10^3/uL (0.8-4.8); Lymphocytes % 4.5 %; Mean Corpuscular HGB Conc 28.3 g/dL (30.0-36.0); Mean Corpuscular Hemoglobin 22.6 pg (28.0-34.0); Mean Corpuscular Volume 79.8 fl (81-99); Mean Platelet Volume 10.9 fL (7.4-10.4); Monocytes # 0.5 10^3/uL (0.2-0.9); Neutrophils # 11.25 10^3/uL (1.8-7.7); Nucleated Red Blood Cells % 0 %; Platelet Count 260 10^3/cmm (130-400); Red Blood Count 3.32 10^6/uL (4.1-5.3); Red Cell Distribution Width 19.1 % (12.1-15.1); White Blood Count 12.4 10^3/uL (4.0-10.0)
[2022-12-10] MEDS: polyethylene glycol 3350 Pkt 17 gm PO (12:34)
--- NOTE | 2022-12-10 14:07 | PM.PN ---
Subjective Subjective: Patient was seen this morning, she is alert oriented x3, follows all commands, she denies bloody or black stools, she tells me that she knows about her mediastinal mass, she tells me that Dr. Foster is watching it, she tells me that it is contiguous with her thyroid, Dr. Foster is monitoring it she denies any fevers, no chills, she is surprised to learn that she has a pneumonia Vitals/I&O/Wt Last Vital Signs Temp 98.3 F 12/10/22 04:00 Pulse 87 12/10/22 12:00 Resp 21 H 12/10/22 12:00 BP 138/52 12/10/22 12:00 Pulse Ox 93 12/10/22 12:00 O2 Del Method BiPAP 12/10/22 07:35 O2 Flow Rate 40 12/10/22 11:07 FiO2 70 12/10/22 11:07 12/09/22 12/10/22 12/10/22 22:59 06:59 14:59 Intake Total 50.1 / 50.1 600 / 650.1 590 / 590 Output Total 2600 / 2600 Balance 50.1 / 50.1 -2000 / -1949.9 590 / 590 Weight last 48 hrs Weight 113.5 kg Weight 107.048 kg Physical Exam Const: COMMON NORMALS: no acute distress and patient oriented x3 Resp: COMMON NORMALS: normal respiratory effort, No retractions, No use of accessory muscles and clear to auscultation bilaterally AUSCULTATION: clear to auscultation bilaterally Cardio: COMMON NORMALS: regular rate, regular rhythm, S1 normal heart sound present and S2 normal heart sound present RATE: regular rate RHYTHM: regular rhythm HEART SOUNDS: S1 normal heart sound present and S2 normal heart sound present OTHER: Distant heart sounds, distant lung sounds GI: COMMON NORMALS: Normal to inspection, nondistended, normoactive bowel sounds present and non-tender OTHER: Morbidly obese abdomen Extremity: COMMON NORMALS: no pedal edema Neuro: COMMON NORMALS: patient oriented x3 Psych: COMMON NORMALS: mental status grossly normal Urinary Catheter Management: Ortiz: Cath Placed During This Visit: yes Reason for Continuing Indwelling Catheter: Accurate Measurement of Urinary Output in Critically Ill Patients Urinary Catheter Date of Insertion: 12/09/22 Urinary Catheter Time of Insertion: 12:47 Data 12/10/22 11:41 12/10/22 04:33 Micro: Microbiology 12/09/22 23:17 MRSA Culture - Final Nose 12/09/22 23:00 Blood Culture - Preliminary Blood SPECIMEN COLLECTED 12/09/22 23:07 Blood Culture - Preliminary Blood SPECIMEN COLLECTED A&P Assessment and plan (1) Acute respiratory failure with hypoxia: Multifactorial from diastolic CHF, obesity hypoventilation syndrome, multifocal pneumonia Continue broad-spectrum antibiotic therapy vancomycin, Zosyn (2) CHF (congestive heart failure): Patient with evidence of acute diastolic heart failure. Last echocardiogram demonstrated preserved EF, 72% She received Lasix x1 in the emergency department. Continue this 40 mg every 12 hours. Will give second dose early secondary to her marked hyperkalemia. (3) Hyperkalemia: Marked hyperkalemia This may be reflection of diabetes, ARB, potassium, in the face of Bactrim Insulin plus glucose, DuoNeb, Kayexalate, calcium, diuretic, and recheck in approximately 3 hours (4) Asthma: Concern of asthma exacerbation Prednisone 40 mg daily DuoNeb every 6 hours scheduled Budesonide twice daily (5) Anemia: Patient with history of iron deficiency anemia, documented recently Consider iron transfusion after acute medical issues stabilized Secondary to anemia Celebrex should not be continued at discharge Monitor hemoglobin every 6 hours Cannot rule out slow GI bleed, Protonix 40 IV twice daily, Carafate Iron studies, Hemoccult stool (6) HTN (hypertension): Hold antihypertensives, reevaluate in the morning (7) Type 2 diabetes mellitus: Sliding scale insulin (8) Pneumonia: Zosyn, vancomycin IV Sputum culture Check MRSA PCR Viral panel including COVID is negative Qualifiers: Laterality: bilateral Lung location: unspecified part of lung Pneumonia type: due to unspecified organism Qualified Code(s): J18.9 - Pneumonia, unspecified organism (9) Acute anemia: Concerns for acute anemia secondary to iron deficiency anemia, possible slow GI bleed (10) Atrial fibrillation: History of atrial fibrillation ? Continue beta-dougie ? Continue therapeutic Lovenox (11) COPD (chronic obstructive pulmonary disease): (12) Obesity hypoventilation syndrome: Continue BiPAP (13) Morbid obesity: (14) Chronic respiratory failure with hypoxia: (15) Multifocal pneumonia: On antibiotics as above (16) GI bleed: Protonix, Carafate, Hemoccult stool, monitor hemoglobin closely as patient is on therapeutic Lovenox (17) Mediastinal mass: Plan Atrial fibrillation. Heart rate somewhat slow. Not on any rate limiting medications. Change Eliquis to Lovenox while in the hospital. Multiple other medical problems as outlined in past medical history Allow natural Lovenox will suffice Note that PICC line was placed in the ER for access. Plan on switching to heparin drip, as hemoglobin is dropped to 7.5 continue broad-spectrum antibiotic therapy, has a mediastinal mass, will get a swallow eval, concerns for possible aspiration, continue Lasix therapy, Hemoccult stool, monitor hemoglobin closely morbid obesity, CHF, spoke to patient, spoke to nursing staff Attestations Medical Necessity Statement*: Patient requires hospitalization for concerns for acute anemia, GI bleed, multifocal pneumonia, respiratory failure, pneumonia Diagnoses Acute respiratory failure with hypoxia J96.01 CHF (congestive heart failure) I50.9 Hyperkalemia E87.5 Asthma J45.909 Anemia D64.9 HTN (hypertension) I10 Type 2 diabetes mellitus E11.9 Pneumonia J18.9 Laterality: bilateral Lung location: unspecified part of lung Pneumonia type: due to unspecified organism Acute anemia D64.9 Atrial fibrillation I48.91 COPD (chronic obstructive pulmonary disease) J44.9 Obesity hypoventilation syndrome E66.2 Morbid obesity E66.01 Chronic respiratory failure with hypoxia J96.11 Multifocal pneumonia J18.9 GI bleed K92.2 Mediastinal mass J98.59
[2022-12-10 16:29] LABS: Glucose Point of Care 214 mg/dL (70-110)
[2022-12-10 18:34] LABS: Hematocrit 27.2 % (37.0-47.0); Hemoglobin 7.9 g/dL (11.5-15.3)
[2022-12-10] MEDS: sucralfate 1 gm Tablet PO (20:24)
[2022-12-10] MEDS: sennosides 8.6 mg Tablet 17.2 MG PO (20:24)
[2022-12-10] MEDS: pantoprazole 40 mg SDV IVP (20:24)
[2022-12-10] MEDS: atorvastatin 40 mg Tablet 20 MG PO (20:26)
[2022-12-10 20:39] LABS: Glucose Point of Care 203 mg/dL (70-110)
[2022-12-10] MEDS: TRAMadol 50 mg Tablet PO (20:39)
[2022-12-10] MEDS: heparin 5,000 unit/mL INJ 1 mL IV (23:05)
[2022-12-10] MEDS: heparin drip 25,000 UNIT/500 ML PREMIX 32 UNIT IV (23:10)
[2022-12-11] VITALS (34 sets, daily range): BP systolic 92–168; BP diastolic 44–115; PULSE 75–110; RESP 15–34; TEMP 36.8–37.8; O2SAT 73–95
[2022-12-11 01:09] LABS: Hematocrit 25.8 % (37.0-47.0); Hemoglobin 7.6 g/dL (11.5-15.3)
[2022-12-11] MEDS: ipratropium-albuterol 3 mL Neb INHALATION ×4 (01:41→20:36)
[2022-12-11] MEDS: piperacillin-tazobactam 3.375 GM in sodium chloride 0.9% (plus) 50 ML IV ×3 (05:03→20:46)
[2022-12-11 05:41] LABS: Basophils % 0.1 %; Hematocrit 28.5 % (37.0-47.0); Hemoglobin 8.3 g/dL (11.5-15.3); Lymphocytes % 6.9 %; Mean Corpuscular HGB Conc 29.1 g/dL (30.0-36.0); Mean Corpuscular Hemoglobin 22.9 pg (28.0-34.0); Mean Corpuscular Volume 78.5 fl (81-99); Mean Platelet Volume 10.4 fL (7.4-10.4); Monocytes # 1.4 10^3/uL (0.2-0.9); Monocytes % 9.6 %; Neutrophils # 12.38 10^3/uL (1.8-7.7); Neutrophils % 83.1 %; Nucleated Red Blood Cells % 0 %; Platelet Count 284 10^3/cmm (130-400); Red Blood Count 3.63 10^6/uL (4.1-5.3); Red Cell Distribution Width 19.6 % (12.1-15.1); White Blood Count 14.9 10^3/uL (4.0-10.0)
[2022-12-11 06:01] LABS: Alanine Aminotransferase 12 U/L (0-33); Albumin Level 3.6 g/dL (3.5-5.2); Alkaline Phosphatase 79 U/L (35-105); Anion Gap 14.7 (5-19); Aspartate Amino Transferase 17 U/L (0-32); Blood Urea Nitrogen 23 mg/dL (8-23); C Reactive Protein 6.7 mg/L (0.0-4.9); Calcium 8.9 mg/dL (8.5-10.5); Carbon Dioxide 31 mmol/L (22-29); Chloride 96 mmol/L (98-107); Creatinine Clr Calc Pharmacy 96.7495; Globulin 2.6 g/dL (1.3-4.6); Glucose 162 mg/dL (65-115); Magnesium 1.3 mg/dL (1.7-2.3); Osmolality Calculated 293 mOsm/kg (285-295); Phosphorus 3.3 mg/dL (2.5-4.5); Potassium 3.7 mmol/L (3.5-5.1); Sodium 138 mmol/L (136-145); Total Bilirubin 0.8 mg/dL (0.15-1.2); Total Protein 6.2 g/dL (6.6-8.7)
[2022-12-11 06:04] LABS: Partial Thromboplastin Time 80.8 SECONDS (23.9-36.7)
[2022-12-11 06:24] LABS: NT Pro B Type Natriuretic Pept 5072 pg/mL (0-450)
[2022-12-11 06:54] LABS: Procalcitonin 0.08 ng/mL (0-0.5)
[2022-12-11 07:34] LABS: Glucose Point of Care 183 mg/dL (70-110)
[2022-12-11] MEDS: budesonide 0.5 mg/2 mL Neb INHALATION ×2 (07:51→20:36)
[2022-12-11] MEDS: predniSONE 20 mg Tablet 40 MG PO (08:03)
[2022-12-11] MEDS: pantoprazole 40 mg SDV IVP ×2 (08:03→20:46)
[2022-12-11] MEDS: sucralfate 1 gm Tablet PO ×2 (08:03→20:46)
[2022-12-11] MEDS: insulin lispro 100 unit/1 mL SUBCUT ×4 (08:04→20:47)
[2022-12-11] MEDS: aspirin 81 mg EC Tablet PO (08:04)
[2022-12-11] MEDS: docusate sodium 100 mg Capsule PO ×2 (08:04→17:26)
[2022-12-11] MEDS: venlafaxine ER (24HR) 75 mg Capsule PO (08:04)
[2022-12-11] MEDS: polyethylene glycol 3350 Pkt 17 gm PO (08:04)
[2022-12-11] MEDS: magnesium sulfate premix 2 GM/50 ML PIGGYBACK IV (08:32)
[2022-12-11] MEDS: magnesium lactate 84 mg Tablet PO (08:32)
[2022-12-11] MEDS: potassium chloride ER 20 mEq Tablet 40 MEQ PO (08:32)
[2022-12-11] MEDS: FUROsemide 10 mg/mL SDV 4mL 40 MG IVP ×2 (10:45→23:07)
[2022-12-11] MEDS: benzonatate 100 mg Capsule PO ×2 (11:12→20:46)
[2022-12-11 11:26] LABS: Glucose Point of Care 163 mg/dL (70-110)
[2022-12-11 12:36] LABS: Partial Thromboplastin Time 68.5 SECONDS (23.9-36.7)
[2022-12-11 12:47] LABS: Hematocrit 29.5 % (37.0-47.0); Hemoglobin 8.8 g/dL (11.5-15.3)
[2022-12-11] MEDS: heparin drip 25,000 UNIT/500 ML PREMIX 30 UNIT IV (16:19)
--- NOTE | 2022-12-11 17:08 | P.PN_ITS ---
Subjective Subjective: Patient was seen this morning, she feels significantly better, she is on 60 L 40%, she did have a low-grade fever this morning,, she does tell me at the long-term she was ambulating, there has been a outbreak of COVID at [facility] long-term, I am going to retest her for COVID Vitals/I&O/Wt Last Vital Signs Temp 100.0 F H 12/11/22 04:00 Pulse 95 12/11/22 16:00 Resp 20 H 12/11/22 16:00 BP 132/63 12/11/22 16:00 Pulse Ox 89 L 12/11/22 16:00 O2 Del Method Heated High Flow 12/11/22 07:40 O2 Flow Rate 40 12/11/22 13:45 FiO2 60 12/11/22 13:45 12/11/22 12/11/22 12/11/22 06:59 14:59 22:59 Intake Total 472.933 / 1502.933 880 / 880 277.067 / 1157.067 Output Total 2650 / 5800 3450 / 3450 Balance -2177.067 / -4297.067 -2570 / -2570 277.067 / -2292.933 Weight last 48 hrs Weight 109.27 kg Weight 113.5 kg Physical Exam Const: COMMON NORMALS: no acute distress and patient oriented x3 Resp: COMMON NORMALS: normal respiratory effort, No retractions, No use of accessory muscles and clear to auscultation bilaterally AUSCULTATION: clear to auscultation bilaterally Cardio: COMMON NORMALS: regular rate, regular rhythm, S1 normal heart sound present and S2 normal heart sound present RATE: regular rate RHYTHM: regular rhythm HEART SOUNDS: S1 normal heart sound present and S2 normal heart sound present GI: COMMON NORMALS: Normal to inspection, nondistended, normoactive bowel sounds present Extremity: COMMON NORMALS: no pedal edema Neuro: COMMON NORMALS: patient oriented x3 Psych: COMMON NORMALS: mental status grossly normal Urinary Catheter Management: Ortiz: Cath Placed During This Visit: yes Reason for Continuing Indwelling Catheter: Acute Urinary Retention or Obstruction Urinary Catheter Date of Insertion: 12/09/22 Urinary Catheter Time of Insertion: 12:47 Data 12/11/22 12:10 12/11/22 05:30 Micro: Microbiology 12/11/22 10:06 Occult Blood (FIT) - Final Stool Routine Collection 12/09/22 23:00 Blood Culture - Preliminary Blood NEGATIVE TO DATE 12/09/22 23:07 Blood Culture - Preliminary Blood NEGATIVE TO DATE A&P Assessment and plan (1) Acute respiratory failure with hypoxia: Multifactorial from diastolic CHF, obesity hypoventilation syndrome, multifocal pneumonia On 60 L, 40%, heated high flow Continue broad-spectrum antibiotic therapy vancomycin, Zosyn Her long-term and is he does have an outbreak of COVID, will retest for COVID (2) CHF (congestive heart failure): Patient with evidence of acute diastolic heart failure. Last echocardiogram demonstrated preserved EF, 72% She received Lasix x1 in the emergency department. Currently on Lasix 40 IV twice daily Diet is over 5 L yesterday continue for now (3) Hyperkalemia: Marked hyperkalemia This may be reflection of diabetes, ARB, potassium, in the face of Bactrim Insulin plus glucose, DuoNeb, Kayexalate, calcium, diuretic, and recheck in approximately 3 hours (4) Asthma: Concern of asthma exacerbation Prednisone 40 mg daily DuoNeb every 6 hours scheduled Budesonide twice daily (5) Anemia: Patient with history of iron deficiency anemia, documented recently Consider iron transfusion after acute medical issues stabilized Secondary to anemia Celebrex should not be continued at discharge Monitor hemoglobin every 6 hours Cannot rule out slow GI bleed, Protonix 40 IV twice daily, Carafate Iron studies, Hemoccult stool (6) HTN (hypertension): Hold antihypertensives, reevaluate in the morning (7) Type 2 diabetes mellitus: Sliding scale insulin (8) Pneumonia: Zosyn, vancomycin IV Sputum culture Check MRSA PCR Viral panel including COVID is negative Qualifiers: Laterality: bilateral Lung location: unspecified part of lung P neumonia type: due to unspecified organism Qualified Code(s): J18.9 - Pneumonia, unspecified organism (9) Acute anemia: Concerns for acute anemia secondary to iron deficiency anemia, possible slow GI bleed (10) Atrial fibrillation: History of atrial fibrillation ? Continue beta-dougie ? Continue therapeutic Lovenox (11) COPD (chronic obstructive pulmonary disease): (12) Obesity hypoventilation syndrome: Continue BiPAP (13) Morbid obesity: (14) Chronic respiratory failure with hypoxia: (15) Multifocal pneumonia: On antibiotics as above (16) GI bleed: Protonix, Carafate, Hemoccult stool, monitor hemoglobin closely as patient is on therapeutic Lovenox (17) Mediastinal mass: (18) Acute respiratory distress syndrome: Concern for acute respiratory distress syndrome given high oxygen requirements, insult would be pneumonia, respiratory failure from fluid overload, Plan Atrial fibrillation. Heart rate somewhat slow. Not on any rate limiting medications. Change Eliquis to Lovenox while in the hospital. Multiple other medical problems as outlined in past medical history Allow natural Lovenox will suffice Note that PICC line was placed in the ER for access. Plan up out of bed into chair currently on 40 L 60% FiO2 continue antibiotics, continue diuresis, repeat COVID testing, monitor hemoglobin, now having anemia, concerns for slow GI bleed Attestations Medical Necessity Statement*: Patient requires hospitalization for slow GI bleed, multifocal pneumonia, morbid obesity, respiratory failure, concerns for possible acute respiratory distress syndrome Diagnoses Acute respiratory failure with hypoxia J96.01 CHF (congestive heart failure) I50.9 Hyperkalemia E87.5 Asthma J45.909 Anemia D64.9 HTN (hypertension) I10 Type 2 diabetes mellitus E11.9 Pneumonia J18.9 Laterality: bilateral Lung location: unspecified part of lung Pneumonia type: due to unspecified organism Acute anemia D64.9 Atrial fibrillation I48.91 COPD (chronic obstructive pulmonary disease) J44.9 Obesity hypoventilation syndrome E66.2 Morbid obesity E66.01 Chronic respiratory failure with hypoxia J96.11 Multifocal pneumonia J18.9 GI bleed K92.2 Mediastinal mass J98.59 Acute respiratory distress syndrome J80
[2022-12-11 17:17] LABS: Glucose Point of Care 222 mg/dL (70-110)
[2022-12-11 19:20] LABS: Hematocrit 28.6 % (37.0-47.0); Hemoglobin 8.5 g/dL (11.5-15.3)
[2022-12-11 19:33] LABS: Partial Thromboplastin Time 45.3 SECONDS (23.9-36.7)
[2022-12-11 20:10] LABS: Adenovirus Not Detected (NOT DETECT); Chlamydia Pneumoniae Not Detected (NOT DETECT); Coronavirus 229E,HKU1,NL63,OC4 Not Detected (NOT DETECT); Human Metapneumovirus Not Detected (NOT DETECT); Human Rhinovirus/Enterovirus Not Detected (NOT DETECT); Influenza A Not Detected (NOT DETECT); Influenza A H1 Not Detected (NOT DETECT); Influenza A H1-2009 Not Detected (NOT DETECT); Influenza A H3 Not Detected (NOT DETECT); Influenza B Not Detected (NOT DETECT); Mycoplasma Pneumoniae Not Detected (NOT DETECT); Parainfluenza Virus Type 1 Not Detected (NOT DETECT); Parainfluenza Virus Type 2 Not Detected (NOT DETECT); Parainfluenza Virus Type 3 Not Detected (NOT DETECT); Parainfluenza Virus Type 4 Not Detected (NOT DETECT); Respiratory Syncytial Virus A Not Detected (NOT DETECT); Respiratory Syncytial Virus B Not Detected (NOT DETECT); SARS-COV-2 Not Detected (NOT DETECT)
[2022-12-11 20:32] LABS: Glucose Point of Care 190 mg/dL (70-110)
[2022-12-11] MEDS: sennosides 8.6 mg Tablet 17.2 MG PO (20:46)
[2022-12-11] MEDS: TRAMadol 50 mg Tablet PO (20:47)
[2022-12-11] MEDS: atorvastatin 40 mg Tablet 20 MG PO (23:06)
[2022-12-11] MEDS: vancomycin 1,500 MG/300 ML PIGGYBACK 200 MG IV (23:07)
[2022-12-12] VITALS (35 sets, daily range): BP systolic 113–164; BP diastolic 63–98; PULSE 88–105; RESP 16–33; TEMP 36.9–37.3; O2SAT 82–99; BMI 52.9
[2022-12-12 00:36] LABS: Hematocrit 26.2 % (37.0-47.0); Hemoglobin 7.8 g/dL (11.5-15.3)
[2022-12-12] MEDS: LORazepam 0.5 mg Tablet PO (00:41)
[2022-12-12 01:25] LABS: Vancomycin Trough 8.1 ug/mL (10-15)
[2022-12-12] MEDS: ipratropium-albuterol 3 mL Neb INHALATION ×4 (01:55→19:56)
[2022-12-12 02:52] LABS: Partial Thromboplastin Time 71.5 SECONDS (23.9-36.7)
[2022-12-12] MEDS: piperacillin-tazobactam 3.375 GM in sodium chloride 0.9% (plus) 50 ML IV ×3 (05:29→20:05)
[2022-12-12 05:42] LABS: Basophils % 0.1 %; Eosinophils # 0.1 10^3/uL (0.0-0.8); Eosinophils % 0.4 %; Hematocrit 28.8 % (37.0-47.0); Hemoglobin 8.5 g/dL (11.5-15.3); Lymphocytes # 1.6 10^3/uL (0.8-4.8); Lymphocytes % 12.7 %; Mean Corpuscular HGB Conc 29.5 g/dL (30.0-36.0); Mean Corpuscular Hemoglobin 22.8 pg (28.0-34.0); Mean Corpuscular Volume 77.4 fl (81-99); Mean Platelet Volume 10.6 fL (7.4-10.4); Monocytes # 1.7 10^3/uL (0.2-0.9); Monocytes % 13.6 %; Neutrophils # 9.23 10^3/uL (1.8-7.7); Neutrophils % 72.8 %; Nucleated Red Blood Cells % 0 %; Platelet Count 284 10^3/cmm (130-400); Red Blood Count 3.72 10^6/uL (4.1-5.3); Red Cell Distribution Width 19.3 % (12.1-15.1); White Blood Count 12.7 10^3/uL (4.0-10.0)
[2022-12-12 05:59] LABS: Alanine Aminotransferase 13 U/L (0-33); Albumin Level 3.6 g/dL (3.5-5.2); Alkaline Phosphatase 69 U/L (35-105); Anion Gap 12.5 (5-19); Aspartate Amino Transferase 19 U/L (0-32); Blood Urea Nitrogen 16 mg/dL (8-23); C Reactive Protein 3.4 mg/L (0.0-4.9); Calcium 8.9 mg/dL (8.5-10.5); Carbon Dioxide 37 mmol/L (22-29); Chloride 91 mmol/L (98-107); Creatinine Clr Calc Pharmacy 94.7821; Globulin 2.5 g/dL (1.3-4.6); Glucose 122 mg/dL (65-115); Magnesium 1.4 mg/dL (1.7-2.3); Osmolality Calculated 286 mOsm/kg (285-295); Phosphorus 3.2 mg/dL (2.5-4.5); Potassium 3.5 mmol/L (3.5-5.1); Sodium 137 mmol/L (136-145); Total Protein 6.1 g/dL (6.6-8.7)
[2022-12-12 06:10] LABS: NT Pro B Type Natriuretic Pept 3477 pg/mL (0-450); Procalcitonin 0.07 ng/mL (0-0.5)
[2022-12-12] MEDS: budesonide 0.5 mg/2 mL Neb INHALATION ×2 (07:22→19:56)
[2022-12-12] MEDS: pantoprazole 40 mg SDV IVP ×2 (08:02→20:03)
[2022-12-12] MEDS: predniSONE 20 mg Tablet 40 MG PO (08:02)
[2022-12-12] MEDS: aspirin 81 mg EC Tablet PO (08:02)
[2022-12-12] MEDS: potassium chloride ER 20 mEq Tablet 40 MEQ PO (08:02)
[2022-12-12] MEDS: docusate sodium 100 mg Capsule PO ×2 (08:02→17:13)
[2022-12-12] MEDS: venlafaxine ER (24HR) 75 mg Capsule PO (08:02)
[2022-12-12] MEDS: sucralfate 1 gm Tablet PO ×2 (08:02→20:04)
[2022-12-12] MEDS: magnesium lactate 84 mg Tablet PO (08:04)
[2022-12-12 08:13] LABS: Glucose Point of Care 122 mg/dL (70-110)
[2022-12-12] MEDS: heparin drip 25,000 UNIT/500 ML PREMIX 32 UNIT IV (08:17)
--- NOTE | 2022-12-12 08:34 | XR_ITS ---
WS: [id number] Portable AP semiupright chest, 12/12/2022 Clinical Data: sob Comparison: Portable chest, 12/09/2022 Findings: The bilateral patchy opacities have diminished and there is a moderate residual. The pleura l effusions have cleared. The heart remains enlarged. There are no nodules or masses. No pneumothorax is seen. The right PICC line remains in the same position. There are monitor leads on the chest wall . There is an orthopedic anchor in the left humeral head. Impression: 1. Partial clearing of patchy opacities. 2. Clearing of pleural effusions. 3. Cardiomegaly
[2022-12-12] MEDS: enoxaparin 100 mg/mL Syringe SUBCUT ×2 (10:53→21:59)
[2022-12-12] MEDS: FUROsemide 10 mg/mL SDV 4mL 40 MG IVP ×2 (10:54→22:00)
[2022-12-12] MEDS: TRAMadol 50 mg Tablet PO ×2 (10:54→22:11)
[2022-12-12 11:10] LABS: Glucose Point of Care 180 mg/dL (70-110)
--- NOTE | 2022-12-12 11:29 | PC.SOCIAL ---
IMM Update: IMM Update. Page 2 of IMM updated/reviewed with pt at 0919. Copy provided and placed in pt file.
[2022-12-12] MEDS: insulin lispro 100 unit/1 mL SUBCUT ×3 (12:15→20:04)
--- NOTE | 2022-12-12 14:58 | PM.PN ---
Subjective Subjective: Patient was seen this morning, she remains on heated high flow, 35 L, 45%, we discussed her potential acute respiratory distress syndrome given her increased oxygen requirements, radiographic findings, likely insult will be our pneumonia, she continues to diurese well, she is -10 L, she wants to try to sit up in a chair today, no fevers, chills, no more hemoptysis Vitals/I&O/Wt Last Vital Signs Temp 99.1 F 12/12/22 08:00 Pulse 94 12/12/22 14:00 Resp 17 12/12/22 14:00 BP 128/72 12/12/22 14:00 Pulse Ox 94 12/12/22 14:00 O2 Del Method Heated High Flow 12/12/22 13:55 O2 Flow Rate 35 12/12/22 13:55 FiO2 45 12/12/22 13:55 12/11/22 12/12/22 12/12/22 22:59 06:59 14:59 Intake Total 1195.067 / 2075.067 827.222 / 2902.289 806.511 / 806.511 Output Total 2100 / 5550 3300 / 8850 1500 / 1500 Balance -904.933 / -3474.933 -2472.778 / -5947.711 -693.489 / -693.489 Weight last 48 hrs Weight 107.048 kg Weight 109.27 kg Physical Exam Const: COMMON NORMALS: no acute distress and patient oriented x3 Resp: COMMON NORMALS: normal respiratory effort, No retractions and No use of accessory muscles AUSCULTATION: crackles Cardio: COMMON NORMALS: regular rate, regular rhythm, S1 normal heart sound present and S2 normal heart sound present RATE: regular rate RHYTHM: regular rhythm HEART SOUNDS: S1 normal heart sound present and S2 normal heart sound present GI: COMMON NORMALS: Normal to inspection, nondistended, normoactive bowel sounds present and non-tender Extremity: COMMON NORMALS: no pedal edema Neuro: COMMON NORMALS: patient oriented x3 Psych: COMMON NORMALS: mental status grossly normal Urinary Catheter Management: Ortiz: Cath Placed During This Visit: yes Reason for Continuing Indwelling Catheter: Accurate Measurement of Urinary Output in Critically Ill Patients Urinary Catheter Date of Insertion: 12/09/22 Urinary Catheter Time of Insertion: 12:47 Data 12/12/22 05:31 12/12/22 05:31 Micro: Microbiology 12/11/22 10:06 Occult Blood (FIT) - Final Stool Routine Collection A&P Assessment and plan (1) Acute respiratory failure with hypoxia: Multifactorial from diastolic CHF, obesity hypoventilation syndrome, multifocal pneumonia On 35 L 45%, now with acute respiratory distress syndrome (2) CHF (congestive heart failure): Patient with evidence of acute diastolic heart failure. Last echocardiogram demonstrated preserved EF, 72% She received Lasix x1 in the emergency department. Currently on Lasix 40 IV twice daily I have diuresed her over 10 L (3) Hyperkalemia: Resolved (4) Asthma: Concern of asthma exacerbation Prednisone 40 mg daily DuoNeb every 6 hours scheduled Budesonide twice daily (5) Anemia: Patient with history of iron deficiency anemia, documented recently Consider iron transfusion after acute medical issues stabilized Secondary to anemia Celebrex should not be continued at discharge Monitor hemoglobin every 6 hours Cannot rule out slow GI bleed, Protonix 40 IV twice daily, Carafate Iron studies, Hemoccult stool (6) HTN (hypertension): Hold antihypertensives, reevaluate in the morning (7) Type 2 diabetes mellitus: Sliding scale insulin (8) Pneumonia: Zosyn, vancomycin IV Sputum culture Check MRSA PCR positive Viral panel including COVID is negative Qualifiers: Laterality: bilateral Lung location: unspecified part of lung Pneumonia type: due to unspecified organism Qualified Code(s): J18.9 - Pneumonia, unspecified organism (9) Acute anemia: Concerns for acute anemia secondary to iron deficiency anemia, possible slow GI bleed (10) Atrial fibrillation: History of atrial fibrillation ? Continue beta-dougie ? Continue therapeutic Lovenox (11) COPD (chronic obstructive pulmonary disease): (12) Obesity hypoventilation syndrome: Continue BiPAP (13) Morbid obesity: (14) Chronic respiratory failure with hypoxia: (15) Multifocal pneumonia: On antibiotics as above (16) GI bleed: Protonix, Carafate, Hemoccult stool, monitor hemoglobin closely as patient is on therapeutic Lovenox (17) Mediastinal mass: (18) Acute respiratory distress syndrome: Concern for acute respiratory distress syndrome given high oxygen requirements, radiographic findings, insult would be pneumonia, respiratory failure from fluid overload, remains on heated high flow Plan Atrial fibrillation. Heart rate somewhat slow. Not on any rate limiting medications. Change Eliquis to Lovenox while in the hospital. Multiple other medical problems as outlined in past medical history Allow natural Lovenox will suffice Note that PICC line was placed in the ER for access. Plan up out of bed into chair, monitor hemoglobin continue to diurese, wean oxygen as as tolerated, remains in acute respiratory distress syndrome given increased oxygen requirements Attestations Medical Necessity Statement*: Patient requires hospitalization for acute respiratory distress syndrome, with pneumonia, with fluid overload requiring diuresis, diuresed over 10 L, continue Lasix continue antibiotics, up out of bed, monitoring hemoglobin, Diagnoses Acute respiratory failure with hypoxia J96.01 CHF (congestive heart failure) I50.9 Hyperkalemia E87.5 Asthma J45.909 Anemia D64.9 HTN (hypertension) I10 Type 2 diabetes mellitus E11.9 Pneumonia J18.9 Laterality: bilateral Lung location: unspecified part of lung Pneumonia type: due to unspecified organism Acute anemia D64.9 Atrial fibrillation I48.91 COPD (chronic obstructive pulmonary disease) J44.9 Obesity hypoventilation syndrome E66.2 Morbid obesity E66.01 Chronic respiratory failure with hypoxia J96.11 Multifocal pneumonia J18.9 GI bleed K92.2 Mediastinal mass J98.59 Acute respiratory distress syndrome J80
[2022-12-12 17:12] LABS: Glucose Point of Care 191 mg/dL (70-110)
[2022-12-12] MEDS: vancomycin 1,500 MG/300 ML PIGGYBACK 200 MG IV (17:13)
[2022-12-12 20:02] LABS: Glucose Point of Care 246 mg/dL (70-110)
[2022-12-12] MEDS: atorvastatin 40 mg Tablet 20 MG PO (20:04)
[2022-12-13] VITALS (30 sets, daily range): BP systolic 97–158; BP diastolic 53–101; PULSE 82–104; RESP 15–29; TEMP 36.6–36.8; O2SAT 90–98
[2022-12-13] MEDS: ipratropium-albuterol 3 mL Neb INHALATION ×3 (01:51→19:32)
[2022-12-13] MEDS: piperacillin-tazobactam 3.375 GM in sodium chloride 0.9% (plus) 50 ML IV ×3 (04:11→20:00)
[2022-12-13 04:35] LABS: Eosinophils % 0.1 %; Hematocrit 32.1 % (37.0-47.0); Hemoglobin 9.3 g/dL (11.5-15.3); Lymphocytes # 1.3 10^3/uL (0.8-4.8); Lymphocytes % 12.8 %; Mean Corpuscular Hemoglobin 22.7 pg (28.0-34.0); Mean Corpuscular Volume 78.5 fl (81-99); Mean Platelet Volume 10.8 fL (7.4-10.4); Monocytes # 1.4 10^3/uL (0.2-0.9); Monocytes % 14.1 %; Neutrophils # 7.16 10^3/uL (1.8-7.7); Neutrophils % 72.7 %; Nucleated Red Blood Cells % 0 %; Platelet Count 308 10^3/cmm (130-400); Red Blood Count 4.09 10^6/uL (4.1-5.3); Red Cell Distribution Width 18.8 % (12.1-15.1); White Blood Count 9.9 10^3/uL (4.0-10.0)
[2022-12-13 04:57] LABS: Alanine Aminotransferase 14 U/L (0-33); Albumin Level 3.7 g/dL (3.5-5.2); Alkaline Phosphatase 68 U/L (35-105); Anion Gap 10.8 (5-19); Aspartate Amino Transferase 15 U/L (0-32); Blood Urea Nitrogen 24 mg/dL (8-23); Calcium 9.1 mg/dL (8.5-10.5); Chloride 87 mmol/L (98-107); Creatinine Clr Calc Pharmacy 94.7821; Globulin 2.6 g/dL (1.3-4.6); Glucose 136 mg/dL (65-115); Magnesium 1.5 mg/dL (1.7-2.3); Osmolality Calculated 286 mOsm/kg (285-295); Potassium 3.8 mmol/L (3.5-5.1); Sodium 135 mmol/L (136-145); Total Bilirubin 1.1 mg/dL (0.15-1.2); Total Protein 6.3 g/dL (6.6-8.7)
[2022-12-13 05:09] LABS: NT Pro B Type Natriuretic Pept 1610 pg/mL (0-450); Procalcitonin 0.08 ng/mL (0-0.5)
[2022-12-13 05:28] LABS: Carbon Dioxide 41 mmol/L (22-29)
[2022-12-13 08:41] LABS: Glucose Point of Care 134 mg/dL (70-110)
[2022-12-13] MEDS: polyethylene glycol 3350 Pkt 17 gm PO (08:56)
[2022-12-13] MEDS: docusate sodium 100 mg Capsule PO (08:57)
[2022-12-13] MEDS: potassium chloride ER 20 mEq Tablet 40 MEQ PO (08:57)
[2022-12-13] MEDS: venlafaxine ER (24HR) 75 mg Capsule PO (08:57)
[2022-12-13] MEDS: predniSONE 20 mg Tablet 40 MG PO (08:57)
[2022-12-13] MEDS: magnesium lactate 84 mg Tablet PO (08:57)
[2022-12-13] MEDS: pantoprazole 40 mg SDV IVP ×2 (08:57→19:57)
[2022-12-13] MEDS: aspirin 81 mg EC Tablet PO (08:57)
[2022-12-13] MEDS: sucralfate 1 gm Tablet PO ×2 (08:58→19:58)
[2022-12-13] MEDS: FUROsemide 10 mg/mL SDV 4mL 40 MG IVP (09:12)
[2022-12-13] MEDS: budesonide 0.5 mg/2 mL Neb INHALATION ×2 (09:15→19:32)
[2022-12-13] MEDS: enoxaparin 100 mg/mL Syringe SUBCUT (09:18)
[2022-12-13 11:54] LABS: Glucose Point of Care 186 mg/dL (70-110)
[2022-12-13] MEDS: insulin lispro 100 unit/1 mL SUBCUT ×3 (12:05→20:00)
[2022-12-13] MEDS: vancomycin 1,500 MG/300 ML PIGGYBACK 200 MG IV (12:05)
--- NOTE | 2022-12-13 15:00 | PC.NURSE ---
Cardiac strip not posted at this time, printer out of service.
--- NOTE | 2022-12-13 16:28 | P.PN_ITS ---
Subjective Subjective: Patient was seen this morning, she tells me that she feels significantly better, no fevers, no chills, no cough no lightheadedness, no dizziness Vitals/I&O/Wt Last Vital Signs Temp 97.9 F 12/13/22 12:32 Pulse 89 12/13/22 15:00 Resp 24 H 12/13/22 15:00 BP 104/61 12/13/22 15:00 Pulse Ox 92 12/13/22 15:00 O2 Del Method High Flow Nasal Cannula 12/13/22 15:00 O2 Flow Rate 8 12/13/22 15:00 FiO2 45 12/13/22 02:00 12/13/22 12/13/22 12/13/22 06:59 14:59 22:59 Intake Total 250 / 2548.511 600 / 600 Output Total 2300 / 5150 950 / 950 Balance -2050 / -2601.489 -350 / -350 Weight last 48 hrs Weight 107.048 kg Physical Exam Const: COMMON NORMALS: no acute distress and patient oriented x3 Resp: COMMON NORMALS: normal respiratory effort, No retractions, No use of accessory muscles and clear to auscultation bilaterally AUSCULTATION: clear to auscultation bilaterally Cardio: COMMON NORMALS: regular rate, regular rhythm, S1 normal heart sound present and S2 normal heart sound present RATE: regular rate RHYTHM: regular rhythm HEART SOUNDS: S1 normal heart sound present and S2 normal heart sound present GI: COMMON NORMALS: Normal to inspection, nondistended, normoactive bowel sounds present and non-tender Extremity: COMMON NORMALS: no pedal edema Neuro: COMMON NORMALS: patient oriented x3 Psych: COMMON NORMALS: mental status grossly normal Urinary Catheter Management: Ortiz: Cath Placed During This Visit: yes Reason for Continuing Indwelling Catheter: Accurate Measurement of Urinary Output in Critically Ill Patients Urinary Catheter Date of Insertion: 12/09/22 Urinary Catheter Time of Insertion: 12:47 Data 12/13/22 04:10 12/13/22 04:10 A&P Assessment and plan (1) Acute respiratory failure with hypoxia: Multifactorial from diastolic CHF, obesity hypoventilation syndrome, multifocal pneumonia On high flow 9 L, now with acute respiratory distress syndrome (2) CHF (congestive heart failure): Patient with evidence of acute diastolic heart failure. Last echocardiogram demonstrated preserved EF, 72% She received Lasix x1 in the emergency department. Daily dose Lasix 40 mg IV push this morning I have diuresed her over 15 L (3) Hyperkalemia: Resolved (4) Asthma: Concern of asthma exacerbation Prednisone 40 mg daily DuoNeb every 6 hours scheduled Budesonide twice daily (5) Anemia: Patient with history of iron deficiency anemia, documented recently Consider iron transfusion after acute medical issues stabilized Secondary to anemia Celebrex should not be continued at discharge Cannot rule out slow GI bleed, Protonix 40 IV twice daily, Carafate Iron studies, Hemoccult stool (6) HTN (hypertension): Hold antihypertensives, reevaluate in the morning (7) Type 2 diabetes mellitus: Sliding scale insulin (8) Pneumonia: Zosyn, stop vancomycin Sputum culture Check MRSA PCR positive Viral panel including COVID is negative Qualifiers: Laterality: bilateral Lung location: unspecified part of lung Pneumonia type: due to unspecified organism Qualified Code(s): J18.9 - Pneumon ia, unspecified organism (9) Acute anemia: Concerns for acute anemia secondary to iron deficiency anemia, possible slow GI bleed (10) Atrial fibrillation: History of atrial fibrillation ? Continue beta-dougie ? Continue therapeutic Lovenox (11) COPD (chronic obstructive pulmonary disease): (12) Obesity hypoventilation syndrome: Continue BiPAP (13) Morbid obesity: (14) Chronic respiratory failure with hypoxia: (15) Multifocal pneumonia: On antibiotics as above (16) GI bleed: Protonix, Carafate, Hemoccult stool, monitor hemoglobin closely as patient is on therapeutic Lovenox (17) Mediastinal mass: (18) Acute respiratory distress syndrome: Concern for acute respiratory distress syndrome given high oxygen requirements, radiographic findings, insult would be pneumonia, respiratory failure from fluid overload, remains on heated high flow Plan Atrial fibrillation. Heart rate somewhat slow. Not on any rate limiting medications. Continue Eliquis Multiple other medical problems as outlined in past medical history Allow natural Eliquis Note that PICC line was placed in the ER for access. Plan up out of bed into chair, 1 dose of Lasix today up out of bed, stop vancomycin, Zosyn follow cultures Attestations Medical Necessity Statement*: Patient requires hospitalization for acute respiratory distress syndrome, respiratory failure, fluid overload, pneumonia, Diagnoses Acute respiratory failure with hypoxia J96.01 CHF (congestive heart failure) I50.9 Hyperkalemia E87.5 Asthma J45.909 Anemia D64.9 HTN (hypertension) I10 Type 2 diabetes mellitus E11.9 Pneumonia J18.9 Laterality: bilateral Lung location: unspecified part of lung Pneumonia type: due to unspecified organism Acute anemia D64.9 Atrial fibrillation I48.91 COPD (chronic obstructive pulmonary disease) J44.9 Obesity hypoventilation syndrome E66.2 Morbid obesity E66.01 Chronic respiratory failure with hypoxia J96.11 Multifocal pneumonia J18.9 GI bleed K92.2 Mediastinal mass J98.59 Acute respiratory distress syndrome J80
[2022-12-13 17:06] LABS: Glucose Point of Care 175 mg/dL (70-110)
--- NOTE | 2022-12-13 19:00 | PC.NURSE ---
Shift summary: Pt has been resting in bed in the am. She sat up in the chair for lunch. She tolerated that well. She does have difficulty moving her left leg, but she can still transfer. She has been on 8lpm/HFNC this sift. Her lungs sound clear and diminished. She had at least 5 BMs since the previous night. She denied this and insisted on taking her Docusate and Miralax this am. Subsequently she has had diarrheas today, at least [address] Monge notified, ok to hold next dose of those medications. She recieved Lasix this am, urine output of 2000ml. No complaint of pain this shift.
[2022-12-13 19:52] LABS: Glucose Point of Care 243 mg/dL (70-110)
[2022-12-13] MEDS: atorvastatin 40 mg Tablet 20 MG PO (19:58)
[2022-12-13] MEDS: apixaban 5 mg Tablet PO (20:00)
[2022-12-13] MEDS: TRAMadol 50 mg Tablet PO (21:19)
[2022-12-13] MEDS: LORazepam 0.5 mg Tablet PO (23:30)
[2022-12-14] VITALS (36 sets, daily range): BP systolic 115–149; BP diastolic 66–92; PULSE 85–97; RESP 12–26; TEMP 36.6–37.3; O2SAT 90–99
[2022-12-14] MEDS: TRAMadol 50 mg Tablet PO ×2 (03:43→20:35)
[2022-12-14] MEDS: piperacillin-tazobactam 3.375 GM in sodium chloride 0.9% (plus) 50 ML IV (04:15)
[2022-12-14 04:43] LABS: Basophils % 0.1 %; Eosinophils % 0.1 %; Hematocrit 31.8 % (37.0-47.0); Hemoglobin 9.3 g/dL (11.5-15.3); Lymphocytes # 1.5 10^3/uL (0.8-4.8); Lymphocytes % 14.6 %; Mean Corpuscular HGB Conc 29.2 g/dL (30.0-36.0); Mean Corpuscular Hemoglobin 22.9 pg (28.0-34.0); Mean Corpuscular Volume 78.1 fl (81-99); Mean Platelet Volume 10.6 fL (7.4-10.4); Monocytes # 1.2 10^3/uL (0.2-0.9); Monocytes % 11.4 %; Neutrophils # 7.47 10^3/uL (1.8-7.7); Neutrophils % 73.5 %; Nucleated Red Blood Cells % 0 %; Platelet Count 298 10^3/cmm (130-400); Red Blood Count 4.07 10^6/uL (4.1-5.3); Red Cell Distribution Width 18.3 % (12.1-15.1); White Blood Count 10.2 10^3/uL (4.0-10.0)
[2022-12-14 05:05] LABS: Alanine Aminotransferase 15 U/L (0-33); Albumin Level 3.6 g/dL (3.5-5.2); Alkaline Phosphatase 65 U/L (35-105); Anion Gap 11.9 (5-19); Aspartate Amino Transferase 16 U/L (0-32); Blood Urea Nitrogen 27 mg/dL (8-23); Calcium 8.8 mg/dL (8.5-10.5); Carbon Dioxide 37 mmol/L (22-29); Chloride 90 mmol/L (98-107); Creatinine Clr Calc Pharmacy 94.7821; Globulin 2.4 g/dL (1.3-4.6); Glucose 123 mg/dL (65-115); Magnesium 1.5 mg/dL (1.7-2.3); Osmolality Calculated 286 mOsm/kg (285-295); Phosphorus 3.4 mg/dL (2.5-4.5); Potassium 3.9 mmol/L (3.5-5.1); Sodium 135 mmol/L (136-145)
[2022-12-14 05:13] LABS: NT Pro B Type Natriuretic Pept 885 pg/mL (0-450)
[2022-12-14 07:25] LABS: Glucose Point of Care 145 mg/dL (70-110)
[2022-12-14] MEDS: budesonide 0.5 mg/2 mL Neb INHALATION ×2 (07:35→19:52)
[2022-12-14] MEDS: ipratropium-albuterol 3 mL Neb INHALATION ×3 (07:35→19:52)
[2022-12-14] MEDS: insulin lispro 100 unit/1 mL SUBCUT ×4 (08:22→20:36)
[2022-12-14] MEDS: aspirin 81 mg EC Tablet PO (08:22)
[2022-12-14] MEDS: pantoprazole 40 mg SDV IVP ×2 (08:22→20:49)
[2022-12-14] MEDS: potassium chloride ER 20 mEq Tablet 40 MEQ PO (08:22)
[2022-12-14] MEDS: sucralfate 1 gm Tablet PO ×2 (08:22→20:31)
[2022-12-14] MEDS: predniSONE 20 mg Tablet 40 MG PO (08:23)
[2022-12-14] MEDS: venlafaxine ER (24HR) 75 mg Capsule PO (08:23)
[2022-12-14] MEDS: apixaban 5 mg Tablet PO ×2 (08:23→20:31)
[2022-12-14] MEDS: magnesium lactate 84 mg Tablet PO (08:23)
[2022-12-14] MEDS: FUROsemide 10 mg/mL SDV 4mL 40 MG IVP (09:23)
[2022-12-14] MEDS: metOLazone 5 MG Tablet PO (09:23)
[2022-12-14] MEDS: magnesium sulfate premix 2 GM/50 ML PIGGYBACK IV (09:23)
[2022-12-14 11:17] LABS: Glucose Point of Care 174 mg/dL (70-110)
--- NOTE | 2022-12-14 11:33 | PC.SOCIAL ---
IMM update IMM updated with patient. Verbalized an understanding. Copy PG 2 provided. Initialled, dated, timed, and placed in chart.
--- NOTE | 2022-12-14 14:54 | P.PN_ITS ---
Vitals/I&O/Wt Last Vital Signs Temp 99.1 F 12/14/22 06:00 Pulse 92 12/14/22 14:00 Resp 20 H 12/14/22 14:00 BP 118/84 12/14/22 14:00 Pulse Ox 91 12/14/22 14:00 O2 Del Method High Flow Nasal Cannula 12/14/22 13:51 O2 Flow Rate 5 12/14/22 13:51 FiO2 45 12/14/22 04:00 12/13/22 12/14/22 12/14/22 22:59 06:59 14:59 Intake Total 1750 / 2350 530 / 2880 568 / 568 Output Total 1300 / 2250 450 / 2700 950 / 950 Balance 450 / 100 80 / 180 -382 / -382 Physical Exam Const: COMMON NORMALS: no acute distress and patient oriented x3 Resp: COMMON NORMALS: normal respiratory effort, No retractions, No use of accessory muscles and clear to auscultation bilaterally AUSCULTATION: clear to auscultation bilaterally Cardio: COMMON NORMALS: regular rate, regular rhythm, S1 normal heart sound present and S2 normal heart sound present RATE: regular rate RHYTHM: regular rhythm HEART SOUNDS: S1 normal heart sound present and S2 normal heart sound present GI: COMMON NORMALS: Normal to inspection, nondistended, normoactive bowel sounds present and non-tender Extremity: COMMON NORMALS: no pedal edema Neuro: COMMON NORMALS: patient oriented x3 Psych: COMMON NORMALS: mental status grossly normal Urinary Catheter Management: Ortiz: Cath Placed During This Visit: yes Reason for Continuing Indwelling Catheter: Accurate Measurement of Urinary Output in Critically Ill Patients Urinary Catheter Date of Insertion: 12/09/22 Urinary Catheter Time of Insertion: 12:47 Data 12/14/22 04:15 12/14/22 04:15 A&P Assessment and plan (1) Acute respiratory failure with hypoxia: Multifactorial from diastolic CHF, obesity hypoventilation syndrome, multifocal pneumonia On 5 L, now with acute respiratory distress syndrome (2) CHF (congestive heart failure): Patient with evidence of acute diastolic heart failure. Last echocardiogram demonstrated preserved EF, 72% She received Lasix x1 in the emergency department. Daily dose Lasix 40 mg IV push this morning with metalozione with potassium I have diuresed her over 15 L (3) Hyperkalemia: Resolved (4) Asthma: Concern of asthma exacerbation Prednisone 40 mg daily DuoNeb every 6 hours scheduled Budesonide twice daily (5) Anemia: Patient with history of iron deficiency anemia, documented recently Consider iron transfusion after acute medical issues stabilized Secondary to anemia Celebrex should not be continued at discharge Cannot rule out slow GI bleed, Protonix 40 IV twice daily, Carafate Iron studies, Hemoccult stool (6) HTN (hypertension): Hold antihypertensives, reevaluate in the morning (7) Type 2 diabetes mellitus: Sliding scale insulin (8) Pneumonia: stop Zosyn, stop vancomycin switch doxycycline and augmentin Sputum culture Check MRSA PCR positive Viral panel including COVID is negative Qualifiers: Laterality: bilateral Lung location: unspecified part of lung Pneumonia type: due to unspecified organism Qualified Code(s): J18.9 - Pneumon ia, unspecified organism (9) Acute anemia: Concerns for acute anemia secondary to iron deficiency anemia, possible slow GI bleed (10) Atrial fibrillation: History of atrial fibrillation ? Continue beta-dougie ? Continue therapeutic Lovenox (11) COPD (chronic obstructive pulmonary disease): (12) Obesity hypoventilation syndrome: Continue BiPAP (13) Morbid obesity: (14) Chronic respiratory failure with hypoxia: (15) Multifocal pneumonia: On antibiotics as above (16) GI bleed: Protonix, Carafate, Hemoccult stool, monitor hemoglobin closely as patient is on therapeutic Lovenox (17) Mediastinal mass: -will have paatient follow up with pulmonary and ent as outpatient (18) Acute respiratory distress syndrome: Concern for acute respiratory distress syndrome given high oxygen requirements, radiographic findings, insult would be pneumonia, respiratory failure from fluid overload, remains on heated high flow Plan Atrial fibrillation. Heart rate somewhat slow. Not on any rate limiting medications. Continue Eliquis Multiple other medical problems as outlined in past medical history Allow natural Eliquis Note that PICC line was placed in the ER for access. Plan up out of bed into chair, 1 dose of Lasix today with metolazone, up out of bed, stop vancomycin, stop Zosyn, switch to doxy and augmentin Attestations Medical Necessity Statement*: patient requires hospitalization for pna, chf, requiring diuresis, Diagnoses Acute respiratory failure with hypoxia J96.01 CHF (congestive heart failure) I50.9 Hyperkalemia E87.5 Asthma J45.909 Anemia D64.9 HTN (hypertension) I10 Type 2 diabetes mellitus E11.9 Pneumonia J18.9 Laterality: bilateral Lung location: unspecified part of lung Pneumonia type: due to unspecified organism Acute anemia D64.9 Atrial fibrillation I48.91 COPD (chronic obstructive pulmonary disease) J44.9 Obesity hypoventilation syndrome E66.2 Morbid obesity E66.01 Chronic respiratory failure with hypoxia J96.11 Multifocal pneumonia J18.9 GI bleed K92.2 Mediastinal mass J98.59 Acute respiratory distress syndrome J80
[2022-12-14 17:10] LABS: Glucose Point of Care 207 mg/dL (70-110)
[2022-12-14] MEDS: amoxicillin-clav 875-125 mg Tablet 1 TAB PO (17:28)
[2022-12-14] MEDS: doxycycline 100 mg Tablet PO (17:28)
--- NOTE | 2022-12-14 17:35 | PC.NURSE ---
Report called to [facility]. Report given to NIK Sethi.
--- NOTE | 2022-12-14 17:58 | PC.NURSE ---
Pt transferred [facility]. Further updates given to NIK Sethi. All belonging with pt.
--- NOTE | 2022-12-14 18:26 | PC.NURSE ---
Pt received to floor from ICU to room 278 bed 2 via wheelchair. Alert and oriented. O2 5L NC. BBS CTA-diminished in bases. PICC noted to right anterior chest wall. RR even and unlabored at this time. Telemetry placed on [id number]. Patient transferred with two assist to bed. Small red pressure area noted to bottom. No open areas noted. 2+ edema noted to bilateral lower extremitites. Patient oriented to room. Denies needs at this time. Call light in reach.
[2022-12-14 20:17] LABS: Glucose Point of Care 267 mg/dL (70-110)
[2022-12-14] MEDS: atorvastatin 40 mg Tablet 20 MG PO (20:31)
[2022-12-15] VITALS (17 sets, daily range): BP systolic 103–161; BP diastolic 65–75; PULSE 78–94; RESP 15–18; TEMP 36.3–36.8; O2SAT 90–95
[2022-12-15] MEDS: ipratropium-albuterol 3 mL Neb INHALATION ×4 (02:16→20:37)
[2022-12-15] MEDS: acetaminophen 325 mg Tablet PO ×3 (03:12→22:02)
[2022-12-15] MEDS: TRAMadol 50 mg Tablet PO ×3 (03:12→22:02)
[2022-12-15 05:41] LABS: Basophils % 0.1 %; Eosinophils % 0.3 %; Hematocrit 33.9 % (37.0-47.0); Hemoglobin 10.1 g/dL (11.5-15.3); Lymphocytes % 14.5 %; Mean Corpuscular HGB Conc 29.8 g/dL (30.0-36.0); Mean Corpuscular Hemoglobin 23.1 pg (28.0-34.0); Mean Corpuscular Volume 77.4 fl (81-99); Mean Platelet Volume 10.4 fL (7.4-10.4); Monocytes # 1.6 10^3/uL (0.2-0.9); Monocytes % 11.9 %; Neutrophils # 9.86 10^3/uL (1.8-7.7); Neutrophils % 72.8 %; Nucleated Red Blood Cells % 0 %; Platelet Count 332 10^3/cmm (130-400); Red Blood Count 4.38 10^6/uL (4.1-5.3); Red Cell Distribution Width 18.6 % (12.1-15.1); White Blood Count 13.6 10^3/uL (4.0-10.0)
[2022-12-15 06:07] LABS: Alanine Aminotransferase 18 U/L (0-33); Alkaline Phosphatase 74 U/L (35-105); Aspartate Amino Transferase 22 U/L (0-32); Blood Urea Nitrogen 34 mg/dL (8-23); Calcium 9.2 mg/dL (8.5-10.5); Carbon Dioxide 32 mmol/L (22-29); Chloride 87 mmol/L (98-107); Globulin 2.6 g/dL (1.3-4.6); Glucose 145 mg/dL (65-115); Magnesium 1.9 mg/dL (1.7-2.3); NT Pro B Type Natriuretic Pept 1091 pg/mL (0-450); Osmolality Calculated 282 mOsm/kg (285-295); Phosphorus 3.8 mg/dL (2.5-4.5); Sodium 131 mmol/L (136-145); Total Bilirubin 1.2 mg/dL (0.15-1.2); Total Protein 6.6 g/dL (6.6-8.7)
[2022-12-15 06:13] LABS: Anion Gap 16.3 (5-19); Potassium 4.3 mmol/L (3.5-5.1)
[2022-12-15 06:21] LABS: Glucose Point of Care 142 mg/dL (70-110)
[2022-12-15] MEDS: budesonide 0.5 mg/2 mL Neb INHALATION ×2 (08:15→20:36)
[2022-12-15] MEDS: venlafaxine ER (24HR) 75 mg Capsule PO (08:25)
[2022-12-15] MEDS: amoxicillin-clav 875-125 mg Tablet 1 TAB PO ×2 (08:25→17:19)
[2022-12-15] MEDS: doxycycline 100 mg Tablet PO ×2 (08:25→17:19)
[2022-12-15] MEDS: sucralfate 1 gm Tablet PO ×2 (08:25→20:45)
[2022-12-15] MEDS: aspirin 81 mg EC Tablet PO (08:25)
[2022-12-15] MEDS: magnesium lactate 84 mg Tablet PO (08:25)
[2022-12-15] MEDS: insulin lispro 100 unit/1 mL SUBCUT ×4 (08:26→21:56)
[2022-12-15] MEDS: docusate sodium 100 mg Capsule PO (08:26)
[2022-12-15] MEDS: predniSONE 20 mg Tablet 40 MG PO (08:26)
[2022-12-15] MEDS: pantoprazole 40 mg SDV IVP ×2 (08:26→21:46)
[2022-12-15] MEDS: apixaban 5 mg Tablet PO ×2 (09:28→20:45)
[2022-12-15 11:44] LABS: Glucose Point of Care 169 mg/dL (70-110)
[2022-12-15 17:03] LABS: Glucose Point of Care 235 mg/dL (70-110)
--- NOTE | 2022-12-15 17:15 | P.PN_ITS ---
Subjective Subjective: Patient was seen this morning, she sitting up in a chair, no fevers, no chills, no cough, Vitals/I&O/Wt Last Vital Signs Temp 98.2 F 12/15/22 15:49 Pulse 84 12/15/22 15:49 Resp 17 12/15/22 15:49 BP 103/66 12/15/22 15:49 Pulse Ox 90 12/15/22 15:49 O2 Del Method Nasal Cannula 12/15/22 15:49 O2 Flow Rate 3 12/15/22 13:47 FiO2 40 12/14/22 21:33 12/15/22 12/15/22 12/15/22 06:59 14:59 22:59 Intake Total 740 / 1358 120 / 120 Output Total 1000 / 1950 100 / 100 Balance -260 / -592 Physical Exam Const: COMMON NORMALS: no acute distress and patient oriented x3 Resp: COMMON NORMALS: normal respiratory effort, No retractions, No use of accessory muscles and clear to auscultation bilaterally AUSCULTATION: clear to auscultation bilaterally Cardio: COMMON NORMALS: regular rate, regular rhythm, S1 normal heart sound present and S2 normal heart sound present RATE: regular rate RHYTHM: regular rhythm HEART SOUNDS: S1 normal heart sound present and S2 normal heart sound present GI: COMMON NORMALS: Normal to inspection, nondistended, normoactive bowel sounds present and non-tender Extremity: COMMON NORMALS: no pedal edema Neuro: COMMON NORMALS: patient oriented x3 Psych: COMMON NORMALS: mental status grossly normal Urinary Catheter Management: Ortiz: Cath Placed During This Visit: yes Reason for Continuing Indwelling Catheter: Other Urinary Catheter Date of Insertion: 12/09/22 Urinary Catheter Time of Insertion: 12:47 Data 12/15/22 05:26 12/15/22 05:26 Micro: Microbiology 12/14/22 08:00 Sputum Culture - Preliminary Sputum - Expectorated Sputum 12/09/22 23:00 Blood Culture - Final Blood NO GROWTH AFTER 5 DAYS 12/09/22 23:07 Blood Culture - Final Blood NO GROWTH AFTER 5 DAYS A&P Assessment and plan (1) Acute respiratory failure with hypoxia: Multifactorial from diastolic CHF, obesity hypoventilation syndrome, multifocal pneumonia On 5 L, now with acute respiratory distress syndrome (2) CHF (congestive heart failure): Patient with evidence of acute diastolic heart failure. Last echocardiogram demonstrated preserved EF, 72% I have diuresed her over 15 L She is diuresed over 15 L, I am going to give her kidneys a break today, she is euvolemic, resume Lasix p.o. tomorrow (3) Hyperkalemia: Resolved (4) Asthma: Concern of asthma exacerbation Prednisone 40 mg daily DuoNeb every 6 hours scheduled Budesonide twice daily (5) Anemia: Patient with history of iron deficiency anemia, documented recently Consider iron transfusion after acute medical issues stabilized Secondary to anemia Celebrex should not be continued at discharge Cannot rule out slow GI bleed, Protonix 40 IV twice daily, Carafate Iron studies, Hemoccult stool (6) HTN (hypertension): Hold antihypertensives, reevaluate in the morning (7) Type 2 diabetes mellitus: Sliding scale insulin (8) Pneumonia: stop Zosyn, stop vancomycin switch doxycycline and augmentin Sputum culture Check MRSA PCR positive Viral panel including COVID is negative Qualifiers: Laterality: bilateral Lung location: unspecified part of lung Pneumo merly type: due to unspecified organism Qualified Code(s): J18.9 - Pneumonia, unspecified organism (9) Acute anemia: Concerns for acute anemia secondary to iron deficiency anemia, possible slow GI bleed (10) Atrial fibrillation: History of atrial fibrillation ? Continue beta-dougie ? Continue therapeutic Lovenox (11) COPD (chronic obstructive pulmonary disease): (12) Obesity hypoventilation syndrome: Continue BiPAP (13) Morbid obesity: (14) Chronic respiratory failure with hypoxia: (15) Multifocal pneumonia: On antibiotics as above (16) GI bleed: Protonix, Carafate, Hemoccult stool, monitor hemoglobin closely as patient is on therapeutic Lovenox (17) Mediastinal mass: -will have paatient follow up with pulmonary and ent as outpatient (18) Acute respiratory distress syndrome: Concern for acute respiratory distress syndrome given high oxygen requirements, radiographic findings, insult would be pneumonia, respiratory failure from fluid overload, remains on heated high flow Plan Atrial fibrillation. Heart rate somewhat slow. Not on any rate limiting medications. Continue Eliquis Multiple other medical problems as outlined in past medical history Allow natural Eliquis Note that PICC line was placed in the ER for access. Plan up out of bed into chair, hold off on diuresis this, continue antibiotics, up out of bed, planning on moving to intermediate in the next 24 to 48 hours Attestations Medical Necessity Statement*: Patient requires hospitalization for respiratory failure, fluid overload, multifocal pneumonia Diagnoses Acute respiratory failure with hypoxia J96.01 CHF (congestive heart failure) I50.9 Hyperkalemia E87.5 Asthma J45.909 Anemia D64.9 HTN (hypertension) I10 Type 2 diabetes mellitus E11.9 Pneumonia J18.9 Laterality: bilateral Lung location: unspecified part of lung Pneumonia type: due to unspecified organism Acute anemia D64.9 Atrial fibrillation I48.91 COPD (chronic obstructive pulmonary disease) J44.9 Obesity hypoventilation syndrome E66.2 Morbid obesity E66.01 Chronic respiratory failure with hypoxia J96.11 Multifocal pneumonia J18.9 GI bleed K92.2 Mediastinal mass J98.59 Acute respiratory distress syndrome J80
[2022-12-15 20:21] LABS: Glucose Point of Care 222 mg/dL (70-110)
[2022-12-15] MEDS: atorvastatin 40 mg Tablet 20 MG PO (20:45)
[2022-12-15] MEDS: sennosides 8.6 mg Tablet 17.2 MG PO (20:45)
[2022-12-16] VITALS (12 sets, daily range): BP systolic 135–171; BP diastolic 62–83; PULSE 79–96; RESP 18–20; TEMP 36.3–36.9; O2SAT 90–97
[2022-12-16 05:21] LABS: Eosinophils % 0.2 %; Hematocrit 32.2 % (37.0-47.0); Hemoglobin 9.5 g/dL (11.5-15.3); Lymphocytes # 2.2 10^3/uL (0.8-4.8); Lymphocytes % 17.1 %; Mean Corpuscular HGB Conc 29.5 g/dL (30.0-36.0); Mean Corpuscular Hemoglobin 22.7 pg (28.0-34.0); Monocytes # 1.6 10^3/uL (0.2-0.9); Monocytes % 12.5 %; Neutrophils # 9.03 10^3/uL (1.8-7.7); Neutrophils % 69.8 %; Nucleated Red Blood Cells % 0 %; Platelet Count 363 10^3/cmm (130-400); Red Blood Count 4.18 10^6/uL (4.1-5.3); Red Cell Distribution Width 18.4 % (12.1-15.1)
[2022-12-16 05:39] LABS: Alanine Aminotransferase 18 U/L (0-33); Albumin Level 3.8 g/dL (3.5-5.2); Alkaline Phosphatase 71 U/L (35-105); Aspartate Amino Transferase 17 U/L (0-32); Blood Urea Nitrogen 38 mg/dL (8-23); Calcium 9.1 mg/dL (8.5-10.5); Carbon Dioxide 32 mmol/L (22-29); Chloride 88 mmol/L (98-107); Globulin 2.5 g/dL (1.3-4.6); Glucose 146 mg/dL (65-115); Magnesium 1.8 mg/dL (1.7-2.3); Osmolality Calculated 280 mOsm/kg (285-295); Phosphorus 3.5 mg/dL (2.5-4.5); Sodium 129 mmol/L (136-145); Total Bilirubin 1.2 mg/dL (0.15-1.2); Total Protein 6.3 g/dL (6.6-8.7)
[2022-12-16 05:46] LABS: NT Pro B Type Natriuretic Pept 1468 pg/mL (0-450)
[2022-12-16 06:39] LABS: Glucose Point of Care 152 mg/dL (70-110)
[2022-12-16] MEDS: insulin lispro 100 unit/1 mL SUBCUT ×4 (07:50→20:59)
[2022-12-16] MEDS: predniSONE 20 mg Tablet 40 MG PO (07:50)
[2022-12-16] MEDS: magnesium lactate 84 mg Tablet PO (07:50)
[2022-12-16] MEDS: pantoprazole 40 mg SDV IVP ×2 (07:50→20:59)
[2022-12-16] MEDS: venlafaxine ER (24HR) 75 mg Capsule PO (07:51)
[2022-12-16] MEDS: amoxicillin-clav 875-125 mg Tablet 1 TAB PO ×2 (07:51→17:14)
[2022-12-16] MEDS: doxycycline 100 mg Tablet PO ×2 (07:51→17:14)
[2022-12-16] MEDS: sucralfate 1 gm Tablet PO ×2 (07:51→20:59)
[2022-12-16] MEDS: apixaban 5 mg Tablet PO ×2 (07:51→20:59)
[2022-12-16] MEDS: aspirin 81 mg EC Tablet PO (07:51)
[2022-12-16] MEDS: ipratropium-albuterol 3 mL Neb INHALATION ×3 (08:25→20:51)
[2022-12-16] MEDS: budesonide 0.5 mg/2 mL Neb INHALATION ×2 (08:25→20:51)
--- NOTE | 2022-12-16 10:35 | PC.SOCIAL ---
Imm update Imm updated with patient at bedside. Copy of page 2 provided. Patient verbalized understanding. Copy in chart initialed, dated and timed.
[2022-12-16 11:17] LABS: Glucose Point of Care 185 mg/dL (70-110)
[2022-12-16] MEDS: TRAMadol 50 mg Tablet PO ×2 (13:52→21:01)
[2022-12-16] MEDS: acetaminophen 325 mg Tablet PO (13:53)
--- NOTE | 2022-12-16 15:40 | PM.PN ---
Subjective Subjective: Patient was seen this morning, she is doing significantly better, sitting up in a chair, no nausea, no vomiting, no headache, blurry vision Vitals/I&O/Wt Last Vital Signs Temp 97.5 F L 12/16/22 11:23 Pulse 95 12/16/22 13:32 Resp 18 12/16/22 13:32 BP 171/83 12/16/22 11:23 Pulse Ox 95 12/16/22 13:32 O2 Del Method Nasal Cannula 12/16/22 13:32 O2 Flow Rate 3 12/16/22 13:32 FiO2 40 12/14/22 21:33 12/16/22 12/16/22 12/16/22 06:59 14:59 22:59 Intake Total 240 / 240 Balance 240 / 240 Weight last 48 hrs Weight 104.871 kg Physical Exam Const: COMMON NORMALS: no acute distress and patient oriented x3 Resp: COMMON NORMALS: normal respiratory effort, No retractions, No use of accessory muscles and clear to auscultation bilaterally AUSCULTATION: clear to auscultation bilaterally Cardio: COMMON NORMALS: regular rate, regular rhythm, S1 normal heart sound present and S2 normal heart sound present RATE: regular rate RHYTHM: regular rhythm HEART SOUNDS: S1 normal heart sound present and S2 normal heart sound present GI: COMMON NORMALS: Normal to inspection, nondistended, normoactive bowel sounds present and non-tender Extremity: COMMON NORMALS: no pedal edema Neuro: COMMON NORMALS: patient oriented x3 Psych: COMMON NORMALS: mental status grossly normal Urinary Catheter Management: Ortiz: Cath Placed During This Visit: yes Reason for Continuing Indwelling Catheter: Other Urinary Catheter Date of Insertion: 12/09/22 Urinary Catheter Time of Insertion: 12:47 Data 12/16/22 04:57 12/16/22 04:57 Micro: Microbiology 12/14/22 08:00 Sputum Culture - Final Sputum - Expectorated Sputum A&P Assessment and plan (1) Acute respiratory failure with hypoxia: Multifactorial from diastolic CHF, obesity hypoventilation syndrome, multifocal pneumonia On 3 L (2) CHF (congestive heart failure): Patient with evidence of acute diastolic heart failure. Last echocardiogram demonstrated preserved EF, 72% I have diuresed her over 15 L She is diuresed over 15 L, I am going to give her kidneys a break today, she is euvolemic, (3) Hyperkalemia: Resolved (4) Asthma: Concern of asthma exacerbation Prednisone 40 mg daily DuoNeb every 6 hours scheduled Budesonide twice daily (5) Anemia: Patient with history of iron deficiency anemia, documented recently Consider iron transfusion after acute medical issues stabilized Secondary to anemia Celebrex should not be continued at discharge Cannot rule out slow GI bleed, Protonix 40 IV twice daily, Carafate Iron studies, Hemoccult stool (6) HTN (hypertension): Hold antihypertensives, reevaluate in the morning (7) Type 2 diabetes mellitus: Sliding scale insulin (8) Pneumonia: stop Zosyn, stop vancomycin switch doxycycline and augmentin Sputum culture Check MRSA PCR positive Viral panel including COVID is negative Qualifiers: Laterality: bilateral Lung location: unspecified part of lung Pneumonia type: due to unspecified organism Qualified Code(s): J18.9 - Pneumonia, unspecified organism (9) Acute anemia: Concerns for acute anemia secondary to iron deficiency anemia, possible slow GI bleed (10) Atrial fibrillation: History of atrial fibrillation ? Continue beta-dougie ? Continue therapeutic Lovenox (11) COPD (chronic obstructive pulmonary disease): (12) Obesity hypoventilation syndrome: Continue BiPAP (13) Morbid obesity: (14) Chronic respiratory failure with hypoxia: (15) Multifocal pneumonia: On antibiotics as above (16) GI bleed: Protonix, Carafate, Hemoccult stool, monitor hemoglobin closely as patient is on therapeutic Lovenox (17) Mediastinal mass: -will have paatient follow up with pulmonary and ent as outpatient (18) Acute respiratory distress syndrome: Concern for acute respiratory distress syndrome given high oxygen requirements, radiographic findings, insult would be pneumonia, respiratory failure from fluid overload, remains on heated high flow Plan Atrial fibrillation. Heart rate somewhat slow. Not on any rate limiting medications. Continue Eliquis Multiple other medical problems as outlined in past medical history Allow natural Eliquis Note that PICC line was placed in the ER for access. Plan up out of bed into chair, hold off on diuresis this, continue antibiotics, up out of bed, de-escalate steroids, does have hyponatremia, serum sodium 129, monitor planning on moving to [place] [facility] in the next 24 to 48 hours Attestations Medical Necessity Statement*: Patient requires hospitalization for hyponatremia, this respiratory failure Diagnoses Acute respiratory failure with hypoxia J96.01 CHF (congestive heart failure) I50.9 Hyperkalemia E87.5 Asthma J45.909 Anemia D64.9 HTN (hypertension) I10 Type 2 diabetes mellitus E11.9 Pneumonia J18.9 Laterality: bilateral Lung location: unspecified part of lung Pneumonia type: due to unspecified organism Acute anemia D64.9 Atrial fibrillation I48.91 COPD (chronic obstructive pulmonary disease) J44.9 Obesity hypoventilation syndrome E66.2 Morbid obesity E66.01 Chronic respiratory failure with hypoxia J96.11 Multifocal pneumonia J18.9 GI bleed K92.2 Mediastinal mass J98.59 Acute respiratory distress syndrome J80
[2022-12-16 16:27] LABS: Glucose Point of Care 256 mg/dL (70-110)
[2022-12-16 20:49] LABS: Glucose Point of Care 204 mg/dL (70-110)
[2022-12-16] MEDS: atorvastatin 40 mg Tablet 20 MG PO (20:59)
[2022-12-16] MEDS: zolpidem 5 mg Tablet PO (22:51)
[2022-12-17] VITALS (7 sets, daily range): BP systolic 132–166; BP diastolic 62–71; PULSE 88–99; RESP 16–19; TEMP 36.8–37; O2SAT 90–98
[2022-12-17 07:32] LABS: Glucose Point of Care 172 mg/dL (70-110)
[2022-12-17] MEDS: ipratropium-albuterol 3 mL Neb INHALATION (07:47)
[2022-12-17] MEDS: budesonide 0.5 mg/2 mL Neb INHALATION (07:47)
[2022-12-17] MEDS: doxycycline 100 mg Tablet PO (08:19)
[2022-12-17] MEDS: aspirin 81 mg EC Tablet PO (08:19)
[2022-12-17] MEDS: apixaban 5 mg Tablet PO (08:19)
[2022-12-17] MEDS: venlafaxine ER (24HR) 75 mg Capsule PO (08:19)
[2022-12-17] MEDS: insulin lispro 100 unit/1 mL SUBCUT ×2 (08:19→12:39)
[2022-12-17] MEDS: magnesium lactate 84 mg Tablet PO (08:19)
[2022-12-17] MEDS: sucralfate 1 gm Tablet PO (08:19)
[2022-12-17] MEDS: predniSONE 20 mg Tablet PO (08:19)
[2022-12-17] MEDS: amoxicillin-clav 875-125 mg Tablet 1 TAB PO (08:19)
[2022-12-17] MEDS: pantoprazole 40 mg SDV IVP (08:20)
[2022-12-17] MEDS: TRAMadol 50 mg Tablet PO (11:18)
[2022-12-17 11:25] LABS: Glucose Point of Care 210 mg/dL (70-110)
[2022-12-17 11:29] LABS: SARS Covid-2 Antigen negative (Negative)
--- NOTE | 2022-12-17 12:44 | PM.DCS ---
Discharge Providers Date of Admission: 12/09/22 22:19 Date of Discharge: December 17, 2022 Attending Provider at Admission: Froilan Brown MD Attending Provider at Discharge: Guido Monge MD Primary Care Provider: Madhu Stern MD Diagnoses at Discharge Discharge Diagnosis (1) Acute respiratory failure with hypoxia: Status: Acute (2) CHF (congestive heart failure): Status: Acute (3) Hyperkalemia: Status: Acute (4) Asthma: Status: Acute (5) Anemia: Status: Acute (6) HTN (hypertension): Status: Acute (7) Type 2 diabetes mellitus: Status: Acute (8) Pneumonia: Status: Acute Qualifiers: Laterality: bilateral Lung location: unspecified part of lung Pneumonia type: due to unspecified organism Qualified Code(s): J18.9 - Pneumonia, unspecified organism (9) Acute anemia: Status: Acute (10) Atrial fibrillation: Status: Acute (11) COPD (chronic obstructive pulmonary disease): Status: Acute (12) Obesity hypoventilation syndrome: Status: Acute (13) Morbid obesity: Status: Acute (14) Chronic respiratory failure with hypoxia: Status: Acute (15) Multifocal pneumonia: Status: Acute (16) GI bleed: Status: Acute (17) Mediastinal mass: Status: Acute (18) Acute respiratory distress syndrome: Status: Acute Reason for Visit Reason for Visit: Resp Distress Hospital Course Hospital Course Florencia Bradley is a 82 year old female referred from [facility] with concerns of shortness of breath.? Apparently when EMS arrived she was saturating in the 70s, and she was placed on a nonrebreather.? She believes she has been short of breath for couple of weeks, with occasional cough and wheezing.? She has not had any vomiting, diarrhea.? According to ER notes there has been some COVID in the facility.? Patient denies any chest pain.? She has recently been on Bactrim, along with her potassium and ARB. She received Lasix, insulin and glucose, Zosyn, breathing treatment in the emergency department. This is a 82-year-old female who presented to [facility] for acute respiratory failure with hypoxia secondary to diastolic CHF, obesity hypoventilation syndrome, multifocal pneumonia, received inpatient diuresis, diuresed over 15 L, was monitored in the ICU on BiPAP, eventually transition to heated high flow then to nasal cannula, received broad-spectrum antibiotic therapy, cultures so far have been unremarkable, overall clinically improved. Will be discharged on Lasix 40 mg once daily with potassium replacement therapy, antibiotic therapy, tapering steroid therapy, with close follow-up with pulmonary as outpatient. She was also found to have A-fib with RVR during the hospitalization, requiring titration, there was also concerns for slow GI bleed, however her hemoglobin remained stable, discharged on Protonix, Carafate, discharged on Eliquis 5 mg twice daily, follow-up with cardiology as outpatient. She also had a asthma exacerbation managed with steroids, discharged on a tapering steroid dose. We will have the [facility] recheck her sodium levels as outpatient on Thursday. Patient also had evidence of acute respiratory distress during her hospitalization, likely secondary to pneumonia, overall clinically improved, discharged on nasal cannula. She also has a history of mediastinal mass of the thyroid mass, for which she follows up with Dr. Yanez, follow-up with Dr. Yanez, follow-up with pulmonary. She Physical Exam Const: COMMON NORMALS: no acute distress and patient oriented x3 Resp: COMMON NORMALS: normal respiratory effort, No retractions, No use of accessory muscles and clear to auscultation bilaterally AUSCULTATION: clear to auscultation bilaterally Cardio: COMMON NORMALS: regular rate, regular rhythm, S1 normal heart sound present and S2 normal heart sound present RATE: regular rate RHYTHM: regular rhythm HEART SOUNDS: S1 normal heart sound present and S2 normal heart sound present GI: COMMON NORMALS: Normal to inspection, nondistended, normoactive bowel sounds present and non-tender Extremity: COMMON NORMALS: no pedal edema Neuro: COMMON NORMALS: patient oriented x3 Psych: COMMON NORMALS: mental status grossly normal Urinary Catheter Management: Ortiz: Cath Placed During This Visit: yes Reason for Continuing Indwelling Catheter: Other Urinary Catheter Date of Insertion: 12/09/22 Urinary Catheter Time of Insertion: 12:47 Discharge Data Studies Completed and Pending Completed Studies During Hospitalization Category Date Time Status CT chest w con* [id number] Stat Cat Scan 12/09/22 Completed XR chest 1V portable [id number] Routine Exams 12/12/22 08:34 Completed XR chest 1V portable [id number] Stat Exams 12/09/22 19:43 Completed Pending at discharge Category Date Time Status Occult Blood Stool [Immunochemical Fecal OCB] Routine Lab 12/10/22 07:38 Uncollected Sputum Culture and Gram Stain Stat Lab 12/10/22 07:38 Uncollected Radiology Impressions Chest CT 12/09/22 00:00 IMPRESSION: 1. Bilateral pneumonia. 2. The heart is upper limits of normal in size. There are bilateral pleural effusions as well. Findings raise concern for congestive heart failure. Please correlate clinically. 3. Bilateral pulmonary ground-glass opacities can be seen with pulmonary edema and/or pneumonia. 4. Posterior mediastinal mass has similar measurements when compared to the prior CT scan report. This is immediately adjacent to the heterogeneous left thyroid lobe and may be contiguous with it. COMMENTS: Consistent with the [place] [employer]'s Incidental Findings Committee white paper (J Am Erika Radiol 2018): Any incidental renal lesion less than 1 cm or classified as too small to characterize, or any incidental cystic renal lesion characterized as simple-appearing, is likely benign. No follow-up imaging is recommended for these lesions per consensus recommendations based on imaging criteria. Laboratory Results WBC 13.0 10^3/uL (4.0-10.0) H 12/16/22 04:57 RBC 4.18 10^6/uL (4.1-5.3) 12/16/22 04:57 Hgb 9.5 g/dL (11.5-15.3) L 12/16/22 04:57 Hct 32.2 % (37.0-47.0) L 12/16/22 04:57 MCV 77.0 fl (81-99) L 12/16/22 04:57 MCH 22.7 pg (28.0-34.0) L 12/16/22 04:57 MCHC 29.5 g/dL (30.0-36.0) L 12/16/22 04:57 RDW 18.4 % (12.1-15.1) H 12/16/22 04:57 Plt Count 363 10^3/cmm (130-400) 12/16/22 04:57 MPV 11.0 fL (7.4-10.4) H 12/16/22 04:57 Neut % (Auto) 69.8 % 12/16/22 04:57 Lymph % (Auto) 17.1 % 12/16/22 04:57 [place] % (Auto) 12.5 % 12/16/22 04:57 Eos % (Auto) 0.2 % 12/16/22 04:57 Baso % (Auto) 0.0 % 12/16/22 04:57 Neut # (Auto) 9.03 10^3/uL (1.8-7.7) H 12/16/22 04:57 Lymph # (Auto) 2.2 10^3/uL (0.8-4.8) 12/16/22 04:57 [place] # (Auto) 1.6 10^3/uL (0.2-0.9) H 12/16/22 04:57 Eos # (Auto) 0.0 10^3/uL (0.0-0.8) 12/16/22 04:57 Baso # (Auto) 0.0 10^3/uL (0.0-0.1) 12/16/22 04:57 Nucleated RBC % (auto) 0 % 12/16/22 04:57 Nucleated RBCs # 0.0 /100WBC 12/16/22 04:57 PT 21.30 SECONDS (12.1-14.9) H 12/09/22 11:00 INR 1.78 (0.8-1.2) H 12/09/22 11:00 APTT 71.5 SECONDS (23.9-36.7) H D 12/12/22 02:27 Specimen Type Arterial 12/09/22 20:17 Sample Site Brachial, left 12/09/22 20:17 ABG pH 7.25 (7.35-7.45) L 12/09/22 20:17 ABG pCO2 52.6 mmHg (35-45) H 12/09/22 20:17 ABG pO2 86.3 mmHg (80.0-100.0) 12/09/22 20:17 ABG HCO3 22.8 mmol/L (22-26) 12/09/22 20:17 ABG O2 Saturation 96.4 12/09/22 20:17 ABG Base Excess -4.4 mmol/L (-2.0-2.0) L 12/09/22 20:17 Mango Test N/a 12/09/22 20:17 A-a O2 Gradient Not Reportable 12/09/22 20:17 Hematocrit 25.6 % (37-47) L 12/09/22 20:17 Hgb O2 Saturation 94.0 % (95-100) L 12/09/22 20:17 Carboxyhemoglobin 2.1 %THgb (0.4-20.1) 12/09/22 20:17 Methemoglobin 0.4 % (0.4-1.5) 12/09/22 20:17 Total Hemoglobin 8.4 g/dL (12-16) L 12/09/22 20:17 Sodium 138.0 mmol/L (131-143) 12/09/22 20:17 Potassium 6.1 mmol/L (3.5-5.0) H 12/09/22 20:17 Glucose 148.0 mg/dL (70-115) H 12/09/22 20:17 Ionized Calcium 1.3 mmol/L (1.1-1.4) 12/09/22 20:17 O2 Delivery Device Nrb 12/09/22 20:17 O2 Liters/Min 10.0 % 12/09/22 20:17 Taffy Puller ID Amh 12/09/22 20:17 Sodium 129 mmol/L (136-145) L 12/16/22 04:57 Potassium 4.0 mmol/L (3.5-5.1) 12/16/22 04:57 Chloride 88 mmol/L (98-107) L 12/16/22 04:57 Carbon Dioxide 32 mmol/L (22-29) H 12/16/22 04:57 Anion Gap 13.0 (5-19) 12/16/22 04:57 BUN 38 mg/dL (8-23) H 12/16/22 04:57 Creatinine 0.8 mg/dL (0.5-0.9) 12/16/22 04:57 GFR Calculation Not Reportable 12/16/22 04:57 Glucose 146 mg/dL (65-115) H 12/16/22 04:57 POC Glucose 210 mg/dL (70-110) H 12/17/22 11:12 Calculated Osmolality 280 mOsm/kg (285-295) L 12/16/22 04:57 Lactic Acid 1.0 mmol/L (0.5-2.2) 12/09/22 11:53 Calcium 9.1 mg/dL (8.5-10.5) 12/16/22 04:57 Phosphorus 3.5 mg/dL (2.5-4.5) 12/16/22 04:57 Magnesium 1.8 mg/dL (1.7-2.3) 12/16/22 04:57 Iron 17 ug/dL (37-145) L 12/10/22 04:35 Ferritin 53 ng/mL (15-150) 12/10/22 04:35 Total Bilirubin 1.2 mg/dL (0.15-1.2) 12/16/22 04:57 AST 17 U/L (0-32) 12/16/22 04:57 ALT 18 U/L (0-33) 12/16/22 04:57 Alkaline Phosphatase 71 U/L (35-105) 12/16/22 04:57 Troponin T Baseline 17 ng/L (0-10) H 12/09/22 11:00 Troponin T 120 Minute 16.28 ng/L (0-10) H 12/09/22 13:22 Delta Troponin T -0.72 ABS# (0-10) L 12/09/22 13:22 Troponin T Hi Sens 6Hr 13.03 ng/L (0-10) H 12/09/22 17:10 Troponin T Hi Sens 6Hr Delta -3.97 ng/L (0-12) L 12/09/22 17:10 C-Reactive Protein 3.0 mg/L (0.0-4.9) 12/16/22 04:57 NT-Pro-B Natriuret Pep 1468 pg/mL (0-450) H 12/16/22 04:57 Total Protein 6.3 g/dL (6.6-8.7) L 12/16/22 04:57 Albumin 3.8 g/dL (3.5-5.2) 12/16/22 04:57 Globulin 2.5 g/dL (1.3-4.6) 12/16/22 04:57 Procalcitonin 0.08 ng/mL (0-0.5) 12/13/22 04:10 TSH 0.86 uIU/mL (0.27-4.20) 12/09/22 21:19 Urine Color Yellow (Yellow) 12/09/22 12:43 Urine Appearance Sl hazy (CLEAR) A 12/09/22 12:43 Urine pH 5 (5-7) 12/09/22 12:43 Ur Specific [place] 1.025 (1.005-1.030) 12/09/22 12:43 Urine Protein Trace (Negative) 12/09/22 12:43 Urine Glucose (UA) Norm (Normal) 12/09/22 12:43 Urine Ketones Negative (Negative) 12/09/22 12:43 Urine Blood Neg (Negative) 12/09/22 12:43 Urine Nitrate Negative (Negative) 12/09/22 12:43 Urine Bilirubin 1+ (Negative) H 12/09/22 12:43 Urine Urobilinogen 1 mg/dL (Negative) H 12/09/22 12:43 Ur Leukocyte Esterase Negative (Negative) 12/09/22 12:43 Urine RBC 0-4 /hpf (0-2) H 12/09/22 12:43 Urine WBC 0-4 /hpf (0-5) H 12/09/22 12:43 Ur Squamous Epith Cells 0-4 /hpf (0-5) H 12/09/22 12:43 Amorphous Sediment Not Reportable 12/09/22 12:43 Urine Bacteria None /hpf (NONE) 12/09/22 12:43 Urine Mucus 1+ /hpf 12/09/22 12:43 Nasal Influ A H1 2008 PCR Not detected (NOT DETECT) 12/11/22 18:09 Vancomycin Trough 8.1 ug/mL (10-15) L 12/12/22 00:26 Adenovirus (PCR) Not detected (NOT DETECT) 12/11/22 18:09 C. pneumoniae DNA (PCR) Not detected (NOT DETECT) 12/11/22 18:09 Coronavirus 229E (PCR) Not detected (NOT DETECT) 12/11/22 18:09 Human Metapneumovir PCR Not detected (NOT DETECT) 12/11/22 18:09 Influenza A (H1) PCR Not detected (NOT DETECT) 12/11/22 18:09 Influenza A (H3) PCR Not detected (NOT DETECT) 12/11/22 18:09 Influenza Type A (PCR) Not detected (NOT DETECT) 12/11/22 18:09 Influenza Type B (PCR) Not detected (NOT DETECT) 12/11/22 18:09 M. pneumoniae (PCR) Not detected (NOT DETECT) 12/11/22 18:09 Parainfluenza 1 (PCR) Not detected (NOT DETECT) 12/11/22 18:09 Parainfluenza 2 (PCR) Not detected (NOT DETECT) 12/11/22 18:09 Parainfluenza 3 (PCR) Not detected (NOT DETECT) 12/11/22 18:09 Parainfluenza 4 (PCR) Not detected (NOT DETECT) 12/11/22 18:09 RSV Type A (PCR) Not detected (NOT DETECT) 12/11/22 18:09 RSV Type B (PCR) Not detected (NOT DETECT) 12/11/22 18:09 Entero/Rhino (PCR) Not detected (NOT DETECT) 12/11/22 18:09 SARS-CoV-2 (PCR) Not detected (NOT DETECT) 12/11/22 18:09 SARS-CoV-2 Ag (Rapid) negative (Negative) 12/17/22 10:55 Vitals Last Vital Signs Temp 98.3 F 12/17/22 08:00 Pulse 92 12/17/22 08:00 Resp 16 12/17/22 08:00 BP 166/71 12/17/22 08:00 Pulse Ox 91 12/17/22 08:00 O2 Del Method Nasal Cannula 12/17/22 08:00 O2 Flow Rate 3 12/17/22 07:35 FiO2 40 12/14/22 21:33 Discharge Plan Discharge Patient Disposition: Xfer SNF Condition: Stable Prescriptions: New Eliquis 5 mg Tablet 5 mg PO BID@0900,2100 30 Days Qty: 60 0RF amoxicillin-pot clavulanate 875-125 mg Tablet 1 tab PO BID 3 Days Qty: 6 0RF docusate sodium 100 mg Capsule 100 mg PO BID 30 Days Qty: 60 0RF doxycycline monohydrate 100 mg Tablet 100 mg PO BID 3 Days Qty: 6 0RF Magtab 84 mg Tablet Extended Release 84 mg PO DAILY 30 Days Qty: 30 0RF sucralfate 1 gram Tablet 1 g PO Q12H 30 Days Qty: 60 0RF Novolog FlexPen U-100 Insulin 100 unit/mL (3 mL) insulin pen See Rx Instructions .ROUTE .COMPLEX Qty: 15 0RF Rx Instructions: Inject, subcut, 3 times daily, after meals, based on sliding scale provided Lasix 40 mg tablet 40 mg PO DAILY 30 Days Qty: 30 0RF prednisone 10 mg tablet 10 mg PO DIRECTED Qty: 15 0RF Rx Instructions: 2 tabs for 5 days, 1 tab for 5 days Continued albuterol sulfate [Ventolin HFA] 90 mcg/actuation HFA aerosol inhaler 2 puff INHALATION Q6H PRN (Reason: Shortness Of Breath) aspirin [Adult Aspirin Regimen] 81 mg tablet,delayed release (DR/EC) 81 mg PO DAILY@08 Tradjenta 5 mg tablet 5 mg PO DAILY@08 pravastatin 80 mg tablet 80 mg PO BEDTIME@20 omeprazole 40 mg capsule,delayed release(DR/EC) 40 mg PO DAILY@08 tramadol 50 mg tablet 100 mg PO BID@08,20 fluticasone propionate [Flonase Allergy Relief] 50 mcg/actuation spray,suspension 2 spray INTRANASAL DAILY@08 Rx Instructions: administer into each nostril Combigan 0.2-0.5 % drops 1 drop ophthalmic (eye) BID@08,20 Rx Instructions: right eye calcium carbonate [Calcium 600] 600 mg calcium (1,500 mg) tablet 600 mg PO DAILY@08 travoprost [Travatan Z] 0.004 % drops 1 drop ophthalmic (eye) DAILY@08 Rx Instructions: left eye (DME) Cock Up Splint See Rx Instructions .ROUTE .MEDSUPPLY Qty: 1 0RF Rx Instructions: As directed budesonide-formoterol [Symbicort] 80-4.5 mcg/actuation HFA aerosol inhaler 2 puff inhalation Q12H Qty: 30.6 6RF Rx Instructions: @08:00,20:00 Tylenol 325 mg Tablet 650 mg PO Q6H PRN (Reason: Pain) venlafaxine [Effexor XR] 75 mg Capsule,Extended Release 24hr 75 mg PO DAILY@08 Milk of Magnesia 400 mg/5 mL Suspension 30 ml PO .IF NO BM IN 3 DAYS PRN (Reason: Constipation) Dulcolax (bisacodyl) 10 mg Suppository 10 mg FL DAILY PRN (Reason: if no results from mom) Dulcolax (bisacodyl) 5 mg Tablet,Delayed Release (Dr/Ec) 10 mg PO DAILY PRN (Reason: if no results from mom) mupirocin 2 % Ointment See Rx Instructions .ROUTE .COMPLEX Rx Instructions: as directed cleanse rash to chest with soap and water and apply q shift bid till healed then [facility],000 unit/gram powder 1 applic topical BID@,18 Rx Instructions: apply to skin folds and both breasts potassium chloride 10 mEq Tablet Extended Release 10 meq PO DAILY@08 metformin 500 mg tablet extended release 24 hr 500 mg PO BEDTIME@20 tizanidine 2 mg Capsule 2 mg PO BID PRN (Reason: Muscle Pain) diclofenac sodium 1 % Gel 2 g TOPICAL QID PRN (Reason: Pain) Rx Instructions: apply to single elbow, wrist or hand; for hand includes palm/fingers/back of hand amlodipine 10 mg tablet 10 mg PO DAILY@08 hydralazine 25 mg tablet 25 mg PO TID PRN (Reason: Hypertension) Rx Instructions: >140,>90 ascorbic acid (vitamin C) [Vitamin C] 250 mg Tablet 250 mg PO DAILY@08 Discontinued celecoxib 200 mg capsule 200 mg PO BID@, sulfamethoxazole-trimethoprim 800-160 mg tablet 1 tab PO BID@ Rx Instructions: start date 12/03/22 end date 12/10/22 isosorbide mononitrate 120 mg tablet extended release 24 hr 120 mg PO DAILY@08 valsartan 320 mg tablet 320 mg PO DAILY@08 Eliquis 5 mg tablet 5 mg PO BID@, Discharge Orders: Discharge Order (Routine); Ordered 12/17/22 Ordered By: Guido Monge Referrals: [facility] [Outside] Datar,Jeremias Oviedo MD [Physician] - 2 weeks (MESSAGE SENT 12/17 @4165) Madhu Stern MD [Primary Care Provider] - Joan Pagan MD [Physician] - 7-10 days (SENT MESSAGE 12/17 @ 2221) Discharge Diet: Cardiac Discharge Activity: Resume usual activity Patient Instructions: Furosemide (By mouth), Doxycycline (By mouth), Prednisone (By mouth), Amoxicillin/Clavulanate Potassium (By mouth), Apixaban (By mouth), Opioid Safety Activity Restrictions/Additional Instructions: - If you have any shortness of breath please go to the emergency room -For your pneumonia please complete all antibiotics -For your atrial fibrillation take Eliquis 5 mg twice daily as prescribed, take metoprolol as prescribed -For your CHF, take Lasix 40 mg daily, with potassium, have the pen[facility] recheck your serum sodiums and your kidney function on Thursday -For your mediastinal mass, please follow-up with Dr. Cloud, please follow with Dr. Foster -Please monitor blood sugars closely -Please monitor your blood sugars closely -Monitor your blood sugars 3 times daily as after meals -Please record your blood sugars, and a blood sugar log -For your NovoLog -Please inject blood sugar after meals based on sliding scale provided -Do not inject insulin if you do not eat as hypoglycemia kills -This is a NovoLog sliding scale -Insulin sliding ?fingerstick? Insulin ?141-180?0 units/sq 181-220?2 units/sq ?221-260?4 units/sq ?261-300 6 units/sq ?301-350?8 units/sq ?351-400 10 units/sq ?401-450?12 units/sq >450? 14units/sq -If your blood sugar is greater than 500 go to the emergency room -If your blood sugar is less than 60 or at anytime you feel lightheaded or dizzy or diaphoretic or have chest palpitations check your blood sugar, and eat a hard candy or drink orange juice and go immediately to the emergency room -Remember hypoglycemia kills, so if his blood sugar is less than 60 we have to increase it by taking in a sugary meal such as a hard candy or orange juice and go to the emergency room -If you have any questions please call us where here to help Discharge Attestations Time Spent in Discharge Care*: greater than 30 min Quality Metrics Clinical Quality Measures [ No reported AMI, CVA or VTE this stay] Coding Level of Care Code 91421 Total time (in minutes) for Discharge: 60 Diagnoses Acute respiratory failure with hypoxia J96.01 CHF (congestive heart failure) I50.9 Hyperkalemia E87.5 Asthma J45.909 Anemia D64.9 HTN (hypertension) I10 Type 2 diabetes mellitus E11.9 Pneumonia J18.9 Laterality: bilateral Lung location: unspecified part of lung Pneumonia type: due to unspecified organism Acute anemia D64.9 Atrial fibrillation I48.91 COPD (chronic obstructive pulmonary disease) J44.9 Obesity hypoventilation syndrome E66.2 Morbid obesity E66.01 Chronic respiratory failure with hypoxia J96.11 Multifocal pneumonia J18.9 GI bleed K92.2 Mediastinal mass J98.59 Acute respiratory distress syndrome J80
--- NOTE | 2022-12-17 14:10 | PC.NURSE ---
PICC line removed. Patient tolerated well. Patient is up to chair. All belongings are gathered up. Report called to Cheri at [facility]. All questions answered. [facility] is sending transport to get patient. Will continue to monitor.
== END 2022-12-17 14:42 | disposition skilled nursing facility (03) | DRG 193 ==
LOC: ER 15:14 → ICU 21:40 → MEDSURG 12-14 17:35
PROVIDERS: Admitting Provider Internal Medicine; Emergency Provider Emergency Medicine; PCP Family Medicine; Visit Provider Family Medicine
DX: J18.9 Pneumonia, unspecified organism (principal); I50.33 Acute on chronic diastolic (congestive) heart failure; J80 Acute respiratory distress syndrome; J44.0 Chronic obstructive pulmonary disease with (acute) lower respiratory infection; J45.901 Unspecified asthma with (acute) exacerbation; E66.2 Morbid (severe) obesity with alveolar hypoventilation; Z68.43 Body mass index [BMI] 50.0-59.9, adult; I11.0 Hypertensive heart disease with heart failure; I48.91 Unspecified atrial fibrillation; Z79.51 Long term (current) use of inhaled steroids; Z79.82 Long term (current) use of aspirin; Z79.891 Long term (current) use of opiate analgesic; R93.89 Abnormal findings on diagnostic imaging of other specified body structures; I25.10 Atherosclerotic heart disease of native coronary artery without angina pectoris; Z95.5 Presence of coronary angioplasty implant and graft; K21.9 Gastro-esophageal reflux disease without esophagitis; H40.9 Unspecified glaucoma; E78.5 Hyperlipidemia, unspecified; R19.5 Other fecal abnormalities; Z66 Do not resuscitate; D50.9 Iron deficiency anemia, unspecified; E87.5 Hyperkalemia; E11.9 Type 2 diabetes mellitus without complications
CPT/HCPCS: 36415; 36416; 36573; 36592; 36600; 51702; 71045; 71260; 80048; 80051; 80053; 80202; 81001; 82274; 82330; 82728; 82805; 82962; 83540; 83605; 83735; 83880; 84100; 84145; 84443; 84484; 85014; 85018; 85025; 85610; 85730; 86140; 87040; 87070; 87426; 87486; 87581; 87633; 87641; 92526; 92610; 93005; 94640; 94660; 96365; 96367; 96372; 96375; 96376; 97110; 97116; 97161; 97165; 97530; 97535; 99291; 99292; C1751; C9113; J0610; J1644; J1650; J1815; J1940; J2543; J3370; J3475; J3490; J7512; J7626; Q9967

== ENCOUNTER 2023-03-05 15:44 | Observation (INO) | payer MEDICARE, SELFPAY ==
[2023-03-05] VITALS (7 sets, daily range): BP systolic 94–126; BP diastolic 56–77; PULSE 66–110; RESP 16–18; TEMP 36.9–37.3; O2SAT 94–98; BMI 56.0
--- NOTE | 2023-03-05 15:45 | ECG_ITS ---
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 [id number]
--- NOTE | 2023-03-05 15:58 | ED_ITS ---
HPI - General Adult General: Chief complaint: GI Bleed Stated complaint: possible gi bleed Time Seen by Provider: 03/05/23 15:44 Source: patient Mode of arrival: ambulatory History of Present Illness: 83-year-old female presents emergency room from [facility]. She is confused and disoriented. Report via EMS and phone call from nursing staff was that she had increasing confusion she has been hallucinating some they have been concerned for a couple of weeks that she is having a GI bleed but evidently has not been able to get a stool for occult blood. She denies chest or abdominal pain but does seem somewhat tender when I palpated her abdomen on exam. Onset (ago): minute(s) Location: head Review of Systems General: Reports: ROS unobtainable due to mental status PFSH ED PFSH: Medical History Acute anemia Acute respiratory failure with hypoxia JACQUES (acute kidney injury) Asthma Asthma Bradycardia CAD (coronary artery disease) Cardiomegaly Cataracts, bilateral CHF (congestive heart failure) Dizziness GERD (gastroesophageal reflux disease) Glaucoma Goiter HTN (hypertension) Hyperlipidemia Hypoxia Mediastinal mass Morbid obesity Multifocal pneumonia Obesity Obesity hypoventilation syndrome PAULA (obstructive sleep apnea) Rhinosinusitis Type 2 diabetes mellitus Surgical History H/O dilation and curettage H/O rotator cuff surgery H/O shoulder surgery History of cholecystectomy History of hip replacement, total History of hysterectomy History of knee replacement Hx of cataract surgery Hx of tonsillectomy Stented coronary artery Family History Father Myocardial infarction Mother Diabetes Social History Smoking and tobacco/nicotine status: never used tobacco/nicotine Second hand smoke exposure: Yes Alcohol intake: never Substance/Drug Use: never Lives independently: Yes Household members: family Marital status: Current occupational status: retired and disabled Do you think of yourself as: Straight/Heterosexual Current gender identity: Female Physical Exam Const: GENERAL APPEARANCE: cooperative and comfortable HENMT: COMMON NORMALS: normocephalic, atraumatic and hearing grossly normal bilaterally HEAD & SCALP: normocephalic and atraumatic Resp: COMMON NORMALS: normal respiratory effort, No retractions, No use of accessory muscles and clear to auscultation bilaterally AUSCULTATION: clear to auscultation bilaterally Cardio: COMMON NORMALS: regular rate, regular rhythm and No murmurs present (Cardio) RATE: regular rate RHYTHM: regular rhythm GI: COMMON NORMALS: No hepatosplenomegaly present AUSCULTATION: Yes normoactive bowel sounds PALPATION: Yes Tenderness to palpation present (GI) ( diffuse), No Guarding due to palpation present (GI) and Yes No hepatosplenomegaly present Extremity: COMMON NORMALS: normal to inspection, capillary refill normal, no clubbing, cyanosis or edema, no calf tenderness and no pedal edema Skin: COMMON NORMALS: no rashes or lesions noted GENERAL SKIN EXAM: no rashes or lesions noted Course Vital Signs: Vital signs: Vital Signs Temperature 99.1 F 03/07/23 11:24 Pulse Rate 88 03/07/23 11:24 Respiratory Rate 16 03/07/23 11:24 Blood Pressure 106/65 03/07/23 11:24 Pulse Oximetry 96 03/07/23 11:24 Oxygen Delivery Me thod Nasal Cannula 03/07/23 11:24 Oxygen Flow Rate 3 03/07/23 08:31 MDM - General Adult Medical Decision Making Altered mental status with GI bleed heme positive stools. Patient is on anticoagulant for atrial fibrillation she does have tender abdomen CT shows pancreatitis. Will admit discussed with hospitalist orders written Medical Records I reviewed the patient's medical records. Lab Data I reviewed the patient's lab results. 03/07/23 05:39 03/07/23 05:39 Radiology Impressions Abdomen/Pelvis CT 03/05/23 16:06 IMPRESSION: 1. Findings worrisome for pancreatitis. Please correlate clinically. 2. Bilateral hydronephrosis, likely due to over distended urinary bladder. 3. Other non urgent findings as described above. Head CT 03/05/23 16:06 IMPRESSION: 1. No acute intracranial abnormality. 2. Right mastoid effusion. 3. Multifocal sinusitis. Chest X-Ray 03/05/23 17:31 IMPRESSION: No acute findings. Laboratory Results WBC 20.66 10^3/uL (3.29-11.43) H 03/05/23 15:38 RBC 4.60 10^6/uL (3.85-5.65) 03/05/23 15:38 Hgb 9.80 g/dL (11.27-16.99) L 03/05/23 15:38 Hct 33.6 % (36-47) L 03/05/23 15:38 MCV 73.0 fl (85-98) L 03/05/23 15:38 MCH 21.3 pg (27-33) L 03/05/23 15:38 MCHC 29.2 g/dL (30-55) L 03/05/23 15:38 RDW 17.9 % (12.1-15.1) H 03/05/23 15:38 Plt Count 485 10^3/cmm (157-399) H 03/05/23 15:38 MPV 10.1 fL (7.4-10.4) 03/05/23 15:38 Neut % (Auto) 85.2 % 03/05/23 15:38 Lymph % (Auto) 7.0 % 03/05/23 15:38 [place] % (Auto) 6.4 % 03/05/23 15:38 Eos % (Auto) 0.4 % 03/05/23 15:38 Baso % (Auto) 0.4 % 03/05/23 15:38 Neut # (Auto) 17.61 10^3/uL (1.8-7.7) H 03/05/23 15:38 Lymph # (Auto) 1.4 10^3/uL (0.8-4.8) 03/05/23 15:38 [place] # (Auto) 1.3 10^3/uL (0.2-0.9) H 03/05/23 15:38 Eos # (Auto) 0.1 10^3/uL (0.0-0.8) 03/05/23 15:38 Baso # (Auto) 0.1 10^3/uL (0.0-0.1) 03/05/23 15:38 Nucleated RBC % (auto) 0 % 03/05/23 15:38 Nucleated RBCs # 0.0 /100WBC 03/05/23 15:38 PT 20.70 SECONDS (12.1-14.9) H 03/05/23 15:38 INR 1.71 (0.8-1.2) H 03/05/23 15:38 APTT 37.0 SECONDS (23.9-36.7) H 03/05/23 15:38 Sodium 129 mmol/L (136-145) L 03/05/23 15:38 Potassium 4.7 mmol/L (3.5-5.1) 03/05/23 15:38 Chloride 89 mmol/L (98-107) L 03/05/23 15:38 Carbon Dioxide 25 mmol/L (22-29) 03/05/23 15:38 Anion Gap 19.7 (5-19) H 03/05/23 15:38 BUN 19 mg/dL (8-23) 03/05/23 15:38 Creatinine 0.9 mg/dL (0.5-0.9) 03/05/23 15:38 GFR Calculation Not Reportable 03/05/23 15:38 Glucose 170 mg/dL (65-115) H 03/05/23 15:38 Calculated Osmolality 274 mOsm/kg (285-295) L 03/05/23 15:38 Calcium 9.2 mg/dL (8.5-10.5) 03/05/23 15:38 Iron 22 ug/dL (37-145) L 03/05/23 15:38 TIBC 336 mcg/dl 03/05/23 15:38 % Saturation 6.5 % (20-50) L 03/05/23 15:38 Unsat Iron Binding 314 ug/dL (112-347) 03/05/23 15:38 Total Bilirubin 0.9 mg/dL (0.15-1.2) 03/05/23 15:38 AST 14 U/L (0-32) 03/05/23 15:38 ALT 11 U/L (0-33) 03/05/23 15:38 Alkaline Phosphatase 133 U/L (35-105) H 03/05/23 15:38 Total Protein 7.6 g/dL (6.6-8.7) 03/05/23 15:38 Albumin 3.7 g/dL (3.5-5.2) 03/05/23 15:38 Globulin 3.9 g/dL (1.3-4.6) 03/05/23 15:38 Triglycerides 89 mg/dL (0-150) 03/05/23 15:38 Triglycerides Cancelled 03/05/23 15:38 Lipase 14 U/L (13-60) 03/05/23 15:38 Urine Color Yellow (Yellow) 03/05/23 16:56 Urine Appearance Cloudy (CLEAR) A 03/05/23 16:56 Urine pH 5 (5-7) 03/05/23 16:56 Ur Specific [place] 1.015 (1.005-1.030) 03/05/23 16:56 Urine Protein Neg (Negative) 03/05/23 16:56 Urine Glucose (UA) Norm (Normal) 03/05/23 16:56 Urine Ketones Negative (Negative) 03/05/23 16:56 Urine Blood 3+ (Negative) H 03/05/23 16:56 Urine Nitrate Negative (Negative) 03/05/23 16:56 Urine Bilirubin Neg (Negative) 03/05/23 16:56 Urine Urobilinogen Norm mg/dL (Negative) 03/05/23 16:56 Ur Leukocyte Esterase Negative (Negative) 03/05/23 16:56 Urine RBC 40-50 /hpf (0-2) H 03/05/23 16:56 Urine WBC 0-4 /hpf (0-5) H 03/05/23 16:56 Ur Squamous Epith Cells 0-4 /hpf (0-5) H 03/05/23 16:56 Amorphous Sediment Trace /hpf 03/05/23 16:56 Urine Bacteria Trace /hpf (NONE) 03/05/23 16:56 Hyaline Casts 0-4 /lpf H 03/05/23 16:56 Urine Mucus 1+ /hpf 03/05/23 16:56 All radiology interpretation(s) finalized by discharge Discharge Plan Discharge Patient Disposition: Admitted As Inpatient Admit Provider: Joaquin Avila Clinical Impression: GI bleed, Pancreatitis, Altered mental state Condition: Stable Discharge Diet: Advance as tolerated and Usual diet Discharge Activity: Resume usual activity and Increase activity as tolerated Coding Level of Care Code 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
[2023-03-05 16:04] LABS: Basophils # 0.1 10^3/uL (0.0-0.1); Basophils % 0.4 %; Eosinophils # 0.1 10^3/uL (0.0-0.8); Eosinophils % 0.4 %; Hematocrit 33.6 % (36-47); Lymphocytes # 1.4 10^3/uL (0.8-4.8); Mean Corpuscular HGB Conc 29.2 g/dL (30-55); Mean Corpuscular Hemoglobin 21.3 pg (27-33); Mean Platelet Volume 10.1 fL (7.4-10.4); Monocytes # 1.3 10^3/uL (0.2-0.9); Monocytes % 6.4 %; Neutrophils # 17.61 10^3/uL (1.8-7.7); Neutrophils % 85.2 %; Nucleated Red Blood Cells % 0 %; Platelet Count 485 10^3/cmm (157-399); Red Cell Distribution Width 17.9 % (12.1-15.1); White Blood Count 20.66 10^3/uL (3.29-11.43)
--- NOTE | 2023-03-05 16:06 | CTR_ITS ---
PROCEDURE INFORMATION: Exam: CT Abdomen And Pelvis Without Contrast Exam date and time: 03/05/2023 4:36 PM Age: 83 years old Clinical indication: Abdominal pain; Generalized; Prior surgery; Surgery date: 6+ months; Surgery type: Bilat hips, ghole, hyst TECHNIQUE: Imaging protocol: Computed tomography of the abdomen and pelvis without contrast. Radiation optimization: All CT scans at this facility use at least one of these dose optimization techniques: automated exposure control; mA and/or kV adjustment per patient size (includes targeted exams where dose is matched to clinical indication); or iterative reconstruction. REPORTING DATA: Count of CT and Cardiac NM exams in prior 12 months: This patient has received 3 known CTs and 0 known cardiac nuclear medicine studies in the 12 months prior to the current study. COMPARISON: CR XR pelvis 1-2V* [id number] 11/20/2021 7:50 PM RADIATION DOSE METRICS: Total DLP (mGy-cm): 971 FINDINGS: Limitations: Study somewhat limited due to streak artifact created by the patient being scanned with the arms at the sides. The absence of intravenous contrast lessens the sensitivity of this study for solid organ abnormalities. Lungs: There is a calcified granuloma in the left lower lobe. There is mild dependent atelectasis at the lung bases. Coronary arteries: There is moderate atherosclerotic calcification of the coronary arteries. Liver: There is no focal abnormality within the liver. Gallbladder and bile ducts: There has been a cholecystectomy. Common bile duct is dilated to 10 mm but this is not unusual in a patient of this age post cholecystectomy. Pancreas: There is some edema and haziness involving the head and neck of the pancreas which is worrisome for focal acute pancreatitis. Please correlate with appropriate clinical and laboratory findings. Spleen: The spleen demonstrates punctate calcifications, consistent with remote granulomatous organism exposure. Adrenal glands: The adrenal glands are normal. Kidneys and ureters: There is mild bilateral hydronephrosis and hydroureter. There is a 23 x 33 mm sized benign-appearing simple cyst arising from the posterior aspect of the mid left kidney. There is a 12 mm sized benign-appearing cortical cyst arising from the anterior mid kidney. There are other smaller cortical hypodensities and hyperdensities which likely represent benign simple cysts but are too small to definitively characterize by CT scanning. There is a focal nonspecific calcification mid left kidney cortex of uncertain significance. There is no evidence of renal or ureteral calcifications. Stomach and bowel: Moderate diverticulosis is present in the distal colon. There is no evidence of colitis/diverticulitis. There is no evidence of intestinal obstruction. Small duodenal diverticulum is noted from the 2nd part of the duodenum. Appendix: Not identified Intraperitoneal space: There is no evidence of free intraperitoneal fluid. Vasculature: The aorta demonstrates moderate atherosclerotic calcification. There is no evidence of an abdominal aortic aneurysm. Lymph nodes: There are small periaortic lymph nodes but no adenopathy. Urinary bladder: Urinary bladder is markedly dilated with a volume of approximately 850 cc. Reproductive: There has been a hysterectomy. Bones/joints: There are bilateral hip replacements. The prosthetic components are in anatomic alignment. The metallic prostheses cause significant streak artifact that obscures some parts of the pelvis. The lumbar spine demonstrates marked degenerative changes at multiple levels. There is lumbar scoliosis concave to the right. There is no evidence of acute fracture. Soft tissues: Unremarkable. CT/CT abdomen pelvis wo con [id number] IMPRESSION: 1. Findings worrisome for pancreatitis. Please correlate clinically. 2. Bilateral hydronephrosis, likely due to over distended urinary bladder. 3. Other non urgent findings as described above.
--- NOTE | 2023-03-05 16:06 | CTR_ITS ---
PROCEDURE INFORMATION: Exam: CT Head Without Contrast Exam date and time: 03/05/2023 4:33 PM Age: 83 years old Clinical indication: Altered mental status/memory loss TECHNIQUE: Imaging protocol: Computed tomography of the head without contrast. Radiation optimization: All CT scans at this facility use at least one of these dose optimization techniques: automated exposure control; mA and/or kV adjustment per patient size (includes targeted exams where dose is matched to clinical indication); or iterative reconstruction. REPORTING DATA: Count of CT and Cardiac NM exams in prior 12 months: This patient has received 3 known CTs and 0 known cardiac nuclear medicine studies in the 12 months prior to the current study. COMPARISON: MR head wo con* [id number] 04/28/2022 2:01 PM RADIATION DOSE METRICS: Total DLP (mGy-cm): 1132 FINDINGS: Brain: No hemorrhage. No edema. Mild diffuse cerebral atrophy and sequela of chronic small vessel ischemic disease. No mass effect. Cerebral ventricles: No ventriculomegaly. Paranasal sinuses: Partially fluid-filled left ethmoid and maxillary sinuses with mucosal thickening. Mastoid air cells: Right mastoid effusion. Bones/joints: Unremarkable. No acute fracture. Soft tissues: Unremarkable. CT/CT head wo con* [id number] IMPRESSION: 1. No acute intracranial abnormality. 2. Right mastoid effusion. 3. Multifocal sinusitis.
[2023-03-05 16:22] LABS: Alanine Aminotransferase 11 U/L (0-33); Albumin Level 3.7 g/dL (3.5-5.2); Alkaline Phosphatase 133 U/L (35-105); Anion Gap 19.7 (5-19); Aspartate Amino Transferase 14 U/L (0-32); Blood Urea Nitrogen 19 mg/dL (8-23); Calcium 9.2 mg/dL (8.5-10.5); Carbon Dioxide 25 mmol/L (22-29); Chloride 89 mmol/L (98-107); Globulin 3.9 g/dL (1.3-4.6); Glucose 170 mg/dL (65-115); Osmolality Calculated 274 mOsm/kg (285-295); Potassium 4.7 mmol/L (3.5-5.1); Sodium 129 mmol/L (136-145); Total Bilirubin 0.9 mg/dL (0.15-1.2); Total Protein 7.6 g/dL (6.6-8.7)
[2023-03-05 16:31] LABS: INR 1.71 (0.8-1.2)
[2023-03-05] MEDS: sodium chloride 0.9% 1,000 ML 999 ML IV (16:45)
--- NOTE | 2023-03-05 17:09 | PC.NURSE ---
Hemacrit collected and read by Dr. Pastor. Patient also gave urine sample. Patient cleaned and new brief put pn. //CS SPN
--- NOTE | 2023-03-05 17:26 | P.HP_ITS ---
Providers/Chief Complaint Admitting Physician: Joaquin Avila MD Primary Care Provider: Madhu Stern MD Chief Complaint: possible gi bleed History of Present Illness Florencia Bradley is a 83 year old female with a past medical history significant for atrial fibrillation on apixaban, coronary artery disease on aspirin, GERD on PPI, glaucoma, hypertension, hyperlipidemia, type 2 diabetes mellitus, and obstructive sleep apnea who presents from nursing facility with altered mental status and concerns for GI bleed per report. Upon assessment, patient is found to be a poor historian. She is awake and alert. She is not sure why she is at the hospital. She does endorse epigastric pain. Rates it 5 out of 10. She is not sure if eating affects it. She is also not sure how long the pain has been present. Her baseline mentation is unclear. She denies nauseas, emesis, fevers or chills. In the ED, patient found to have significant leukocytosis, microcytic anemia, thrombocytosis, hyponatremia, elevated and alkaline phosphatase. Head CT was negative for acute findings. CT abdomen and pelvis showed pancreatitis and bilateral hydronephrosis. Urinary catheter was placed. Review of Systems Narrative: A complete review of systems was obtained and is negative except as stated in HPI. Medications/Allergies Home Medications Medication Instructions Recorded Confirmed Last Taken Type albuterol sulfate 90 mcg/actuation 2 puff inhalation Q6H PRN 09/27/19 03/05/23 10/06/22 History aerosol inhaler (Ventolin HFA) Shortness Of Breath aspirin 81 mg tablet,delayed 81 mg PO DAILY@09/27/19 03/05/23 03/05/23 History release (Adult Aspirin Regimen) brimonidine 0.2 %-timolol 0.5 % 1 drop ophthalmic (eye) BID@09/27/19 03/05/23 03/05/23 History eye drops (Combigan) calcium carbonate 600 mg calcium 600 mg PO DAILY@09/27/19 03/05/23 03/05/23 History (1,500 mg) tablet (Calcium) fluticasone propionate 50 2 spray intranasal DAILY@09/27/19 03/05/23 03/05/23 History mcg/actuation nasal spray,suspension (Flonase Allergy Relief) linagliptin 5 mg tablet (Tradjenta) 5 mg PO DAILY@09/27/19 03/05/23 03/05/23 History omeprazole 40 mg capsule,delayed 40 mg PO DAILY@09/27/19 03/05/23 03/05/23 History release pravastatin 80 mg tablet 80 mg PO BEDTIME@09/27/19 03/05/23 03/04/23 History tramadol 50 mg tablet 100 mg PO BID@09/27/19 03/05/23 03/05/23 History travoprost 0.004 % eye drops 1 drop ophthalmic (eye) DAILY@09/27/19 03/05/23 03/05/23 History (Travatan Z) diclofenac sodium 1 % topical gel 2 g topical QID PRN Pain 04/27/22 03/05/23 10/06/22 History metformin 500 mg tablet,extended 500 mg PO BEDTIME@04/27/22 03/05/23 03/04/23 History release 24 hr tizanidine 2 mg capsule 2 mg PO BID PRN Muscle Pain 04/27/22 03/05/23 03/05/23 History budesonide-formoterol HFA 80 2 puff inhalation Q12H #30.6 ea 06/02/22 03/05/23 03/05/23 Rx mcg-4.5 mcg/actuation aerosol inhaler (Symbicort) ascorbic acid (vitamin C) 250 mg 250 mg PO DAILY@10/06/22 03/05/23 03/05/23 History tablet (Vitamin C) acetaminophen 325 mg tablet 650 mg PO Q6H PRN Pain 12/09/22 03/05/23 Unknown History (Tylenol) bisacodyl 10 mg rectal suppository 10 mg TX DAILY PRN if no results 12/09/22 03/05/23 Unknown History (Dulcolax (bisacodyl)) from mom bisacodyl 5 mg tablet,delayed 10 mg PO DAILY PRN if no results 12/09/22 03/05/23 Unknown History release (Dulcolax (bisacodyl)) from mom magnesium hydroxide 400 mg/5 mL 30 ml PO .IF NO BM IN 3 DAYS PRN 12/09/22 03/05/23 Unknown History oral suspension (Milk of Magnesia) Constipation mupirocin 2 % topical ointment See Rx Instructions .Route .COMPLEX 12/09/22 03/05/23 Unknown History nystatin 100,000 unit/gram topical 1 applic topical BID@12/09/22 03/05/23 03/05/23 History powder ([facility]) venlafaxine 75 mg capsule,extended 75 mg PO DAILY@08 12/09/22 03/05/23 03/05/23 History release 24 hr (Effexor XR) apixaban 5 mg tablet (Eliquis) 5 mg PO BID 03/05/23 03/05/23 03/05/23 History furosemide 80 mg tablet 80 mg PO DAILY 03/05/23 03/05/23 03/05/23 History spironolactone 100 mg tablet 100 mg PO DAILY 03/05/23 03/05/23 03/05/23 History Allergies Allergy/AdvReac Type Severity Reaction Status Date / Time No Known Allergies Allergy Verified 03/05/23 15:56 PFSH Acute PFSH: Medical History Acute anemia Acute respiratory failure with hypoxia JACQUES (acute kidney injury) Asthma Asthma Bradycardia CAD (coronary artery disease) Cardiomegaly Cataracts, bilateral CHF (congestive heart failure) Dizziness GERD (gastroesophageal reflux disease) Glaucoma Goiter HTN (hypertension) Hyperlipidemia Hypoxia Mediastinal mass Morbid obesity Multifocal pneumonia Obesity Obesity hypoventilation syndrome PAULA (obstructive sleep apnea) Rhinosinusitis Type 2 diabetes mellitus Surgical History H/O dilation and curettage H/O rotator cuff surgery H/O shoulder surgery History of cholecystectomy History of hip replacement, total History of hysterectomy History of knee replacement Hx of cataract surgery Hx of tonsillectomy Stented coronary artery Family History Father Myocardial infarction Mother Diabetes Social History Smoking and tobacco/nicotine status: never used tobacco/nicotine Second hand smoke exposure: Yes Alcohol intake: never Substance/Drug Use: never Lives independently: Yes Household members: family Marital status: Current occupational status: retired and disabled Do you think of yourself as: Straight/Heterosexual Current gender identity: Female Vitals/I&O/Wt Last Vital Signs Temp 99.1 F 03/05/23 15:49 Pulse 110 H 03/05/23 15:49 Resp 18 03/05/23 15:49 BP 94/73 03/05/23 15:49 Pulse Ox 94 03/05/23 15:49 O2 Del Method Nasal Cannula 03/05/23 15:49 O2 Flow Rate 2 03/05/23 15:49 Weight last 48 hrs Weight 113.398 kg Physical Exam Narrative: General: Patient is awake and alert. Not oriented to situation. Head: Normocephalic. Atraumatic. EOM intact. Neck: No JVD. Cardiovascular: RRR. No gallops. No murmurs. No peripheral edema. Lungs: Breath sounds diminshed in bilateral bases, no use of accessory muscles, no crackles or wheezes. Skin: No jaundice. No rashes. Abdomen: Normal bowel sounds. Epigastric tenderness is present. No guarding. Extremities: No cyanosis or clubbing. Musculoskeletal: No erythematous joints. Neurological: Moves all 4 extremities. No myoclonus. Data 03/05/23 15:38 03/05/23 15:38 A&P Assessment and plan (1) Altered mental status: Patient is awake and alert, not completely oriented No focal neurological deficit to suggest a stroke Head CT reviewed, sinus disease noted Will need to clarify her baseline mental status Avoid sedating medications Home tramadol dose decreased (2) Microcytic anemia: Concern for chronic GI loss given microcytic MCV Check iron stores Trend hemoglobin Start Protonix (3) Pancreatitis: Epigastric pain with radiographic evidence c/w with diagnosis of pancreatitis Lipase is pending TG level pending Medication list reviewed, she is on linagliptin, a known culprit for acute/chronic pancreatitis Pain control IV fluids Clear liquid diet, advance as tolerated (4) Type 2 diabetes mellitus: Hold oral medications SSI Avoid hypoglycemia (5) Atrial fibrillation: Hold apixaban due to concern for GI bleed (6) Chronic respiratory failure with hypoxia: Continue supplemental oxygen support (7) HTN (hypertension): Hold diuretics for now (8) COPD (chronic obstructive pulmonary disease): Not in acute exacerbation (9) Hydronephrosis: Bilateral Status post urinary catheter Plan DVT ppx: SCD Code: Full Attestations Medical Necessity Statement*: Patient presents with altered mental status with concerns for GI bleeding found to have pancreatitis with expected hospitalization not to cross two midnights. Coding Level of Care Code Acute Code for Chg Fwd Diagnoses Altered mental status R41.82 Microcytic anemia D50.9 Pancreatitis K85.90 Type 2 diabetes mellitus E11.9 Atrial fibrillation I48.91 Chronic respiratory failure with hypoxia J96.11 HTN (hypertension) I10 COPD (chronic obstructive pulmonary disease) J44.9 Hydronephrosis N13.30
--- NOTE | 2023-03-05 17:31 | XRR_ITS ---
PROCEDURE INFORMATION: Exam: XR Chest Exam date and time: 03/05/2023 5:56 PM Age: 83 years old Clinical indication: Shortness of breath; Additional info: Dyspnea/cough TECHNIQUE: Imaging protocol: Radiologic exam of the chest. Views: 1 view. COMPARISON: CR XR chest 1V portable [id number] 12/12/2022 8:41 AM FINDINGS: Lungs: Unremarkable. No consolidation. Pleural spaces: Unremarkable. No pleural effusion. No pneumothorax. Heart/Mediastinum: Unremarkable. No cardiomegaly. Bones/joints: Unremarkable. There are degenerative changes in both shoulders and postsurgical changes in the left shoulder. There is some mild subsegmental atelectasis in the left lung base. Pulmonary infiltrates are improved compared with 12/12/2022. XR/XR chest 1V portable [id number] IMPRESSION: No acute findings.
[2023-03-05 17:47] LABS: Lipase 14 U/L (13-60); Triglycerides 89 mg/dL (0-150)
[2023-03-05 17:50] LABS: Add Urine Microscopic? YES; Bilirubin Urine Neg (Negative); Blood Urine 3+ (Negative); Glucose Urine UA Norm (Normal); Ketones Urine Negative (Negative); Leukocyte Esterase Urine Negative (Negative); Nitrate Urine Negative (Negative); Protein Urine Neg (Negative); Specific Gravity, Urine 1.015 (1.005-1.030); Urine Appearance Cloudy (CLEAR); Urine Color Yellow (Yellow); Urobilinogen Urine Norm (Negative); pH Urine 5 (5-7)
[2023-03-05 17:55] LABS: RBC Urine 40-50 /hpf (0-2)
[2023-03-05 17:57] LABS: Amorphous Sediment Urine TRACE /hpf; Bacteria Urine TRACE /hpf; Hyaline Casts Urine 0-4 /lpf; Mucus Urine 1+ /hpf; Squamous Epithelial Cell Urine 0-4 /hpf (0-5); WBC Urine 0-4 /hpf (0-5)
[2023-03-05 17:58] LABS: Add Urine Culture? Yes
[2023-03-05 18:54] LABS: Iron 22 ug/dL (37-145); Percent Saturation 6.5 % (20-50); Total Iron Binding Capacity 336 mcg/dl; Unsaturated Iron Binding 314 ug/dL (112-347)
[2023-03-05 21:02] LABS: Ferritin 133 ng/mL (15-150); Iron 19 ug/dL (37-145); Percent Saturation 6.2 % (20-50); Total Iron Binding Capacity 302 mcg/dl; Unsaturated Iron Binding 283 ug/dL (112-347)
[2023-03-05 21:07] LABS: Procalcitonin 0.09 ng/mL (0-0.5)
[2023-03-05 21:41] LABS: Glucose Point of Care 138 mg/dL (70-110)
[2023-03-05] MEDS: sodium chloride 0.9% 1,000 ML 100 ML IV (21:47)
[2023-03-06] VITALS (11 sets, daily range): BP systolic 101–140; BP diastolic 56–80; PULSE 79–119; RESP 16–18; TEMP 36.4–37; O2SAT 92–100
--- NOTE | 2023-03-06 03:49 | PC.NURSE ---
Patient is beginning to have fine crackles throughout her lung sounds . Dr. Myers notified and iv fluids stopped.
[2023-03-06 06:36] LABS: Glucose Point of Care 118 mg/dL (70-110)
[2023-03-06 07:18] LABS: Alanine Aminotransferase 7 U/L (0-33); Alkaline Phosphatase 103 U/L (35-105); Anion Gap 20.4 (5-19); Aspartate Amino Transferase 14 U/L (0-32); Blood Urea Nitrogen 22 mg/dL (8-23); Calcium 8.6 mg/dL (8.5-10.5); Carbon Dioxide 21 mmol/L (22-29); Chloride 98 mmol/L (98-107); Globulin 2.6 g/dL (1.3-4.6); Glucose 103 mg/dL (65-115); Magnesium 1.4 mg/dL (1.7-2.3); Osmolality Calculated 284 mOsm/kg (285-295); Phosphorus 4.2 mg/dL (2.5-4.5); Potassium 4.4 mmol/L (3.5-5.1); Sodium 135 mmol/L (136-145); Total Bilirubin 0.8 mg/dL (0.15-1.2); Total Protein 5.6 g/dL (6.6-8.7)
[2023-03-06 08:42] LABS: Basophils # 0.1 10^3/uL (0.0-0.1); Basophils % 0.5 %; Eosinophils # 0.1 10^3/uL (0.0-0.8); Eosinophils % 0.9 %; Hematocrit 30.1 % (36-47); Lymphocytes # 1.5 10^3/uL (0.8-4.8); Lymphocytes % 10.5 %; Mean Corpuscular HGB Conc 28.2 g/dL (30-55); Mean Corpuscular Hemoglobin 21.7 pg (27-33); Mean Corpuscular Volume 76.8 fl (85-98); Mean Platelet Volume 10.6 fL (7.4-10.4); Monocytes # 1.5 10^3/uL (0.2-0.9); Monocytes % 11.1 %; Neutrophils % 76.3 %; Nucleated Red Blood Cells % 0 %; Platelet Count 356 10^3/cmm (157-399); Red Blood Count 3.92 10^6/uL (3.85-5.65); Red Cell Distribution Width 18.1 % (12.1-15.1); White Blood Count 13.78 10^3/uL (3.29-11.43)
--- NOTE | 2023-03-06 09:13 | PC.CHAP ---
Pastoral Care Encounter/Spiritual Assessment Type of Contact [] Declined combat control visit [] Patient/Family/Request visit [] Outpatient visit [] Follow-up visit [] Physician referral [] Code/Alert [] Routine visit [] Staff referral [] Actively dying [x] Patient sleeping [] Family support [] [] Out of room [] Palliative care [] [] Receiving care in room [] Pre-surgical visit [] Trauma [] Long length of stay [] ICU visit [] Other: Relational/Emotional Strength [] Patient feels connected with others/family/visitors/staff [] Distress [] Loneliness/isolation [] Abandonment Spirituality of Patient [] Person of Fern [] Attends Caodaism of their Fern [] Believes in Prayer [] Reads Bible or Taoism materials [] There are Spiritual issues to be addressed Marketing Services Rep Interventions [] Prayer [] Active listening [] Non-anxious presence [] Spiritual/emotional support [] Crisis/trauma care [] Spiritual counseling [] Bereavement support [] Provided bereavement packet [] Provided Bible/devotional materials [] Provided toy/stuffed animal, coloring book to patient or family member [] Provided Communion [] Anointing/Chariton [] Salvation [] Completed spiritual assessment [] Other: Impact on Illness or Injury [] Angry [] Fearful [] Anxious [] Often cries [] Exhaustion [] Unable to work [] Unable to attend congregational [] Unable to walk/stand [] Unable to read [] Unable to drive [] Unable to eat/drink [] Unable to sleep [] Unable to be with family [] Patient intubated [] Other: Summary Time spent with patient
[2023-03-06] MEDS: venlafaxine ER (24HR) 75 mg Capsule PO (10:06)
[2023-03-06] MEDS: pantoprazole DR 40 mg Tablet PO ×2 (10:07→17:20)
[2023-03-06] MEDS: TRAMadol 50 mg Tablet PO ×2 (10:07→19:43)
[2023-03-06] MEDS: magnesium sulfate premix 2 GM/50 ML PIGGYBACK IV (10:09)
--- NOTE | 2023-03-06 11:32 | P.PN_ITS ---
Subjective Subjective: Patient remains confused. She is not oriented to situation. She denies abdominal pain today but has been NPO thus far. Denies nausea or vomiting. Denies other new complaints. Vitals/I&O/Wt Last Vital Signs Temp 98.0 F 03/06/23 11:21 Pulse 95 03/06/23 11:21 Resp 16 03/06/23 11:21 BP 114/67 03/06/23 11:21 Pulse Ox 94 03/06/23 11:21 O2 Del Method Nasal Cannula 03/06/23 11:21 O2 Flow Rate 2.5 03/06/23 10:24 03/05/23 03/06/23 03/06/23 22:59 06:59 14:59 Intake Total 1000 / 1000 Output Total 950 / 950 300 / 1250 Balance 50 / 50 -300 / -250 Weight last 48 hrs Weight 113.398 kg Physical Exam Narrative: General: Patient is awake and alert. Conversational. Not oriented to situation. Head: Normocephalic. Atraumatic. EOM intact. Neck: No JVD. Cardiovascular: RRR. No gallops. No murmurs. No peripheral edema. Lungs: Breath sounds diminshed in bilateral bases, no use of accessory muscles, no crackles or wheezes. Skin: No jaundice. No rashes. Abdomen: Normal bowel sounds. No significant tenderness. No guarding. Extremities: No cyanosis or clubbing. Musculoskeletal: No erythematous joints. Neurological: Moves all 4 extremities. No myoclonus. Urinary Catheter Management: Ortiz: Cath Placed During This Visit: yes Reason for Continuing Indwelling Catheter: Other Urinary Catheter Date of Insertion: 03/05/23 Urinary Catheter Time of Insertion: 18:37 Data 03/06/23 06:07 03/06/23 06:07 Micro: Microbiology 03/05/23 19:34 Blood Culture - Preliminary Blood SPECIMEN COLLECTED 03/05/23 19:26 Blood Culture - Preliminary Blood SPECIMEN COLLECTED A&P Assessment and plan (1) Altered mental status: Etiology unclear, discussed with CM and will try to obtain further collateral i nformation For now, we will assume her baseline is normally alert and fully oriented which she is not at Still no focal neurological deficit to suggest a stroke Serial exams May need additional imaging pending clinical course (2) Microcytic anemia: All CBC lines dropped, likely partially dilution, but HGB now 8.5 Iron stores are low, will proceed to treat with IV iron Continue PPI treatment Will need to monitor bowel movements (3) Pancreatitis: Lipase level unremarkable Linagliptin on hold Advance to regular diet and monitor for recurrent symptoms (4) Type 2 diabetes mellitus: Hold oral medications SSI Avoid hypoglycemia (5) Atrial fibrillation: Hold apixaban due to concern for GI bleed (6) Chronic respiratory failure with hypoxia: Continue supplemental oxygen support (7) HTN (hypertension): Hold diuretics for now (8) COPD (chronic obstructive pulmonary disease): Not in acute exacerbation (9) Hydronephrosis: Bilateral Status post urinary catheter Plan DVT ppx: SCD Code: Full Attestations Medical Necessity Statement*: Patient requires ongoing hospitalization for IV iron infusion, telemetry monitoring, serial labs, serial neuro exams, and likely further neuro imaging. Coding Level of Care Code Acute Code for Chg Fwd Diagnoses Altered mental status R41.82 Microcytic anemia D50.9 Pancreatitis K85.90 Type 2 diabetes mellitus E11.9 Atrial fibrillation I48.91 Chronic respiratory failure with hypoxia J96.11 HTN (hypertension) I10 COPD (chronic obstructive pulmonary disease) J44.9 Hydronephrosis N13.30
[2023-03-06 11:48] LABS: Glucose Point of Care 115 mg/dL (70-110)
[2023-03-06] MEDS: iron sucrose 20 mg/mL SDV 100 MG IV (12:05)
[2023-03-06 17:05] LABS: Glucose Point of Care 156 mg/dL (70-110)
[2023-03-06] MEDS: insulin lispro 100 unit/1 mL SUBCUT (17:19)
[2023-03-06] MEDS: acetaminophen 325 mg Tablet 650 MG PO (17:20)
[2023-03-06 17:32] LABS: Bacillus cereus group Not Detected (NOT DETECT); Bacillus subtillis group Not Detected (NOT DETECT); Corynebacterium Not Detected (NOT DETECT); Cutibacterium acnes (P.acnes) Not Detected (NOT DETECT); Enterococcus Not Detected (NOT DETECT); Enterococcus faecalis Not Detected (NOT DETECT); Enterococcus faecium Not Detected (NOT DETECT); Lactobacillus species Not Detected (NOT DETECT); Listeria Not Detected (NOT DETECT); Listeria monocytogenes Not Detected (NOT DETECT); Micrococcus Not Detected (NOT DETECT); Pan Candida Not Detected (NOT DETECT); Pan Gram-Negative Not Detected (NOT DETECT); Staphylococcus epidermidis Not Detected (NOT DETECT); Staphylococcus lugdunensis Not Detected (NOT DETECT); Staphylococcus species Detected (NOT DETECT); Streptococcus agalactiae Not Detected (NOT DETECT); Streptococcus anginosus group Not Detected (NOT DETECT); Streptococcus pneumoniae Not Detected (NOT DETECT); Streptococcus pyogenes Not Detected (NOT DETECT); Streptococcus species Not Detected (NOT DETECT); mecA Detected (NOT DETECT); mecC Not Detected (NOT DETECT)
[2023-03-06] MEDS: atorvastatin 40 mg Tablet 20 MG PO (19:43)
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
[2023-03-06 21:24] LABS: Glucose Point of Care 167 mg/dL (70-110)
[2023-03-07 03:41] VITALS: BP 108/65; PULSE 83; RESP 18; TEMP 36.9; O2SAT 100
[2023-03-07 05:51] LABS: Basophils # 0.1 10^3/uL (0.0-0.1); Basophils % 0.4 %; Eosinophils # 0.2 10^3/uL (0.0-0.8); Lymphocytes # 1.6 10^3/uL (0.8-4.8); Lymphocytes % 10.9 %; Mean Corpuscular HGB Conc 28.7 g/dL (30-55); Mean Corpuscular Hemoglobin 21.7 pg (27-33); Mean Corpuscular Volume 75.6 fl (85-98); Mean Platelet Volume 10.1 fL (7.4-10.4); Monocytes # 1.6 10^3/uL (0.2-0.9); Monocytes % 10.8 %; Neutrophils # 11.02 10^3/uL (1.8-7.7); Neutrophils % 76.1 %; Nucleated Red Blood Cells % 0 %; Platelet Count 327 10^3/cmm (157-399); Red Blood Count 3.97 10^6/uL (3.85-5.65); Red Cell Distribution Width 18.5 % (12.1-15.1); White Blood Count 14.47 10^3/uL (3.29-11.43)
[2023-03-07 06:00] VITALS: PULSE 90
[2023-03-07 06:08] LABS: Alanine Aminotransferase 9 U/L (0-33); Albumin Level 2.7 g/dL (3.5-5.2); Alkaline Phosphatase 115 U/L (35-105); Anion Gap 16.4 (5-19); Aspartate Amino Transferase 19 U/L (0-32); Blood Urea Nitrogen 21 mg/dL (8-23); Calcium 8.8 mg/dL (8.5-10.5); Carbon Dioxide 23 mmol/L (22-29); Chloride 96 mmol/L (98-107); Globulin 3.5 g/dL (1.3-4.6); Glucose 131 mg/dL (65-115); Osmolality Calculated 277 mOsm/kg (285-295); Phosphorus 3.6 mg/dL (2.5-4.5); Potassium 4.4 mmol/L (3.5-5.1); Sodium 131 mmol/L (136-145); Total Bilirubin 0.6 mg/dL (0.15-1.2); Total Protein 6.2 g/dL (6.6-8.7)
[2023-03-07 06:40] LABS: Glucose Point of Care 129 mg/dL (70-110)
[2023-03-07 07:24] VITALS: BP 96/59; PULSE 92; RESP 17; TEMP 37.2; O2SAT 97
[2023-03-07 08:31] VITALS: PULSE 92; RESP 18; O2SAT 97
--- NOTE | 2023-03-07 09:36 | PM.DCS ---
Discharge Providers Date of Admission: 03/05/23 17:27 Date of Discharge: March 07, 2023 Attending Provider at Admission: Joaquin Avila MD Attending Provider at Discharge: Joaquin Avila MD Primary Care Provider: Madhu Stern MD Diagnoses at Discharge Discharge Diagnosis (1) Altered mental status: Status: Acute (2) Microcytic anemia: Status: Acute (3) Pancreatitis: Status: Acute (4) Type 2 diabetes mellitus: Status: Acute (5) Atrial fibrillation: Status: Acute (6) Chronic respiratory failure with hypoxia: Status: Acute (7) HTN (hypertension): Status: Acute (8) COPD (chronic obstructive pulmonary disease): Status: Acute (9) Hydronephrosis: Status: Acute Reason for Visit Reason for Visit: possible gi bleed Hospital Course Hospital Course Florencia Bradley is a 83 year old female with a past medical history significant for atrial fibrillation on apixaban, coronary artery disease on aspirin, GERD on PPI, glaucoma, hypertension, hyperlipidemia, type 2 diabetes mellitus, and obstructive sleep apnea who presents from nursing facility with altered mental status and concerns for GI bleed, found to have pancreatitis, bilateral hydronephrosis, and persistent microcytic anemia. Patient treated with PPI, serial labs, and supportive care. Hemoglobin remained stable. Bowel movements were found to be brown without evidence of melena. Patient treated with empiric pantoprazole and referred to general surgery clinic for consideration of colonoscopy. Through shared decision making, apixaban was held until she follows up for consideration of colonoscopy. She understands this increases stroke risk in the setting of atrial fibrillation. Patient was also found to have pancreatitis with epigastric pain and radiographic evidence. Differential included medication induced. Linagliptin was discontinued. Pain resolved. Patient also found to have bilateral hydronephrosis. Ortiz catheter placed in the emergency department. Patient discharged with Ortiz catheter for continued decompression. Patient referred to outside urology for further treatment. Physical Exam Narrative: General: Patient is awake and alert.? Conversational.? Head:? Normocephalic. Atraumatic. EOM intact. Neck: No JVD. Cardiovascular: RRR. No gallops. No murmurs. Lungs: ?No use of accessory muscles, no crackles or wheezes. Skin: No jaundice. No rashes. Abdomen: Normal bowel sounds.? No significant tenderness.? No guarding.? Extremities: No cyanosis or clubbing. Musculoskeletal: No erythematous joints. Neurological: Moves all 4 extremities. No myoclonus. Urinary Catheter Management: Ortiz: Cath Placed During This Visit: yes Reason for Continuing Indwelling Catheter: Chronic Indwelling Urinary Catheter on Admission Urinary Catheter Date of Insertion: 03/05/23 Urinary Catheter Time of Insertion: 18:37 Discharge Data Studies Completed and Pending Completed Studies During Hospitalization Category Date Time Status CT abdomen pelvis wo con [id number] Stat Cat Scan 03/05/23 16:[address] head wo con* [id number] Stat Cat Scan 03/05/23 16:06 Completed XR chest 1V portable [id number] Stat Exams 03/05/23 17:31 Completed Pending at discharge Category Date Time Status Blood Culture Stat Lab 03/05/23 19:34 Results Immunochemical Fecal OCB Stat Lab 03/05/23 15:45 Ordered LAB Peripheral Smear Routine Lab 03/07/23 05:39 Received Urine Culture Stat Lab 03/05/23 16:56 Received Radiology Impressions Abdomen/Pelvis CT 03/05/23 16:06 IMPRESSION: 1. Findings worrisome for pancreatitis. Please correlate clinically. 2. Bilateral hydronephrosis, likely due to over distended urinary bladder. 3. Other non urgent findings as described above. Head CT 03/05/23 16:06 IMPRESSION: 1. No acute intracranial abnormality. 2. Right mastoid effusion. 3. Multifocal sinusitis. Chest X-Ray 03/05/23 17:31 IMPRESSION: No acute findings. Laboratory Results WBC 14.47 10^3/uL (3.29-11.43) H 03/07/23 05:39 RBC 3.97 10^6/uL (3.85-5.65) 03/07/23 05:39 Hgb 8.60 g/dL (11.27-16.99) L 03/07/23 05:39 Hct 30.0 % (36-47) L 03/07/23 05:39 MCV 75.6 fl (85-98) L 03/07/23 05:39 MCH 21.7 pg (27-33) L 03/07/23 05:39 MCHC 28.7 g/dL (30-55) L 03/07/23 05:39 RDW 18.5 % (12.1-15.1) H 03/07/23 05:39 Plt Count 327 10^3/cmm (157-399) 03/07/23 05:39 MPV 10.1 fL (7.4-10.4) 03/07/23 05:39 Neut % (Auto) 76.1 % 03/07/23 05:39 Lymph % (Auto) 10.9 % 03/07/23 05:39 [place] % (Auto) 10.8 % 03/07/23 05:39 Eos % (Auto) 1.0 % 03/07/23 05:39 Baso % (Auto) 0.4 % 03/07/23 05:39 Neut # (Auto) 11.02 10^3/uL (1.8-7.7) H 03/07/23 05:39 Lymph # (Auto) 1.6 10^3/uL (0.8-4.8) 03/07/23 05:39 [place] # (Auto) 1.6 10^3/uL (0.2-0.9) H 03/07/23 05:39 Eos # (Auto) 0.2 10^3/uL (0.0-0.8) 03/07/23 05:39 Baso # (Auto) 0.1 10^3/uL (0.0-0.1) 03/07/23 05:39 Nucleated RBC % (auto) 0 % 03/07/23 05:39 Nucleated RBCs # 0.0 /100WBC 03/07/23 05:39 PT 20.70 SECONDS (12.1-14.9) H 03/05/23 15:38 INR 1.71 (0.8-1.2) H 03/05/23 15:38 APTT 37.0 SECONDS (23.9-36.7) H 03/05/23 15:38 Sodium 131 mmol/L (136-145) L 03/07/23 05:39 Potassium 4.4 mmol/L (3.5-5.1) 03/07/23 05:39 Chloride 96 mmol/L (98-107) L 03/07/23 05:39 Carbon Dioxide 23 mmol/L (22-29) 03/07/23 05:39 Anion Gap 16.4 (5-19) 03/07/23 05:39 BUN 21 mg/dL (8-23) 03/07/23 05:39 Creatinine 0.7 mg/dL (0.5-0.9) 03/07/23 05:39 GFR Calculation Not Reportable 03/07/23 05:39 Glucose 131 mg/dL (65-115) H 03/07/23 05:39 POC Glucose 129 mg/dL (70-110) H 03/07/23 06:24 Calculated Osmolality 277 mOsm/kg (285-295) L 03/07/23 05:39 Calcium 8.8 mg/dL (8.5-10.5) 03/07/23 05:39 Phosphorus 3.6 mg/dL (2.5-4.5) 03/07/23 05:39 Magnesium 2.0 mg/dL (1.7-2.3) 03/07/23 05:39 Iron 19 ug/dL (37-145) L 03/05/23 20:35 TIBC 302 mcg/dl 03/05/23 20:35 % Saturation 6.2 % (20-50) L 03/05/23 20:35 Unsat Iron Binding 283 ug/dL (112-347) 03/05/23 20:35 Ferritin 133 ng/mL (15-150) 03/05/23 20:35 Total Bilirubin 0.6 mg/dL (0.15-1.2) 03/07/23 05:39 AST 19 U/L (0-32) 03/07/23 05:39 ALT 9 U/L (0-33) 03/07/23 05:39 Alkaline Phosphatase 115 U/L (35-105) H 03/07/23 05:39 Total Protein 6.2 g/dL (6.6-8.7) L 03/07/23 05:39 Albumin 2.7 g/dL (3.5-5.2) L 03/07/23 05:39 Globulin 3.5 g/dL (1.3-4.6) 03/07/23 05:39 Triglycerides 89 mg/dL (0-150) 03/05/23 15:38 Triglycerides Cancelled 03/05/23 15:38 Lipase 14 U/L (13-60) 03/05/23 15:38 Procalcitonin 0.09 ng/mL (0-0.5) 03/05/23 20:35 Urine Color Yellow (Yellow) 03/05/23 16:56 Urine Appearance Cloudy (CLEAR) A 03/05/23 16:56 Urine pH 5 (5-7) 03/05/23 16:56 Ur Specific [place] 1.015 (1.005-1.030) 03/05/23 16:56 Urine Protein Neg (Negative) 03/05/23 16:56 Urine Glucose (UA) Norm (Normal) 03/05/23 16:56 Urine Ketones Negative (Negative) 03/05/23 16:56 Urine Blood 3+ (Negative) H 03/05/23 16:56 Urine Nitrate Negative (Negative) 03/05/23 16:56 Urine Bilirubin Neg (Negative) 03/05/23 16:56 Urine Urobilinogen Norm mg/dL (Negative) 03/05/23 16:56 Ur Leukocyte Esterase Negative (Negative) 03/05/23 16:56 Urine RBC 40-50 /hpf (0-2) H 03/05/23 16:56 Urine WBC 0-4 /hpf (0-5) H 03/05/23 16:56 Ur Squamous Epith Cells 0-4 /hpf (0-5) H 03/05/23 16:56 Amorphous Sediment Trace /hpf 03/05/23 16:56 Urine Bacteria Trace /hpf (NONE) 03/05/23 16:56 Hyaline Casts 0-4 /lpf H 03/05/23 16:56 Urine Mucus 1+ /hpf 03/05/23 16:56 Vitals Last Vital Signs Temp 98.9 F 03/07/23 07:24 Pulse 92 03/07/23 08:31 Resp 18 03/07/23 08:31 BP 96/59 03/07/23 07:24 Pulse Ox 97 03/07/23 08:31 O2 Del Method Nasal Cannula 03/07/23 08:31 O2 Flow Rate 3 03/07/23 08:31 Discharge Plan Discharge Patient Disposition: Xfer SNF Condition: Stable Prescriptions: New pantoprazole 40 mg tablet,delayed release (DR/EC) 40 mg PO BID 30 Days Qty: 60 1RF Continued albuterol sulfate [Ventolin HFA] 90 mcg/actuation HFA aerosol inhaler 2 puff INHALATION Q6H PRN (Reason: Shortness Of Breath) aspirin [Adult Aspirin Regimen] 81 mg tablet,delayed release (DR/EC) 81 mg PO DAILY@08 pravastatin 80 mg tablet 80 mg PO BEDTIME@20 tramadol 50 mg tablet 100 mg PO BID@08,20 fluticasone propionate [Flonase Allergy Relief] 50 mcg/actuation spray,suspension 2 spray INTRANASAL DAILY@08 Rx Instructions: administer into each nostril Combigan 0.2-0.5 % drops 1 drop ophthalmic (eye) BID@08,20 Rx Instructions: right eye calcium carbonate [Calcium 600] 600 mg calcium (1,500 mg) tablet 600 mg PO DAILY@08 travoprost [Travatan Z] 0.004 % drops 1 drop ophthalmic (eye) DAILY@08 Rx Instructions: left eye budesonide-formoterol [Symbicort] 80-4.5 mcg/actuation HFA aerosol inhaler 2 puff inhalation Q12H Qty: 30.6 6RF Rx Instructions: @08:00,20:00 acetaminophen [Tylenol] 325 mg Tablet 650 mg PO Q6H PRN (Reason: Pain) venlafaxine [Effexor XR] 75 mg Capsule,Extended Release 24hr 75 mg PO DAILY@08 magnesium hydroxide [Milk of Magnesia] 400 mg/5 mL Suspension 30 ml PO .IF NO BM IN 3 DAYS PRN (Reason: Constipation) bisacodyl [Dulcolax (bisacodyl)] 10 mg Suppository 10 mg ID DAILY PRN (Reason: if no results from mom) bisacodyl [Dulcolax (bisacodyl)] 5 mg Tablet,Delayed Release (Dr/Ec) 10 mg PO DAILY PRN (Reason: if no results from mom) mupirocin 2 % Ointment See Rx Instructions .ROUTE .COMPLEX Rx Instructions: as directed cleanse rash to chest with soap and water and apply q shift bid till healed then dc nystatin [Nyamyc] 100,000 unit/gram powder 1 applic topical BID@,18 Rx Instructions: apply to skin folds and both breasts metformin 500 mg tablet extended release 24 hr 500 mg PO BEDTIME@20 tizanidine 2 mg Capsule 2 mg PO BID PRN (Reason: Muscle Pain) diclofenac sodium 1 % Gel 2 g TOPICAL QID PRN (Reason: Pain) Rx Instructions: apply to single elbow, wrist or hand; for hand includes palm/fingers/back of hand ascorbic acid (vitamin C) [Vitamin C] 250 mg Tablet 250 mg PO DAILY@08 spironolactone 100 mg tablet 100 mg PO DAILY furosemide 80 mg tablet 80 mg PO DAILY Held Eliquis 5 mg tablet 5 mg PO BID Hold Instructions: Resume on 03/26/23. Hold until evaluation by general surgery for colonoscopy consideration for microcytic anemia. Discontinued Tradjenta 5 mg tablet 5 mg PO DAILY@08 omeprazole 40 mg capsule,delayed release(DR/EC) 40 mg PO DAILY@08 Discharge Orders: Discharge Order (Routine); Ordered 03/07/23 Ordered By: Joaquin Avila Referrals: [facility] [Provider Group] - 4-7 days (Colonoscopy evaluation for microcytic anemia. We have notified your physician's clinic of the need for a follow-up appointment to be scheduled. If you have not heard from them within the next 2 business days, please call them directly. You may also reach out to our human resources office manager at [phone] and she can assist you.) Torsten Manrique [Referring] - (We have notified your physician's clinic of the need for a follow-up appointment to be scheduled. If you have not heard from them within the next 2 business days, please call them directly. You may also reach out to our human resources office manager at [phone] and she can assist you.) Madhu Stern MD [Primary Care Provider] - 4-7 days Discharge Diet: Advance as tolerated and Usual diet Discharge Activity: Resume usual activity and Increase activity as tolerated Activity Restrictions/Additional Instructions: 1. Increase activity as tolerated. 2. Take medications as prescribed. 3. Follow up with general surgery for colonoscopy evaluation. 4. Monitor color and consistency of bowel movements. Discharge Attestations Time Spent in Discharge Care*: greater than 30 min Quality Metrics Clinical Quality Measures [ No reported AMI, CVA or VTE this stay] Coding Level of Care Code Acute Code for Chg Fwd Diagnoses Altered mental status R41.82 Microcytic anemia D50.9 Pancreatitis K85.90 Type 2 diabetes mellitus E11.9 Atrial fibrillation I48.91 Chronic respiratory failure with hypoxia J96.11 HTN (hypertension) I10 COPD (chronic obstructive pulmonary disease) J44.9 Hydronephrosis N13.30
[2023-03-07] MEDS: venlafaxine ER (24HR) 75 mg Capsule PO (09:57)
[2023-03-07] MEDS: pantoprazole DR 40 mg Tablet PO (09:58)
[2023-03-07 10:37] LABS: LAB Peripheral Smear Sent for Review
--- NOTE | 2023-03-07 11:01 | PC.NURSE ---
Patient only has Medicare insurance. [facility] called and trip set up. Trip #[id number] and has a three hour window. [id number] is the time limit.
[2023-03-07 11:06] LABS: Glucose Point of Care 161 mg/dL (70-110)
[2023-03-07 11:23] LABS: SARS Covid-2 Antigen negative (Negative)
[2023-03-07 11:24] VITALS: BP 106/65; PULSE 88; RESP 16; TEMP 37.3; O2SAT 96
== END 2023-03-07 12:17 | disposition skilled nursing facility (03) ==
LOC: ER 16:00 → MEDSURG 19:15
PROVIDERS: Admitting Provider Internal Medicine; Emergency Provider Family Medicine; PCP Family Medicine; Visit Provider Internal Medicine
DX: R41.82 Altered mental status, unspecified (principal); D50.9 Iron deficiency anemia, unspecified; K85.90 Acute pancreatitis without necrosis or infection, unspecified; I48.91 Unspecified atrial fibrillation; J96.11 Chronic respiratory failure with hypoxia; J44.9 Chronic obstructive pulmonary disease, unspecified; E11.22 Type 2 diabetes mellitus with diabetic chronic kidney disease; I12.9 Hypertensive chronic kidney disease with stage 1 through stage 4 chronic kidney disease, or unspecified chronic kidney disease; N13.30 Unspecified hydronephrosis; I25.10 Atherosclerotic heart disease of native coronary artery without angina pectoris; K21.9 Gastro-esophageal reflux disease without esophagitis; G47.33 Obstructive sleep apnea (adult) (pediatric); Z79.01 Long term (current) use of anticoagulants
CPT/HCPCS: 36415; 36416; 51702; 70450; 71045; 74176; 80053; 80503; 81001; 82728; 82962; 83540; 83550; 83690; 83735; 84100; 84145; 84478; 85025; 85610; 85730; 87040; 87077; 87086; 87150; 87186; 87205; 87426; 93005; 96372; 99285; G0378; J1756; J1815; J3475; J7030

== ENCOUNTER 2023-04-12 14:57 | Emergency (ER) | payer MEDICARE, MEDICAID, SELFPAY ==
[2023-04-12 15:00] VITALS: BP 98/53; PULSE 78; TEMP 36.7; O2SAT 100; BMI 41.4
--- NOTE | 2023-04-12 15:01 | CTR_ITS ---
PROCEDURE INFORMATION: Exam: CT Head Without Contrast Exam date and time: 04/12/2023 3:25 PM Age: 83 years old Clinical indication: Altered mental status/memory loss; Additional info: AMS TECHNIQUE: Imaging protocol: Computed tomography of the head without contrast. Radiation optimization: All CT scans at this facility use at least one of these dose optimization techniques: automated exposure control; mA and/or kV adjustment per patient size (includes targeted exams where dose is matched to clinical indication); or iterative reconstruction. REPORTING DATA: Count of CT and Cardiac NM exams in prior 12 months: This patient has received 5 known CTs and 0 known cardiac nuclear medicine studies in the 12 months prior to the current study. COMPARISON: CT head wo con* [id number] 03/05/2023 4:33 PM RADIATION DOSE METRICS: Total DLP (mGy-cm): 1024.88 FINDINGS: Brain: No hemorrhage. Chronic white matter and senescent changes. Cerebral ventricles: No ventriculomegaly. Paranasal sinuses: minimal mucosal thickening and/or retention cyst formation. Mastoid air cells: No mastoid effusion. Bones/joints: No acute findings. Soft tissues: No acute findings. CT/CT head wo con* [id number] IMPRESSION: No acute intracranial abnormality.
--- NOTE | 2023-04-12 15:01 | XRR_ITS ---
PROCEDURE INFORMATION: Exam: XR Chest Exam date and time: 04/12/2023 3:15 PM Age: 83 years old Clinical indication: Other: AMS TECHNIQUE: Imaging protocol: Radiologic exam of the chest. Views: 1 view. COMPARISON: CR (CHEST, ) 03/05/2023 5:56 PM FINDINGS: Lungs: No focal consolidation. Pleural spaces: No pleural effusion. No pneumothorax. Heart/Mediastinum: No cardiomegaly. Bones/joints: No acute findings. XR/XR chest 1V portable [id number] IMPRESSION: No acute findings.
--- NOTE | 2023-04-12 15:08 | ECG_ITS ---
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 Measurements Intervals [place] Rate: 74 P: 0 ME: 0 QRS: -11 QRSD: 89 T: 122 QT: 423 QTc: 470 Interpretive Statements ATRIAL FIBRILLATION LOW QRS VOLTAGE IN PRECORDIAL LEADS [QRS DEFLECTION < 1.0 mV IN CHEST LEADS] POSSIBLE ANTERIOR MYOCARDIAL INFARCTION , PROBABLY OLD [30 ms Q WAVE IN V3/V4, OR R < 0.2 mV IN V4] ABNORMAL RHYTHM ECG Compared to ECG 03/05/2023 15:49:24 No significant changes Electronically Signed On 04-12-2023 19:45:33 ALLERGIST by Omkar Dunn M.D. [id number]
--- NOTE | 2023-04-12 15:08 | ED_ITS ---
HPI - Altered Mental Status 2 General: Chief Complaint: Altered Mental Status Stated Complaint: AMS Time Seen by Provider: 04/12/23 14:57 Source: patient and EMS Mode of arrival: EMS History of Present Illness: 83-year-old female history of CHF along with A-fib is here from local skilled nursing. Per EMS patient had some confusion at the skilled nursing was seeing things outside her window that was not there and nursing staff was concerned she was hypotensive. Patient here now is awake alert answering questions appropriately knows where she is and the year. Patient denies any pain anywhere blood pressure currently is 98/53 Associated symptoms: Deny depression Review of Systems 2 Const: Denies: fever(s), chills, body aches or change in appetite ENMT: Denies: throat pain or dental pain Card: Denies: chest pain Resp: Denies: dyspnea GI: Denies: abdominal pain, nausea, vomiting or diarrhea Musc: Denies: neck pain or back pain Skin/Breast: Denies: rash Neuro: Reports: confusion Psych: Denies: depression PFSH ED 2 PFSH: Medical History Hydronephrosis Altered mental status Pancreatitis Microcytic anemia Mediastinal mass Multifocal pneumonia Morbid obesity Obesity hypoventilation syndrome COPD (chronic obstructive pulmonary disease) Atrial fibrillation Acute anemia Acute respiratory failure with hypoxia Bradycardia CHF (congestive heart failure) JACQUES (acute kidney injury) Dizziness Cardiomegaly Hypoxia Rhinosinusitis Obesity Asthma Chronic respiratory failure with hypoxia Asthma HTN (hypertension) GERD (gastroesophageal reflux disease) Cataracts, bilateral Glaucoma Type 2 diabetes mellitus Hyperlipidemia CAD (coronary artery disease) Goiter PAULA (obstructive sleep apnea) Surgical History Hx of tonsillectomy History of cholecystectomy History of hysterectomy History of knee replacement History of hip replacement, total H/O rotator cuff surgery H/O shoulder surgery H/O dilation and curettage Stented coronary artery Hx of cataract surgery Family History Father Myocardial infarction Mother Diabetes Social History Smoking and tobacco/nicotine status: never used tobacco/nicotine Second hand smoke exposure: Yes Alcohol intake: never Substance/Drug Use: never Lives independently: Yes Household members: family Marital status: Current occupational status: retired and disabled Do you think of yourself as: Straight/Heterosexual Current gender identity: Female Physical Exam 2 Const: COMMON NORMALS: patient oriented x3 HENMT: COMMON NORMALS: normocephalic and atraumatic HEAD & SCALP: n ormocephalic and atraumatic Neck/C-Spine: COMMON NORMALS: full ROM and supple Chest: COMMONS NORMALS: normal inspection of the chest and normal palpation of entire chest wall Resp: COMMON NORMALS: normal respiratory effort, No retractions, No use of accessory muscles and clear to auscultation bilaterally AUSCULTATION: clear to auscultation bilaterally Cardio: COMMON NORMALS: regular rate and No murmurs present (Cardio) RATE: regular rate RHYTHM: abnormal rhythm irregularly irregular GI: COMMON NORMALS: Normal to inspection, nondistended, normoactive bowel sounds present, Soft to palpation, non-tender and no masses PALPATION: Yes Soft to palpation Extremity: COMMON NORMALS: normal to inspection and full ROM Neuro: COMMON NORMALS: patient oriented x3, moves all extremities and no focal motor deficits Psych: COMMON NORMALS: mental status grossly normal, Normal thought process present and cooperative THOUGHT PROCESS: Normal thought process present Skin: COMMON NORMALS: no rashes or lesions noted and no wounds GENERAL SKIN EXAM: no rashes or lesions noted Course 2 Vital Signs: Vital signs: Vital Signs Temperature 98.1 F 04/12/23 15:00 Pulse Rate 78 04/12/23 15:00 Blood Pressure 83/59 04/12/23 16:04 Pulse Oximetry 100 04/12/23 15:00 Oxygen Delivery Me thod Nasal Cannula 04/12/23 15:00 Oxygen Flow Rate 4 04/12/23 15:00 MDM - Altered Mental Status Medical Decision Making Patient presents here with hypotension she has not had any altered mental status here she is answering all my questions appropriately knows the year and knows where she lives knows her medical history I did speak to her at length about treatment options she states that she is 85 years old and does not really want any other medical treatments at this time. I did discuss to her the option of hospice and what hospice means and she states she would like to go on hospice at this time as she does not want to be admitted to the hospital or receive any other care at this time we will discharge her back to the skilled nursing on hospice. Medical Records I reviewed the patient's medical records. Lab Data I reviewed the patient's lab results. 04/12/23 15:18 04/12/23 15:18 Radiology Impressions Chest X-Ray 04/12/23 15: IMPRESSION: No acute findings. Head CT 04/12/23 15: IMPRESSION: No acute intracranial abnormality. Laboratory Results WBC 11.08 10^3/uL (3.29-11.43) 04/12/23 15:18 RBC 5.01 10^6/uL (3.85-5.65) 04/12/23 15:18 Hgb 11.40 g/dL (11.27-16.99) 04/12/23 15:18 Hct 37.8 % (36-47) 04/12/23 15:18 MCV 75.4 fl (85-98) L 04/12/23 15:18 MCH 22.8 pg (27-33) L 04/12/23 15:18 MCHC 30.2 g/dL (30-55) 04/12/23 15:18 RDW 20.5 % (12.1-15.1) H 04/12/23 15:18 Plt Count 425 10^3/cmm (157-399) H 04/12/23 15:18 MPV 10.2 fL (7.4-10.4) 04/12/23 15:18 Neut % (Auto) 71.9 % 04/12/23 15:18 Lymph % (Auto) 15.3 % 04/12/23 15:18 [place] % (Auto) 10.3 % 04/12/23 15:18 Eos % (Auto) 1.5 % 04/12/23 15:18 Baso % (Auto) 0.5 % 04/12/23 15:18 Neut # (Auto) 7.97 10^3/uL (1.8-7.7) H 04/12/23 15:18 Lymph # (Auto) 1.7 10^3/uL (0.8-4.8) 04/12/23 15:18 [place] # (Auto) 1.1 10^3/uL (0.2-0.9) H 04/12/23 15:18 Eos # (Auto) 0.2 10^3/uL (0.0-0.8) 04/12/23 15:18 Baso # (Auto) 0.1 10^3/uL (0.0-0.1) 04/12/23 15:18 Nucleated RBC % (auto) 0 % 04/12/23 15:18 Nucleated RBCs # 0.0 /100WBC 04/12/23 15:18 PT 27.70 SECONDS (12.1-14.9) H 04/12/23 15:18 INR 2.47 (0.8-1.2) H 04/12/23 15:18 Sodium 127 mmol/L (136-145) L 04/12/23 15:18 Potassium 5.0 mmol/L (3.5-5.1) 04/12/23 15:18 Chloride 89 mmol/L (98-107) L 04/12/23 15:18 Carbon Dioxide 27 mmol/L (22-29) 04/12/23 15:18 Anion Gap 16.0 (5-19) 04/12/23 15:18 BUN 70 mg/dL (8-23) H 04/12/23 15:18 Creatinine 2.2 mg/dL (0.5-0.9) H 04/12/23 15:18 GFR Calculation Not Reportable 04/12/23 15:18 Glucose 121 mg/dL (65-115) H 04/12/23 15:18 POC Glucose 126 mg/dL (70-110) H 04/12/23 15:22 Calculated Osmolality 286 mOsm/kg (285-295) 04/12/23 15:18 Lactic Acid 1.5 mmol/L (0.5-2.2) 04/12/23 15:18 Calcium 9.1 mg/dL (8.5-10.5) 04/12/23 15:18 Magnesium 1.9 mg/dL (1.7-2.3) 04/12/23 15:18 Total Bilirubin 0.5 mg/dL (0.15-1.2) 04/12/23 15:18 AST 13 U/L (0-32) 04/12/23 15:18 ALT 10 U/L (0-33) 04/12/23 15:18 Alkaline Phosphatase 175 U/L (35-105) H 04/12/23 15:18 NT-Pro-B Natriuret Pep 2034 pg/mL (0-450) H 04/12/23 15:18 Total Protein 7.1 g/dL (6.6-8.7) 04/12/23 15:18 Albumin 3.4 g/dL (3.5-5.2) L 04/12/23 15:18 Globulin 3.7 g/dL (1.3-4.6) 04/12/23 15:18 Lipase 27 U/L (13-60) 04/12/23 15:18 Urine Color Yellow (Yellow) 04/12/23 15:26 Urine Appearance Cloudy (CLEAR) A 04/12/23 15:26 Urine pH 5 (5-7) 04/12/23 15:26 Ur Specific [place] 1.020 (1.005-1.030) 04/12/23 15:26 Urine Protein Trace (Negative) 04/12/23 15:26 Urine Glucose (UA) Norm (Normal) 04/12/23 15:26 Urine Ketones Negative (Negative) 04/12/23 15:26 Urine Blood 3+ (Negative) H 04/12/23 15:26 Urine Nitrate Negative (Negative) 04/12/23 15:26 Urine Bilirubin 1+ (Negative) H 04/12/23 15:26 Urine Urobilinogen Norm mg/dL (Negative) 04/12/23 15:26 Ur Leukocyte Esterase Trace (Negative) H 04/12/23 15:26 Urine RBC 10-15 /hpf (0-2) H 04/12/23 15:26 Urine WBC 5-10 /hpf (0-5) H 04/12/23 15:26 Ur Squamous Epith Cells 10-15 /hpf (0-5) H 04/12/23 15:26 Amorphous Sediment Not Reportable 04/12/23 15:26 Urine Bacteria 2+ /hpf (NONE) H 04/12/23 15:26 All radiology interpretation(s) finalized by discharge EKG Data EKG 1: I personally reviewed and interpreted this EKG as follows: EKG interpretation date: 04/12/23 EKG interpretation time: 15:08 Interpretation: afib hr [address] or t wave abnormalities qrs 89 qtc 450 Discharge Plan Discharge Patient Disposition: Home Clinical Impression: Hypotension, Acute kidney injury Condition: Stable Prescriptions: No Action albuterol sulfate [Ventolin HFA] 90 mcg/actuation HFA aerosol inhaler 2 puff INHALATION Q6H PRN (Reason: Shortness Of Breath) aspirin [Adult Aspirin Regimen] 81 mg tablet,delayed release (DR/EC) 81 mg PO DAILY@08 pravastatin 80 mg tablet 80 mg PO BEDTIME@20 tramadol 50 mg tablet 100 mg PO BID@08,20 fluticasone propionate [Flonase Allergy Relief] 50 mcg/actuation spray,suspension 2 spray INTRANASAL DAILY@08 Rx Instructions: administer into each nostril Combigan 0.2-0.5 % drops 1 drop ophthalmic (eye) BID@08,20 Rx Instructions: right eye calcium carbonate [Calcium 600] 600 mg calcium (1,500 mg) tablet 600 mg PO DAILY@08 travoprost [Travatan Z] 0.004 % drops 1 drop ophthalmic (eye) DAILY@08 Rx Instructions: left eye budesonide-formoterol [Symbicort] 80-4.5 mcg/actuation HFA aerosol inhaler 2 puff inhalation Q12H Qty: 30.6 6RF Rx Instructions: @08:00,20:00 acetaminophen [Tylenol] 325 mg Tablet 650 mg PO Q6H PRN (Reason: Pain) venlafaxine [Effexor XR] 75 mg Capsule,Extended Release 24hr 75 mg PO DAILY@08 magnesium hydroxide [Milk of Magnesia] 400 mg/5 mL Suspension 30 ml PO .IF NO BM IN 3 DAYS PRN (Reason: Constipation) bisacodyl [Dulcolax (bisacodyl)] 10 mg Suppository 10 mg [place] DAILY PRN (Reason: if no results from mom) bisacodyl [Dulcolax (bisacodyl)] 5 mg Tablet,Delayed Release (Dr/Ec) 10 mg PO DAILY PRN (Reason: if no results from mom) mupirocin 2 % Ointment See Rx Instructions .ROUTE .COMPLEX Rx Instructions: as directed cleanse rash to chest with soap and water and apply q shift bid till healed then dc nystatin [Nyamyc] 100,000 unit/gram powder 1 applic topical BID@06,18 Rx Instructions: apply to skin folds and both breasts metformin 500 mg tablet extended release 24 hr 500 mg PO BEDTIME@20 tizanidine 2 mg Capsule 2 mg PO BID PRN (Reason: Muscle Pain) diclofenac sodium 1 % Gel 2 g TOPICAL QID PRN (Reason: Pain) Rx Instructions: apply to single elbow, wrist or hand; for hand includes palm/fingers/back of hand ascorbic acid (vitamin C) [Vitamin C] 250 mg Tablet 250 mg PO DAILY@08 spironolactone 100 mg tablet 100 mg PO DAILY furosemide 80 mg tablet 80 mg PO DAILY Eliquis 5 mg tablet 5 mg PO BID Hold Instructions: Resume on 03/26/23. Hold until evaluation by general surgery for colonoscopy consideration for microcytic anemia. pantoprazole 40 mg tablet,delayed release (DR/EC) 40 mg PO BID 30 Days Qty: 60 1RF Discharge Orders: Discharge ED (Routine); Ordered 04/12/23 Ordered By: Toby Cade Referrals: Madhu Stern MD [Primary Care Provider] - 1-3 days Discharge Diet: Advance as tolerated Discharge Activity: Resume usual activity Patient Instructions: Hypotension (ED) Coding Level of Care Code ED Automation [employer] for [facility]
[2023-04-12 15:27] VITALS: BP 100/61
[2023-04-12 15:27] LABS: Glucose Point of Care 126 mg/dL (70-110)
--- NOTE | 2023-04-12 15:27 | PC.NURSE ---
pts blood glucose 126 via finger stick. pt has hx of COPD and CHF, pt wears 4L NC at all times at home.
[2023-04-12 15:33] LABS: Basophils # 0.1 10^3/uL (0.0-0.1); Basophils % 0.5 %; Eosinophils # 0.2 10^3/uL (0.0-0.8); Eosinophils % 1.5 %; Hematocrit 37.8 % (36-47); Lymphocytes # 1.7 10^3/uL (0.8-4.8); Lymphocytes % 15.3 %; Mean Corpuscular HGB Conc 30.2 g/dL (30-55); Mean Corpuscular Hemoglobin 22.8 pg (27-33); Mean Corpuscular Volume 75.4 fl (85-98); Mean Platelet Volume 10.2 fL (7.4-10.4); Monocytes # 1.1 10^3/uL (0.2-0.9); Monocytes % 10.3 %; Neutrophils # 7.97 10^3/uL (1.8-7.7); Neutrophils % 71.9 %; Nucleated Red Blood Cells % 0 %; Platelet Count 425 10^3/cmm (157-399); Red Blood Count 5.01 10^6/uL (3.85-5.65); Red Cell Distribution Width 20.5 % (12.1-15.1); White Blood Count 11.08 10^3/uL (3.29-11.43)
[2023-04-12 15:44] LABS: INR 2.47 (0.8-1.2)
[2023-04-12 15:49] LABS: Lactic Sepsis W/Reflex 1.5 mmol/L (0.5-2.2)
[2023-04-12] MEDS: sodium chloride 0.9% 1,000 ML 999 ML IV (15:49)
--- NOTE | 2023-04-12 15:49 | PC.NURSE ---
pts NC decreased to 2L, pt oxygen sat currently 96%. pt hypotensive. blood pressure currently 83/59. pt placed in trendelenburg and fluids currently running at 999mL/hr. ED physician notified.
[2023-04-12 16:00] LABS: Alanine Aminotransferase 10 U/L (0-33); Albumin Level 3.4 g/dL (3.5-5.2); Alkaline Phosphatase 175 U/L (35-105); Aspartate Amino Transferase 13 U/L (0-32); Blood Urea Nitrogen 70 mg/dL (8-23); Calcium 9.1 mg/dL (8.5-10.5); Carbon Dioxide 27 mmol/L (22-29); Chloride 89 mmol/L (98-107); Globulin 3.7 g/dL (1.3-4.6); Glucose 121 mg/dL (65-115); Lipase 27 U/L (13-60); Magnesium 1.9 mg/dL (1.7-2.3); NT Pro B Type Natriuretic Pept 2034 pg/mL (0-450); Osmolality Calculated 286 mOsm/kg (285-295); Sodium 127 mmol/L (136-145); Total Bilirubin 0.5 mg/dL (0.15-1.2); Total Protein 7.1 g/dL (6.6-8.7)
[2023-04-12 16:04] VITALS: BP 83/59
[2023-04-12 16:10] LABS: Urine Appearance Cloudy (CLEAR); Urine Color Yellow (Yellow); pH Urine 5 (5-7)
--- NOTE | 2023-04-12 16:10 | PC.NURSE ---
Addendum entered by Joanne Barnett RN 04/12/23 16:24: *Lesly, not Bairon Original Note: this nurse updated [facility]air[facility] from [facility] senior care.
[2023-04-12 16:11] LABS: Add Urine Culture? No; Add Urine Microscopic? YES; Bacteria Urine 2+ /hpf; Bilirubin Urine 1+ (Negative); Blood Urine 3+ (Negative); Glucose Urine UA Norm (Normal); Ketones Urine Negative (Negative); Leukocyte Esterase Urine Trace (Negative); Nitrate Urine Negative (Negative); Protein Urine Trace (Negative); Urobilinogen Urine Norm (Negative)
--- NOTE | 2023-04-12 16:21 | PC.NURSE ---
ED physician spoke with pt regarding treatment options, this nurse as witness. pt stated to ED physician that she would like to be placed on hospice care, this nurse notified [facility] staff, Amita, of pts wishes.
--- NOTE | 2023-04-12 16:32 | PC.NURSE ---
this nurse attempted report x3 times with no answer from [facility] staff
[2023-04-12 18:26] VITALS: O2SAT 92
[2023-04-12 22:42] VITALS: O2SAT 92
== END 2023-04-12 20:14 | disposition home or self-care (01) ==
PROVIDERS: Emergency Provider Emergency Medicine; PCP Family Medicine
DX: I95.9 Hypotension, unspecified (principal); N17.9 Acute kidney failure, unspecified; Z79.82 Long term (current) use of aspirin; Z79.84 Long term (current) use of oral hypoglycemic drugs; Z79.01 Long term (current) use of anticoagulants; Z77.22 Contact with and (suspected) exposure to environmental tobacco smoke (acute) (chronic); J44.9 Chronic obstructive pulmonary disease, unspecified; I11.0 Hypertensive heart disease with heart failure; I50.9 Heart failure, unspecified; E11.9 Type 2 diabetes mellitus without complications; E78.5 Hyperlipidemia, unspecified; I25.10 Atherosclerotic heart disease of native coronary artery without angina pectoris
CPT/HCPCS: 36416; 70450; 71045; 80053; 81001; 82962; 83605; 83690; 83735; 83880; 85025; 85610; 93005; 99285; J7030

== ENCOUNTER → 2023-04-28 09:34 | Outpatient (BNVA) | payer MEDICARE, MEDICAID, SELFPAY | PROVIDERS: PCP Family Medicine; Visit Provider Student in an Organized Health Care Education/Training Program | DX: M19.031 Primary osteoarthritis, right wrist | CPT/HCPCS: 73110; 99204 ==